=== PATIENT | male | born 1940 | race Caucasian/White ===

== ENCOUNTER 2018-08-02 20:57 | Inpatient (IN) | payer OTHER ==
--- NOTE | 2018-08-02 21:17 | PDOC ---
History of Present Illness - General Chief Complaint: Syncope/Near Syncope Stated Complaint: SYNCOPE Time Seen by Provider: 08/02/18 21:13 History Source: Patient, Family (daughter) Exam Limitations: Language Barrier - History of Present Illness Initial Comments: 08/02/18 22:18 Pt is a 78yo F with PMH of HTN, HLD, TIA BIBA s/p fall due to dizziness. Per daughter pt used the bathroom and felt dizzy when he was walking out. He fell to the floor (witness by ) and hurt his shoulder. He denies LOC and did not hit his head. Daughter was called and came over, she stated her father looked pale and was incoherent. He endorses dizziness and R shoulder pain. He denies chest pain, sob, abdominal pain, n/v/d, vision changes, tinnitus, fevers, chills , numbness, tingling, focal neurological deficits. PMD: Johnathan Card: Roxanne PMH: see hpi PSH: craniotomy Social: denies Meds: see med rec Allergies: nkda Past History - Past Medical History Allergies/Adverse Reactions: Allergies Allergy/AdvReac Type Severity Reaction Status Date / Time No Known Allergies Allergy Verified 08/02/18 21:12 Home Medications: Ambulatory Orders Amlodipine Besylate [Norvasc -] 5 mg PO BID 09/11/14 Aspirin [Aspirin EC] 81 mg PO BID 09/11/14 Aspirin/Dipyridamole [Aggrenox -] 1 combo PO BID 09/11/14 Folic Acid - 1 mg PO DAILY 09/11/14 Lisinopril [Prinivil -] 30 mg PO BID 09/11/14 Losartan Potassium [Cozaar] 50 mg PO BID 09/11/14 Pravastatin Sodium [Pravachol -] 40 mg PO HS 09/11/14 Tramadol HCl 0.5 tab PO QID PRN #10 tablet 06/04/15 Amlodipine Besylate [Norvasc -] 10 mg PO DAILY 03/13/18 Aspirin/Dipyridamole [Aggrenox -] 1 combo PO BID 03/13/18 Hydralazine HCl 25 mg PO BID 03/13/18 Hydrochlorothiazide [Hctz -] 12.5 mg PO DAILY 03/13/18 Metoprolol Tartrate 37.5 mg PO BID 03/13/18 Valsartan 320 mg PO DAILY 03/13/18 Anemia: No Asthma: No Cancer: No Cardiac Disorders: No CVA: Yes (2 TIAs) COPD: No CHF: No Dementia: Yes ("SLIGHT") Diabetes: No GI Disorders: No Disorders: No HTN: Yes Hypercholesterolemia: Yes Liver Disease: No Seizures: No Thyroid Disease: No - Surgical History Abdominal Surgery: No Appendectomy: No Cardiac Surgery: No Cholecystectomy: No Lung Surgery: No Neurologic Surgery: Yes (craheidiotomy 1965) Orthopedic Surgery: No - Suicide/Smoking/Psychosocial Hx Smoking History: Never smoked Have you smoked in the past 12 months: No Number of Cigarettes Smoked Daily: 0 Information on smoking cessation initiated: No Hx Alcohol Use: Yes (occasional) Drug/Substance Use Hx: No Substance Use Type: None Review of Systems - Review of Systems Constitutional: No: Chills, Fever, Loss of Appetite, Weakness HEENTM: No: Blurred Vision, Double Vision, Nose Congestion, Throat Pain Respiratory: No: Cough, Shortness of Breath Cardiac (ROS): No: Chest Pain, Irregular Heart Rate, Lightheadedness, Palpitations, Syncope ABD/GI: No: Blood Streaked Bowels, Constipated, Diarrhea, Nausea, Rectal Bleeding, Vomiting, Tarry Stools : No: Burning, Frequency, Flank Pain Musculoskeletal: No: Symptoms Reported Integumentary: No: Symptoms Reported Neurological: Yes: Dizziness. No: Headache, Numbness, Tingling, Tremors, Weakness *Physical Exam - Vital Signs Last Vital Signs Temp Pulse Resp BP Pulse Ox 98.1 F 82 17 140/63 97 08/02/18 20:57 08/02/18 20:57 08/02/18 20:57 08/02/18 20:57 08/02/18 20:57 - Physical Exam General Appearance: Yes: Nourished, Appropriately Dressed. No: Apparent Distress HEENT: positive: EOMI, JUANIS, Normal ENT Inspection, Other (ears full of wax) Neck: positive: Trachea midline, Supple. negative: Carotid bruit, Lymphadenopathy (R), Lymphadenopathy (L) Respiratory/Chest: positive: Lungs Clear, Normal Breath Sounds. negative: Crackles, Rales, Rhonchi, Stridor, Wheezing Cardiovascular: positive: Regular Rhythm, Regular Rate, S1, S2, Systolic Murmur. negative: Edema, JVD Vascular Pulses: Carotid (R): 2+, Carotid (L): 2+, Dorsalis-Pedis (R): 2+, Doralis-Pedis (L): 2+ Gastrointestinal/Abdominal: positive: Normal Bowel Sounds, Soft. negative: Distended, Guarding, Rebound, Tenderness, Hernia Musculoskeletal: negative: CVA Tenderness Extremity: positive: Normal Capillary Refill. negative: Pedal Edema, Swelling Integumentary: positive: Normal Color, Dry, Warm Neurologic: positive: electronic technologist II-XII NML intact, Fully Oriented, Alert, Normal Mood/ Affect, Normal Response, Motor Strength 5/5 Moderate Sedation - Procedure Monitoring Vital Signs: Procedure Monitoring Vital Signs Temperature 98.1 F 08/02/18 20:57 Pulse Rate 82 08/02/18 20:57 Respiratory Rate 17 08/02/18 20:57 Blood Pressure 140/63 08/02/18 20:57 O2 Sat by Pulse Oximetry (%) 97 08/02/18 20:57 ED Treatment Course - LABORATORY CBC & Chemistry Diagram: 08/02/18 21:28 08/02/18 21:28 Medical Decision Making - Medical Decision Making 08/02/18 22:21 Pt is a 78yo F with PMH of HTN, HLD, TIA BIBA s/p fall due to dizziness. Per daughter pt used the bathroom and felt dizzy when he was walking out. He fell to the floor (witness by ) and hurt his shoulder. He denies LOC and did not hit his head. Daughter was called and came over, she stated her father looked pale and was incoherent. He endorses dizziness and R shoulder pain. He denies chest pain, sob, abdominal pain, n/v/d, vision changes, tinnitus, fevers, chills , numbness, tingling, focal neurological deficits. Vitals: wnl PE: no neurological deficits, no cerebellar deficits. Systolic murmur ddx includesb ut not limited to cva/tia, acs, vertigo, acs, arrhythmia, metabolic/electrolyte disturbance -cbc, cmp, trop, coags, bnp ekg, cxr, ct head, shoulder xray -tylenol, meclizine CXR does not show acute changes. EKG: multiple t wave inversions in lateral leads (same to prior ekg of last year around march 2018). No new changes. Pt reports feeling better, no more dizziness. Pt daughter states pt seems at baseline. labs significant for Cr 1.9, BUN 22 and GFR 35 (was 1.4/1.5 before). BNP 5000. Spoke to Dr. Mann, recommended admission to tele. PT admitted. *DC/Admit/Observation/Transfer Diagnosis at time of Disposition: GUY (acute kidney injury) CHF (congestive heart failure) Qualifiers: Heart failure type: unspecified Heart failure chronicity: acute Qualified Code( s): I50.9 - Heart failure, unspecified - Discharge Dispostion Condition at time of disposition: Good Decision to Admit order: Yes - Referrals - Patient Instructions - Post Discharge Activity
[2018-08-02] MEDS ORDERED: MECLIZINE HCL 25 MG TABLET (FP) PO ONE (21:27)
[2018-08-02] MEDS ORDERED: MECLIZINE HCL 25 MG TABLET (FP) ONE (21:36)
[2018-08-02 21:37] LABS: BASO % 0.5 % (0-2.0); EOS % 0.4 % (0-4.5); HEMATOCRIT 40.4 % (35.4-49); LYMPH % 7.5 % (8-40); MCH 30.5 pg (25.7-33.7); MCHC 34.8 g/dl (32.0-35.9); MEAN CELL VOLUME 87.6 fl (80-96); MEAN PLT VOLUME 8.2 fl (7.5-11.1); MONO % 12.9 % (3.8-10.2); NEUT % 78.7 % (42.8-82.8); PLATELET COUNT 168 K/MM3 (134-434); RBC 4.61 M/mm3 (4.00-5.60); RDW 14.3 % (11.9-15.9); WHITE BLOOD COUNT 8.3 K/mm3 (4.0-10.0)
[2018-08-02] MEDS ORDERED: ACETAMINOPHEN 500 MG TABLET (FP) PO ONE (21:47)
[2018-08-02] MEDS ORDERED: ACETAMINOPHEN 325 MG TABLET (FP) ONE (21:56)
[2018-08-02 22:05] LABS: ALBUMIN 3.6 g/dl (3.4-5.0); ALK PHOS 78 U/L (45-117); ANION GAP 10 MMOL/L (8-16); BILIRUBIN,TOTAL 0.3 mg/dL (0.2-1); BLOOD UREA NITROGEN 31 mg/dL (7-18); CALCIUM 8.6 mg/dL (8.5-10.1); CHLORIDE 102 mmol/L (98-107); CO2 23 mmol/L (21-32); CREATININE 1.9 mg/dL (0.55-1.3); GLUCOSE,RANDOM 180 mg/dL (74-106); MAGNESIUM 2.2 mg/dL (1.8-2.4); POTASSIUM 3.6 mmol/L (3.5-5.1); SGOT/AST 20 U/L (15-37); SGPT/ALT 40 U/L (13-61); SODIUM 135 mmol/L (136-145); TOT PROT 6.4 g/dl (6.4-8.2)
--- NOTE | 2018-08-02 22:25 | PDOC ---
Attending Attestation - HPI HPI: Patient is a 78M with history of TIAx2, HTN, HLD, craniotomy s/p trauma in distant who presents s/p witnessed near syncopal fall after urinating earlier. Patients witnessed the incident. Patient states prior to the event it felt like everything was spinning. Patients daughter states her mother noted patient was pale in color when it first happened but now in the ED he is starting to perk up. He is also complaining of right shoulder pain, able to range it. Denies any headache, chest pain, shortness of breath, abdominal pain, nausea,or vomiting. 08/02/18 22:25 - Physicial Exam PE: GENERAL: Awake, alert, and fully oriented, in no acute distress HEAD: No signs of trauma EYES: PERRLA, EOMI, sclera anicteric, conjunctiva clear. No nystagmus. ENT: Ears blocked with cerumen, hearing grossly normal, nares patent, oropharynx clear without exudates. Moist mucosa NECK: Normal ROM, supple, no lymphadenopathy, JVD, or masses LUNGS: Breath sounds equal, clear to auscultation bilaterally. No wheezes, and no crackles HEART: Regular rate and rhythm, normal S1 and S2, systolic ejection murmor, no rubs or gallops ABDOMEN: Soft, nontender, normoactive bowel sounds, some gas noted. EXTREMITIES: Right shoulder tender and painful. No pitting edema. No cords, erythema, or tenderness NEUROLOGICAL: Cranial nerves II through XII grossly intact. Normal speech, normal gait SKIN: Warm, Dry, normal turgor, no rashes or lesions noted. <Leena Berg - Last Filed: 08/02/18 22:25> - Resident Resident Name: Lady Brand - ED Attending Attestation I have performed the following: I have examined & evaluated the patient, The case was reviewed & discussed with the resident, I agree w/resident's findings & plan, Exceptions are as noted - Medical Decision Making 08/02/18 23:19 Pt is admitted to telemetry unit/ <Amarilys Godinez - Last Filed: 08/02/18 23:19> Attestations - Attestations 08/02/18 22:29 Documentation prepared by Leena Berg, acting as medical chemist for Amarilys Godinez MD. <Leena Berg - Last Filed: 08/02/18 22:25>
[2018-08-02 22:27] LABS: INR 1.06 (0.83-1.09); PROTHROMBIN TIME (PATIENT) 12.5 SEC (9.7-13.0)
--- NOTE | 2018-08-03 09:11 | PN ---
Progress Note, Physician Chief Complaint: Well known to me from office and prior hospitalizations: In summary, his pertinent cardiac hx includes moderate , non-obstx CAD, Chronic HTN and prior strokes. He now presents with: " Pt is a 78yo F with PMH of HTN, HLD, TIA BIBA s/p fall due to dizziness. Per daughter pt used the bathroom and felt dizzy when he was walking out. He fell to the floor (witness by ) and hurt his shoulder. He denies LOC and did not hit his head. Daughter was called and came over, she stated her father looked pale and was incoherent. He endorses dizziness and R shoulder pain. He denies chest pain, sob, abdominal pain, n/v/d, vision changes, tinnitus, fevers, chills , numbness, tingling, focal neurological deficits. " Above HPI reviewed from ER records. On my hx, he denies chest pain or SOB. Denies palpitations. Denies LOC. History of Present Illness: ECG reviewed: NSR, left axis, LVH, NSST changes. - Current Medication List Current Medications: Active Medications Atorvastatin Calcium (Lipitor -) 20 mg PO HS LELAND Dipyridamole/Aspirin (Aggrenox -) 1 combo PO BID LELAND Hydralazine HCl (Apresoline -) 25 mg PO BID LELAND Hydrochlorothiazide (Hctz -) 12.5 mg PO DAILY LELAND Nifedipine (Procardia Xl -) 90 mg PO DAILY LELAND Spironolactone (Aldactone -) 25 mg PO DAILY LELAND - Objective Vital Signs: Vital Signs Temperature 97.0 F L 08/03/18 07:31 Pulse Rate 77 08/03/18 07:31 Respiratory Rate 18 08/03/18 07:31 Blood Pressure 155/92 08/03/18 07:31 O2 Sat by Pulse Oximetry (%) 95 08/03/18 07:31 Constitutional: Yes: No Distress, Calm Eyes: Yes: Conjunctiva Clear Cardiovascular: Yes: Regular Rate and Rhythm, Murmur (2/6 AUGIE RSB c/w with his hx moderate .) Respiratory: Yes: CTA Bilaterally (no wheezing or rales.) Gastrointestinal: Yes: Soft (NT) Edema: No Neurological: Yes: Alert, Oriented ...Motor Strength: WNL Labs: CBC, BMP 08/02/18 21:28 08/02/18 21:28 INR, PTT INR 1.06 (0.83-1.09) 08/02/18 21:28 Laboratory Tests 08/02/18 08/02/18 08/03/18 21:55 22:10 05:10 Creatine Kinase 54 Troponin I 0.03 0.02 B-Natriuretic Peptide 4925.9 H - ....Imaging Chest X-ray: Image Reviewed EKG: Image Reviewed (as above.) Problem List - Problems (1) Fall Code(s): W19.XXXA - UNSPECIFIED FALL, INITIAL ENCOUNTER (2) Aortic stenosis Code(s): I35.0 - NONRHEUMATIC AORTIC (VALVE) STENOSIS (3) Abnormal ECG Code(s): R94.31 - ABNORMAL ELECTROCARDIOGRAM [ECG] [EKG] (4) Hypertension Code(s): I10 - ESSENTIAL (PRIMARY) HYPERTENSION (5) Stroke Assessment/Plan: Chronic Code(s): I63.9 - CEREBRAL INFARCTION, UNSPECIFIED Qualifiers: Laterality of affected vessel: unspecified (6) ASHD (arteriosclerotic heart disease) Code(s): I25.10 - ATHSCL HEART DISEASE OF [place] CORONARY ARTERY W/O ANG PCTRS (7) Elevated brain natriuretic peptide (BNP) level Code(s): R79.89 - OTHER SPECIFIED ABNORMAL FINDINGS OF BLOOD CHEMISTRY (8) GUY (acute kidney injury) Code(s): N17.9 - ACUTE KIDNEY FAILURE, UNSPECIFIED Assessment/Plan IMP: Fall, r/o syncope Non-obstructive CAD Moderate Elevated BNP Abnl ECG--> chronic Chronic HTN Prior CVA REC: 1. Tele to r/o arrhythmia 2. Repeat echo to re-assess severity 3. Carotid US 4. Orthostatics. 5. Elevated BNP noted- in this case likely chronically elevated due to chronic valvular heart disease (Aortic Stenosis) and hypertensive heart disease/ LVH ( Chronic diastolic dysfx). Does not appear to be clinically volume overloaded. Will follow.
--- NOTE | 2018-08-03 09:35 | CON.NEURO ---
Consult Consult Specialty:: Jourdan Referred by:: Kayli - History of Present Illness History of Present Illness: this is a very pleasant 78-year-old right-handed Welsh speaking man with history of prior TIA high cholesterol presents to the emergency room being referred by his family status post fall what happens the patient was at his usual status of health until this morning when he became confused no chest pain or palpitation patient became pale fell on the floor no seizure-like activity patient came into the emergency room EKG was sinus rhythm. I interviewed the patient in the emergency room daughter was at the bedside. No recent travel no recent head trauma. Patient had similar but to a lesser extent episode with confusion and listeness and was evaluated by cardiology in the past. 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 injury in without neuro deficits) Cardio/Vascular: Yes: HTN, Hyperlipdemia - Past Surgical History Past Surgical History: Yes: Craniotomy - Alcohol/Substance Use Hx Alcohol Use: Yes (occasional) Number of Drinks Daily: 1 History of Substance Use: reports: None - Smoking History Smoking history: Never smoked Have you smoked in the past 12 months: No Aproximately how many cigarettes per day: 0 - Social History ADL: Independent History of Recent Travel: No Home Medications - Allergies Allergies/Adverse Reactions: Allergies Allergy/AdvReac Type Severity Reaction Status Date / Time No Known Allergies Allergy Verified 08/02/18 21:12 - Home Medications Home Medications: Ambulatory Orders Aspirin/Dipyridamole [Aggrenox -] 1 combo PO BID 03/13/18 Hydralazine HCl 25 mg PO BID 03/13/18 Atorvastatin Ca [Lipitor] 40 mg PO HS 08/03/18 Chlorthalidone 25 mg PO AM 08/03/18 Escitalopram Oxalate [Lexapro -] 5 mg PO HS 08/03/18 Labetalol HCl 100 mg PO DAILY 08/03/18 Nifedipine ER [Procardia Xl -] 90 mg PO DAILY 08/03/18 Spironolactone 25 mg PO DAILY 08/03/18 Family Disease History - Family Disease History Family History: Unable to Obtain Family Disease History: Heart Disease: Mother, Brother Review of Systems - Review of Systems Constitutional: reports: No Symptoms Eyes: reports: No Symptoms Neurological: reports: Headache, Incoordination, Numbness Physical Exam-Neuro Vital Signs: Vital Signs Temperature 97.0 F L 08/03/18 07:31 Pulse Rate 77 08/03/18 07:31 Respiratory Rate 18 08/03/18 07:31 Blood Pressure 155/92 08/03/18 07:31 O2 Sat by Pulse Oximetry (%) 95 08/03/18 07:31 Constitutional: Yes: Well Nourished Neck: Yes: WNL Cardiovascular: Yes: WNL Labs: CBC, BMP 08/02/18 21:28 08/02/18 21:28 INR, PTT INR 1.06 (0.83-1.09) 08/02/18 21:28 - Neuro Exam Level Of Consciousness: Yes: Oriented to Person, Oriented to Place, Oriented to Time Eyes: Yes: PERRLA Speech: WNL Dominant Hand: Right Cranial Nerves II-XII Intact: Yes Gag: Present DTR's: 1+ Left Bicep, 1+ Right Bicep, 1+ Left Brachioradialis, 1+ Right Brachioradialis Response to light touch: Normal Response to pain prick: Normal Response to temperature: Normal Motor Strength: 3/5: Left Arm, Right Arm, Left Leg, Right Leg Gait: Deferred Imaging - Results Cat Scan: Image Reviewed Problem List - Problems (1) Fall Assessment/Plan: mmost probably vasovagal syncope in man with history of prior TIA Cannot rule out cardiac arrhythmia Doubt this is a seizure 1. Seizure precautions. 2. Patient needs to stay and be monitored. 3. Follow-up with cardiology. 4. EEG. 5. Check orthostasis every shift. Code(s): W19.XXXA - UNSPECIFIED FALL, INITIAL ENCOUNTER
[2018-08-03] MEDS ORDERED: ACETAMINOPHEN 325 MG TABLET (FP) PO ONE (10:12)
[2018-08-03] MEDS ORDERED: ACETAMINOPHEN 325 MG TABLET (FP) ONE (11:32)
[2018-08-03] MEDS: SPIRONOLACTONE 25 MG TABLET (FP) PO SCH (12:36)
[2018-08-03] MEDS: LABETALOL HCL 100 MG TABLET (FP) PO SCH ×2 (12:37→22:28)
[2018-08-03] MEDS: hydrALAZINE HCL 25 MG TABLET (FP) PO SCH ×2 (12:37→22:28)
[2018-08-03] MEDS: ASPIRIN/DIPYRIDAMOLE 25 MG/200 MG CAPSULE (FP) PO SCH ×2 (12:37→22:27)
[2018-08-03] MEDS: NIFEdipine E.R. 90 MG TABLET (FP) PO SCH (12:37)
[2018-08-03] MEDS: HYDROCHLOROTHIAZIDE 12.5 MG CAPSULE (FP) PO SCH (12:37)
[2018-08-03] MEDS ORDERED: ALPRAZolam 2 MG TABLET PO ONE (12:52)
[2018-08-03] MEDS ORDERED: ALPRAZolam 0.25 MG TABLET PO ONE (12:52)
--- NOTE | 2018-08-03 13:17 | HP ---
Admitting History and Physical - Primary Care Physician PCP: Mio Duckworth (for Dr Mann) - Admission Chief Complaint: Fainting History of Present Illness: 78yo salvad[place] M with PMH of HTN, ASHD, aortic valve dz, past TIA who was BIBA s/p in home fall due to abrupt dizziness. Per daughter pt used the bathroom to urinate and felt dizzy when he was walking out. He fell to the floor (witness by ) and hurt his shoulder. He denies hitting head or LOC. Daughter was called and came over, she stated her father looked pale and was briefly incoherent but regained his usual status even before EMS arrived. The dizziness occured just once yesterday prior to falling down. He did not have any episodes prior to this, though daughter states that he does get "dizzy" for 1 hr after he takes his meds nearly every day. She also states that he does NOT always take his meds as Rx'd because of the they way they make him feel. The dizziness last only for about 1 hr, and then he goes about his usual routine. His last "fainting" episode was late in 2018 when he was admitted. In the aftermath, he' d been followed by his Java Swing Developer who was adjusting his cardiac meds to better control his elevated BP. He some R shoulder pain, where he struck when he fell, but otherwise he feels "okay". He denies chest pain, palpitations, sob , slurred speech, focal weakness, abdominal pain, n/v/d, vision changes, tinnitus, fevers, chills, numbness, tingling. He denied drinking excessively. Yesterday, he got upset regarding some personal issues, but was short lived. he is prone to getting easily upset. 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 (craniotomy for traumatic injury in 1959's without neuro deficits) Cardiovascular: Yes: Aortic Stenosis, HTN, Hyperlipdemia Renal/: Yes: Renal Inusuff Psych: Yes: Anxiety - Past Surgical History Past Surgical History: Yes: Craniotomy - Smoking History Smoking history: Never smoked Have you smoked in the past 12 months: No Aproximately how many cigarettes per day: 0 - Alcohol/Substance Use Hx Alcohol Use: Yes (occasional) Number of Drinks Daily: 1 History of Substance Use: reports: None - Social History Usual Living Arrangement: Yes: With Spouse ADL: Independent History of Recent Travel: No Home Medications - Allergies Allergies/Adverse Reactions: Allergies Allergy/AdvReac Type Severity Reaction Status Date / Time No Known Allergies Allergy Verified 08/02/18 21:12 - Home Medications Home Medications: Ambulatory Orders Aspirin/Dipyridamole [Aggrenox -] 1 combo PO BID 03/13/18 Hydralazine HCl 25 mg PO BID 03/13/18 Atorvastatin Ca [Lipitor] 40 mg PO HS 08/03/18 Chlorthalidone 25 mg PO AM 08/03/18 Escitalopram Oxalate [Lexapro -] 5 mg PO HS 08/03/18 Labetalol HCl 100 mg PO DAILY 08/03/18 Nifedipine ER [Procardia Xl -] 90 mg PO DAILY 08/03/18 Spironolactone 25 mg PO DAILY 08/03/18 Family Disease History - Family Disease History Family Disease History: Heart Disease: Mother, Brother Review of Systems - Review of Systems Constitutional: reports: No Symptoms Eyes: reports: No Symptoms HENT: reports: No Symptoms Neck: reports: No Symptoms Cardiovascular: reports: No Symptoms Respiratory: reports: No Symptoms Gastrointestinal: reports: No Symptoms Genitourinary: reports: No Symptoms Musculoskeletal: reports: Joint Pain (Rt shoulder) Integumentary: reports: No Symptoms Neurological: reports: No Symptoms Endocrine: reports: No Symptoms Hematology/Lymphatic: reports: No Symptoms Psychiatric: reports: Altered Sleep Pattern, Anxiety Physical Examination Vital Signs: Vital Signs Temperature 97.0 F L 08/03/18 07:31 Pulse Rate 81 08/03/18 11:32 Respiratory Rate 18 08/03/18 11:32 Blood Pressure 141/61 08/03/18 11:32 O2 Sat by Pulse Oximetry (%) 93 L 08/03/18 11:32 Findings/Remarks: skin--no acute lesions appreciated head--old Rt front surg scars eyes--midline; EOMI oral--no droop; oral structures & tongue all at midline neck--supple, no tenderness; no masses, nodes (+) bilat bruits vs Transm M lungs--grossly clear heart--RR 3/6 M transm to neck abd--grossly benign ext--trace dependent edema; no ischemic changes back--no spinal tenderness appreciated neuro--alert; fully alert and coherent; good eye contact; no motor/sens deficits ; no ataxia appreciated; no tremors, follows commands; cogn intact Labs: CBC, BMP 08/02/18 21:28 08/02/18 21:28 CBCD WBC 8.3 K/mm3 (4.0-10.0) 08/02/18 21:28 RBC 4.61 M/mm3 (4.00-5.60) 08/02/18 21:28 Hgb 14.0 GM/dL (11.7-16.9) 08/02/18 21:28 Hct 40.4 % (35.4-49) 08/02/18 21:28 MCV 87.6 fl (80-96) 08/02/18 21:28 MCHC 34.8 g/dl (32.0-35.9) 08/02/18 21:28 RDW 14.3 % (11.9-15.9) 08/02/18 21:28 Plt Count 168 K/MM3 (134-434) D 08/02/18 21:28 MPV 8.2 fl (7.5-11.1) 08/02/18 21:28 CMP Sodium 135 mmol/L (136-145) L 08/02/18 21:28 Potassium 3.6 mmol/L (3.5-5.1) 08/02/18 21:28 Chloride 102 mmol/L (98-107) 08/02/18 21:28 Carbon Dioxide 23 mmol/L (21-32) 08/02/18 21:28 Anion Gap 10 MMOL/L (8-16) 08/02/18 21:28 BUN 31 mg/dL (7-18) H 08/02/18 21:28 Creatinine 1.9 mg/dL (0.55-1.3) H 08/02/18 21:28 Creat Clearance w eGFR 34.55 (>60) 08/02/18 21:28 Random Glucose 180 mg/dL (74-106) H 08/02/18 21:28 Calcium 8.6 mg/dL (8.5-10.1) 08/02/18 21:28 Total Bilirubin 0.3 mg/dL (0.2-1) 08/02/18 21:28 AST 20 U/L (15-37) 08/02/18 21:28 ALT 40 U/L (13-61) 08/02/18 21:28 Alkaline Phosphatase 78 U/L (45-117) 08/02/18 21:28 Total Protein 6.4 g/dl (6.4-8.2) 08/02/18 21:28 Albumin 3.6 g/dl (3.4-5.0) 08/02/18 21:28 CARDIAC ENZYMES Creatine Kinase 55 U/L (26-308) 08/03/18 09:25 Troponin I 0.02 ng/ml (0.00-0.05) 08/03/18 09:25 Imaging - Results Chest X-ray: Report Reviewed X-ray: Report Reviewed Cat Scan: Report Reviewed EKG: Report Reviewed (lat wall T wave Inv (not new)) Assessment/Plan 1> syncopal episode--as described; post micturation. Could be micturation syncope and the presence of could have facilitated the syncopal event. Other possibilities include: arrhythmia (? type) which he did not display on monitor; TIA which he has had in the past but no post syncopal finding to suggest a CVA; doubt seizure or hypoglycemia PLAN: Monitor; cont all meds; orthstatic BP; Echo and Carotid duplex 2> Htn--with ASHD and valve dz; BP tends to run on high side and requires multiple agents for adequate control; BNP elevated near 5000 but trops are WNL. CXR shows enlarged heart with central marking but no definite CHF. he may have chronic diastolic dysf which can account for the high BNP 3> --degree not known; echo ordered 4> Lipidemia--cont statin 5> Hx of TIA--without gross residual effects; cont aggrenox 6> anxiety dz--chronic; will Rx prn xanax;may need SSRI 7> Rt shoulder contusion--no Xray evidence of Fx or gross derangement ~~~~~~~~~~~~~~~~~~~~~~~~~~~~~~~~~~~~~~~~ dr Duckworth
[2018-08-03] MEDS ORDERED: ACETAMINOPHEN WITH CODEINE 300MG/30MG TABLET PO PRN (17:05)
--- NOTE | 2018-08-03 17:29 | EKG ---
Test Reason : Blood Pressure : / mmHG Vent. Rate : 070 BPM Atrial Rate : 070 BPM P-R Int : 180 ms QRS Dur : 108 ms QT Int : 422 ms P-R-T Axes : 042 -30 184 degrees QTc Int : 455 ms SINUS RHYTHM WITH PREMATURE ATRIAL COMPLEXES POSSIBLE LEFT ATRIAL ENLARGEMENT LEFT AXIS DEVIATION LEFT VENTRICULAR HYPERTROPHY T WAVE ABNORMALITY, CONSIDER LATERAL ISCHEMIA ABNORMAL ECG WHEN COMPARED WITH ECG OF 02-AUG-2018 22:21, T WAVE VARIATION Confirmed by THEO DOWNS, HATTIE ([id number]) on 08/03/2018 5:29:18 PM Referred By: Confirmed By:HATTIE VENEGAS MD
--- NOTE | 2018-08-03 17:31 | EKG ---
Test Reason : Blood Pressure : / mmHG Vent. Rate : 078 BPM Atrial Rate : 078 BPM P-R Int : 180 ms QRS Dur : 106 ms QT Int : 418 ms P-R-T Axes : 044 -27 270 degrees QTc Int : 476 ms SINUS RHYTHM WITH PREMATURE SUPRAVENTRICULAR COMPLEXES POSSIBLE LEFT ATRIAL ENLARGEMENT LEFT VENTRICULAR HYPERTROPHY T WAVE ABNORMALITY, CONSIDER INFEROLATERAL ISCHEMIA PROLONGED QT ABNORMAL ECG WHEN COMPARED WITH ECG OF 15-FEB-2010 14:22, T WAVE INVERSION IS SEEN Confirmed by HATTIE VENEGAS MD ([id number]) on 08/03/2018 5:31:28 PM Referred By: Confirmed By:HATTIE VENEGAS MD
[2018-08-03] MEDS: ATORVASTATIN CA 20 MG TABLET (FP) PO SCH (22:28)
[2018-08-04 08:58] LABS: ANION GAP 9 MMOL/L (8-16); BLOOD UREA NITROGEN 35 mg/dL (7-18); CHLORIDE 103 mmol/L (98-107); CO2 25 mmol/L (21-32); CREATININE 1.9 mg/dL (0.55-1.3); GLUCOSE,RANDOM 87 mg/dL (74-106); POTASSIUM 3.3 mmol/L (3.5-5.1); SODIUM 136 mmol/L (136-145)
--- NOTE | 2018-08-04 08:59 | PN ---
Progress Note, Physician Chief Complaint: Alert, no complaints Going for EEG - Current Medication List Current Medications: Active Medications Acetaminophen/Codeine Phosphate (Tylenol # 3 -) 1 tab PO Q6H PRN PRN Reason: PAIN LEVEL 4 - 6 Last Admin: 08/03/18 17:23 Dose: 1 tab Alprazolam (Xanax -) 0.25 mg PO Q8H PRN PRN Reason: ANXIETY Atorvastatin Calcium (Lipitor -) 20 mg PO HS [facility] Last Admin: 08/03/18 22:28 Dose: 20 mg Dipyridamole/Aspirin (Aggrenox -) 1 combo PO BID [facility] Last Admin: 08/03/18 22:27 Dose: 1 combo Hydralazine HCl (Apresoline -) 25 mg PO BID [facility] Last Admin: 08/03/18 22:28 Dose: 25 mg Hydrochlorothiazide (Hctz -) 12.5 mg PO DAILY [facility] Last Admin: 08/03/18 12:37 Dose: 12.5 mg Labetalol HCl (Normodyne -) 100 mg PO BID [facility] Last Admin: 08/03/18 22:28 Dose: 100 mg Nifedipine (Procardia Xl -) 90 mg PO DAILY [facility] Last Admin: 08/03/18 12:37 Dose: 90 mg Spironolactone (Aldactone -) 25 mg PO DAILY [facility] Last Admin: 08/03/18 12:36 Dose: 25 mg - Objective Vital Signs: Vital Signs Temperature 98.4 F 08/04/18 02:00 Pulse Rate 81 08/04/18 07:00 Respiratory Rate 18 08/04/18 02:00 Blood Pressure 135/71 08/04/18 07:00 O2 Sat by Pulse Oximetry (%) 94 L 08/03/18 21:00 Constitutional: Yes: No Distress, Calm Eyes: Yes: Conjunctiva Clear, EOM Intact HENT: Yes: Atraumatic, Normocephalic, Other Neck: Yes: Supple Cardiovascular: Yes: Regular Rate and Rhythm, Other (2/6 AUGIE RSB c/w moderate ) Respiratory: Yes: CTA Bilaterally Gastrointestinal: Yes: Soft Edema: No Neurological: Yes: Alert, Oriented ...Motor Strength: WNL Labs: CBC, BMP 08/02/18 21:28 08/04/18 07:00 INR, PTT INR 1.06 (0.83-1.09) 08/02/18 21:28 Problem List - Problems (1) Fall Code(s): W19.XXXA - UNSPECIFIED FALL, INITIAL ENCOUNTER (2) Aortic stenosis Code(s): I35.0 - NONRHEUMATIC AORTIC (VALVE) STENOSIS (3) Abnormal ECG Code(s): R94.31 - ABNORMAL ELECTROCARDIOGRAM [ECG] [EKG] (4) Hypertension Code(s): I10 - ESSENTIAL (PRIMARY) HYPERTENSION (5) Stroke Code(s): I63.9 - CEREBRAL INFARCTION, UNSPECIFIED Qualifiers: Laterality of affected vessel: unspecified (6) ASHD (arteriosclerotic heart disease) Code(s): I25.10 - ATHSCL HEART DISEASE OF [place] CORONARY ARTERY W/O ANG PCTRS (7) Elevated brain natriuretic peptide (BNP) level Code(s): R79.89 - OTHER SPECIFIED ABNORMAL FINDINGS OF BLOOD CHEMISTRY (8) GUY (acute kidney injury) Code(s): N17.9 - ACUTE KIDNEY FAILURE, UNSPECIFIED Assessment/Plan IMP: Fall, r/o syncope 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 Holter to r/o arrhythmia 2. Repeat echo to re-assess severity 3. MRA Carotid to evaluate possible bilateral stenosis, assess severity. 4. Orthostatics. 5. Elevated BNP noted- in this case likely chronically elevated due to chronic valvular heart disease (Aortic Stenosis) and hypertensive heart disease/ LVH ( Chronic diastolic dysfx). Does not appear to be clinically volume overloaded. 6. EEG pending. Will follow.
[2018-08-04] MEDS ORDERED: POTASSIUM CHLORIDE TABS 20 MEQ TABLET.ER (FP) PO ONE (10:15)
[2018-08-04] MEDS: ASPIRIN/DIPYRIDAMOLE 25 MG/200 MG CAPSULE (FP) PO SCH ×2 (10:33→23:42)
[2018-08-04] MEDS: NIFEdipine E.R. 90 MG TABLET (FP) PO SCH (10:33)
[2018-08-04] MEDS: HYDROCHLOROTHIAZIDE 12.5 MG CAPSULE (FP) PO SCH (10:34)
[2018-08-04] MEDS: SPIRONOLACTONE 25 MG TABLET (FP) PO SCH (10:34)
[2018-08-04] MEDS: hydrALAZINE HCL 25 MG TABLET (FP) PO SCH ×2 (10:34→23:42)
[2018-08-04] MEDS: LABETALOL HCL 100 MG TABLET (FP) PO SCH ×2 (10:34→23:42)
--- NOTE | 2018-08-04 15:06 | PN ---
Progress Note (short form) - Note Progress Note: Current Medications Acetaminophen/Codeine Phosphate (Tylenol # 3 -) 1 tab PO Q6H PRN PRN Reason: PAIN LEVEL 4 - 6 Last Admin: 08/03/18 17:23 Dose: 1 tab Alprazolam (Xanax -) 0.25 mg PO Q8H PRN PRN Reason: ANXIETY Atorvastatin Calcium (Lipitor -) 20 mg PO HS [facility] Last Admin: 08/03/18 22:28 Dose: 20 mg Dipyridamole/Aspirin (Aggrenox -) 1 combo PO BID [facility] Last Admin: 08/04/18 10:33 Dose: 1 combo Hydralazine HCl (Apresoline -) 25 mg PO BID [facility] Last Admin: 08/04/18 10:34 Dose: 25 mg Hydrochlorothiazide (Hctz -) 12.5 mg PO DAILY [facility] Last Admin: 08/04/18 10:34 Dose: 12.5 mg Labetalol HCl (Normodyne -) 100 mg PO BID [facility] Last Admin: 08/04/18 10:34 Dose: 100 mg Nifedipine (Procardia Xl -) 90 mg PO DAILY [facility] Last Admin: 08/04/18 10:33 Dose: 90 mg Spironolactone (Aldactone -) 25 mg PO DAILY [facility] Last Admin: 08/04/18 10:34 Dose: 25 mg Laboratory Results - last 24 hr 08/03/18 08/04/18 08/04/18 16:44 06:30 07:00 ESR 13 Sodium Potassium Chloride Carbon Dioxide Anion Gap BUN Creatinine Creat Clearance w eGFR POC Glucometer 119 101 Random Glucose Hemoglobin A1c % Calcium Creatine Kinase Troponin I TSH 08/04/18 08/04/18 08/04/18 07:00 07:00 11:30 ESR Sodium 136 Potassium 3.3 L Chloride 103 Carbon Dioxide 25 Anion Gap 9 BUN 35 H Creatinine 1.9 H Creat Clearance w eGFR 34.55 POC Glucometer 170 Random Glucose 87 Hemoglobin A1c % 6.1 Calcium 8.0 L Creatine Kinase 51 Troponin I 0.04 TSH 3.06 D Vital Signs Temperature 98.2 F 08/04/18 10:00 Pulse Rate 81 08/04/18 10:00 Respiratory Rate 20 08/04/18 10:00 Blood Pressure 160/86 08/04/18 10:00 O2 Sat by Pulse Oximetry (%) 94 L 08/04/18 09:00 CC; Says he "feels" better ``````````````````````````` skin--NL color eyes--anicteric lungs--grossly clear heart--RR 3/6 M abd--soft, NT, ND ext--no appreciable edema in supine position neuro--alert, lucid, coherent ``````````````````````````` Summ > syncope--2nd significant carotid narrowing (as compared to study done 03/17) in conjunction with (degree to be re-assessed). Acute CVA or arrhythmia less likely causes. PLAN: MRA ordered; Vasc consult ordered > Htn--with CRI (stage 2); BP fluctuates. BP cannot be brought down too low due to and Carotid Dz. PLAN: d/c Hctz > Lipidemia--most recent levels not exorbitantly high on current dose of statin > Hyperglycemia--a1c is 6.1 making him a Pre-diabetic > Low Potassium--replenish as needed ~~~~~~~~~~~~~~~~~~~~~~~~~~~` Dr Duckworth PS: discussed case with daughter Gloria
--- NOTE | 2018-08-04 18:07 | CONSULT ---
Consult Consult Specialty:: Vascular Surgery Reason for Consultation:: Carotid stenosis - History of Present Illness History of Present Illness: 78 year old man with prior history of multiple episodes of transient ischemic attacks causing right arm and leg weakness and numbness as well as left facial droop became lightheaded and fell after using the bathroom. He denies any weakness with this episode but did fall onto his right side and injured his shoulder. He denies any residual weakness at this time. 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 injury in without neuro deficits) Cardio/Vascular: Yes: Aortic Stenosis, HTN, Hyperlipdemia Renal/: Yes: Renal Inusuff Psych: Yes: Anxiety - Past Surgical History Past Surgical History: Yes: Craniotomy - Alcohol/Substance Use Hx Alcohol Use: Yes (occasional uses wine) Number of Drinks Daily: 1 History of Substance Use: reports: None - Smoking History Smoking history: Never smoked Have you smoked in the past 12 months: No Aproximately how many cigarettes per day: 0 - Social History ADL: Independent History of Recent Travel: No Home Medications - Allergies Allergies/Adverse Reactions: Allergies Allergy/AdvReac Type Severity Reaction Status Date / Time No Known Allergies Allergy Verified 08/02/18 21:12 - Home Medications Home Medications: Ambulatory Orders Aspirin/Dipyridamole [Aggrenox -] 1 combo PO BID 03/13/18 Hydralazine HCl 25 mg PO BID 03/13/18 Atorvastatin Ca [Lipitor] 40 mg PO HS 08/03/18 Chlorthalidone 25 mg PO AM 08/03/18 Escitalopram Oxalate [Lexapro -] 5 mg PO HS 08/03/18 Labetalol HCl 100 mg PO DAILY 08/03/18 Nifedipine ER [Procardia Xl -] 90 mg PO DAILY 08/03/18 Spironolactone 25 mg PO DAILY 08/03/18 Family Disease History - Family Disease History Family Disease History: Heart Disease: Mother, Brother Physical Exam Vital Signs: Vital Signs Temperature 98.1 F 08/04/18 15:28 Pulse Rate 87 08/04/18 16:38 Respiratory Rate 18 08/04/18 15:28 Blood Pressure 163/88 08/04/18 16:38 O2 Sat by Pulse Oximetry (%) 94 L 08/04/18 09:00 Constitutional: Yes: No Distress Eyes: Yes: WNL, EOM Intact HENT: Yes: WNL Neck: Yes: Supple Cardiovascular: Yes: Regular Rate and Rhythm Respiratory: Yes: Regular Gastrointestinal: Yes: Soft Edema: No Neurological: Yes: Alert, Oriented ...Motor Strength: WNL Labs: CBC, BMP 08/02/18 21:28 08/04/18 07:00 Imaging - Results Ultrasound: Other (Carotid Duplex reviewed: Left ICA PSV 275 cm/sec, PDV 108 cm/ sec, ICA:CCA 2.9) Problem List - Problems (1) Carotid stenosis, 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 The carotid Duplex from Feb showed no evidence for a significant stenosis on the left side. The last MRI of the brain in Feb 2018 did not show any infarct on the left. I have discussed the recommendation for carotid revascularization with the patient and his daughter. In this setting, > 70% stenosis with recurrent events while on medical therapy, I would strongly advise endarterectomy unless there are prohibitive cardiac risk factors. In that case, a transcarotid stent (TCAR) procedure would be indicated. I will follow up with Drs. Oliveira and Gucci to discuss after MR scan is read. Code(s): I65.29 - OCCLUSION AND STENOSIS OF UNSPECIFIED CAROTID ARTERY Qualifiers: Laterality: bilateral Qualified Code(s): I65.23 - Occlusion and stenosis of bilateral carotid arteries
[2018-08-04] MEDS: ATORVASTATIN CA 20 MG TABLET (FP) PO SCH (23:42)
--- NOTE | 2018-08-05 09:12 | PN ---
Progress Note, Physician Chief Complaint: Vascular input noted Awaiting MRA neck - Current Medication List Current Medications: Active Medications Acetaminophen/Codeine Phosphate (Tylenol # 3 -) 1 tab PO Q6H PRN PRN Reason: PAIN LEVEL 4 - 6 Last Admin: 08/03/18 17:23 Dose: 1 tab Alprazolam (Xanax -) 0.25 mg PO Q8H PRN PRN Reason: ANXIETY Atorvastatin Calcium (Lipitor -) 20 mg PO HS [facility] Last Admin: 08/04/18 23:42 Dose: 20 mg Dipyridamole/Aspirin (Aggrenox -) 1 combo PO BID [facility] Last Admin: 08/04/18 23:42 Dose: 1 combo Hydralazine HCl (Apresoline -) 25 mg PO BID [facility] Last Admin: 08/04/18 23:42 Dose: 25 mg Labetalol HCl (Normodyne -) 100 mg PO BID [facility] Last Admin: 08/04/18 23:42 Dose: 100 mg Nifedipine (Procardia Xl -) 90 mg PO DAILY [facility] Last Admin: 08/04/18 10:33 Dose: 90 mg Spironolactone (Aldactone -) 25 mg PO DAILY [facility] Last Admin: 08/04/18 10:34 Dose: 25 mg - Objective Vital Signs: Vital Signs Temperature 97.7 F 08/05/18 06:00 Pulse Rate 83 08/05/18 06:00 Respiratory Rate 18 08/04/18 21:00 Blood Pressure 153/64 08/05/18 06:00 O2 Sat by Pulse Oximetry (%) 94 L 08/04/18 21:00 Constitutional: Yes: No Distress, Calm Eyes: Yes: Conjunctiva Clear Cardiovascular: Yes: Regular Rate and Rhythm Respiratory: Yes: CTA Bilaterally Gastrointestinal: Yes: Soft (NT) Edema: No Neurological: Yes: Alert, Oriented Labs: CBC, BMP 08/02/18 21:28 08/04/18 07:00 INR, PTT INR 1.06 (0.83-1.09) 08/02/18 21:28 - ....Imaging EKG: Image Reviewed Problem List - Problems (1) Fall Code(s): W19.XXXA - UNSPECIFIED FALL, INITIAL ENCOUNTER (2) Aortic stenosis Code(s): I35.0 - NONRHEUMATIC AORTIC (VALVE) STENOSIS (3) Abnormal ECG Code(s): R94.31 - ABNORMAL ELECTROCARDIOGRAM [ECG] [EKG] (4) Hypertension Code(s): I10 - ESSENTIAL (PRIMARY) HYPERTENSION (5) Stroke Code(s): I63.9 - CEREBRAL INFARCTION, UNSPECIFIED Qualifiers: Laterality of affected vessel: unspecified (6) ASHD (arteriosclerotic heart disease) Code(s): I25.10 - ATHSCL HEART DISEASE OF [place] CORONARY ARTERY W/O ANG PCTRS (7) Elevated brain natriuretic peptide (BNP) level Code(s): R79.89 - OTHER SPECIFIED ABNORMAL FINDINGS OF BLOOD CHEMISTRY (8) GUY (acute kidney injury) Code(s): N17.9 - ACUTE KIDNEY FAILURE, UNSPECIFIED Assessment/Plan IMP: Fall, r/o syncope 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 Holter to r/o arrhythmia 2. Repeat echo to re-assess severity 3. MRA Carotid to evaluate possible bilateral stenosis, assess severity. 4. Orthostatics. 5. Elevated BNP noted- in this case likely chronically elevated due to chronic valvular heart disease (Aortic Stenosis) and hypertensive heart disease/ LVH ( Chronic diastolic dysfx). Does not appear to be clinically volume overloaded. 6. EEG pending. Further reccs re LICA stenosis pending review MRA. Will follow.
[2018-08-05] MEDS: ALPRAZolam 0.25 MG TABLET PO PRN (09:53)
[2018-08-05] MEDS: ASPIRIN/DIPYRIDAMOLE 25 MG/200 MG CAPSULE (FP) PO SCH ×2 (09:53→22:21)
[2018-08-05] MEDS: LABETALOL HCL 100 MG TABLET (FP) PO SCH ×2 (09:53→22:22)
[2018-08-05] MEDS: NIFEdipine E.R. 90 MG TABLET (FP) PO SCH (09:53)
[2018-08-05] MEDS: hydrALAZINE HCL 25 MG TABLET (FP) PO SCH ×2 (09:53→22:22)
[2018-08-05] MEDS: SPIRONOLACTONE 25 MG TABLET (FP) PO SCH (09:53)
[2018-08-05 12:59] LABS: ANION GAP 9 MMOL/L (8-16); BLOOD UREA NITROGEN 35 mg/dL (7-18); CALCIUM 8.3 mg/dL (8.5-10.1); CHLORIDE 103 mmol/L (98-107); CO2 24 mmol/L (21-32); CREATININE 1.9 mg/dL (0.55-1.3); GLUCOSE,RANDOM 102 mg/dL (74-106); POTASSIUM 3.9 mmol/L (3.5-5.1); SODIUM 136 mmol/L (136-145)
--- NOTE | 2018-08-05 14:33 | PN ---
Progress Note (short form) - Note Progress Note: Current Medications Alprazolam (Xanax -) 0.25 mg PO Q8H PRN PRN Reason: ANXIETY Last Admin: 08/05/18 09:53 Dose: 0.25 mg Atorvastatin Calcium (Lipitor -) 20 mg PO HS [facility] Last Admin: 08/04/18 23:42 Dose: 20 mg Dipyridamole/Aspirin (Aggrenox -) 1 combo PO BID [facility] Last Admin: 08/05/18 09:53 Dose: 1 combo Hydralazine HCl (Apresoline -) 25 mg PO BID [facility] Last Admin: 08/05/18 09:53 Dose: 25 mg Labetalol HCl (Normodyne -) 100 mg PO BID [facility] Last Admin: 08/05/18 09:53 Dose: 100 mg Nifedipine (Procardia Xl -) 60 mg PO DAILY [facility] Spironolactone (Aldactone -) 25 mg PO DAILY [facility] Last Admin: 08/05/18 09:53 Dose: 25 mg Laboratory Results - last 24 hr 08/05/18 08/05/18 07:04 12:05 Sodium 136 Potassium 3.9 Chloride 103 Carbon Dioxide 24 Anion Gap 9 BUN 35 H Creatinine 1.9 H Creat Clearance w eGFR 34.55 POC Glucometer 93 Random Glucose 102 Calcium 8.3 L Vital Signs Temperature 98.0 F 08/05/18 14:00 Pulse Rate 79 08/05/18 14:00 Respiratory Rate 18 08/05/18 14:00 Blood Pressure 132/60 08/05/18 14:00 O2 Sat by Pulse Oximetry (%) 97 08/05/18 09:30 CC; breif dizziness now resolved ``````````````````````````` skin--NL color eyes--anicteric lungs--grossly clear heart--RR 3/6 M abd--soft, NT, ND ext--no appreciable edema in supine position neuro--alert, lucid, coherent ``````````````````````````` Summ > syncope--2nd significant carotid narrowing (as compared to study done 03/17) in conjunction with (degree to be re-assessed by echo). Acute CVA or arrhythmia less likely causes MRA corroborates the carotid duplex. PLAN: possible CEA if the is not critical > Htn--with CRI (stage 2); BP fluctuates. He was lightheaded when the bp waqs 130/60. BP cannot be brought down too low due to and Carotid Dz. PLAN: d/c Hctz, and lower the CCB to 60mg QD > Lipidemia--most recent levels not exorbitantly high on current dose of statin > Hyperglycemia--a1c is 6.1 making him a Pre-diabetic > Low Potassium--replenish as needed ~~~~~~~~~~~~~~~~~~~~~~~~~~~` Dr Duckworth PS: discussed case with daughter Gloria who was present
--- NOTE | 2018-08-05 14:48 | ECHO ---
Name: FILI LOPEZ Exam:Adult Echocardiogram Study Date: 08/05/2018 01:38 PM Age: 78 yrs Reason For Study: Aortics Stenosis Height: 62 in Weight: 149 lb BSA: 1.7 m2 MMode/2D Measurements & Calculations IVSd: 1.3 cm ACS: 0.89 cm LVIDd: 4.5 cm LVIDs: 3.0 cm LVPWd: 1.0 cm EDV(Teich): 92.0 ml LVOT diam: 2.1 cm ESV(Teich): 33.7 ml RV S Arnold: 13.2 cm/sec Doppler Measurements & Calculations MV E max arnold: 76.5 cm/sec MVA(VTI): 2.3 cm2 MV A max arnold: 123.0 cm/sec MV V2 max: 126.0 cm/sec MV E/A: 0.62 MV max P.3 mmHg MV V2 mean: 65.2 cm/sec MV mean P.0 mmHg MV V2 VTI: 27.3 cm Ao V2 max: 253.0 cm/sec MV dec slope: 173.8 cm/sec2 Ao max P.7 mmHg Ao V2 mean: 179.3 cm/sec Ao mean P.2 mmHg Ao V2 VTI: 54.3 cm JONATHON(I,D): 1.2 cm2 JONATHON(V,D): 1.1 cm2 LV V1 max P.8 mmHg SV(LVOT): 63.9 ml LV V1 mean P.7 mmHg LV V1 max: 83.9 cm/sec LV V1 mean: 61.7 cm/sec LV V1 VTI: 18.7 cm Med Peak E' Arnold: 4.4 cm/sec Med E/e': 17.6 Lat Peak E' Arnold: 5.2 cm/sec Lat E/e': 14.6 Procedure A two-dimensional transthoracic echocardiogram with color flow and Doppler was performed. The study w as technically difficult with many images being suboptimal in quality. Left Ventricle There is moderate concentric left ventricular hypertrophy. The left ventricular ejection fraction is normal. E/A reversal consistent with but not diagnostic of poor LV compliance. Regional wall motion abnormali ties cannot be excluded due to limited visualization. Right Ventricle The right ventricle is not well visualized. Atria The left atrium is not well visualized. Right atrium not well visualized. Mitral Valve The mitral valve is not well visualized. There is no mitral valve stenosis. There is trace to mild mi tral regurgitation. Tricuspid Valve The tricuspid valve is not well visualized. There is no tricuspid stenosis. There was insufficient TR detected to calculate RV systolic pressure. Aortic Valve The aortic valve is not well visualized. Mild valvular aortic stenosis. No aortic regurgitation is pr esent. Pulmonic Valve The pulmonic valve is not well visualized. There is no pulmonic valvular stenosis. Mild pulmonic valv ular regurgitation. Great Vessels The aortic root is not well visualized. Pericardium/Pleura There is a mild pericardial effusion. Interpretation Summary There is a mild pericardial effusion. There is moderate concentric left ventricular hypertrophy. The left ventricular ejection fraction is normal. The study was technically difficult with many images being suboptimal in quality. E/A reversal consistent with but not diagnostic of poor LV compliance Regional wall motion abnormalities cannot be excluded due to limited visualization. Mild valvular aortic stenosis. The aortic valve is not well visualized. There is trace to mild mitral regurgitation. There was insufficient TR detected to calculate RV systolic pressure. MD Abdiel Quintana 08/05/2018 02:48 PM
--- NOTE | 2018-08-05 15:30 | HOL ---
Hook-up date: 2018-08-03 14:13:00 Duration: 23:30:00 Test Indications: SYNCOPE Medications: 03743 QRS complexes 18 Ventricular ectopics which represent <1 % of total QRS comp. 5293 Supraventricular ectopics which represent 5 % of total QRS comp. * Paced QRS complexs which represent % of total QRS comp. 13 % of Time Classified as Noise VENTRICULAR ECTOPY 18 Isolated 0 Bigeminal Cycles 0 Couplets 0 Runs 0 Beats in Runs * Beats LONGEST at * BPM at :: -- * Beats FASTEST at * BPM at :: -- SUPRAVENTRICULAR ECTOPY 5248 Isolated 21 Couplets 0 Runs 0 Beats in Runs * Beats LONGEST at * BPM at :: -- * Beats FASTEST at * BPM at :: -- HEART RATES 66 MIN at 14:45:36 2018-08-03 77 AVG 96 MAX at 11:34:50 2018-08-04 LONGEST RR 1.192 secs at 08:21:07 2018-08-04 Normal sinus rhythm 18 isolated vpcs 5248 isolated APCs representing 6 % all qrs complexes 21 couplets Confirmed by NELI DOWNS, MOE ([id number]) on 08/05/2018 3:29:29 PM Referred By: Deedee VALDOVINOS Overread By: MOE QUINTEROS MD
[2018-08-05 22:15] LABS: URINE APPEARANCE CLEAR; URINE BILIRUBIN NEGATIVE (<2.0 mg/dL); URINE COLOR LTYELLOW; URINE GLUCOSE (UA) NEGATIVE (NEGATIVE); URINE KETONE NEGATIVE (NEGATIVE); URINE LEUK ESTERASE NEGATIVE (NEGATIVE); URINE NITRITE NEGATIVE (NEGATIVE); URINE PROTEIN NEGATIVE (NEGATIVE); URINE UROBILINOGEN NEGATIVE mg/dL (0.2-1.0)
[2018-08-05] MEDS: ATORVASTATIN CA 20 MG TABLET (FP) PO SCH (22:22)
[2018-08-06 08:33] LABS: HEMATOCRIT 40.9 % (35.4-49); MCH 29.9 pg (25.7-33.7); MCHC 34.3 g/dl (32.0-35.9); MEAN CELL VOLUME 87.2 fl (80-96); MEAN PLT VOLUME 8.4 fl (7.5-11.1); PLATELET COUNT 166 K/MM3 (134-434); RBC 4.69 M/mm3 (4.00-5.60); RDW 14.5 % (11.9-15.9); WHITE BLOOD COUNT 5.1 K/mm3 (4.0-10.0)
[2018-08-06 09:18] LABS: ALBUMIN 3.5 g/dl (3.4-5.0); ALK PHOS 80 U/L (45-117); ANION GAP 8 MMOL/L (8-16); BILIRUBIN,TOTAL 0.5 mg/dL (0.2-1); BLOOD UREA NITROGEN 35 mg/dL (7-18); CALCIUM 8.5 mg/dL (8.5-10.1); CHLORIDE 105 mmol/L (98-107); CO2 27 mmol/L (21-32); CREATININE 1.7 mg/dL (0.55-1.3); GLUCOSE,RANDOM 82 mg/dL (74-106); POTASSIUM 4.2 mmol/L (3.5-5.1); SGOT/AST 23 U/L (15-37); SGPT/ALT 38 U/L (13-61); SODIUM 140 mmol/L (136-145); TOT PROT 6.5 g/dl (6.4-8.2)
[2018-08-06] MEDS: SPIRONOLACTONE 25 MG TABLET (FP) PO SCH (09:58)
[2018-08-06] MEDS: hydrALAZINE HCL 25 MG TABLET (FP) PO SCH ×2 (09:58→21:42)
[2018-08-06] MEDS: LABETALOL HCL 100 MG TABLET (FP) PO SCH ×2 (09:58→21:42)
[2018-08-06] MEDS: ALPRAZolam 0.25 MG TABLET PO PRN (09:58)
[2018-08-06] MEDS: ASPIRIN/DIPYRIDAMOLE 25 MG/200 MG CAPSULE (FP) PO SCH ×2 (09:58→21:42)
[2018-08-06] MEDS: NIFEdipine E.R 60 MG TABLET (UD) PO SCH (09:58)
--- NOTE | 2018-08-06 10:12 | PN ---
Progress Note, Physician Chief Complaint: BP higher than baseline today because he is nervous Echo personally reviewed- is not severe - Current Medication List Current Medications: Active Medications Alprazolam (Xanax -) 0.25 mg PO Q8H PRN PRN Reason: ANXIETY Last Admin: 08/06/18 09:58 Dose: 0.25 mg Atorvastatin Calcium (Lipitor -) 20 mg PO HS [facility] Last Admin: 08/05/18 22:22 Dose: 20 mg Dipyridamole/Aspirin (Aggrenox -) 1 combo PO BID [facility] Last Admin: 08/06/18 09:58 Dose: 1 combo Hydralazine HCl (Apresoline -) 25 mg PO BID [facility] Last Admin: 08/06/18 09:58 Dose: 25 mg Labetalol HCl (Normodyne -) 100 mg PO BID [facility] Last Admin: 08/06/18 09:58 Dose: 100 mg Nifedipine (Procardia Xl -) 60 mg PO DAILY [facility] Last Admin: 08/06/18 09:58 Dose: 60 mg Spironolactone (Aldactone -) 25 mg PO DAILY [facility] Last Admin: 08/06/18 09:58 Dose: 25 mg - Objective Vital Signs: Vital Signs Temperature 97.9 F 08/06/18 09:05 Pulse Rate 78 08/06/18 09:05 Respiratory Rate 20 08/06/18 09:05 Blood Pressure 192/83 H 08/06/18 09:05 O2 Sat by Pulse Oximetry (%) 96 08/05/18 21:00 Constitutional: Yes: Calm Cardiovascular: Yes: Regular Rate and Rhythm (2/6 AUGIE RSB) Gastrointestinal: Yes: Soft Edema: No Neurological: Yes: Alert, Oriented Labs: CBC, BMP 08/06/18 07:40 08/06/18 07:40 INR, PTT INR 1.06 (0.83-1.09) 08/02/18 21:28 Problem List - Problems (1) Fall Code(s): W19.XXXA - UNSPECIFIED FALL, INITIAL ENCOUNTER (2) Aortic stenosis Code(s): I35.0 - NONRHEUMATIC AORTIC (VALVE) STENOSIS (3) Abnormal ECG Code(s): R94.31 - ABNORMAL ELECTROCARDIOGRAM [ECG] [EKG] (4) Hypertension Code(s): I10 - ESSENTIAL (PRIMARY) HYPERTENSION (5) Stroke Code(s): I63.9 - CEREBRAL INFARCTION, UNSPECIFIED Qualifiers: Laterality of affected vessel: unspecified (6) ASHD (arteriosclerotic heart disease) Code(s): I25.10 - ATHSCL HEART DISEASE OF [place] CORONARY ARTERY W/O ANG PCTRS (7) Elevated brain natriuretic peptide (BNP) level Code(s): R79.89 - OTHER SPECIFIED ABNORMAL FINDINGS OF BLOOD CHEMISTRY (8) GUY (acute kidney injury) Code(s): N17.9 - ACUTE KIDNEY FAILURE, UNSPECIFIED Assessment/Plan IMP: Fall, r/o syncope 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 Holter to r/o arrhythmia showed APCs and VPCs- no sustained arrhythmias. 2. Repeat echo to re-assess severity mild to moderate. Visually opens well- not severe. 3. MRA Carotid reviewed, case d/w Vascular 4. Isolated BP reading above usual baseline this morning noted and d/w RN- seems to be an aberration to overall trend which has been around 140s. He was very nervous about the possible surgery and that I had not yet spoken to his daughter. I met daughter at bedside and reviewed the findings and recommendations at which time he was much more at ease. We will continue to follow his BP closely today. There seem to be no absolute cardiac contraindications to CEA which is indicated. He should receive his usual BP meds the AM of surgery with sip of water. Will follow.
--- NOTE | 2018-08-06 10:57 | PN ---
Progress Note (short form) - Note Progress Note: Current Medications Alprazolam (Xanax -) 0.25 mg PO Q8H PRN PRN Reason: ANXIETY Last Admin: 08/06/18 09:58 Dose: 0.25 mg Atorvastatin Calcium (Lipitor -) 20 mg PO HS [facility] Last Admin: 08/05/18 22:22 Dose: 20 mg Dipyridamole/Aspirin (Aggrenox -) 1 combo PO BID [facility] Last Admin: 08/06/18 09:58 Dose: 1 combo Hydralazine HCl (Apresoline -) 25 mg PO BID [facility] Last Admin: 08/06/18 09:58 Dose: 25 mg Labetalol HCl (Normodyne -) 100 mg PO BID [facility] Last Admin: 08/06/18 09:58 Dose: 100 mg Nifedipine (Procardia Xl -) 60 mg PO DAILY [facility] Last Admin: 08/06/18 09:58 Dose: 60 mg Spironolactone (Aldactone -) 25 mg PO DAILY [facility] Last Admin: 08/06/18 09:58 Dose: 25 mg Laboratory Results - last 24 hr 08/05/18 08/05/18 08/05/18 12:05 17:21 21:10 WBC RBC Hgb Hct MCV MCH MCHC RDW Plt Count MPV Sodium 136 Potassium 3.9 Chloride 103 Carbon Dioxide 24 Anion Gap 9 BUN 35 H Creatinine 1.9 H Creat Clearance w eGFR 34.55 POC Glucometer 119 Random Glucose 102 Calcium 8.3 L Total Bilirubin AST ALT Alkaline Phosphatase Total Protein Albumin Urine Color Ltyellow Urine Appearance Clear Urine pH 6.0 Ur Specific Sulphur 1.016 Urine Protein Negative Urine Glucose (UA) Negative Urine Ketones Negative Urine Blood Negative Urine Nitrite Negative Urine Bilirubin Negative Urine Urobilinogen Negative Ur Leukocyte Esterase Negative 08/06/18 08/06/18 07:40 07:40 WBC 5.1 RBC 4.69 Hgb 14.0 Hct 40.9 MCV 87.2 MCH 29.9 MCHC 34.3 RDW 14.5 Plt Count 166 MPV 8.4 Sodium 140 Potassium 4.2 Chloride 105 Carbon Dioxide 27 Anion Gap 8 BUN 35 H Creatinine 1.7 H Creat Clearance w eGFR 39.28 POC Glucometer Random Glucose 82 Calcium 8.5 Total Bilirubin 0.5 AST 23 ALT 38 Alkaline Phosphatase 80 Total Protein 6.5 Albumin 3.5 Urine Color Urine Appearance Urine pH Ur Specific [place] Urine Protein Urine Glucose (UA) Urine Ketones Urine Blood Urine Nitrite Urine Bilirubin Urine Urobilinogen Ur Leukocyte Esterase Vital Signs Temperature 97.9 F 08/06/18 09:05 Pulse Rate 78 08/06/18 09:05 Respiratory Rate 20 08/06/18 09:05 Blood Pressure 192/83 H 08/06/18 09:05 O2 Sat by Pulse Oximetry (%) 96 08/05/18 21:00 CC; feels anxious ``````````````````````````` skin--NL color eyes--anicteric lungs--grossly clear heart--RR 3/6 M abd--soft, NT, ND ext--no appreciable edema in supine position neuro--alert, lucid, coherent ``````````````````````````` Summ > syncope--2nd significant carotid narrowing of LTICA as per MRA in conjunction with which is deemed to be moderate by recent echo. PLAN: Lt CEA > Htn--with CRI (stage 2); BP fluctuates in relation to anxiety. BP cannot be brought down too low due to and Carotid Dz. PLAN: BP meds pre-op in AM > Lipidemia--most recent levels not exorbitantly high on current dose of statin > Hyperglycemia--a1c is 6.1 making him a Pre-diabetic > Low Potassium--replenish as needed ~~~~~~~~~~~~~~~~~~~~~~~~~~~` Dr Duckworth PS: discussed case with daughter Gloria who was present, who is aware of the plan
--- NOTE | 2018-08-06 16:31 | SPA.PREOP ---
- PRE-OP NOTE Dx: left carotid stenosis Planned Procedure: Left Carotid endarterectomy Surgeon: Dr. Sheikh Last Vital Signs Temp Pulse Resp BP Pulse Ox 97.6 F 74 22 H 145/68 96 08/06/18 15:40 08/06/18 15:40 08/06/18 15:40 08/06/18 15:40 08/05/18 21:00 Lab Results WBC 5.1 K/mm3 (4.0-10.0) 08/06/18 07:40 RBC 4.69 M/mm3 (4.00-5.60) 08/06/18 07:40 Hgb 14.0 GM/dL (11.7-16.9) 08/06/18 07:40 Hct 40.9 % (35.4-49) 08/06/18 07:40 MCV 87.2 fl (80-96) 08/06/18 07:40 MCHC 34.3 g/dl (32.0-35.9) 08/06/18 07:40 RDW 14.5 % (11.9-15.9) 08/06/18 07:40 Plt Count 166 K/MM3 (134-434) 08/06/18 07:40 Sodium 140 mmol/L (136-145) 08/06/18 07:40 Potassium 4.2 mmol/L (3.5-5.1) 08/06/18 07:40 Chloride 105 mmol/L (98-107) 08/06/18 07:40 Carbon Dioxide 27 mmol/L (21-32) 08/06/18 07:40 Anion Gap 8 MMOL/L (8-16) 08/06/18 07:40 BUN 35 mg/dL (7-18) H 08/06/18 07:40 Creatinine 1.7 mg/dL (0.55-1.3) H 08/06/18 07:40 Random Glucose 82 mg/dL (74-106) 08/06/18 07:40 Calcium 8.5 mg/dL (8.5-10.1) 08/06/18 07:40 INR 1.06 (0.83-1.09) 08/02/18 21:28 ECHO: not severe Holter monitor: no sustained arrhythmia - ASSESSMENT/PLAN 1. Make NPO after midnight except po meds 2. GI/DVT PPX 3. Medical optimization / clearance in the chart from 08/06-no contraindications to CEA 4. Consent to be obtained by surgeon after risks, benefits and alternatives discussed with patient and or Health Care Proxy. 5. T&S
[2018-08-06] MEDS: ATORVASTATIN CA 20 MG TABLET (FP) PO SCH (21:42)
[2018-08-07 08:00] LABS: ANION GAP 6 MMOL/L (8-16); BLOOD UREA NITROGEN 37 mg/dL (7-18); CALCIUM 8.5 mg/dL (8.5-10.1); CHLORIDE 104 mmol/L (98-107); CO2 27 mmol/L (21-32); CREATININE 1.7 mg/dL (0.55-1.3); GLUCOSE,RANDOM 92 mg/dL (74-106); POTASSIUM 4.5 mmol/L (3.5-5.1); SODIUM 137 mmol/L (136-145)
--- NOTE | 2018-08-07 09:12 | PN ---
Progress Note, Physician Chief Complaint: seen and examined No CP, SOB - Current Medication List Current Medications: Active Medications Alprazolam (Xanax -) 0.25 mg PO Q8H PRN PRN Reason: ANXIETY Last Admin: 08/06/18 09:58 Dose: 0.25 mg Atorvastatin Calcium (Lipitor -) 20 mg PO HS [facility] Last Admin: 08/06/18 21:42 Dose: 20 mg Dipyridamole/Aspirin (Aggrenox -) 1 combo PO BID [facility] Last Admin: 08/06/18 21:42 Dose: 1 combo Hydralazine HCl (Apresoline -) 25 mg PO BID [facility] Last Admin: 08/06/18 21:42 Dose: 25 mg Dextrose/Sodium Chloride (D5-1/2ns -) 1,000 mls @ 42 mls/hr IV ASDIR [facility] Last Admin: 08/06/18 23:20 Dose: 42 mls/hr Labetalol HCl (Normodyne -) 100 mg PO BID [facility] Last Admin: 08/06/18 21:42 Dose: 100 mg Nifedipine (Procardia Xl -) 60 mg PO DAILY [facility] Last Admin: 08/06/18 09:58 Dose: 60 mg Spironolactone (Aldactone -) 25 mg PO DAILY [facility] Last Admin: 08/06/18 09:58 Dose: 25 mg - Objective Vital Signs: Vital Signs Temperature 97.2 F L 08/07/18 07:00 Pulse Rate 68 08/07/18 07:00 Respiratory Rate 20 08/07/18 07:00 Blood Pressure 159/90 08/07/18 07:00 O2 Sat by Pulse Oximetry (%) 96 08/06/18 21:00 Constitutional: Yes: No Distress Cardiovascular: Yes: Regular Rate and Rhythm Respiratory: Yes: CTA Bilaterally Gastrointestinal: Yes: Soft Edema: No Neurological: Yes: Alert, Oriented Labs: CBC, BMP 08/06/18 07:40 08/07/18 06:40 INR, PTT INR 1.06 (0.83-1.09) 08/02/18 21:28 Laboratory Tests 08/02/18 08/06/18 08/06/18 21:28 07:40 07:40 WBC 5.1 Hgb 14.0 Plt Count 166 INR 1.06 Sodium Potassium 4.2 BUN Creatinine 1.7 H Creat Clearance w eGFR Calcium 08/07/18 06:40 WBC Hgb Plt Count INR Sodium 137 Potassium 4.5 BUN 37 H Creatinine Creat Clearance w eGFR 39.28 Calcium 8.5 Problem List - Problems (1) Fall Code(s): W19.XXXA - UNSPECIFIED FALL, INITIAL ENCOUNTER (2) Aortic stenosis Code(s): I35.0 - NONRHEUMATIC AORTIC (VALVE) STENOSIS (3) Abnormal ECG Code(s): R94.31 - ABNORMAL ELECTROCARDIOGRAM [ECG] [EKG] (4) Hypertension Code(s): I10 - ESSENTIAL (PRIMARY) HYPERTENSION (5) Stroke Code(s): I63.9 - CEREBRAL INFARCTION, UNSPECIFIED Qualifiers: Laterality of affected vessel: unspecified (6) ASHD (arteriosclerotic heart disease) Code(s): I25.10 - ATHSCL HEART DISEASE OF 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 Holter to r/o arrhythmia showed APCs and VPCs- no sustained arrhythmias. 2. Repeat echo to re-assess severity mild to moderate. Visually opens well- not severe. 3. MRA Carotid reviewed, case d/w Vascular 4. BP at baseline average of around 140 over last 24 hours. No absolute cardiac contraindications to surgery. Will follow post op.
[2018-08-07] MEDS ORDERED: HEPARIN NA (PORCINE) 5,000 UNITS/ML 1ML VIAL ONE ×2 (11:16→19:57)
[2018-08-07] MEDS ORDERED: SODIUM CHLORIDE 0.9% P/F 10 ML VIAL IJ ONE (11:16)
[2018-08-07] MEDS ORDERED: NITROGLYCERIN 50 MG/10 ML VIAL IVPB ONE (11:16)
[2018-08-07] MEDS ORDERED: ceFAZolin SODIUM 1 GM VIAL ONE ×2 (11:16→20:41)
[2018-08-07] MEDS: hydrALAZINE HCL 25 MG TABLET (FP) PO SCH ×2 (11:32→22:27)
[2018-08-07] MEDS: LABETALOL HCL 100 MG TABLET (FP) PO SCH ×2 (11:32→22:27)
[2018-08-07] MEDS: SPIRONOLACTONE 25 MG TABLET (FP) PO SCH (11:32)
[2018-08-07] MEDS: ASPIRIN/DIPYRIDAMOLE 25 MG/200 MG CAPSULE (FP) PO SCH ×2 (11:32→22:28)
[2018-08-07] MEDS: NIFEdipine E.R 60 MG TABLET (UD) PO SCH (11:32)
[2018-08-07] MEDS ORDERED: DEXTROSE 5%-0.45% SALINE 1,000 ML IV SCH ×2 (12:00→23:00)
[2018-08-07] MEDS ORDERED: DEXAMETHASONE SOD PHOSPHATE 4 MG/1 ML VIAL ONE ×2 (13:58→14:25)
[2018-08-07] MEDS ORDERED: LIDOCAINE HCL 0.5%, 5 MG/ML (50mL SDVIAL) ONE (15:01)
[2018-08-07] MEDS ORDERED: MIDAZOLAM HCL 2 MG/2 ML SINGLE DOSE VIAL ONE (15:15)
[2018-08-07] MEDS ORDERED: ceFAZolin SODIUM 1 GM VIAL IVPB ONE ×2 (16:00→20:40)
[2018-08-07] MEDS ORDERED: ePHEDrine SULFATE 50 MG/1 ML AMPULE ONE (16:04)
[2018-08-07] MEDS ORDERED: PROTAMINE SULFATE 50 MG/5 ML VIAL ONE (17:43)
[2018-08-07] MEDS ORDERED: POVIDONE-IODINE OINTMENT 10% - 28.4 GM TUBE ONE (17:54)
[2018-08-07] MEDS ORDERED: NEOSTIGMINE METHYLSULFATE 0.5 MG/ML - 10 ML MDV ONE (17:56)
[2018-08-07] MEDS ORDERED: GLYCOPYRROLATE 0.2 MG/1 ML VIAL ONE ×2 (17:56)
--- NOTE | 2018-08-07 18:19 | OP ---
Operative Note - Note: Operative Date: 08/07/18 Pre-Operative Diagnosis: Left carotid stenosis Operation: Left carotid endarterectomy Findings: Large plaque in left ICA with old hemorrhage Implants: Thin walled Dacron patch Post-Operative Diagnosis: Same as Pre-op Surgeon: Evaristo Sheikh Manager Wellness: Mitzi Blackburn Anesthesiologist/BAGGAGE PORTER: Hans Bassett Anesthesia: General Specimens Removed: Plaque Estimated Blood Loss (mls): 100
[2018-08-07] MEDS ORDERED: oxyCODONE HCL 5 MG TABLET PO PRN (18:22)
[2018-08-07] MEDS ORDERED: ONDANSETRON 4 MG/2 ML VIAL IVPUSH PRN ×2 (18:22→23:00)
[2018-08-07] MEDS ORDERED: PROMETHAZINE HCL 25 MG/1 ML VIAL IVPUSH PRN (18:22)
--- NOTE | 2018-08-07 18:59 | PN ---
Progress Note (short form) - Note Progress Note: Current Medications Alprazolam (Xanax -) 0.25 mg PO Q8H PRN PRN Reason: ANXIETY Last Admin: 08/06/18 09:58 Dose: 0.25 mg Atorvastatin Calcium (Lipitor -) 20 mg PO [facility] Last Admin: 08/06/18 21:42 Dose: 20 mg Chlorhexidine Gluconate (Hibiclens For Decolonization -) 1 applic TP HS [facility] Dipyridamole/Aspirin (Aggrenox -) 1 combo PO BID [facility] Last Admin: 08/07/18 11:32 Dose: 1 combo Fentanyl (Sublimaze Injection -) 50 mcg IVPUSH [id number] PRN PRN Reason: PAIN-PACU ORDER X 4 DOSES ONLY Hydralazine HCl (Apresoline -) 25 mg PO BID [facility] Last Admin: 08/07/18 11:32 Dose: 25 mg Dextrose/Sodium Chloride (D5-1/2ns -) 1,000 mls @ 42 mls/hr IV ASDIR [facility] Last Admin: 08/06/18 23:20 Dose: 42 mls/hr Labetalol HCl (Normodyne -) 100 mg PO BID [facility] Last Admin: 08/07/18 11:32 Dose: 100 mg Mupirocin (Bactroban Ointment (For Decolonization) -) 1 applic NS BID [facility] Stop: 08/12/18 21:59 Nifedipine (Procardia Xl -) 60 mg PO DAILY [facility] Last Admin: 08/07/18 11:32 Dose: 60 mg Ondansetron HCl (Zofran Injection) 4 mg IVPUSH Q6H PRN PRN Reason: NAUSEA AND/OR VOMITING Oxycodone HCl (Roxicodone -) 10 mg PO Q4H PRN PRN Reason: PAIN LEVEL 6-10 Stop: 08/08/18 18:21 Promethazine HCl (Phenergan Injection -) 12.5 mg IVPUSH Q6H PRN PRN Reason: NAUSEA-FOR RESCUE AFTER 15 MIN Spironolactone (Aldactone -) 25 mg PO DAILY [facility] Last Admin: 08/07/18 11:32 Dose: 25 mg Laboratory Results - last 24 hr 08/06/18 08/07/18 08/07/18 18:00 06:40 06:40 Sodium 137 Potassium 4.5 Chloride 104 Carbon Dioxide 27 Anion Gap 6 L BUN 37 H Creatinine 1.7 H Creat Clearance w eGFR 39.28 Random Glucose 92 Calcium 8.5 Blood Type O POSITIVE O POSITIVE Antibody Screen Negative Negative Vital Signs Temperature 97.5 F L 08/07/18 15:36 Pulse Rate 73 08/07/18 15:36 Respiratory Rate 20 08/07/18 15:36 Blood Pressure 157/88 08/07/18 15:36 O2 Sat by Pulse Oximetry (%) 96 08/07/18 09:00 CC; restless ``````````````````````````` seen in recovery post OP `````````````````````````````` skin--NL color eyes--anicteric; midline heart--RR 3/6 M neuro--kvng is able to follow commands, but RUE flaccid ``````````````````````````` Summ > syncope--2nd significant carotid narrowing of LTICA as per MRA in conjunction with ; now s/p Lt CEA with plaque/clot removal > Htn--with CRI (stage 2); BP fluctuates in relation to anxiety. > paresis--RUE; post OP; head CT to be done ~~~~~~~~~~~~~~~~~~~~~~~~~~~` Dr Duckworth
[2018-08-07] MEDS ORDERED: HEPARIN INFUSION - 25,000 UNITS/500 ML INFUS.BAG IVPB ONE (19:56)
[2018-08-07] MEDS ORDERED: PROPOFOL 0 ML ONE (20:14)
[2018-08-07] MEDS ORDERED: SUCCINYLCHOLINE CHLORIDE 200 MG/10 ML VIAL ONE ×2 (20:14)
[2018-08-07] MEDS ORDERED: LIDOCAINE HCL 1%, 10 MG/ML (20ML VIAL) ONE (20:41)
[2018-08-07] MEDS ORDERED: ROCURONIUM BROMIDE 50 MG/5 ML VIAL ONE (21:15)
[2018-08-07] MEDS: SODIUM CHLORIDE 1,000 ML IV SCH ×2 (21:26→22:30)
[2018-08-07] MEDS ORDERED: MIDAZOLAM HCL 5 MG/1 ML Single Dose Vial ONE (21:47)
--- NOTE | 2018-08-07 21:50 | OP ---
Operative Note - Note: Operative Date: 08/07/18 Pre-Operative Diagnosis: Post-operative Stroke Operation: Angiogram left carotid. Open exposure of carotid artery Findings: No evidence for carotid occlusion or stenosis at endarterectomy site. Angiogram with normal flow into distal inetrnal carotid and no evidence for major vascular occlusion as per Dr. Mondragon of radiology Post-Operative Diagnosis: Same as Pre-op Surgeon: Evaristo Sheikh Supply Service Worker: Mitzi Blackburn Anesthesiologist/BOAT PATCHER PLASTIC: Hans Bassett Anesthesia: General
[2018-08-07] MEDS ORDERED: PROPOFOL 1000 MG/100 ML VIAL IVPB ONE (21:59)
[2018-08-07] MEDS ORDERED: CHLORHEXIDINE GLUCONATE 4% CLEANSER FOR DECOLONIZATION TP SCH (22:00)
[2018-08-07] MEDS ORDERED: MUPIROCIN 2% TOPICAL OINTMENT FOR DECOLONIZATION NS SCH (22:00)
[2018-08-07] MEDS ORDERED: fentaNYL CITRATE 250 MCG/5 ML VIAL ONE (22:14)
[2018-08-07] MEDS ORDERED: niCARdipine HCL 25 MG/10 ML AMPUL IVPB ONE (22:15)
[2018-08-07] MEDS ORDERED: NICARDIPINE 25 MG in DEXTROSE 5%-WATER - 240 ML IVPB SCH (22:15)
[2018-08-07] MEDS: ATORVASTATIN CA 20 MG TABLET (FP) PO SCH (22:27)
--- NOTE | 2018-08-07 22:28 | CONSULT ---
Consult - History of Present Illness History of Present Illness: 78yo with PMH of HTN, HLD, TIA who initially presented after fall due to dizziness on 08/02/18. He was admitted and a syncope workup was performed, including MRA and carotid duplex which showed left internal carotid stenosis of >70%. Given the patient's history of multiple TIA's involving the left hemisphere, the decision was made to perform carotid revascularization on . Post-operatively, patient was noted to have right upper extremity paresis. Head CT, carotid doppler study, and carotid angiogram was performed which did not show acute pathology. Dr. Sheikh spoke with neurology who will review imaging and evaluate the patient. Neurology recommended stopping the heparin drip. Anesthesia to come and possibly wake patient up so he can be evaluated without sedation. Patient remains intubated and so is unable to provide further history. 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 (craniotomy for traumatic injury in without neuro deficits) Cardio/Vascular: Yes: Aortic Stenosis, HTN, Hyperlipdemia Renal/: Yes: Renal Inusuff Psych: Yes: Anxiety - Past Surgical History Past Surgical History: Yes: Craniotomy - Alcohol/Substance Use Hx Alcohol Use: Yes (occasional uses wine) Number of Drinks Daily: 1 History of Substance Use: reports: None - Smoking History Smoking history: Never smoked Have you smoked in the past 12 months: No Aproximately how many cigarettes per day: 0 - Social History ADL: Independent History of Recent Travel: No Home Medications - Allergies Allergies/Adverse Reactions: Allergies Allergy/AdvReac Type Severity Reaction Status Date / Time No Known Allergies Allergy Verified 08/02/18 21:12 - Home Medications Home Medications: Ambulatory Orders Aspirin/Dipyridamole [Aggrenox -] 1 combo PO BID 03/13/18 Hydralazine HCl 25 mg PO BID 03/13/18 Atorvastatin Ca [Lipitor] 40 mg PO HS 08/03/18 Chlorthalidone 25 mg PO AM 08/03/18 Escitalopram Oxalate [Lexapro -] 5 mg PO HS 08/03/18 Labetalol HCl 100 mg PO DAILY 08/03/18 Nifedipine ER [Procardia Xl -] 90 mg PO DAILY 08/03/18 Spironolactone 25 mg PO DAILY 08/03/18 Family Disease History - Family Disease History Family Disease History: Heart Disease: Mother, Brother Review of Systems Unable to obtain ROS, reason: sedated while intubated Physical Exam Vital Signs: Vital Signs Temperature 98.1 F 08/07/18 18:20 Pulse Rate 74 08/07/18 20:00 Respiratory Rate 12 08/07/18 21:35 Blood Pressure 154/64 08/07/18 20:00 O2 Sat by Pulse Oximetry (%) 98 08/07/18 20:00 General: Intubated and sedated Head: No signs of trauma Eyes: Sclera anicteric ENT: Moist mucus membranes Neck: Supple, surgical dressing on left lateral neck is clean, dry, and intact Lungs: Lungs clear, intubated Cardio: Regular rhythm, S1 and S2 present, grade II systolic murmur Abdomen: Soft, nontender. No guarding, no rebound, no masses Extremities: Distal pulses present SKIN: Warm, Dry, normal turgor Neurologic: Sedated Labs: CBC, BMP 08/06/18 07:40 08/07/18 06:40 Imaging - Results Cat Scan: Report Reviewed ( Impression: No CT evidence of acute intracranial pathology. Right frontal encephalomalacia. Status post right frontal craniotomy. Small chronic right thalamic infarct Mild to moderate periventricular chronic microvascular ischemic changes. No definite interval change is identified in comparison to a prior CT study of 2018.) Ultrasound: Report Reviewed (Carotid Doppler: Flow is noted within the left common carotid and left internal carotid arteries. The quality of flow however could not be determined at this time as the patient was unable to cooperate for the study. In addition limited film documentation was performed on the same basis.) Other: Report Reviewed (L. Carotid Angiogram: No evidence for carotid occlusion or stenosis at endarterectomy site. Angiogram with normal flow into distal inetrnal carotid and no evidence for major vascular occlusion as per Dr. Mondragon of radiology) Assessment/Plan 78yo with PMH of HTN, HLD, TIA who initially presented after fall due to dizziness on 08/07/18, s/p left carotid endarterectomy and found to have RUE paresis post-operatively. Dr. Sheikh spoke with neurology who will review imaging and evaluate the patient. Anesthesia may come and possibly wake patient up so he can be evaluated without sedation. POD #0. PLAN s/p carotid endarterectomy NS @75cc/hr Post-op imaging without acute pathology Pain management with morphine and fentanyl Vascular surgery following NEURO Syncope TIA RUE paresis -ASA suppository -Sedation with fentanyl and propofol -Neurology following -hold po home meds while NPO CV History of HTN, HLD, Aortic stenosis -hold po home meds while NPO -Cardene drip for tight blood pressure control -Goal systolic 140-160, Goal diastolic 60-90 PULM Remains intubated -Vent settings: RR 12/ TV 600/ PEEP 5/ FIO2 100 ENDO [id number]=7.1, indicative of pre-diabetes -BGM FEN NS @75cc/hr Follow electrolytes, replete as needed NPO while intubated for now PPX VTE: SCDs and Lovenox GI: Protonix
[2018-08-07] MEDS: PROPOFOL 1,000,000 MCG/100 ML VIAL IVPB SCH (22:47)
[2018-08-07] MEDS: FENTANYL INJECTION 500 MCG in DEXTROSE 5%-WATER - 90 ML IVPB SCH (22:48)
[2018-08-08] MEDS: PROPOFOL 1,000,000 MCG/100 ML VIAL IVPB SCH ×3 (01:49→15:38)
[2018-08-08] MEDS: CEFAZOLIN 1 GM/D5W 1 GM/50 ML BAG IVPB SCH ×2 (01:50→09:34)
[2018-08-08] MEDS: NICARDIPINE 25 MG in DEXTROSE 5%-WATER - 240 ML IVPB SCH ×2 (01:56→22:59)
[2018-08-08 07:15] LABS: ALBUMIN 2.8 g/dl (3.4-5.0); ALK PHOS 68 U/L (45-117); ANION GAP 8 MMOL/L (8-16); BILIRUBIN,TOTAL 0.2 mg/dL (0.2-1); BLOOD UREA NITROGEN 34 mg/dL (7-18); CALCIUM 7.7 mg/dL (8.5-10.1); CHLORIDE 104 mmol/L (98-107); CO2 23 mmol/L (21-32); CREATININE 1.8 mg/dL (0.55-1.3); GLUCOSE,RANDOM 157 mg/dL (74-106); MAGNESIUM 1.9 mg/dL (1.8-2.4); PHOSPHOROUS 4.5 mg/dL (2.5-4.9); POTASSIUM 4.7 mmol/L (3.5-5.1); SGOT/AST 22 U/L (15-37); SGPT/ALT 30 U/L (13-61); SODIUM 134 mmol/L (136-145); TOT PROT 5.5 g/dl (6.4-8.2)
[2018-08-08 07:16] LABS: HEMATOCRIT 36.5 % (35.4-49); HEMOGLOBIN 12.5 GM/dL (11.7-16.9); MCH 29.9 pg (25.7-33.7); MCHC 34.2 g/dl (32.0-35.9); MEAN CELL VOLUME 87.6 fl (80-96); MEAN PLT VOLUME 8.8 fl (7.5-11.1); PLATELET COUNT 167 K/MM3 (134-434); RBC 4.17 M/mm3 (4.00-5.60); RDW 14.4 % (11.9-15.9); WHITE BLOOD COUNT 7.3 K/mm3 (4.0-10.0)
--- NOTE | 2018-08-08 07:18 | PN ---
Progress Note (short form) - Note Progress Note: Anesthesia post op Patient seen and examined S:sedated and remain intubated with propofol and fentanyl drip O: Vital Signs Temperature 97.3 F L 08/08/18 06:11 Pulse Rate 56 L 08/08/18 06:11 Respiratory Rate 16 08/08/18 06:58 Blood Pressure 145/68 08/08/18 06:11 O2 Sat by Pulse Oximetry (%) 100 08/07/18 22:44 CBC, BMP 08/08/18 05:30 A/P: Current Active Problems GUY (acute kidney injury) (Acute) ASHD (arteriosclerotic heart disease) (Acute) Abnormal ECG (Acute) Aortic stenosis (Acute) CHF (congestive heart failure) (Acute) Carotid stenosis, symptomatic w/o infarct (Acute) Elevated brain natriuretic peptide (BNP) level (Acute) Fall (Acute) Hypertension (Acute) Stroke (Acute) s/p carotid endarterectomy(1st procedure), left and exploration of wound and arteriogram (2nd procedure) Right upper extremity paresis after 1st procedure. Vitals stable overnight. Waiting for neurology evaluation for possible CVA. Anesthesia systems security consultant will be available for extubation if needed. Hans Bassett MD
--- NOTE | 2018-08-08 07:35 | OP ---
DATE OF OPERATION: 08/07/2018 SURGEON: Evaristo Sheikh MD INTEGRATION SOFTWARE DEVELOPER: SOFIA Weems PROCEDURE: Left carotid endarterectomy. PREOPERATIVE DIAGNOSIS: Left carotid stenosis with history of transient ischemic attack. POSTOPERATIVE DIAGNOSIS: Left carotid stenosis with history of transient ischemic attack. ANESTHESIA: General. ANESTHESIOLOGIST: Hans Bassett MD OPERATIVE FINDINGS: There was a large plaque with evidence of intraplaque hemorrhage and the left carotid bulb extending to the internal carotid artery. OPERATIVE PROCEDURE: Following routine patient identification with side and site verification, general anesthesia was induced. The left neck was prepped with ChloraPrep. Time-out was performed. A skin incision was made along the anterior border of the left sternocleidomastoid. Subcutaneous tissues were divided with cautery. The platysma was divided with cautery. The anterior part of the sternocleidomastoid was freed, and the muscles were retracted laterally. The internal jugular vein was dissected along its anterior border. Side branches were ligated with silk ties and divided. The vein was retracted laterally. The common carotid artery was then mobilized at the base of the incision and secured with umbilical tape. The artery was dissected distally. The external carotid was mobilized and secured with a vessel loop. The internal carotid artery was then mobilized distally. Crossing vessels were ligated with silk ties and divided. The hypoglossal nerve was identified. It was necessary to divide the ends of the hypoglossi to elevate the nerve superiorly to gain access to the distal internal carotid artery. Patient was systemically heparinized and the distal internal carotid artery was secured with a vessel loop. The common internal and external carotid arteries were then occluded with vessel loops and clamps. Arteriotomy was made from the common to the internal carotid to a point distal to the disease. Back-bleeding from the distal internal carotid was sluggish. Decision was made to place the shunt. A Brener shunt, having previously been filled with heparin solution, was carefully inserted in the distal internal carotid artery and secured with a Damien clamp. It was allowed to back bleed through the side arm and was reoccluded. Proximal end was placed in the common carotid artery and secured with the umbilical tape. It was flushed through the side arm, and then, flow was restored to the internal under direct vision. Endarterectomy was then performed with removal of plaque from the common internal and external branches. Loose media fibers were removed. The distal intima was tacked down with several sutures of 7-0 Prolene. The arteriotomy was then closed with a thin collagen-coated Dacron patch, which was sutured to the arterial chang with running 6-0 Prolene suture. Prior to completion of the suture line, the artery was allowed to back-bleed and flush from all branches. was filled with heparin solution. The suture line was then completed and flow was restored first to the external and then the internal carotid artery. Evaluation with a hand-held Doppler revealed good flow in all branches. Bleeding from the suture line was controlled with Surgicel. Protamine was administered intravenously. When hemostasis was adequate, the wound was irrigated and closed with interrupted suture of 3-0 Vicryl and skin wily. Sterile dressings were applied. Patient was then awakened from anesthesia and extubated. He was transported to the recovery room. EVARISTO SHEIKH M.D. [id number]
--- NOTE | 2018-08-08 08:09 | CONSULT ---
Consult Consult Specialty:: PULM/CCM Referred by:: Dr. Srinivas Mann Reason for Consultation:: POD 1 s/p L CEA c/b R Aubrey - History of Present Illness Chief Complaint: R Aubrey History of Present Illness: POD 1 s/p L CEA w/ return to OR for open eval and arteriogram. Mr. Villa is a 78 y/o man w/ HTN, HLD, & a long Hx/o multiple TIAs, pt of Dr. Srinivas Mann. The pt was admitted on 08/02 dizzy, s/p fall. W/u revealed >70% L ICA stenosis. 08/07/18 L CEA c/b Post-Op R sided paresis. Post-Op NCHCT w/ return to OR for open eval of endarterectomy and arteriogram shows no acute path. Pt admitted to ICU O/N, sedated & intubated, w/ plan for NEUR re-eval off sedation today. 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, TIA, Other (craniotomy for traumatic injury in s without neuro deficits) Cardio/Vascular: Yes: Aortic Stenosis, HTN, Hyperlipdemia Renal/: Yes: Renal Inusuff Psych: Yes: Anxiety - Past Surgical History Past Surgical History: Yes: Craniotomy - Alcohol/Substance Use Hx Alcohol Use: Yes (occasional uses wine) Number of Drinks Daily: 1 History of Substance Use: reports: None - Smoking History Smoking history: Never smoked Have you smoked in the past 12 months: No Aproximately how many cigarettes per day: 0 - Social History ADL: Independent History of Recent Travel: No Home Medications - Allergies Allergies/Adverse Reactions: Allergies Allergy/AdvReac Type Severity Reaction Status Date / Time No Known Allergies Allergy Verified 08/02/18 21:12 - Home Medications Home Medications: Ambulatory Orders Aspirin/Dipyridamole [Aggrenox -] 1 combo PO BID 03/13/18 RX: Hydralazine HCl 25 mg PO BID 03/13/18 Atorvastatin Ca [Lipitor] 40 mg PO HS 08/03/18 Escitalopram Oxalate [Lexapro -] 5 mg PO HS 08/03/18 Nifedipine ER [Procardia Xl -] 90 mg PO DAILY 08/03/18 RX: Chlorthalidone 25 mg PO AM 08/03/18 RX: Labetalol HCl 100 mg PO DAILY 08/03/18 RX: Spironolactone 25 mg PO DAILY 08/03/18 Family Disease History - Family Disease History Family Disease History: Heart Disease: Mother, Brother Review of Systems Unable to obtain ROS, reason: Pt is sedated & Intubated Physical Exam Vital Signs: Vital Signs Temperature 97.3 F L 08/08/18 06:11 Pulse Rate 56 L 08/08/18 06:11 Respiratory Rate 16 08/08/18 06:58 Blood Pressure 145/68 08/08/18 06:11 O2 Sat by Pulse Oximetry (%) 100 08/07/18 22:44 Intake & Output 08/05/18 08/06/18 08/07/18 08/08/18 23:59 23:59 23:59 23:59 Intake Total 198 346 7582 1408.2 Output Total 2160 900 Balance 313 688 8158 508.2 Weight 73.936 kg Constitutional: Yes: Well Nourished, No Distress, Calm Eyes: Yes: PERRL HENT: Yes: WNL, Atraumatic, Normocephalic Neck: Yes: Other (L CEA Site C/D/S/D/I) Cardiovascular: Yes: WNL, Regular Rate and Rhythm Respiratory: Yes: Intubated, Mechanically Ventilated Gastrointestinal: Yes: WNL, Normal Bowel Sounds, Soft ...Rectal Exam: Yes: Deferred Renal/: Yes: WNL Breast(s): Yes: WNL Musculoskeletal: Yes: WNL Extremities: Yes: WNL Edema: No Peripheral Pulses WNL: Yes Wound/Incision: Yes: Clean/Dry, Well Approximated, Sutures Intact, Dressing Dry and Intact Neurological: No: WNL ...Motor Strength: RUE, RLE Psychiatric: Yes: WNL Labs: CBC, BMP 08/08/18 05:30 08/08/18 05:30 Imaging - Results Chest X-ray: Image Reviewed (CXR 08/08: Single view of the chest has been submitted. Since 08/07/2018, again noted is an endotracheal tube with tip well above felicia. There is a large heart, and for that aorta and there is some new atelectatic/infiltrative changes at the left base.) Cat Scan: Report Reviewed ([facility] 08/08: No bleed (My Read).) Ultrasound: Report Reviewed (Caritd Artery DUPLEX 08/07: Left ICA PSV 275 cm/sec, PDV 108 cm/sec, ICA:CCA 2.9.) EKG: Image Reviewed (12-LEAD 08/03: RSR @ 70 w/o ectopy, L axis deviation, LVH, T- wave flattening in II, III, & avF, multiple T-wave inversions in the lateral leads (same on prior EKGs). QTc = 455ms (No new changes - My Read).) Problem List - Problems (1) Carotid stenosis, symptomatic w/o infarct Code(s): I65.29 - OCCLUSION AND STENOSIS OF UNSPECIFIED CAROTID ARTERY Qualifiers: Laterality: bilateral Qualified Code(s): I65.23 - Occlusion and stenosis of bilateral carotid arteries (2) TIA (transient ischemic attack) Code(s): G45.9 - TRANSIENT CEREBRAL ISCHEMIC ATTACK, UNSPECIFIED (3) Hypertension with renal disease Code(s): I12.9 - HYPERTENSIVE CHRONIC KIDNEY DISEASE W STG 1-4/UNSP CHR KDNY (4) CHF (congestive heart failure) Code(s): I50.9 - HEART FAILURE, UNSPECIFIED Qualifiers: Heart failure type: unspecified Heart failure chronicity: acute Qualified Code(s): I50.9 - Heart failure, unspecified (5) Aortic stenosis Code(s): I35.0 - NONRHEUMATIC AORTIC (VALVE) STENOSIS (6) ASHD (arteriosclerotic heart disease) Code(s): I25.10 - ATHSCL HEART DISEASE OF [place] CORONARY ARTERY W/O ANG PCTRS Assessment/Plan ASSESS: Post-Op Resp Fail L Carotid Artery stenosis now Post-Op Day #1 s/p L CEA c/b R Hemiparesis HTN HLD CHF ASHD GUY PLAN: -NPO -Deep sedation for comfort on the Vent -Vent Support -Neuro checks q1 -ASA -?? CTA head & neck -Cardene gtt for tight BP control GAOL mean: 110-115 -Extubate -Pain Management -S & S -FS -SSI -PT/OT -NEURO -X-Ross --> Neuro Step Down -SCDs -PPI Thank You for this interesting consult DGL, ACNP-BC [facility] ICU PULM/CCM [id number] Critical Care Total Critical Care Time (in minutes): 38 Critical Care Statement: The care of this patient involved high complexity decision making to prevent further life threatening deterioration of the patient 's condition and/or to evaluate & treat vital organ system(s) failure or risk of failure.
[2018-08-08] MEDS ORDERED: ASPIRIN 325 MG ENTERIC COATED TABLET (FP) PO ONE (09:26)
[2018-08-08] MEDS: ENOXAPARIN NA (PORCINE) 40 MG/0.4 ML DISP.SYRIN SQ SCH (09:34)
[2018-08-08] MEDS: PANTOPRAZOLE SODIUM 40 MG VIAL IVPUSH SCH (09:34)
[2018-08-08] MEDS ORDERED: ASPIRIN SUPPOSITORY 600 MG SUPP.RECT PR SCH (10:00)
[2018-08-08] MEDS ORDERED: NIFEdipine E.R 60 MG TABLET (UD) PO SCH (10:00)
[2018-08-08] MEDS ORDERED: LABETALOL HCL 100 MG TABLET (FP) PO SCH (10:00)
[2018-08-08] MEDS ORDERED: SPIRONOLACTONE 25 MG TABLET (FP) PO SCH (10:00)
--- NOTE | 2018-08-08 10:07 | PN ---
Progress Note, Physician Chief Complaint: Cardiology coverage for dr. Oliveira - Current Medication List Current Medications: Active Medications Aspirin (Ecotrin -) 650 mg PO ONCE ONE Stop: 08/08/18 09:27 Chlorhexidine Gluconate (Hibiclens For Decolonization -) 1 applic TP HS [facility] Enoxaparin Sodium (Lovenox -) 40 mg SQ DAILY [facility] Last Admin: 08/08/18 09:34 Dose: 40 mg Propofol (Diprivan -) 1,000,000 mcg in 100 mls @ 2.028 mls/hr IVPB TITR [facility]; Protocol Last Admin: 08/08/18 06:30 Dose: 50 mcg/kg/min, 20.28 mls/hr Sodium Chloride (Normal Saline -) 1,000 mls @ 75 mls/hr IV ASDIR [facility] Last Admin: 08/07/18 22:30 Dose: 75 mls/hr Nicardipine HCl 25 mg/ (Dextrose) 250 mls @ 25 mls/hr IVPB TITR [facility]; Protocol Last Admin: 08/08/18 01:56 Dose: Not Given Fentanyl 500 mcg/ Dextrose 100 mls @ 10 mls/hr IVPB TITR [facility] Last Titration: 08/08/18 05:31 Dose: 35 mcg/hr, 7 mls/hr Dextrose/Sodium Chloride (D5-1/2ns -) 1,000 mls @ 42 mls/hr IV ASDIR [facility] Last Admin: 08/08/18 00:19 Dose: 42 mls/hr Cefazolin Sodium (Ancef 1 Gm Premixed Ivpb -) 1 gm in 50 mls @ 100 mls/hr IVPB Q8H-IV [facility] Stop: 08/08/18 10:29 Last Admin: 08/08/18 09:34 Dose: 100 mls/hr Labetalol HCl (Normodyne -) 100 mg PO BID [facility] Morphine Sulfate (Morphine Sulfate) 4 mg IVPUSH Q3H PRN PRN Reason: PAIN LEVEL 1-5 Nifedipine (Procardia Xl -) 60 mg PO DAILY [facility] Ondansetron HCl (Zofran Injection) 4 mg IVPUSH Q6H PRN PRN Reason: NAUSEA AND/OR VOMITING Pantoprazole Sodium (Protonix Iv) 40 mg IVPUSH DAILY [facility] Last Admin: 08/08/18 09:34 Dose: 40 mg Spironolactone (Aldactone -) 25 mg PO DAILY [facility] - Objective Vital Signs: Vital Signs Temperature 97.3 F L 08/08/18 06:11 Pulse Rate 53 L 08/08/18 08:27 Respiratory Rate 12 08/08/18 08:27 Blood Pressure 145/68 08/08/18 06:11 O2 Sat by Pulse Oximetry (%) 100 08/08/18 08:27 Eyes: Yes: WNL, Conjunctiva Clear, EOM Intact HENT: Yes: WNL, Atraumatic, Normocephalic Neck: Yes: WNL, Supple, Trachea Midline Cardiovascular: Yes: WNL, Regular Rate and Rhythm Respiratory: Yes: Intubated, Mechanically Ventilated Gastrointestinal: Yes: WNL, Normal Bowel Sounds Genitourinary: Yes: WNL Musculoskeletal: Yes: WNL Extremities: Yes: WNL Edema: No Integumentary: Yes: WNL ...Motor Strength: WNL Psychiatric: Yes: WNL Labs: CBC, BMP 08/08/18 05:30 08/08/18 05:30 INR, PTT INR 1.06 (0.83-1.09) 08/02/18 21:28 Assessment/Plan IMP: Fall, r/o syncope 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 Vitals stable overnight. Waiting for neurology evaluation for possible CVA. cont supportive rx as per ICU team dvt plx bp stable Cardiac pulido stable coverage for dr. Oliveira cc time spent 40 min
[2018-08-08] MEDS ORDERED: PT OWN MED DRAWER 7, Y5N ONE (10:34)
--- NOTE | 2018-08-08 11:18 | PN ---
Progress Note (short form) - Note Progress Note: Last evening, following carotid endarterectomy, patient was unable to move right arm and hand. He was speaking normally to family and was moving right leg and foot. A CT of the brain showed no new changes or evidence of bleeding. He was started on a Heparin drip. He was unable to cooperate with a Duplex scan to evaluate the endarterectomy site. He was returned to the OR and the surgical site was explored and the vessels were all open with normal Doppler flow. An angiogram showed no evidence of technical defect at the endarterectomy site and cerebral flow did not appear abnormal on the lateral view obtained as evaluated by Dr. Mondragon. He was kept intubated overnight and Neurology consulted. Heparin was discontinued. This AM he remains intubated and a repeat CT of the brain was done. The neck wound is dry. Drain removed. Await extubation to assess neuro status Family informed of current situation. Problem List - Problems (1) Carotid stenosis, symptomatic w/o infarct Code(s): I65.29 - OCCLUSION AND STENOSIS OF UNSPECIFIED CAROTID ARTERY Qualifiers: Laterality: bilateral Qualified Code(s): I65.23 - Occlusion and stenosis of bilateral carotid arteries
--- NOTE | 2018-08-08 11:47 | OP ---
DATE OF OPERATION: 08/07/2018 SURGEON: Evaritso Bhagat MD COOK FAST FOOD: SOFIA Weems PROCEDURE: Re-exploration of left neck wound, angiogram of left carotid and brain. PREOPERATIVE DIAGNOSIS: Postoperative stroke following carotid endarterectomy. POSTOPERATIVE DIAGNOSIS: Postoperative stroke following carotid endarterectomy with no evidence of arterial stenosis or occlusion. OPERATIVE PROCEDURE: The patient was brought to the operating room from the recovery room. General anesthesia was induced. The left neck was prepped with ChloraPrep. The wily were removed, and the wound was re-opened. A small amount of bloody drainage was aspirated. The endarterectomy patch was visualized, and there was no active bleeding. Evaluation with a handheld Doppler revealed good flow in both the external and internal carotid arteries. A suture of 6-0 Prolene was placed in a mattress fashion in the proximal end of the patch and then the patch was cannulated with a 21-gauge butterfly needle through that area. Digital angiography was then performed with dilute contrast without clamping the common carotid artery. This showed no evidence of technical defect at the endarterectomy site with no intimal flap or thrombus within the vessel. Flow into the intracranial portion appeared intact, and a wet read from Radiology stated there was no evidence of obvious major vascular occlusion in the cerebral branches on the lateral view. The needle was removed and the pursestring suture tied to control bleeding. The wound was then irrigated. A [place] drain was placed and the wound closed over the drain with interrupted sutures of 3-0 Vicryl on the platysmal layer and skin wily. A sterile dressing was applied, and the patient was transported intubated to the intensive care unit. EVARISTO BHAGAT M.D. [id number]
--- NOTE | 2018-08-08 12:01 | PN ---
Progress Note, Physician History of Present Illness: events note d Chart reviewed S/p CEA 24 hours Right arm weak Head CT twice no bleed Hemodyncalliy stable Stat post intubation on Fenatly and Propafol Trying to wean - Current Medication List Current Medications: Active Medications Aspirin (Ecotrin -) 650 mg PO ONCE ONE Stop: 08/08/18 09:27 Chlorhexidine Gluconate (Hibiclens For Decolonization -) 1 applic TP HS [facility] Clopidogrel Bisulfate (Plavix -) 75 mg PO DAILY [facility] Enoxaparin Sodium (Lovenox -) 40 mg SQ DAILY [facility] Last Admin: 08/08/18 09:34 Dose: 40 mg Propofol (Diprivan -) 1,000,000 mcg in 100 mls @ 2.028 mls/hr IVPB TITR [facility]; Protocol Last Admin: 08/08/18 06:30 Dose: 50 mcg/kg/min, 20.28 mls/hr Sodium Chloride (Normal Saline -) 1,000 mls @ 75 mls/hr IV ASDIR [facility] Last Admin: 08/07/18 22:30 Dose: 75 mls/hr Nicardipine HCl 25 mg/ (Dextrose) 250 mls @ 25 mls/hr IVPB TITR [facility]; Protocol Last Admin: 08/08/18 01:56 Dose: Not Given Fentanyl 500 mcg/ Dextrose 100 mls @ 10 mls/hr IVPB TITR [facility] Last Titration: 08/08/18 05:31 Dose: 35 mcg/hr, 7 mls/hr Dextrose/Sodium Chloride (D5-1/2ns -) 1,000 mls @ 42 mls/hr IV ASDIR [facility] Last Admin: 08/08/18 00:19 Dose: 42 mls/hr Labetalol HCl (Normodyne -) 100 mg PO BID [facility] Lorazepam (Ativan Injection -) 0.5 mg IVPUSH Q4H PRN PRN Reason: ANXIETY Morphine Sulfate (Morphine Sulfate) 4 mg IVPUSH Q3H PRN PRN Reason: PAIN LEVEL 1-5 Ondansetron HCl (Zofran Injection) 4 mg IVPUSH Q6H PRN PRN Reason: NAUSEA AND/OR VOMITING Pantoprazole Sodium (Protonix Iv) 40 mg IVPUSH DAILY [facility] Last Admin: 08/08/18 09:34 Dose: 40 mg - Objective Vital Signs: Vital Signs Temperature 97.3 F L 08/08/18 06:11 Pulse Rate 53 L 08/08/18 08:27 Respiratory Rate 12 08/08/18 08:27 Blood Pressure 145/68 08/08/18 06:11 O2 Sat by Pulse Oximetry (%) 100 08/08/18 08:27 Constitutional: Yes: Well Nourished Eyes: Yes: WNL Neurological: Yes: Alert, Babinski negative ...Motor Strength: LUE (sp movement), RUE (0) Labs: CBC, BMP 08/08/18 05:30 08/08/18 05:30 INR, PTT INR 1.06 (0.83-1.09) 08/02/18 21:28 Problem List - Problems (1) Fall Assessment/Plan: isolated RUE weakness s/p CEA Very strange in the presence of two neg CT Right neg babinski 1. Neuro checks q1 2. CTA of [facility] head and neck 3. Ct C spine 4. PT 5. Iv Tylenol 6. Tight BP control target mean 110-115 7. NPO Thanks Code(s): W19.XXXA - UNSPECIFIED FALL, INITIAL ENCOUNTER
--- NOTE | 2018-08-08 12:09 | PN ---
Progress Note (short form) - Note Progress Note: Current Medications Aspirin (Ecotrin -) 650 mg PO ONCE ONE Stop: 08/08/18 09:27 Chlorhexidine Gluconate (Hibiclens For Decolonization -) 1 applic TP HS [facility] Clopidogrel Bisulfate (Plavix -) 75 mg PO DAILY [facility] Enoxaparin Sodium (Lovenox -) 40 mg SQ DAILY [facility] Last Admin: 08/08/18 09:34 Dose: 40 mg Propofol (Diprivan -) 1,000,000 mcg in 100 mls @ 2.028 mls/hr IVPB TITR [facility]; Protocol Last Admin: 08/08/18 06:30 Dose: 50 mcg/kg/min, 20.28 mls/hr Nicardipine HCl 25 mg/ (Dextrose) 250 mls @ 25 mls/hr IVPB TITR [facility]; Protocol Last Admin: 08/08/18 01:56 Dose: Not Given Fentanyl 500 mcg/ Dextrose 100 mls @ 10 mls/hr IVPB TITR [facility] Last Titration: 08/08/18 05:31 Dose: 35 mcg/hr, 7 mls/hr Dextrose/Sodium Chloride (D5-1/2ns -) 1,000 mls @ 42 mls/hr IV ASDIR [facility] Last Admin: 08/08/18 00:19 Dose: 42 mls/hr Sodium Chloride (Normal Saline -) 1,000 mls @ 50 mls/hr IV ASDIR [facility] Lorazepam (Ativan Injection -) 0.5 mg IVPUSH Q4H PRN PRN Reason: ANXIETY Morphine Sulfate (Morphine Sulfate) 4 mg IVPUSH Q3H PRN PRN Reason: PAIN LEVEL 1-5 Ondansetron HCl (Zofran Injection) 4 mg IVPUSH Q6H PRN PRN Reason: NAUSEA AND/OR VOMITING Pantoprazole Sodium (Protonix Iv) 40 mg IVPUSH DAILY [facility] Last Admin: 08/08/18 09:34 Dose: 40 mg Laboratory Results - last 24 hr 08/08/18 08/08/18 05:30 05:30 WBC 7.3 RBC 4.17 Hgb 12.5 Hct 36.5 MCV 87.6 MCH 29.9 MCHC 34.2 RDW 14.4 Plt Count 167 MPV 8.8 Sodium 134 L Potassium 4.7 Chloride 104 Carbon Dioxide 23 Anion Gap 8 BUN 34 H Creatinine 1.8 H Creat Clearance w eGFR 36.77 Random Glucose 157 H Calcium 7.7 L Phosphorus 4.5 Magnesium 1.9 Total Bilirubin 0.2 AST 22 ALT 30 Alkaline Phosphatase 68 Total Protein 5.5 L Albumin 2.8 L Vital Signs Temperature 97.3 F L 08/08/18 06:11 Pulse Rate 53 L 08/08/18 08:27 Respiratory Rate 12 08/08/18 08:27 Blood Pressure 145/68 08/08/18 06:11 O2 Sat by Pulse Oximetry (%) 100 08/08/18 08:27 CC; intubated & sedated in ICU ``````````````````````````` skin--NL color eyes--midline oral--with ETT heart--RR 3/6 M abd--soft neuro--unconscious & sedated at this time ``````````````````````````` Summ > Htn--with CRI (stage 2); now POSt-Op and BP in good range; unable to take PO; is on Nicardipine infusion; HR is slow (presumed effect of sedating agents) therefore cannot give the BB (yet). PLAN: await and adjust as need in the post extub period > paresis--RUE; post OP; initial head CT was officially read as negative; f/u head CT taken this AM was unchanged (unofficial) > S/p Lt CEA--complicated by RUE Paresis; needed to undergo f/u study to evaluate blood flow which revealed no visible blockage (a/c stopped) on cerebral angiogram, thus not requiring thrombolysis. PLAN: neuro f/u > Delirium--post OP; requiring sedation to be weened off PLAN: Prn Ativan > AbnL CXR--Lt atelectasis; will repeat in AM ~~~~~~~~~~~~~~~~~~~~~~~~~~~` Dr Duckworth
[2018-08-08] MEDS: SODIUM CHLORIDE 1,000 ML IV SCH (13:27)
[2018-08-08] MEDS: FENTANYL INJECTION 500 MCG in DEXTROSE 5%-WATER - 90 ML IVPB SCH ×2 (15:35→22:59)
[2018-08-08] MEDS ORDERED: ASPIRIN 325 MG TABLET NGT STA (17:54)
[2018-08-08] MEDS: CHLORHEXIDINE GLUCONATE 4% CLEANSER FOR DECOLONIZATION TP SCH (22:58)
[2018-08-09 06:21] LABS: ANION GAP 8 MMOL/L (8-16); BLOOD UREA NITROGEN 37 mg/dL (7-18); CHLORIDE 100 mmol/L (98-107); CO2 22 mmol/L (21-32); CREATININE 1.9 mg/dL (0.55-1.3); GLUCOSE,RANDOM 134 mg/dL (74-106); POTASSIUM 4.1 mmol/L (3.5-5.1); SODIUM 130 mmol/L (136-145)
[2018-08-09 06:23] LABS: CALCIUM 6.8 mg/dL (8.5-10.1)
[2018-08-09] MEDS ORDERED: CALCIUM GLUCONATE 10% - 1,000 MG/10 ML VIAL IVPB ONE (06:50)
[2018-08-09] MEDS: NICARDIPINE 25 MG in DEXTROSE 5%-WATER - 240 ML IVPB SCH ×5 (07:30→23:00)
[2018-08-09] MEDS ORDERED: ALBUTEROL SO4 0.083% IH SOL 2.5 MG/3 ML VIAL.NEB. NEB ONE ×2 (07:52→18:25)
[2018-08-09 08:13] LABS: HEMATOCRIT 39.2 % (35.4-49); MCH 29.9 pg (25.7-33.7); MCHC 33.2 g/dl (32.0-35.9); MEAN CELL VOLUME 90.1 fl (80-96); MEAN PLT VOLUME 9.9 fl (7.5-11.1); PLATELET COUNT 158 K/MM3 (134-434); RBC 4.35 M/mm3 (4.00-5.60); RDW 14.8 % (11.9-15.9); WHITE BLOOD COUNT 6.1 K/mm3 (4.0-10.0)
--- NOTE | 2018-08-09 08:17 | PN ---
Progress Note (short form) - Note Progress Note: PULM/CCM Post-Op Day #2 s/p L CEA c/b R Hemiparesis Pt Seen & Examined in the ICU. Off sedation, following all commands in [place], passing SBT's. Active Medications Chlorhexidine Gluconate (Hibiclens For Decolonization -) 1 applic TP HS [facility] Last Admin: 08/08/18 22:58 Dose: 1 applic Clopidogrel Bisulfate (Plavix -) 75 mg PO DAILY [facility] Enoxaparin Sodium (Lovenox -) 40 mg SQ DAILY [facility] Last Admin: 08/08/18 09:34 Dose: 40 mg Propofol (Diprivan -) 1,000,000 mcg in 100 mls @ 2.028 mls/hr IVPB TITR [facility]; Protocol Last Titration: 08/08/18 20:30 Dose: 40 mcg/kg/min, 16.224 mls/hr Nicardipine HCl 25 mg/ (Dextrose) 250 mls @ 25 mls/hr IVPB TITR [facility]; Protocol Last Admin: 08/08/18 22:59 Dose: Not Given Fentanyl 500 mcg/ Dextrose 100 mls @ 10 mls/hr IVPB TITR [facility] Last Admin: 08/08/18 22:59 Dose: Not Given Sodium Chloride (Normal Saline -) 1,000 mls @ 50 mls/hr IV ASDIR [facility] Last Admin: 08/08/18 13:27 Dose: 50 mls/hr Lorazepam (Ativan Injection -) 0.5 mg IVPUSH Q4H PRN PRN Reason: ANXIETY Morphine Sulfate (Morphine Sulfate) 4 mg IVPUSH Q3H PRN PRN Reason: PAIN LEVEL 1-5 Ondansetron HCl (Zofran Injection) 4 mg IVPUSH Q6H PRN PRN Reason: NAUSEA AND/OR VOMITING Pantoprazole Sodium (Protonix Iv) 40 mg IVPUSH DAILY [facility] Last Admin: 08/08/18 09:34 Dose: 40 mg Vital Signs Period Temp Pulse Resp BP Sys/Palmer Pulse Ox Last 24 Hr 96.4 F-98.1 F 52-61 12-20 125-186/56-79 100-100 Intake & Output 08/06/18 08/07/18 08/08/18 08/09/18 23:59 23:59 23:59 23:59 Intake Total 850 3695 1711.0 512.4 Output Total 2160 1100 50 Balance 850 1535 611.0 462.4 Weight 73.936 kg 73.89 kg GEN: Well nourished middle aged man, C & A on the vent off sedation HEENT: PERRRL, an-icteric, Dry MMM, L CEA Site C/D/S/D/I PULM: CTAB CV: nml S1 S2, RR, unable to appreciate any G/M/R ABD: + BS, S/S N/T N/D X4Q EXT: + Pulses, WWP X4, Persistent R Aubrey CBC, BMP 08/09/18 05:30 ASSESS: Resolving Post-Op Resp Fail L Carotid Artery stenosis now Post-Op Day #2 s/p L CEA c/b R Hemiparesis HTN HLD CHF ASHD GUY PLAN: -NPO -HOLD sedation -Extubate NOW -Neuro checks q1 -?? CTA head & neck -Cardene gtt for tight BP control GAOL mean: 110-115 -Pain Management -S & S -FS -SSI -PT/OT -NEURO -X-Ross --> Neuro Step Down -SCDs -PPI Thank You for this interesting consult DGL, ACNP-BC [facility] ICU PULM/CCM 4436 Critical Care Total Critical Care Time (in minutes): 39 Critical Care Statement: The care of this patient involved high complexity decision making to prevent further life threatening deterioration of the patient 's condition and/or to evaluate & treat vital organ system(s) failure or risk of failure. Problem List - Problems (1) Carotid stenosis, symptomatic w/o infarct Code(s): I65.29 - OCCLUSION AND STENOSIS OF UNSPECIFIED CAROTID ARTERY Qualifiers: Laterality: bilateral Qualified Code(s): I65.23 - Occlusion and stenosis of bilateral carotid arteries (2) TIA (transient ischemic attack) Code(s): G45.9 - TRANSIENT CEREBRAL ISCHEMIC ATTACK, UNSPECIFIED (3) Hypertension with renal disease Code(s): I12.9 - HYPERTENSIVE CHRONIC KIDNEY DISEASE W STG 1-4/UNSP CHR KDNY (4) CHF (congestive heart failure) Code(s): I50.9 - HEART FAILURE, UNSPECIFIED Qualifiers: Heart failure type: unspecified Heart failure chronicity: acute Qualified Code(s): I50.9 - Heart failure, unspecified (5) Aortic stenosis Code(s): I35.0 - NONRHEUMATIC AORTIC (VALVE) STENOSIS (6) ASHD (arteriosclerotic heart disease) Code(s): I25.10 - ATHSCL HEART DISEASE OF [place] CORONARY ARTERY W/O ANG PCTRS
--- NOTE | 2018-08-09 08:25 | PN ---
Progress Note (short form) - Note Progress Note: Anesthesia Pt seen and examined S:Extubated follows commands on O2 mask O: Vital Signs Temperature 98.1 F 08/09/18 06:00 Pulse Rate 58 L 08/09/18 06:00 Respiratory Rate 17 08/09/18 06:13 Blood Pressure 127/66 08/09/18 06:00 O2 Sat by Pulse Oximetry (%) 100 08/09/18 04:00 CBC, BMP 08/09/18 05:30 08/09/18 05:30 A/P: Current Active Problems GUY (acute kidney injury) (Acute) ASHD (arteriosclerotic heart disease) (Acute) Abnormal ECG (Acute) Aortic stenosis (Acute) CHF (congestive heart failure) (Acute) Carotid stenosis, symptomatic w/o infarct (Acute) Elevated brain natriuretic peptide (BNP) level (Acute) Fall (Acute) Hypertension (Acute) Stroke (Acute) s/p CEA left Right side paresis Extubated post op Neuro follow up Hans Bassett MD
--- NOTE | 2018-08-09 08:58 | PN ---
Progress Note, Physician Chief Complaint: Covering DR Duckworth Family at bedside events noted POD #2 CEA Pt extubated this AM He is awake and alert, speech is dysarthric, he is speaking in Romansh - Current Medication List Current Medications: Active Medications Chlorhexidine Gluconate (Hibiclens For Decolonization -) 1 applic TP HS [facility] Last Admin: 08/08/18 22:58 Dose: 1 applic Clopidogrel Bisulfate (Plavix -) 75 mg PO DAILY [facility] Enoxaparin Sodium (Lovenox -) 40 mg SQ DAILY [facility] Last Admin: 08/08/18 09:34 Dose: 40 mg Nicardipine HCl 25 mg/ (Dextrose) 250 mls @ 25 mls/hr IVPB TITR [facility]; Protocol Last Admin: 08/08/18 22:59 Dose: Not Given Sodium Chloride (Normal Saline -) 1,000 mls @ 50 mls/hr IV ASDIR [facility] Last Admin: 08/08/18 13:27 Dose: 50 mls/hr Lorazepam (Ativan Injection -) 0.5 mg IVPUSH Q4H PRN PRN Reason: ANXIETY Morphine Sulfate (Morphine Sulfate) 4 mg IVPUSH Q3H PRN PRN Reason: PAIN LEVEL 1-5 Ondansetron HCl (Zofran Injection) 4 mg IVPUSH Q6H PRN PRN Reason: NAUSEA AND/OR VOMITING Pantoprazole Sodium (Protonix Iv) 40 mg IVPUSH DAILY [facility] Last Admin: 08/08/18 09:34 Dose: 40 mg - Objective Vital Signs: Vital Signs Temperature 98.1 F 08/09/18 06:00 Pulse Rate 80 08/09/18 08:34 Respiratory Rate 17 08/09/18 06:13 Blood Pressure 127/66 08/09/18 06:00 O2 Sat by Pulse Oximetry (%) 94 L 08/09/18 08:34 Constitutional: Yes: No Distress HENT: Yes: Other (swelling left neck) Cardiovascular: Yes: Regular Rate and Rhythm Respiratory: Yes: CTA Bilaterally Gastrointestinal: Yes: Normal Bowel Sounds, Soft, Abdomen, Obese. No: Tenderness Edema: No Neurological: Yes: Alert, Oriented, Weakness, Other (decreased sensation rt upper and lower extremities, motor- 0 on right arm and leg) Psychiatric: Yes: Alert Labs: CBC, BMP 08/09/18 05:30 08/09/18 05:30 INR, PTT INR 1.06 (0.83-1.09) 08/02/18 21:28 Problem List - Problems (1) GUY (acute kidney injury) Code(s): N17.9 - ACUTE KIDNEY FAILURE, UNSPECIFIED (2) ASHD (arteriosclerotic heart disease) Code(s): I25.10 - ATHSCL HEART DISEASE OF [place] CORONARY ARTERY W/O ANG PCTRS (3) Carotid stenosis, symptomatic w/o infarct Code(s): I65.29 - OCCLUSION AND STENOSIS OF UNSPECIFIED CAROTID ARTERY Qualifiers: Laterality: bilateral Qualified Code(s): I65.23 - Occlusion and stenosis of bilateral carotid arteries (4) Hypertension Code(s): I10 - ESSENTIAL (PRIMARY) HYPERTENSION (5) Stroke Code(s): I63.9 - CEREBRAL INFARCTION, UNSPECIFIED Qualifiers: Laterality of affected vessel: unspecified Assessment/Plan PLAN Post- OP CVA s/p Left CEA -- s/p extubation today -- Neurology follow up -- CTA neck ordered- not done- creatinine elevated -- Physical therapy evaluation -- swallow evaluation -- pt tolerated trial of thickened water Uncontrolled HTN -- in Nicardipine drip -- will resume his PO meds -- monitor BP GUY -- on iv fluids , monitor renal function DVT prophylaxis -- On lovenox
[2018-08-09] MEDS ORDERED: niCARdipine HCL 25 MG/10 ML AMPUL IVPB ONE ×2 (10:05→12:00)
--- NOTE | 2018-08-09 10:25 | PN ---
Progress Note, Physician Chief Complaint: Cardiology coverage for dr. Oliveira - Current Medication List Current Medications: Active Medications Chlorhexidine Gluconate (Hibiclens For Decolonization -) 1 applic TP HS [facility] Last Admin: 08/08/18 22:58 Dose: 1 applic Clopidogrel Bisulfate (Plavix -) 75 mg PO DAILY [facility] Enoxaparin Sodium (Lovenox -) 40 mg SQ DAILY [facility] Last Admin: 08/08/18 09:34 Dose: 40 mg Nicardipine HCl 25 mg/ (Dextrose) 250 mls @ 25 mls/hr IVPB TITR [facility]; Protocol Last Titration: 08/09/18 08:30 Dose: 15 mg/hr, 150 mls/hr Sodium Chloride (Normal Saline -) 1,000 mls @ 50 mls/hr IV ASDIR [facility] Last Admin: 08/08/18 13:27 Dose: 50 mls/hr Lorazepam (Ativan Injection -) 0.5 mg IVPUSH Q4H PRN PRN Reason: ANXIETY Morphine Sulfate (Morphine Sulfate) 4 mg IVPUSH Q3H PRN PRN Reason: PAIN LEVEL 1-5 Ondansetron HCl (Zofran Injection) 4 mg IVPUSH Q6H PRN PRN Reason: NAUSEA AND/OR VOMITING Pantoprazole Sodium (Protonix Iv) 40 mg IVPUSH DAILY [facility] Last Admin: 08/08/18 09:34 Dose: 40 mg - Objective Vital Signs: Vital Signs Temperature 97.3 F L 08/09/18 08:00 Pulse Rate 80 08/09/18 08:34 Respiratory Rate 17 08/09/18 08:00 Blood Pressure 173/67 H 08/09/18 08:30 O2 Sat by Pulse Oximetry (%) 94 L 08/09/18 08:34 Eyes: Yes: WNL, Conjunctiva Clear, EOM Intact HENT: Yes: WNL, Atraumatic, Normocephalic Neck: Yes: WNL, Supple, Trachea Midline Cardiovascular: Yes: WNL, Regular Rate and Rhythm Respiratory: Yes: WNL, Regular, CTA Bilaterally Gastrointestinal: Yes: WNL, Normal Bowel Sounds Genitourinary: Yes: WNL Musculoskeletal: Yes: WNL Extremities: Yes: WNL Edema: No Integumentary: Yes: WNL Neurological: Yes: Other (right sided pareshis) ...Motor Strength: WNL Psychiatric: Yes: WNL Labs: CBC, BMP 08/09/18 05:30 08/09/18 05:30 INR, PTT INR 1.06 (0.83-1.09) 08/02/18 21:28 Assessment/Plan IMP: Fall, r/o syncope 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 This morning R hemipharesis after extubation. Neurology evaluation f/u cont supportive rx as per ICU team dvt plx bp control as per neurology consult parameters -avoid hypotension Cardiac pulido stable d/w daughter and at the bedside coverage for dr. Oliveira cc time spent 40 min
[2018-08-09] MEDS: ENOXAPARIN NA (PORCINE) 40 MG/0.4 ML DISP.SYRIN SQ SCH (10:34)
[2018-08-09] MEDS: PANTOPRAZOLE SODIUM 40 MG VIAL IVPUSH SCH (10:34)
[2018-08-09] MEDS: CLOPIDOGREL BISULFATE 75 MG TABLET (FP) PO SCH (10:36)
[2018-08-09] MEDS: SODIUM CHLORIDE 1,000 ML IV SCH ×2 (12:00→21:44)
--- NOTE | 2018-08-09 13:00 | EKG ---
Test Reason : Blood Pressure : / mmHG Vent. Rate : 084 BPM Atrial Rate : 084 BPM P-R Int : 180 ms QRS Dur : 110 ms QT Int : 398 ms P-R-T Axes : 038 -15 045 degrees QTc Int : 470 ms SINUS RHYTHM WITH PREMATURE ATRIAL COMPLEXES OTHERWISE NORMAL ECG WHEN COMPARED WITH ECG OF 03-AUG-2018 13:03, NONSPECIFIC T WAVE ABNORMALITY NO LONGER EVIDENT IN INFERIOR LEADS T WAVE INVERSION NO LONGER EVIDENT IN LATERAL LEADS Confirmed by Bill Jessica MD ([id number]) on 08/09/2018 12:59:32 PM Referred By: Deedee GTZ Confirmed By:Bill Jessica MD
--- NOTE | 2018-08-09 14:04 | PN ---
Progress Note (short form) - Note Progress Note: Extubated. Awake and alert. Speech dysarthric VSS PEERL, EOMI Neck no edema, wound clean and dry Neuro: Right hemiplegia - arm and leg. Imp: Post operative CVA, s/p left CEA Plan: Control BP Swallowing evaluation Physical therapy Problem List - Problems (1) Carotid stenosis, symptomatic w/o infarct Code(s): I65.29 - OCCLUSION AND STENOSIS OF UNSPECIFIED CAROTID ARTERY Qualifiers: Laterality: bilateral Qualified Code(s): I65.23 - Occlusion and stenosis of bilateral carotid arteries
[2018-08-09] MEDS ORDERED: LABETALOL HCL 100 MG TABLET (FP) PO SCH (17:00)
[2018-08-09] MEDS: morphine SULFATE 4 MG/ML VIAL IVPUSH PRN ×2 (17:44→22:15)
[2018-08-09] MEDS ORDERED: ALBUTEROL SO4 0.083% IH SOL 2.5 MG/3 ML VIAL.NEB. NEB STA (18:21)
[2018-08-09] MEDS: LORazepam 2 MG/ML SDV VIAL IVPUSH PRN (20:47)
--- NOTE | 2018-08-09 21:21 | PN ---
Progress Note, Physician History of Present Illness: events noted in chart review patient seemed medical ICU alert awake oriented extubated on facemask just had a treatment 2 daughters at the bedside very concerned about the right hemiparesis involving the right arm and the right leg Still no Babinski Weak gag Complains of difficulty with breathing and swallowing feeling of being choked Patient with personal history of anxiety used to be on Ativan - Current Medication List Current Medications: Active Medications Chlorhexidine Gluconate (Hibiclens For Decolonization -) 1 applic TP HS [facility] Last Admin: 08/08/18 22:58 Dose: 1 applic Clopidogrel Bisulfate (Plavix -) 75 mg PO DAILY [facility] Last Admin: 08/09/18 10:36 Dose: 75 mg Enoxaparin Sodium (Lovenox -) 40 mg SQ DAILY [facility] Last Admin: 08/09/18 10:34 Dose: 40 mg Hydralazine HCl (Apresoline -) 25 mg PO BID [facility] Nicardipine HCl 25 mg/ (Dextrose) 250 mls @ 25 mls/hr IVPB TITR [facility]; Protocol Last Admin: 08/09/18 18:13 Dose: 15 mg/hr, 150 mls/hr Sodium Chloride (Normal Saline -) 1,000 mls @ 22 mls/hr IV ASDIR [facility] Labetalol HCl (Normodyne -) 100 mg PO TID [facility] Lorazepam (Ativan Injection -) 0.5 mg IVPUSH Q4H PRN PRN Reason: ANXIETY Last Admin: 08/09/18 20:47 Dose: 0.5 mg Morphine Sulfate (Morphine Sulfate) 4 mg IVPUSH Q3H PRN PRN Reason: PAIN LEVEL 1-5 Last Admin: 08/09/18 17:44 Dose: 4 mg Ondansetron HCl (Zofran Injection) 4 mg IVPUSH Q6H PRN PRN Reason: NAUSEA AND/OR VOMITING Pantoprazole Sodium (Protonix Iv) 40 mg IVPUSH DAILY [facility] Last Admin: 08/09/18 10:34 Dose: 40 mg - Objective Vital Signs: Vital Signs Temperature 97.2 F L 08/09/18 16:00 Pulse Rate 93 H 08/09/18 18:13 Respiratory Rate 22 H 08/09/18 18:00 Blood Pressure 167/68 08/09/18 18:13 O2 Sat by Pulse Oximetry (%) 94 L 08/09/18 08:34 Constitutional: Yes: Well Nourished Eyes: Yes: WNL Neurological: Yes: Alert, Babinski negative, Weakness ...Motor Strength: RUE (0), RLE (0) Labs: CBC, BMP 08/09/18 05:30 08/09/18 05:30 INR, PTT INR 1.06 (0.83-1.09) 08/02/18 21:28 Problem List - Problems (1) Fall Assessment/Plan: Q CVA left MCA distribution status post carotid endarterectomy 2 CAT scans of negative explained to the family the reason 1. Neuro checks every 1 hour. 2. Blood pressure stable. 3. MRI of the brain with no contrast. 4. Follow-up with nephrology regarding the kidney function. 5. Acute rehabilitation family agreed Neurologically patient can be moved to the stroke unit on telemetry Code(s): W19.XXXA - UNSPECIFIED FALL, INITIAL ENCOUNTER
[2018-08-09] MEDS: CHLORHEXIDINE GLUCONATE 4% CLEANSER FOR DECOLONIZATION TP SCH (21:44)
[2018-08-10] MEDS: hydrALAZINE HCL 25 MG TABLET (FP) PO SCH ×2 (00:09→00:17)
[2018-08-10] MEDS: LABETALOL HCL 100 MG TABLET (FP) PO SCH ×3 (00:10→05:33)
[2018-08-10] MEDS: LORazepam 2 MG/ML SDV VIAL IVPUSH PRN (00:30)
[2018-08-10] MEDS ORDERED: RACEPINEPHRINE IH SOL 2.25% 11.25 MG/0.5 ML VIAL IH ONE (03:47)
[2018-08-10] MEDS ORDERED: DEXAMETHASONE SOD PHOSPHATE 10 MG/1 ML VIAL IVPUSH ONE (03:47)
[2018-08-10] MEDS ORDERED: RACEPINEPHRINE IH SOL 2.25% 11.25 MG/0.5 ML VIAL NEB ONE (03:51)
[2018-08-10] MEDS ORDERED: PROPOFOL 1,000,000 MCG/100 ML VIAL ONE ×2 (04:12→14:55)
[2018-08-10] MEDS ORDERED: VECURONIUM BROMIDE 10 MG VIAL ONE (04:17)
[2018-08-10] MEDS ORDERED: MIDAZOLAM HCL 5 MG/1 ML Single Dose Vial ONE (04:19)
[2018-08-10] MEDS: PROPOFOL 1,000,000 MCG/100 ML VIAL IVPB SCH ×2 (04:30→14:58)
--- NOTE | 2018-08-10 04:36 | PROC ---
Procedure Note Procedure: Anesthesia Market Risk Analyst. Called to intubate patient with respiratory distress. BP 178/78 Resp 32 PO2 94 on 100% non breather mask 3mg versed IV given DL x 1 with Glydescope Direct visualization of the cord #8 ETT passed + ETCO2 Breath sound equal bilaterally Tube taped at 22cm att he lip Care left to ICU team Hans Bassett MD
[2018-08-10] MEDS ORDERED: MIDAZOLAM HCL 2 MG/2 ML SINGLE DOSE VIAL IVPUSH ONE (04:52)
[2018-08-10 06:08] LABS: HEMATOCRIT 33.4 % (35.4-49); HEMOGLOBIN 11.4 GM/dL (11.7-16.9); MCH 29.8 pg (25.7-33.7); MCHC 34.3 g/dl (32.0-35.9); MEAN PLT VOLUME 8.7 fl (7.5-11.1); PLATELET COUNT 169 K/MM3 (134-434); RBC 3.84 M/mm3 (4.00-5.60); RDW 13.8 % (11.9-15.9); WHITE BLOOD COUNT 7.8 K/mm3 (4.0-10.0)
[2018-08-10 06:47] LABS: ALBUMIN 2.8 g/dl (3.4-5.0); ALK PHOS 126 U/L (45-117); ANION GAP 9 MMOL/L (8-16); BILIRUBIN,TOTAL 0.6 mg/dL (0.2-1); BLOOD UREA NITROGEN 26 mg/dL (7-18); CALCIUM 7.5 mg/dL (8.5-10.1); CHLORIDE 100 mmol/L (98-107); CO2 24 mmol/L (21-32); CREATININE 1.4 mg/dL (0.55-1.3); GLUCOSE,RANDOM 159 mg/dL (74-106); MAGNESIUM 1.8 mg/dL (1.8-2.4); PHOSPHOROUS 3.1 mg/dL (2.5-4.9); POTASSIUM 3.5 mmol/L (3.5-5.1); SGOT/AST 26 U/L (15-37); SGPT/ALT 30 U/L (13-61); SODIUM 133 mmol/L (136-145); TOT PROT 5.6 g/dl (6.4-8.2)
[2018-08-10] MEDS: NICARDIPINE 25 MG in DEXTROSE 5%-WATER - 240 ML IVPB SCH ×2 (07:45→22:44)
--- NOTE | 2018-08-10 08:13 | PN ---
Progress Note (short form) - Note Progress Note: surgery POD #3 Left with return to OR POD#0 and Post-Op R sided paresis. Patient was reintubated early this morning after he developed progressive respiratory distress. Patient seen and examined at bedside intubated on vent. Vital Signs Temp 98 F 08/10/18 06:00 Pulse 73 08/10/18 07:46 Resp 18 08/10/18 07:46 BP 115/62 08/10/18 07:00 Pulse Ox 100 08/10/18 07:46 Intake & Output 08/09/18 08/09/18 08/10/18 11:59 23:59 11:59 Intake Total 512.4 1850 1626 Output Total 50 1400 1400 Balance 462.4 450 226 Weight 162 lb 14.4 oz 162 lb 158 lb 7 oz Intake: IV 512.4 1650 1526 Cardene 25 mg In D5w - 1650 1250 240 ml @ 2.5 MG/HR 25 mls /hr IVPB TITR [facility] Rx#: [id number] DIPRIVAN - 1,000,000 mcg 12 In 100 ml @ 10 MCG/KG/MIN 4.409 mls/hr IVPB TITR [facility] Rx#:[id number] DIPRIVAN - 1,000,000 mcg 113.4 In 100 ml @ 5 MCG/KG/MIN 2.028 mls/hr IVPB TITR [facility] Rx#:[id number] Normal Saline - 1,000 ml 264 @ 22 mls/hr IV ASDIR [facility] Rx#:[id number] Normal Saline - 1,000 ml 350 @ 50 mls/hr IV [facility] Rx#:[id number] Sublimaze Injection - 500 49 Mcg In D5w - 90 ml @ 50 MCG/HR 10 mls/hr IVPB TITR [facility] Rx#:[id number] IVPB 200 100 Output: Urine 50 1400 1400 [place] 50 1400 1400 Other: Voiding Method Indwelling Catheter Indwelling Catheter Bowel Movement No No Height 5 ft 2 in Body Mass Index (BMI) 29.6 Weight Measurement Method Built in [facility] Built in [facility] CBC, BMP 08/10/18 05:30 08/10/18 05:30 PE: Sedated on vent VSS Incision left neck with some oozing at medial boarder but no evidence of active bleeding. no significant hematoma or edema crossing the midline. Surorunding tissue intact wiht no tracking erythema and wily in situ. LE: Compartments soft with SCDs in place, +PD pulses b/l <Marry Carrera - Last Filed: 08/10/18 13:05> - Note Progress Note: Events noted - reintubated Currently arousable. Left neck incision with small amount of bloody drainage. Mild swelling Neuro appears unchanged CTA done - Carotid patent into brain, await official interpretation Imp: S/p left CEA, post op stroke. Mild-moderate neck swelling required reintubation <Evaristo Sheikh - Last Filed: 08/10/18 15:40> Problem List - Problems (1) Carotid stenosis, symptomatic w/o infarct Assessment/Plan: POD #3 with post op Right hemiparesis, currently intubated- stable. 1) Control BP 2) DVT/GI prophylaxis 3) Care per ICU team Vascular Attending note to follow Code(s): I65.29 - OCCLUSION AND STENOSIS OF UNSPECIFIED CAROTID ARTERY Qualifiers: Laterality: bilateral Qualified Code(s): I65.23 - Occlusion and stenosis of bilateral carotid arteries <Marry Carrera - Last Filed: 08/10/18 13:05> - Problems (1) Carotid stenosis, symptomatic w/o infarct Code(s): I65.29 - OCCLUSION AND STENOSIS OF UNSPECIFIED CAROTID ARTERY Qualifiers: Laterality: bilateral Qualified Code(s): I65.23 - Occlusion and stenosis of bilateral carotid arteries <Evaristo Sheikh - Last Filed: 08/10/18 15:40>
--- NOTE | 2018-08-10 08:55 | PN ---
Progress Note, Physician Chief Complaint: Seen and examined in ICU Weekend events noted. Re-intubated. Daughter at bedside - Current Medication List Current Medications: Active Medications Chlorhexidine Gluconate (Hibiclens For Decolonization -) 1 applic TP HS [facility] Last Admin: 08/09/18 21:44 Dose: 1 applic Clopidogrel Bisulfate (Plavix -) 75 mg PO DAILY [facility] Last Admin: 08/09/18 10:36 Dose: 75 mg Enoxaparin Sodium (Lovenox -) 40 mg SQ DAILY [facility] Last Admin: 08/09/18 10:34 Dose: 40 mg Hydralazine HCl (Apresoline -) 25 mg PO BID [facility] Last Admin: 08/10/18 00:17 Dose: Not Given Nicardipine HCl 25 mg/ (Dextrose) 250 mls @ 25 mls/hr IVPB TITR [facility]; Protocol Last Titration: 08/10/18 05:54 Dose: 0 mg/hr, 0 mls/hr Sodium Chloride (Normal Saline -) 1,000 mls @ 22 mls/hr IV ASDIR [facility] Last Admin: 08/09/18 21:44 Dose: 22 mls/hr Propofol (Diprivan -) 1,000,000 mcg in 100 mls @ 4.409 mls/hr IVPB TITR [facility]; Protocol Last Admin: 08/10/18 04:30 Dose: 10 mcg/kg/min, 4.409 mls/hr Labetalol HCl (Normodyne -) 100 mg PO TID [facility] Last Admin: 08/10/18 05:33 Dose: Not Given Lorazepam (Ativan Injection -) 0.5 mg IVPUSH Q4H PRN PRN Reason: ANXIETY Last Admin: 08/10/18 00:30 Dose: 0.5 mg Morphine Sulfate (Morphine Sulfate) 4 mg IVPUSH Q3H PRN PRN Reason: PAIN LEVEL 1-5 Last Admin: 08/09/18 22:15 Dose: 4 mg Ondansetron HCl (Zofran Injection) 4 mg IVPUSH Q6H PRN PRN Reason: NAUSEA AND/OR VOMITING Pantoprazole Sodium (Protonix Iv) 40 mg IVPUSH DAILY [facility] Last Admin: 08/09/18 10:34 Dose: 40 mg Saliva Substitute (Mouthkote Solution -) 1 applic MM DAILY [facility] - Objective Vital Signs: Vital Signs Temperature 98 F 08/10/18 06:00 Pulse Rate 73 08/10/18 07:46 Respiratory Rate 18 08/10/18 07:46 Blood Pressure 115/62 08/10/18 07:00 O2 Sat by Pulse Oximetry (%) 100 08/10/18 07:46 Constitutional: Yes: No Distress Cardiovascular: Yes: Regular Rate and Rhythm Respiratory: Yes: CTA Bilaterally (clear anteriorly and laterally) Gastrointestinal: Yes: Soft Edema: No Neurological: Yes: Other (right babinski absent) Labs: CBC, BMP 08/10/18 05:30 08/10/18 05:30 INR, PTT INR 1.06 (0.83-1.09) 08/02/18 21:28 Problem List - Problems (1) Fall Code(s): W19.XXXA - UNSPECIFIED FALL, INITIAL ENCOUNTER (2) Aortic stenosis Code(s): I35.0 - NONRHEUMATIC AORTIC (VALVE) STENOSIS (3) Abnormal ECG Code(s): R94.31 - ABNORMAL ELECTROCARDIOGRAM [ECG] [EKG] (4) Hypertension Code(s): I10 - ESSENTIAL (PRIMARY) HYPERTENSION (5) Stroke Code(s): I63.9 - CEREBRAL INFARCTION, UNSPECIFIED Qualifiers: Laterality of affected vessel: unspecified (6) ASHD (arteriosclerotic heart disease) Code(s): I25.10 - ATHSCL HEART DISEASE OF [place] CORONARY ARTERY W/O ANG PCTRS (7) Elevated brain natriuretic peptide (BNP) level Code(s): R79.89 - OTHER SPECIFIED ABNORMAL FINDINGS OF BLOOD CHEMISTRY (8) GUY (acute kidney injury) Code(s): N17.9 - ACUTE KIDNEY FAILURE, UNSPECIFIED Assessment/Plan IMP: Fall Non-obstructive CAD Mild to moderate Severe LICA stenosis, symptomatic, s/p L.CEA w/ post op CVA Post op respiratory failure- CXR does not show evidence of CHF or focal infiltrate REC: 1. Vent management per ICU team 2. Cont Antiplatelet Rx as per Vascular 3. Remains in NSR, cont telemetry 4. BP parameters as per Neuro 5. DVT prophylaxis Will follow
--- NOTE | 2018-08-10 09:54 | EKG ---
Test Reason : Blood Pressure : / mmHG Vent. Rate : 081 BPM Atrial Rate : 081 BPM P-R Int : 170 ms QRS Dur : 104 ms QT Int : 374 ms P-R-T Axes : 054 -35 076 degrees QTc Int : 434 ms SINUS RHYTHM WITH PREMATURE ATRIAL COMPLEXES LEFT AXIS DEVIATION T WAVE ABNORMALITY, CONSIDER LATERAL ISCHEMIA ABNORMAL ECG WHEN COMPARED WITH ECG OF 09-AUG-2018 11:52, T WAVE INVERSION NOW EVIDENT IN LATERAL LEADS Confirmed by THEO DOWNS, HATTIE ([id number]) on 08/10/2018 9:54:25 AM Referred By: Confirmed By:HATTIE VENEGAS MD
[2018-08-10] MEDS ORDERED: LYTES/YERBA SANTA 240 ML BOTTLE MM SCH (10:00)
[2018-08-10] MEDS: ENOXAPARIN NA (PORCINE) 40 MG/0.4 ML DISP.SYRIN SQ SCH (10:11)
[2018-08-10] MEDS: PANTOPRAZOLE SODIUM 40 MG VIAL IVPUSH SCH (10:11)
--- NOTE | 2018-08-10 10:59 | CONSULT ---
Admitting History and Physical - Primary Care Physician PCP: Srinivas Mann - Admission History of Present Illness: 78 year old man with prior history of multiple episodes of transient ischemic attacks causing right arm and leg weakness and numbness as well as left facial droop became lightheaded and fell after using the bathroom. He has been taking Aggrenox after the last TIA in Feb 2018 Operative Date: 08/07/18 Pre-Operative Diagnosis: Left carotid stenosis Operation: Left carotid endarterectomy Findings: Large plaque in left ICA with old hemorrhage Implants: Thin walled Dacron patch CVA left MCA distribution status post carotid endarterectomy Extubated 08/09. Needed to be re-intubated. Chart reviewed. Pt examination deferred. - Past Medical History CMO & PRESIDENT: Yes: Syncope, TIA, Other (craniotomy for traumatic injury in s without neuro deficits) Cardiovascular: Yes: Aortic Stenosis, HTN, Hyperlipdemia Renal/: Yes: Renal Inusuff Psych: Yes: Anxiety - Past Surgical History Past Surgical History: Yes: Craniotomy - Smoking History Smoking history: Never smoked Have you smoked in the past 12 months: No Aproximately how many cigarettes per day: 0 - Alcohol/Substance Use Hx Alcohol Use: Yes (occasional uses wine) Number of Drinks Daily: 1 History of Substance Use: reports: None - Social History ADL: Independent History of Recent Travel: No History - Admission Reason For Visit: ACUTE KIDNEY INJURY, CONGESTIVE HEART FAILURE - Hearing Hearing: Impaired, Left Ear Hearing Aide: No With Patient: No Speech Evaluation - Communication Primary Language: SPANISH
--- NOTE | 2018-08-10 11:15 | PN ---
Teaching Attending Note Name of Resident: Jonathan Phan ATTENDING PHYSICIAN STATEMENT I saw and evaluated the patient. I reviewed the resident's note and discussed the case with the resident. I agree with the resident's findings and plan as documented. SUBJECTIVE: Patient seen and examined in the ICU. Intubated and sedated. Required re- intubation this AM, (?) Stridor and respiratory distress. On Cardene drip for BP control. AC Mode of vent, 40% FiO2. Intake & Output 08/07/18 08/08/18 08/09/18 08/10/18 23:59 23:59 23:59 23:59 Intake Total 3695 1711.0 2362.4 1626 Output Total 2160 1100 1450 1400 Balance 1535 611.0 912.4 226 Weight 163 lb 162 lb 158 lb 7 oz Last Vital Signs Temp Pulse Resp BP Pulse Ox 100.0 F H 112 H 16 172/81 H 97 08/10/18 10:00 08/10/18 10:00 08/10/18 10:06 08/10/18 10:00 08/10/18 10:06 Active Medications Chlorhexidine Gluconate (Hibiclens For Decolonization -) 1 applic TP HS [facility] Last Admin: 08/09/18 21:44 Dose: 1 applic Clopidogrel Bisulfate (Plavix -) 75 mg PO DAILY [facility] Last Admin: 08/09/18 10:36 Dose: 75 mg Enoxaparin Sodium (Lovenox -) 40 mg SQ DAILY [facility] Last Admin: 08/10/18 10:11 Dose: 40 mg Nicardipine HCl 25 mg/ (Dextrose) 250 mls @ 25 mls/hr IVPB TITR [facility]; Protocol Last Admin: 08/10/18 07:45 Dose: 5 mg/hr, 50 mls/hr Sodium Chloride (Normal Saline -) 1,000 mls @ 22 mls/hr [facility] Last Admin: 08/09/18 21:44 Dose: 22 mls/hr Propofol (Diprivan -) 1,000,000 mcg in 100 mls @ 4.409 mls/hr IVPB TITR [facility]; Protocol Last Admin: 08/10/18 04:30 Dose: 10 mcg/kg/min, 4.409 mls/hr Labetalol HCl (Normodyne -) 100 mg PO TID [facility] Last Admin: 08/10/18 05:33 Dose: Not Given Lorazepam (Ativan Injection -) 0.5 mg IVPUSH Q4H PRN PRN Reason: ANXIETY Last Admin: 08/10/18 00:30 Dose: 0.5 mg Morphine Sulfate (Morphine Sulfate) 4 mg IVPUSH Q3H PRN PRN Reason: PAIN LEVEL 1-5 Last Admin: 08/09/18 22:15 Dose: 4 mg Ondansetron HCl (Zofran Injection) 4 mg IVPUSH Q6H PRN PRN Reason: NAUSEA AND/OR VOMITING Pantoprazole Sodium (Protonix Iv) 40 mg IVPUSH DAILY [facility] Last Admin: 08/10/18 10:11 Dose: 40 mg Saliva Substitute (Mouthkote Solution -) 1 applic MM DAILY [facility] GEN: Intubated and sedated HEENT: PERRRL, an-icteric, Dry MMM, L CEA Site clean mild swelling PULM: Vented, few scattered rhonchi CV: S1 S2, RR ABD: + BS, S/S N/T N/D X4Q EXT: + Pulses, WWP X4, Persistent R Aubrey Laboratory Results - last 24 hr 08/09/18 08/10/18 08/10/18 17:52 05:18 05:30 WBC 7.8 RBC 3.84 L Hgb 11.4 L Hct 33.4 L MCV 87.0 MCH 29.8 MCHC 34.3 RDW 13.8 Plt Count 169 MPV 8.7 D Sodium Potassium Chloride Carbon Dioxide Anion Gap BUN Creatinine Creat Clearance w eGFR POC Glucometer 135 173 Random Glucose Calcium Phosphorus Magnesium Total Bilirubin AST ALT Alkaline Phosphatase Total Protein Albumin 08/10/18 05:30 WBC RBC Hgb Hct MCV MCH MCHC RDW Plt Count MPV Sodium 133 L Potassium 3.5 Chloride 100 Carbon Dioxide 24 Anion Gap 9 BUN 26 H Creatinine 1.4 H Creat Clearance w eGFR 49.14 POC Glucometer Random Glucose 159 H Calcium 7.5 L Phosphorus 3.1 Magnesium 1.8 Total Bilirubin 0.6 AST 26 ALT 30 Alkaline Phosphatase 126 H Total Protein 5.6 L Albumin 2.8 L Problem List - Problems (1) Carotid stenosis, symptomatic w/o infarct Code(s): I65.29 - OCCLUSION AND STENOSIS OF UNSPECIFIED CAROTID ARTERY Qualifiers: Laterality: bilateral Qualified Code(s): I65.23 - Occlusion and stenosis of bilateral carotid arteries (2) TIA (transient ischemic attack) Code(s): G45.9 - TRANSIENT CEREBRAL ISCHEMIC ATTACK, UNSPECIFIED (3) Hypertension with renal disease Code(s): I12.9 - HYPERTENSIVE CHRONIC KIDNEY DISEASE W STG 1-4/UNSP CHR KDNY (4) CHF (congestive heart failure) Code(s): I50.9 - HEART FAILURE, UNSPECIFIED Qualifiers: Heart failure type: unspecified Heart failure chronicity: acute Qualified Code(s): I50.9 - Heart failure, unspecified (5) Aortic stenosis Code(s): I35.0 - NONRHEUMATIC AORTIC (VALVE) STENOSIS (6) ASHD (arteriosclerotic heart disease) Code(s): I25.10 - ATHSCL HEART DISEASE OF [place] CORONARY ARTERY W/O ANG PCTRS ASSESS: Acute Respiratory Failure: Suspect due to stridor: On leak test only about 20% of volume lost Left Carotid Artery stenosis POD # 4 Left CEA with New ischemic CVA and Right Hemiparesis HTN HLD CHF ASHD GUY PLAN: Sedate for vent synchrony NGT/OGT for enteral feeds SBP 140 to 160 on cardene Would image with CT scan Daily sedation vacation to assess mental status VTE prophylaxis PPI Statin Dr Ko Critical Care Total Critical Care Time (in minutes): 39 Critical Care Statement: The care of this patient involved high complexity decision making to prevent further life threatening deterioration of the patient 's condition and/or to evaluate & treat vital organ system(s) failure or risk of failure.
--- NOTE | 2018-08-10 11:33 | PN ---
Physical Exam: SUBJECTIVE: Patient seen and examined with daughter at bedside. Patient is sedated, on mechanical ventilation. Case discussed with daughter at bedside. OBJECTIVE: Vital Signs Period Temp Pulse Resp BP Sys/Palmer Pulse Ox Last 24 Hr 97.2 F-100.0 F 72-112 12-31 109-178/54-82 93-100 GENERAL: The patient is sedated, intubated. Grimaces in response to physical exam. HEENT: Normocephalic, atraumatic. PERRL, sclera anicteric, conjunctiva clear. Intubated. LUNGS: Mechanical breath sounds equal bilaterally. No wheezes, no crackles auscultated. HEART: Regular rate and rhythm, S1, S2 without murmur, rub or gallop. ABDOMEN: Soft, nontender, nondistended. Hypoactive bowel sounds X4 quadrants. EXTREMITIES: 2+ radial, dorsalis pedis pulses. 1+ bilateral lower extremity edema. NEUROLOGICAL: Sedated. Moves left upper and lower extremities in response to physical exam. SKIN: Warm, dry. No rashes, lesions noted. Laboratory Results - last 24 hr 08/09/18 08/10/18 08/10/18 17:52 05:18 05:30 WBC 7.8 RBC 3.84 L Hgb 11.4 L Hct 33.4 L MCV 87.0 MCH 29.8 MCHC 34.3 RDW 13.8 Plt Count 169 MPV 8.7 D Sodium Potassium Chloride Carbon Dioxide Anion Gap BUN Creatinine Creat Clearance w eGFR POC Glucometer 135 173 Random Glucose Calcium Phosphorus Magnesium Total Bilirubin AST ALT Alkaline Phosphatase Total Protein Albumin 08/10/18 05:30 WBC RBC Hgb Hct MCV MCH MCHC RDW Plt Count MPV Sodium 133 L Potassium 3.5 Chloride 100 Carbon Dioxide 24 Anion Gap 9 BUN 26 H Creatinine 1.4 H Creat Clearance w eGFR 49.14 POC Glucometer Random Glucose 159 H Calcium 7.5 L Phosphorus 3.1 Magnesium 1.8 Total Bilirubin 0.6 AST 26 ALT 30 Alkaline Phosphatase 126 H Total Protein 5.6 L Albumin 2.8 L Active Medications Generic Name Dose Route Start Last Admin Trade Name Freq PRN Reason Stop Dose Admin Chlorhexidine Gluconate 1 applic 08/08/18 22:00 08/09/18 21:44 Hibiclens For Decolonization - TP 1 applic HS [facility] Administration Clopidogrel Bisulfate 75 mg 08/09/18 10:00 08/09/18 10:36 Plavix - PO 75 mg DAILY [facility] Administration Enoxaparin Sodium 40 mg 08/08/18 10:00 08/10/18 10:11 Lovenox - SQ 40 mg DAILY [facility] Administration Nicardipine HCl 25 mg/ 250 mls @ 25 mls/hr 08/07/18 22:15 08/10/18 07:45 Dextrose IVPB 5 mg/hr TITR [facility] 50 mls/hr Administration Protocol 2.5 MG/HR Sodium Chloride 1,000 mls @ 22 mls/hr 08/09/18 19:28 08/09/18 21:44 Normal Saline - IV 22 mls/hr ASDIR [facility] Administration Propofol 1,000,000 mcg in 100 mls @ 4.409 mls/hr 08/10/18 05:00 08/10/18 04: 30 Diprivan - IVPB 10 mcg/kg/min TITR [facility] 4.409 mls/hr Administration Protocol 10 MCG/KG/MIN Labetalol HCl 100 mg 08/09/18 22:00 08/10/18 05:33 Normodyne - PO Not Given TID [facility] Lorazepam 0.5 mg 08/09/18 20:21 08/10/18 00:30 Ativan Injection - IVPUSH 0.5 mg Q4H PRN Administration ANXIETY Morphine Sulfate 4 mg 08/07/18 21:38 08/09/18 22:15 Morphine Sulfate IVPUSH 4 mg Q3H PRN Administration PAIN LEVEL 1-5 Ondansetron HCl 4 mg 08/07/18 23:00 Zofran Injection IVPUSH Q6H PRN NAUSEA AND/OR VOMITING Pantoprazole Sodium 40 mg 08/08/18 10:00 08/10/18 10:11 Protonix Iv IVPUSH 40 mg DAILY [facility] Administration Saliva Substitute 1 applic 08/10/18 03:28 Mouthkote Solution - MM DAILY [facility] ASSESSMENT/PLAN: Patient is a 78 year old male with history of hypertension, hyperlipidemia, TIA s/p left carotid endartectomy with postoperative right sided paresis. Neurological Left CVA -Patient is s/p carotid endarterectomy 08/07/2018 with post-operative right sided paresis -CTA head, neck, CT cervical spine with contrast -Neurology, vascular surgery consult appreciated. -Lipitor 80mg GT HS Cardiovascular Hypertension -Patient is on Cardene drip. Titrate to BP goal systolic 140- 160mmHg. -Discontinue Hydralazine, as concern for elevated intracranial pressure -Holding home Labetalol as patient is on Cardene drip. CAD -Plavix 75mg PO daily Pulmonary Acute hypoxic respiratory failure- reported chocking sensation, with stridor -Patient is intubated, on ventilator. Attempted wean trial today, however patient maintains cuff leak approx. 20% suggestive of airway edema. -RR 12, TV 600 PEEP 5/ FiO2 40 -Sedation with Propofol -Daily sedation vacations Nephrology GUY -BUN 26, Cr 1.4, improving -Gentle hydration with IV normal saline at 50mL/ hour -Continue with CTA head, neck, CT cervical spine with contrast. Gastrointestinal -NG tube to allow for feeds -Prophylaxis with Protonix 40mg IV daily FEN -IV normal saline at 50mL/ hour -Within normal limits, follow CMP. Replete as necessary -NPO while intubated. NG tube feeds once placement confirmed with radiograph. Prophylaxis -Lovenox 40mg subq daily -Protonix 40mg IV daily Disposition -Continue care in ICU Visit type - Emergency Visit Emergency Visit: Yes ED Registration Date: 08/02/18 Care time: The patient presented to the Emergency Department on the above date and was hospitalized for further evaluation of their emergent condition. - New Patient This patient is new to me today: Yes Date on this admission: 08/10/18 - Critical Care Critical Care patient: Yes Total Critical Care Time (in minutes): 35 Critical Care Statement: The care of this patient involved high complexity decision making to prevent further life threatening deterioration of the patient 's condition and/or to evaluate & treat vital organ system(s) failure or risk of failure. - Discharge Referral Referred to [facility] Med P.C.: No
[2018-08-10] MEDS: LYTES/YERBA SANTA 240 ML BOTTLE MM SCH (11:37)
[2018-08-10] MEDS ORDERED: SODIUM CHLORIDE 1,000 ML IV SCH (11:45)
--- NOTE | 2018-08-10 12:55 | PN ---
Progress Note (short form) - Note Progress Note: Current Medications Atorvastatin Calcium (Lipitor -) 80 mg PO HS [facility] Chlorhexidine Gluconate (Hibiclens For Decolonization -) 1 applic TP HS [facility] Last Admin: 08/09/18 21:44 Dose: 1 applic Clopidogrel Bisulfate (Plavix -) 75 mg PO DAILY [facility] Last Admin: 08/09/18 10:36 Dose: 75 mg Enoxaparin Sodium (Lovenox -) 40 mg SQ DAILY [facility] Last Admin: 08/10/18 10:11 Dose: 40 mg Nicardipine HCl 25 mg/ (Dextrose) 250 mls @ 25 mls/hr IVPB TITR [facility]; Protocol Last Admin: 08/10/18 07:45 Dose: 5 mg/hr, 50 mls/hr Sodium Chloride (Normal Saline -) 1,000 mls @ 22 mls/hr IV ASDIR [facility] Last Admin: 08/09/18 21:44 Dose: 22 mls/hr Propofol (Diprivan -) 1,000,000 mcg in 100 mls @ 4.409 mls/hr IVPB TITR [facility]; Protocol Last Admin: 08/10/18 04:30 Dose: 10 mcg/kg/min, 4.409 mls/hr Sodium Chloride (Normal Saline -) 1,000 mls @ 50 mls/hr IV ASDIR [facility] Stop: 08/11/18 11:41 Labetalol HCl (Normodyne -) 100 mg PO TID [facility] Last Admin: 08/10/18 05:33 Dose: Not Given Lorazepam (Ativan Injection -) 0.5 mg IVPUSH Q4H PRN PRN Reason: ANXIETY Last Admin: 08/10/18 00:30 Dose: 0.5 mg Morphine Sulfate (Morphine Sulfate) 4 mg IVPUSH Q3H PRN PRN Reason: PAIN LEVEL 1-5 Last Admin: 08/09/18 22:15 Dose: 4 mg Ondansetron HCl (Zofran Injection) 4 mg IVPUSH Q6H PRN PRN Reason: NAUSEA AND/OR VOMITING Pantoprazole Sodium (Protonix Iv) 40 mg IVPUSH DAILY [facility] Last Admin: 08/10/18 10:11 Dose: 40 mg Saliva Substitute (Mouthkote Solution -) 1 applic MM DAILY [facility] Last Admin: 08/10/18 11:37 Dose: 1 applic Laboratory Results - last 24 hr 08/09/18 08/10/18 08/10/18 17:52 05:18 05:30 WBC 7.8 RBC 3.84 L Hgb 11.4 L Hct 33.4 L MCV 87.0 MCH 29.8 MCHC 34.3 RDW 13.8 Plt Count 169 MPV 8.7 D Sodium Potassium Chloride Carbon Dioxide Anion Gap BUN Creatinine Creat Clearance w eGFR POC Glucometer 135 173 Random Glucose Calcium Phosphorus Magnesium Total Bilirubin AST ALT Alkaline Phosphatase Total Protein Albumin 08/10/18 05:30 WBC RBC Hgb Hct MCV MCH MCHC RDW Plt Count MPV Sodium 133 L Potassium 3.5 Chloride 100 Carbon Dioxide 24 Anion Gap 9 BUN 26 H Creatinine 1.4 H Creat Clearance w eGFR 49.14 POC Glucometer Random Glucose 159 H Calcium 7.5 L Phosphorus 3.1 Magnesium 1.8 Total Bilirubin 0.6 AST 26 ALT 30 Alkaline Phosphatase 126 H Total Protein 5.6 L Albumin 2.8 L Vital Signs Temp 100.0 F H 08/10/18 10:00 Pulse 79 08/10/18 12:00 Resp 16 08/10/18 12:00 BP 129/61 08/10/18 12:00 Pulse Ox 97 08/10/18 10:06 Intake & Output 08/09/18 08/10/18 08/10/18 23:59 11:59 23:59 Intake Total 1850 1626 Output Total 1400 1400 Balance 450 226 Weight 162 lb 158 lb 7 oz Intake: IV 1650 1526 Cardene 25 mg In D5w - 1650 1250 240 ml @ 2.5 MG/HR 25 mls /hr IVPB TITR [facility] Rx#: [id number] DIPRIVAN - 1,000,000 mcg 12 In 100 ml @ 10 MCG/KG/MIN 4.409 mls/hr IVPB TITR [facility] Rx#:[id number] Normal Saline - 1,000 ml 264 @ 22 mls/hr IV ASDIR LELAND Rx#:[id number] IVPB 200 100 Output: Urine 1400 1400 [place] 1400 1400 Other: Voiding Method Indwelling Catheter Indwelling Catheter Bowel Movement No Height 5 ft 2 in Body Mass Index (BMI) 29.6 Weight Measurement Method Built in [facility] CC: sedated & Intubated ````````````````````````````` skin--NL color lungs--Bilat Vented sounds heart--RR neuro--unconscious ``````````````````````````` Summ Series of events reviewed since 08/08/18 Went on to develop paresis of the RLE (as well as the RUE). Developed resp distress on this day and required re-intubation > Resp failure--reason unclear; ? possible stridor indication lesion/compromise at the tracheal level. PLAN CTA of neck & head; vent mgmt as per ICU staff > Rt Hemiplegia--in wake of Lt CEA; CT x 2 and post angiogram did not illustrate any gross infarct or blockage PLAN: CTA of brain > Htn--CRI; with fluctuating BPs; on IV CCB; and had resumed BB, so will need to avoid BP extremes > Fever--low grade; will get sputum spec ```````````````````````````````````````````````````````````````````````````````` ``````````` Other: discussed case with daughter Gloria at bedside. Discussed procedures done; testing that was undertaken and results; she is aware that a head & neck CT will now be done. ~~~~~~~~~~~~~~~~~~~~~~~~~~~~~~~~~~~~~~~ Dr Duckworth
[2018-08-10] MEDS: CLOPIDOGREL BISULFATE 75 MG TABLET (FP) PO SCH (18:23)
--- NOTE | 2018-08-10 19:27 | PN ---
Progress Note, Physician History of Present Illness: events note d Chart reviewed This am was in stridor needed intubation Now on sedation Exam limited - Current Medication List Current Medications: Active Medications Atorvastatin Calcium (Lipitor -) 80 mg PO HS [facility] Chlorhexidine Gluconate (Hibiclens For Decolonization -) 1 applic TP HS [facility] Last Admin: 08/09/18 21:44 Dose: 1 applic Clopidogrel Bisulfate (Plavix -) 75 mg PO DAILY [facility] Last Admin: 08/10/18 18:23 Dose: Not Given Enoxaparin Sodium (Lovenox -) 40 mg SQ DAILY [facility] Last Admin: 08/10/18 10:11 Dose: 40 mg Nicardipine HCl 25 mg/ (Dextrose) 250 mls @ 25 mls/hr IVPB TITR [facility]; Protocol Last Titration: 08/10/18 12:45 Dose: 2.5 mg/hr, 25 mls/hr Sodium Chloride (Normal Saline -) 1,000 mls @ 22 mls/hr IV ASDIR [facility] Last Admin: 08/09/18 21:44 Dose: 22 mls/hr Propofol (Diprivan -) 1,000,000 mcg in 100 mls @ 4.409 mls/hr IVPB TITR [facility]; Protocol Last Titration: 08/10/18 18:50 Dose: 13 mcg/kg/min, 5.732 mls/hr Sodium Chloride (Normal Saline -) 1,000 mls @ 50 mls/hr IV ASDIR LELAND Stop: 08/11/18 11:41 Last Admin: 08/10/18 12:00 Dose: 50 mls/hr Lorazepam (Ativan Injection -) 0.5 mg IVPUSH Q4H PRN PRN Reason: ANXIETY Last Admin: 08/10/18 00:30 Dose: 0.5 mg Metoprolol Tartrate (Lopressor Injection -) 2.5 mg IVPUSH Q4H PRN PRN Reason: HYPERTENSION Ondansetron HCl (Zofran Injection) 4 mg IVPUSH Q6H PRN PRN Reason: NAUSEA AND/OR VOMITING Pantoprazole Sodium (Protonix Iv) 40 mg IVPUSH DAILY [facility] Last Admin: 08/10/18 10:11 Dose: 40 mg Saliva Substitute (Mouthkote Solution -) 1 applic MM DAILY [facility] Last Admin: 08/10/18 11:37 Dose: 1 applic - Objective Vital Signs: Vital Signs Temperature 98.2 F 08/10/18 18:00 Pulse Rate 69 08/10/18 18:00 Respiratory Rate 16 08/10/18 18:32 Blood Pressure 126/64 08/10/18 18:00 O2 Sat by Pulse Oximetry (%) 97 08/10/18 10:06 Constitutional: Yes: Well Nourished Eyes: Yes: WNL Labs: CBC, BMP 08/10/18 05:30 08/10/18 05:30 INR, PTT INR 1.06 (0.83-1.09) 08/02/18 21:28 Problem List - Problems (1) Fall Assessment/Plan: CT confirmed the high left frontal CVA CTA noted Kidney function better ?? why the resp collapse 1. Neuro checks 2. Weaning trial 08/11 if possible 3. PT at bedside Spoke to [facility] family Will benefit from Acute rehab once extubated ASA [facility] Code(s): W19.XXXA - UNSPECIFIED FALL, INITIAL ENCOUNTER
[2018-08-10] MEDS: SODIUM CHLORIDE 1,000 ML IV SCH (22:43)
[2018-08-10] MEDS: CHLORHEXIDINE GLUCONATE 4% CLEANSER FOR DECOLONIZATION TP SCH (22:43)
[2018-08-10] MEDS: ATORVASTATIN CA 80 MG TABLET (FP) PO SCH (22:43)
[2018-08-11] MEDS: PROPOFOL 1,000,000 MCG/100 ML VIAL IVPB SCH
[2018-08-11] MEDS: LORazepam 2 MG/ML SDV VIAL IVPUSH PRN (02:16)
[2018-08-11] MEDS: SODIUM CHLORIDE 1,000 ML IV SCH (05:09)
[2018-08-11 06:30] LABS: HEMOGLOBIN 10.8 GM/dL (11.7-16.9); MCH 30.4 pg (25.7-33.7); MEAN CELL VOLUME 86.9 fl (80-96); MEAN PLT VOLUME 8.5 fl (7.5-11.1); PLATELET COUNT 206 K/MM3 (134-434); RBC 3.57 M/mm3 (4.00-5.60); RDW 14.2 % (11.9-15.9); WHITE BLOOD COUNT 6.2 K/mm3 (4.0-10.0)
--- NOTE | 2018-08-11 07:22 | PN ---
Physical Exam: SUBJECTIVE: Patient seen and examined with daughter at bedside. Patient remains sedated, on mechanical ventilation. Overnight, patient's bandage noted with blood, and required two dressing changes. OBJECTIVE: Vital Signs Period Temp Pulse Resp BP Sys/Palmer Pulse Ox Last 24 Hr 98.1 F-100.0 F 58-112 15-22 126-180/61-82 97-100 GENERAL: The patient is sedated, intubated. HEENT: Normocephalic, atraumatic. PERRL, sclera anicteric, conjunctiva clear. Intubated. LUNGS: Mechanical breath sounds equal bilaterally. No wheezes, no crackles auscultated. HEART: Regular rate and rhythm, S1, S2 without murmur, rub or gallop. ABDOMEN: Soft, nontender, nondistended. Hypoactive bowel sounds X4 quadrants. EXTREMITIES: 2+ radial, dorsalis pedis pulses. 1+ bilateral lower extremity edema. NEUROLOGICAL: Sedated. SKIN: Warm, dry. Left neck wily noted. Dressing clean, dry. Laboratory Results - last 24 hr 08/10/18 08/11/18 08/11/18 18:25 05:30 05:59 WBC 6.2 RBC 3.57 L Hgb 10.8 L Hct 31.0 L MCV 86.9 MCH 30.4 MCHC 35.0 RDW 14.2 Plt Count 206 D MPV 8.5 POC Glucometer 193 146 Active Medications Generic Name Dose Route Start Last Admin Trade Name Freq PRN Reason Stop Dose Admin Atorvastatin Calcium 80 mg 08/10/18 22:00 08/10/18 22:43 Lipitor - PO 80 mg HS LELAND Administration Chlorhexidine Gluconate 1 applic 08/08/18 22:00 08/10/18 22:43 Hibiclens For Decolonization - TP 1 applic HS LELAND Administration Clopidogrel Bisulfate 75 mg 08/09/18 10:00 08/10/18 18:23 Plavix - PO Not Given DAILY [facility] Enoxaparin Sodium 40 mg 08/08/18 10:00 08/10/18 10:11 Lovenox - SQ 40 mg DAILY [facility] Administration Nicardipine HCl 25 mg/ 250 mls @ 25 mls/hr 08/07/18 22:15 08/10/18 22:44 Dextrose IVPB Not Given TITR LELAND Protocol 2.5 MG/HR Sodium Chloride 1,000 mls @ 22 mls/hr 08/09/18 19:28 08/11/18 05:09 Normal Saline - IV Not Given ASDIR LELAND Propofol 1,000,000 mcg in 100 mls @ 4.409 mls/hr 08/10/18 05:00 08/11/18 00: 00 Diprivan - IVPB 25 mcg/kg/min TITR LELAND 11.022 mls/hr Administration Protocol 10 MCG/KG/MIN Sodium Chloride 1,000 mls @ 50 mls/hr 08/10/18 11:45 08/10/18 12:00 Normal Saline - IV 08/11/18 11:41 50 mls/hr ASDIR LELAND Administration Lorazepam 0.5 mg 08/09/18 20:21 08/11/18 02:16 Ativan Injection - IVPUSH 0.5 mg Q4H PRN Administration ANXIETY Metoprolol Tartrate 2.5 mg 08/10/18 12:55 Lopressor Injection - IVPUSH Q4H PRN HYPERTENSION Ondansetron HCl 4 mg 08/07/18 23:00 Zofran Injection IVPUSH Q6H PRN NAUSEA AND/OR VOMITING Pantoprazole Sodium 40 mg 08/08/18 10:00 08/10/18 10:11 Protonix Iv IVPUSH 40 mg DAILY [facility] Administration Saliva Substitute 1 applic 08/10/18 03:28 08/10/18 11:37 Mouthkote Solution - MM 1 applic DAILY [facility] Administration ASSESSMENT/PLAN: Patient is a 78 year old male with history of hypertension, hyperlipidemia, TIA s/p left carotid endartectomy with postoperative right sided paresis. Neurological Left CVA -Patient is s/p carotid endarterectomy 08/07/2018 with post-operative right sided paresis -CTA head, neck shows small acute left posterior frontal infarct. Left carotid endarterectomy patent. No intracranial carotid occlusions, however right extracranial, intracranial vertebral artery with very narrow caliber. Approx. 50 % proximal right internal carotid luminal diameter. -CT cervical spine (with contrast) shows chronic degenerative changes. -Surgical site assessed by vascular surgeon, and dressing changed. -Neurology, vascular surgery consult appreciated. -Lipitor 80mg GT HS -Fentanyl 25mcg IV Q6H PRN for pain -Aspirin 81mg GT daily, per neurology Cardiovascular Hypertension -Patient is on Cardene drip. Titrate to BP goal systolic 140- 160mmHg. -Labetalol 200mg GT BID -Discontinue Hydralazine; concern for elevated intracranial pressure CAD -Plavix 75mg GT daily -Aspirin 81mg GT daily, per neurology Pulmonary Acute hypoxic respiratory failure- reported chocking sensation, with stridor -Patient is intubated, on ventilator. Attempted wean trial, however minimal cuff leak noted today. Concern for airway edema. -RR 16, TV 400 PEEP 5, FiO2 40 -Sedation with Propofol -Daily sedation vacations, and cuff leak evaluation. Nephrology GUY -BUN 39, Cr 1.5 -Gentle hydration with IV normal saline at 50mL/ hour Gastrointestinal -NG tube enteral feeds with Osmolite -Prophylaxis with Protonix 40mg IV daily FEN -IV normal saline at 50mL/ hour -Within normal limits, follow CMP. Replete as necessary -NG tube feeds with Osmolite Prophylaxis -Lovenox 40mg subq daily -Protonix 40mg IV daily Disposition -Continue care in ICU Visit type - Emergency Visit Emergency Visit: Yes ED Registration Date: 08/02/18 Care time: The patient presented to the Emergency Department on the above date and was hospitalized for further evaluation of their emergent condition. - New Patient This patient is new to me today: No - Critical Care Critical Care patient: Yes Total Critical Care Time (in minutes): 35 Critical Care Statement: The care of this patient involved high complexity decision making to prevent further life threatening deterioration of the patient 's condition and/or to evaluate & treat vital organ system(s) failure or risk of failure. - Discharge Referral Referred to [id number] Med P.C.: No
--- NOTE | 2018-08-11 07:56 | PN ---
Progress Note (short form) - Note Progress Note: POD #4 s/p Left CEA. Return to OR on POD #0 secondary to right sided paresis ( post-op CVA). Patient was reintubated for airway protection according to notes. Remains sedated/intubated on mechanical vent. On Nicardipine drip. Last Vital Signs Temp Pulse Resp BP Pulse Ox 98.1 F 59 L 18 150/73 97 08/11/18 06:00 08/11/18 06:00 08/11/18 07:03 08/11/18 06:00 08/10/18 20:24 CBC 08/11/18 05:30 INR, PTT INR 1.06 (0.83-1.09) 08/02/18 21:28 Blood Type Blood Type O POSITIVE 08/07/18 06:40 Gen: sedated/intubated on mechanical vent Neck: left side incision with wily intact. minimal oozing for inferior pole. No significant hematoma. No tracking erythema. : chandra to gravity LE: Soft, SCDs bilat, +DP pulses bilat Problem List - Problems (1) History of left-sided carotid endarterectomy Assessment/Plan: POD #4 s/p Left CEA. Developed Post-Operative CVA. Currently intubated. Vent management per ICU team --> wean to extubation at ICU discretion Cont Antiplatelet Cont Tele monitoring BP parameters as per Neuro DVT prophylaxis GI prophylaxis Chandra to remain until patient OOB PT once extubated Will need REHAB when ready for DC Code(s): Z98.890 - OTHER SPECIFIED POSTPROCEDURAL STATES (2) Stroke Code(s): I63.9 - CEREBRAL INFARCTION, UNSPECIFIED Qualifiers: Laterality of affected vessel: unspecified
--- NOTE | 2018-08-11 08:21 | PN ---
Progress Note, Physician Chief Complaint: seen and examined in ICU Remains intubated BP has been stable on Cardene gtts, vitals reviewed TELE: NSR. History of Present Illness: CTA noted. - Current Medication List Current Medications: Active Medications Atorvastatin Calcium (Lipitor -) 80 mg PO HS [facility] Last Admin: 08/10/18 22:43 Dose: 80 mg Chlorhexidine Gluconate (Hibiclens For Decolonization -) 1 applic TP HS [facility] Last Admin: 08/10/18 22:43 Dose: 1 applic Clopidogrel Bisulfate (Plavix -) 75 mg PO DAILY [facility] Last Admin: 08/10/18 18:23 Dose: Not Given Enoxaparin Sodium (Lovenox -) 40 mg SQ DAILY [facility] Last Admin: 08/10/18 10:11 Dose: 40 mg Nicardipine HCl 25 mg/ (Dextrose) 250 mls @ 25 mls/hr IVPB TITR [facility]; Protocol Last Admin: 08/10/18 22:44 Dose: Not Given Sodium Chloride (Normal Saline -) 1,000 mls @ 22 mls/hr IV ASDIR [facility] Last Admin: 08/11/18 05:09 Dose: Not Given Propofol (Diprivan -) 1,000,000 mcg in 100 mls @ 4.409 mls/hr IVPB TITR [facility]; Protocol Last Admin: 08/11/18 00:00 Dose: 25 mcg/kg/min, 11.022 mls/hr Sodium Chloride (Normal Saline -) 1,000 mls @ 50 mls/hr IV ASDIR [facility] Stop: 08/11/18 11:41 Last Admin: 08/10/18 12:00 Dose: 50 mls/hr Lorazepam (Ativan Injection -) 0.5 mg IVPUSH Q4H PRN PRN Reason: ANXIETY Last Admin: 08/11/18 02:16 Dose: 0.5 mg Metoprolol Tartrate (Lopressor Injection -) 2.5 mg IVPUSH Q4H PRN PRN Reason: HYPERTENSION Ondansetron HCl (Zofran Injection) 4 mg IVPUSH Q6H PRN PRN Reason: NAUSEA AND/OR VOMITING Pantoprazole Sodium (Protonix Iv) 40 mg IVPUSH DAILY [facility] Last Admin: 08/10/18 10:11 Dose: 40 mg Saliva Substitute (Mouthkote Solution -) 1 applic MM DAILY [facility] Last Admin: 08/10/18 11:37 Dose: 1 applic - Objective Vital Signs: Vital Signs Temperature 98.1 F 08/11/18 06:00 Pulse Rate 59 L 08/11/18 06:00 Respiratory Rate 18 08/11/18 07:03 Blood Pressure 150/73 08/11/18 06:00 O2 Sat by Pulse Oximetry (%) 97 08/10/18 20:24 HENT: Yes: Other (+ ETT) Cardiovascular: Yes: Regular Rate and Rhythm Respiratory: Yes: Other (= breath sounds bilaterally.) Gastrointestinal: Yes: Soft (NT) Edema: No Neurological: Yes: Alert, Oriented ...Motor Strength: WNL Labs: CBC, BMP 08/11/18 05:30 INR, PTT INR 1.06 (0.83-1.09) 08/02/18 21:28 Laboratory Tests 08/10/18 08/10/18 08/11/18 05:30 05:30 05:30 WBC 7.8 6.2 Hgb 11.4 L 10.8 L Hct 31.0 L Plt Count 169 206 D Sodium 133 L Potassium 3.5 BUN 26 H Creatinine 1.4 H Creat Clearance w eGFR Calcium Phosphorus Magnesium Total Bilirubin AST ALT Alkaline Phosphatase Total Protein Albumin 08/11/18 05:30 WBC Hgb Hct Plt Count Sodium Pending Potassium Pending BUN Pending Creatinine Pending Creat Clearance w eGFR Pending Calcium Pending Phosphorus Pending Magnesium Pending Total Bilirubin Pending AST Pending ALT Pending Alkaline Phosphatase Pending Total Protein Pending Albumin Pending - ....Imaging Chest X-ray: Report Reviewed, Image Reviewed EKG: Image Reviewed Problem List - Problems (1) Fall Code(s): W19.XXXA - UNSPECIFIED FALL, INITIAL ENCOUNTER (2) Aortic stenosis Code(s): I35.0 - NONRHEUMATIC AORTIC (VALVE) STENOSIS (3) Abnormal ECG Code(s): R94.31 - ABNORMAL ELECTROCARDIOGRAM [ECG] [EKG] (4) Hypertension Code(s): I10 - ESSENTIAL (PRIMARY) HYPERTENSION (5) Stroke Code(s): I63.9 - CEREBRAL INFARCTION, UNSPECIFIED Qualifiers: Laterality of affected vessel: unspecified (6) ASHD (arteriosclerotic heart disease) Code(s): I25.10 - ATHSCL HEART DISEASE OF [place] CORONARY ARTERY W/O ANG PCTRS (7) Elevated brain natriuretic peptide (BNP) level Code(s): R79.89 - OTHER SPECIFIED ABNORMAL FINDINGS OF BLOOD CHEMISTRY (8) GUY (acute kidney injury) Code(s): N17.9 - ACUTE KIDNEY FAILURE, UNSPECIFIED Assessment/Plan IMP: Severe LICA stenosis, symptomatic, s/p L.CEA w/ post op CVA Post op respiratory failure Non-obstructive CAD REC: 1. Vent management per ICU team, wean as tolerated. 2. Cont Antiplatelet Rx as per Vascular 3. Remains in NSR, cont telemetry 4. BP parameters as per Neuro 5. DVT prophylaxis Will follow
[2018-08-11 09:01] LABS: ALBUMIN 2.7 g/dl (3.4-5.0); ALK PHOS 121 U/L (45-117); ANION GAP 9 MMOL/L (8-16); BILIRUBIN,TOTAL 0.5 mg/dL (0.2-1); CALCIUM 7.9 mg/dL (8.5-10.1); CHLORIDE 105 mmol/L (98-107); CO2 24 mmol/L (21-32); CREATININE 1.5 mg/dL (0.55-1.3); GLUCOSE,RANDOM 153 mg/dL (74-106); MAGNESIUM 2.1 mg/dL (1.8-2.4); PHOSPHOROUS 3.8 mg/dL (2.5-4.9); POTASSIUM 4.3 mmol/L (3.5-5.1); SGPT/ALT 40 U/L (13-61); SODIUM 137 mmol/L (136-145); TOT PROT 5.6 g/dl (6.4-8.2)
[2018-08-11] MEDS ORDERED: PT OWN MED DRAWER 7, Y5N ONE ×2 (09:43→14:58)
[2018-08-11] MEDS: PANTOPRAZOLE SODIUM 40 MG VIAL IVPUSH SCH (09:46)
[2018-08-11] MEDS: CLOPIDOGREL BISULFATE 75 MG TABLET (FP) PO SCH (09:46)
[2018-08-11] MEDS: ENOXAPARIN NA (PORCINE) 40 MG/0.4 ML DISP.SYRIN SQ SCH (09:46)
[2018-08-11] MEDS ORDERED: LABETALOL HCL 100 MG TABLET (FP) NGT SCH (10:00)
[2018-08-11] MEDS ORDERED: SCOPOLAMINE HYDROBROMIDE 1 PATCH PATCH.TD72 TD SCH (10:45)
--- NOTE | 2018-08-11 10:50 | PN ---
Progress Note (short form) - Note Progress Note: Current Medications Atorvastatin Calcium (Lipitor -) 80 mg PO HS [facility] Last Admin: 08/10/18 22:43 Dose: 80 mg Chlorhexidine Gluconate (Hibiclens For Decolonization -) 1 applic TP HS [facility] Last Admin: 08/10/18 22:43 Dose: 1 applic Clopidogrel Bisulfate (Plavix -) 75 mg PO DAILY [facility] Last Admin: 08/11/18 09:46 Dose: 75 mg Enoxaparin Sodium (Lovenox -) 40 mg SQ DAILY [facility] Last Admin: 08/11/18 09:46 Dose: 40 mg Nicardipine HCl 25 mg/ (Dextrose) 250 mls @ 25 mls/hr IVPB TITR [facility]; Protocol Last Admin: 08/10/18 22:44 Dose: Not Given Sodium Chloride (Normal Saline -) 1,000 mls @ 22 mls/hr IV [facility] Last Admin: 08/11/18 05:09 Dose: Not Given Propofol (Diprivan -) 1,000,000 mcg in 100 mls @ 4.409 mls/hr IVPB TITR [facility]; Protocol Last Admin: 08/11/18 00:00 Dose: 25 mcg/kg/min, 11.022 mls/hr Sodium Chloride (Normal Saline -) 1,000 mls @ 50 mls/hr IV ASDIR [facility] Stop: 08/11/18 11:41 Last Admin: 08/10/18 12:00 Dose: 50 mls/hr Labetalol HCl (Normodyne -) 100 mg NGT BID [facility] Last Admin: 08/11/18 09:46 Dose: 100 mg Lorazepam (Ativan Injection -) 0.5 mg IVPUSH Q4H PRN PRN Reason: ANXIETY Last Admin: 08/11/18 02:16 Dose: 0.5 mg Metoprolol Tartrate (Lopressor Injection -) 2.5 mg IVPUSH Q4H PRN PRN Reason: HYPERTENSION Ondansetron HCl (Zofran Injection) 4 mg IVPUSH Q6H PRN PRN Reason: NAUSEA AND/OR VOMITING Pantoprazole Sodium (Protonix Iv) 40 mg IVPUSH DAILY [facility] Last Admin: 08/11/18 09:46 Dose: 40 mg Saliva Substitute (Mouthkote Solution -) 1 applic MM DAILY [facility] Last Admin: 08/10/18 11:37 Dose: 1 applic Scopolamine HBr (Transderm-Scop -) 1 patch TD Q72H [facility] Laboratory Results - last 24 hr 08/10/18 08/11/18 08/11/18 18:25 05:30 05:30 WBC 6.2 RBC 3.57 L Hgb 10.8 L Hct 31.0 L MCV 86.9 MCH 30.4 MCHC 35.0 RDW 14.2 Plt Count 206 D MPV 8.5 Sodium 137 Potassium 4.3 Chloride 105 Carbon Dioxide 24 Anion Gap 9 BUN Creatinine 1.5 H Creat Clearance w eGFR 45.38 POC Glucometer 193 Random Glucose 153 H Calcium 7.9 L Phosphorus 3.8 Magnesium 2.1 Total Bilirubin 0.5 AST ALT 40 Alkaline Phosphatase 121 H Total Protein 5.6 L Albumin 2.7 L 08/11/18 05:59 WBC RBC Hgb Hct MCV MCH MCHC RDW Plt Count MPV Sodium Potassium Chloride Carbon Dioxide Anion Gap BUN Creatinine Creat Clearance w eGFR POC Glucometer 146 Random Glucose Calcium Phosphorus Magnesium Total Bilirubin AST ALT Alkaline Phosphatase Total Protein Albumin Vital Signs Temperature 97.6 F 08/11/18 10:00 Pulse Rate 94 H 08/11/18 10:00 Respiratory Rate 14 08/11/18 10:00 Blood Pressure 145/72 08/11/18 10:00 O2 Sat by Pulse Oximetry (%) 97 08/10/18 20:24 CC: sedated & Intubated ````````````````````````````` skin--NL color lungs--Bilat Vented sounds heart--RR neuro--unconscious ext--symmetric edema ``````````````````````````` Summ > Resp failure--remains intubated; neck CT showed pooling in the retropharynx; which could have produced the stridor as he may have been unable to cough or clear them 2nd depressed reflex 2nd CVA PLAN: as per ICU staff; Rx Transderm scop > Rt Hemiplegia--CTA now reveals "small" Lt sided frontal infarct PLAN: Eventual rehab once better stabilized; cont Plavix > Htn--CRI; on IV CCB; and had resumed BB, so will need to avoid BP extremes > hyperglycemia--mild; not warranting antiglycemic agents thus far > Abnl CXR--Lt base; sputum C&S ordered ```````````````````````````````````````````````````````````````````````````````` ``````````` Other: Updated daughter at bedside. ~~~~~~~~~~~~~~~~~~~~~~~~~~~~~~~~~~~~~~~ Dr Commentucci
--- NOTE | 2018-08-11 11:15 | PN ---
Teaching Attending Note Name of Resident: Jonathan Phan ATTENDING PHYSICIAN STATEMENT I saw and evaluated the patient. I reviewed the resident's note and discussed the case with the resident. I agree with the resident's findings and plan as documented. SUBJECTIVE: Patient seen and examined in the ICU. Remains intubated and sedated. Minimal air leak when the balloon was deflated on the ETT. Remains on Cardene drip for BP control. AC Mode of vent, 40% FiO2. Intake & Output 08/08/18 08/09/18 08/10/18 08/11/18 23:59 23:59 23:59 23:59 Intake Total 1711.0 2362.4 3814 902 Output Total 1100 1450 2300 300 Balance 611.0 912.4 1514 602 Weight 163 lb 162 lb 158 lb 7 oz 151 lb 3 oz Last Vital Signs Temp Pulse Resp BP Pulse Ox 97.6 F 94 H 14 145/72 100 08/11/18 10:00 08/11/18 10:00 08/11/18 10:00 08/11/18 10:00 08/11/18 09:00 Active Medications Atorvastatin Calcium (Lipitor -) 80 mg PO HS [facility] Last Admin: 08/10/18 22:43 Dose: 80 mg Chlorhexidine Gluconate (Hibiclens For Decolonization -) 1 applic TP HS [facility] Last Admin: 08/10/18 22:43 Dose: 1 applic Clopidogrel Bisulfate (Plavix -) 75 mg PO DAILY [facility] Last Admin: 08/11/18 09:46 Dose: 75 mg Enoxaparin Sodium (Lovenox -) 40 mg SQ DAILY [facility] Last Admin: 08/11/18 09:46 Dose: 40 mg Nicardipine HCl 25 mg/ (Dextrose) 250 mls @ 25 mls/hr IVPB TITR [facility]; Protocol Last Admin: 08/10/18 22:44 Dose: Not Given Sodium Chloride (Normal Saline -) 1,000 mls @ 22 mls/hr IV [facility] Last Admin: 08/11/18 05:09 Dose: Not Given Propofol (Diprivan -) 1,000,000 mcg in 100 mls @ 4.409 mls/hr IVPB TITR [facility]; Protocol Last Admin: 08/11/18 00:00 Dose: 25 mcg/kg/min, 11.022 mls/hr Sodium Chloride (Normal Saline -) 1,000 mls @ 50 mls/hr IV [facility] Stop: 08/11/18 11:41 Last Admin: 08/10/18 12:00 Dose: 50 mls/hr Labetalol HCl (Normodyne -) 100 mg NGT BID [facility] Last Admin: 08/11/18 09:46 Dose: 100 mg Lorazepam (Ativan Injection -) 0.5 mg IVPUSH Q4H PRN PRN Reason: ANXIETY Last Admin: 08/11/18 02:16 Dose: 0.5 mg Metoprolol Tartrate (Lopressor Injection -) 2.5 mg IVPUSH Q4H PRN PRN Reason: HYPERTENSION Ondansetron HCl (Zofran Injection) 4 mg IVPUSH Q6H PRN PRN Reason: NAUSEA AND/OR VOMITING Pantoprazole Sodium (Protonix Iv) 40 mg IVPUSH DAILY [facility] Last Admin: 08/11/18 09:46 Dose: 40 mg Saliva Substitute (Mouthkote Solution -) 1 applic MM DAILY [facility] Last Admin: 08/10/18 11:37 Dose: 1 applic Scopolamine HBr (Transderm-Scop -) 1 patch TD Q72H [facility] GEN: Intubated and sedated HEENT: PERRRL, an-icteric, Dry MMM, L CEA Site clean mild swelling PULM: Vented, few scattered rhonchi CV: S1 S2, RR ABD: + BS, S/S N/T N/D X4Q EXT: + Pulses, WWP X4, Persistent R Aubrey NEURO: sedated Laboratory Results - last 24 hr 08/10/18 08/11/18 08/11/18 18:25 05:30 05:30 WBC 6.2 RBC 3.57 L Hgb 10.8 L Hct 31.0 L MCV 86.9 MCH 30.4 MCHC 35.0 RDW 14.2 Plt Count 206 D MPV 8.5 Sodium 137 Potassium 4.3 Chloride 105 Carbon Dioxide 24 Anion Gap 9 BUN Creatinine 1.5 H Creat Clearance w eGFR 45.38 POC Glucometer 193 Random Glucose 153 H Calcium 7.9 L Phosphorus 3.8 Magnesium 2.1 Total Bilirubin 0.5 AST ALT 40 Alkaline Phosphatase 121 H Total Protein 5.6 L Albumin 2.7 L 08/11/18 05:59 WBC RBC Hgb Hct MCV MCH MCHC RDW Plt Count MPV Sodium Potassium Chloride Carbon Dioxide Anion Gap BUN Creatinine Creat Clearance w eGFR POC Glucometer 146 Random Glucose Calcium Phosphorus Magnesium Total Bilirubin AST ALT Alkaline Phosphatase Total Protein Albumin Problem List - Problems (1) Carotid stenosis, symptomatic w/o infarct Code(s): I65.29 - OCCLUSION AND STENOSIS OF UNSPECIFIED CAROTID ARTERY Qualifiers: Laterality: bilateral Qualified Code(s): I65.23 - Occlusion and stenosis of bilateral carotid arteries (2) TIA (transient ischemic attack) Code(s): G45.9 - TRANSIENT CEREBRAL ISCHEMIC ATTACK, UNSPECIFIED (3) Hypertension with renal disease Code(s): I12.9 - HYPERTENSIVE CHRONIC KIDNEY DISEASE W STG 1-4/UNSP CHR KDNY (4) CHF (congestive heart failure) Code(s): I50.9 - HEART FAILURE, UNSPECIFIED Qualifiers: Heart failure type: unspecified Heart failure chronicity: acute Qualified Code(s): I50.9 - Heart failure, unspecified (5) Aortic stenosis Code(s): I35.0 - NONRHEUMATIC AORTIC (VALVE) STENOSIS (6) ASHD (arteriosclerotic heart disease) Code(s): I25.10 - ATHSCL HEART DISEASE OF [place] CORONARY ARTERY W/O ANG PCTRS ASSESS: Acute Respiratory Failure: Suspect due to stridor: On leak test only about 20% of volume lost Left Carotid Artery stenosis POD # 5 Left CEA with New ischemic CVA and Right Hemiparesis HTN HLD CHF ASHD GUY PLAN: Sedate for vent synchrony Enteral feeds SBP 140 to 160 on cardene: restart Labetalol PO Daily sedation vacation to assess mental status VTE prophylaxis PPI Statin Dr Ko Critical Care Total Critical Care Time (in minutes): 39 Critical Care Statement: The care of this patient involved high complexity decision making to prevent further life threatening deterioration of the patient 's condition and/or to evaluate & treat vital organ system(s) failure or risk of failure.
[2018-08-11 12:04] LABS: BLOOD UREA NITROGEN 39 mg/dL (7-18); SGOT/AST 38 U/L (15-37)
[2018-08-11] MEDS: ASPIRIN 81 MG CHEWABLE TABLETS PO SCH (14:59)
[2018-08-11] MEDS ORDERED: LABETALOL HCL 100 MG TABLET (FP) PO ONE (14:59)
[2018-08-11] MEDS: CHLORHEXIDINE GLUCONATE 0.12% 15ML CUP MM SCH ×2 (14:59→22:03)
--- NOTE | 2018-08-11 15:40 | PATH ---
Surgical Pathology Report Patient Name: FILI LOPEZ [facility]. Rec. 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 Specimen(s) Received PLAQUE LEFT CAROTID Clinical History GUY, CHF Final Diagnosis PLAQUE, LEFT CAROTID, ENDARTERECTOMY: ATHEROMATOUS PLAQUE. Electronically Signed Maki Potter M.D. Gross Description Received in formalin labeled "plaque left carotid," is a 2.3 x 1.6 x 0.8 cm francisco-yellow portion of plaque. [employer] sections are submitted in one cassette. DL/08/10/2018 saudi08/10/2018
[2018-08-11] MEDS: LYTES/YERBA SANTA 240 ML BOTTLE MM SCH (17:58)
[2018-08-11] MEDS: ATORVASTATIN CA 80 MG TABLET (FP) PO SCH (22:03)
[2018-08-11] MEDS: LABETALOL HCL 200 MG TABLET (FP) NGT SCH (22:03)
[2018-08-11] MEDS: CHLORHEXIDINE GLUCONATE 4% CLEANSER FOR DECOLONIZATION TP SCH (22:04)
[2018-08-12] MEDS: NICARDIPINE 25 MG in DEXTROSE 5%-WATER - 240 ML IVPB SCH ×6 (00:13→22:03)
[2018-08-12] MEDS: PROPOFOL 1,000,000 MCG/100 ML VIAL IVPB SCH ×3 (00:14→12:22)
[2018-08-12] MEDS: SODIUM CHLORIDE 1,000 ML IV SCH ×3 (02:42→20:42)
[2018-08-12 06:11] LABS: HEMATOCRIT 28.4 % (35.4-49); HEMOGLOBIN 9.8 GM/dL (11.7-16.9); MCH 29.9 pg (25.7-33.7); MCHC 34.4 g/dl (32.0-35.9); MEAN PLT VOLUME 8.6 fl (7.5-11.1); PLATELET COUNT 248 K/MM3 (134-434); RBC 3.26 M/mm3 (4.00-5.60); RDW 14.3 % (11.9-15.9); WHITE BLOOD COUNT 8.9 K/mm3 (4.0-10.0)
[2018-08-12 06:34] LABS: ANION GAP 7 MMOL/L (8-16); BLOOD UREA NITROGEN 48 mg/dL (7-18); CALCIUM 7.4 mg/dL (8.5-10.1); CHLORIDE 105 mmol/L (98-107); CO2 24 mmol/L (21-32); CREATININE 1.5 mg/dL (0.55-1.3); GLUCOSE,RANDOM 175 mg/dL (74-106); MAGNESIUM 2.7 mg/dL (1.8-2.4); PHOSPHOROUS 3.4 mg/dL (2.5-4.9); SODIUM 136 mmol/L (136-145)
--- NOTE | 2018-08-12 08:36 | PN ---
Progress Note, Physician Chief Complaint: seen and examined in ICU Remains intubated, sedated- tries to open eyes to name - Current Medication List Current Medications: Active Medications Aspirin (Asa -) 81 mg PO DAILY [facility] Last Admin: 08/11/18 14:59 Dose: 81 mg Atorvastatin Calcium (Lipitor -) 80 mg PO HS [facility] Last Admin: 08/11/18 22:03 Dose: 80 mg Chlorhexidine Gluconate (Hibiclens For Decolonization -) 1 applic TP HS [facility] Last Admin: 08/11/18 22:04 Dose: 1 applic Chlorhexidine Gluconate (Peridex -) 15 ml MM BID [facility] Last Admin: 08/11/18 22:03 Dose: 15 ml Clopidogrel Bisulfate (Plavix -) 75 mg PO DAILY [facility] Last Admin: 08/11/18 09:46 Dose: 75 mg Enoxaparin Sodium (Lovenox -) 40 mg SQ DAILY [facility] Last Admin: 08/11/18 09:46 Dose: 40 mg Fentanyl (Sublimaze Injection -) 25 mcg IVPUSH Q6H PRN PRN Reason: PAIN LEVEL 6-10 Stop: 08/12/18 14:14 Last Admin: 08/12/18 02:43 Dose: 25 mcg Nicardipine HCl 25 mg/ (Dextrose) 250 mls @ 25 mls/hr IVPB TITR [facility]; Protocol Last Titration: 08/12/18 07:50 Dose: 0 mg/hr, 0 mls/hr Sodium Chloride (Normal Saline -) 1,000 mls @ 22 mls/hr IV ASDIR [facility] Last Admin: 08/12/18 02:42 Dose: 22 mls/hr Propofol (Diprivan -) 1,000,000 mcg in 100 mls @ 4.409 mls/hr IVPB TITR [facility]; Protocol Last Admin: 08/12/18 04:02 Dose: 40 mcg/kg/min, 17.636 mls/hr Labetalol HCl (Normodyne -) 200 mg NGT BID [facility] Last Admin: 08/11/18 22:03 Dose: 200 mg Lorazepam (Ativan Injection -) 0.5 mg IVPUSH Q4H PRN PRN Reason: ANXIETY Last Admin: 08/11/18 02:16 Dose: 0.5 mg Metoprolol Tartrate (Lopressor Injection -) 2.5 mg IVPUSH Q4H PRN PRN Reason: HYPERTENSION Ondansetron HCl (Zofran Injection) 4 mg IVPUSH Q6H PRN PRN Reason: NAUSEA AND/OR VOMITING Pantoprazole Sodium (Protonix Iv) 40 mg IVPUSH DAILY [facility] Last Admin: 08/11/18 09:46 Dose: 40 mg - Objective Vital Signs: Vital Signs Temperature 97.4 F L 08/12/18 08:00 Pulse Rate 62 08/12/18 08:00 Respiratory Rate 14 08/12/18 08:00 Blood Pressure 155/67 08/12/18 08:00 O2 Sat by Pulse Oximetry (%) 100 08/11/18 22:24 Selected Entries 08/12/18 08/12/18 08/12/18 06:57 07:50 08:00 Blood Pressure 138/53 L 146/64 155/67 Laboratory Tests 08/12/18 08/12/18 05:30 05:30 WBC 8.9 Hgb 9.8 L Hct 28.4 L Plt Count 248 D Sodium 136 Potassium 4.0 BUN 48 H Creatinine 1.5 H Calcium 7.4 L Constitutional: Yes: No Distress HENT: Yes: Other (+ ETT) Cardiovascular: Yes: Regular Rate and Rhythm Respiratory: Yes: CTA Bilaterally (no wheezing or rales) Gastrointestinal: Yes: Soft (NT) Edema: No Neurological: Yes: Other (sedated on vent) Labs: CBC, BMP 08/12/18 05:30 08/12/18 05:30 INR, PTT INR 1.06 (0.83-1.09) 08/02/18 21:28 - ....Imaging Chest X-ray: Image Reviewed EKG: Image Reviewed (TELE: NSR) Problem List - Problems (1) Fall Code(s): W19.XXXA - UNSPECIFIED FALL, INITIAL ENCOUNTER (2) Aortic stenosis Code(s): I35.0 - NONRHEUMATIC AORTIC (VALVE) STENOSIS (3) Abnormal ECG Code(s): R94.31 - ABNORMAL ELECTROCARDIOGRAM [ECG] [EKG] (4) Hypertension Code(s): I10 - ESSENTIAL (PRIMARY) HYPERTENSION (5) Stroke Code(s): I63.9 - CEREBRAL INFARCTION, UNSPECIFIED Qualifiers: Laterality of affected vessel: unspecified (6) ASHD (arteriosclerotic heart disease) Code(s): I25.10 - ATHSCL HEART DISEASE OF [place] CORONARY ARTERY W/O ANG PCTRS (7) Elevated brain natriuretic peptide (BNP) level Code(s): R79.89 - OTHER SPECIFIED ABNORMAL FINDINGS OF BLOOD CHEMISTRY (8) GUY (acute kidney injury) Code(s): N17.9 - ACUTE KIDNEY FAILURE, UNSPECIFIED Assessment/Plan IMP: Severe LICA stenosis , symptomatic, s/p L.CEA w/ post op CVA Post op respiratory failure secondary to stridor Non-obstructive CAD REC: 1. Vent management per ICU team, wean as tolerated. 2. Cont Antiplatelet Rx as per Vascular 3. Remains in NSR, cont telemetry 4. BP parameters as per Neuro; PO Labetalol resumed. Wean Cardene gtts 5. DVT prophylaxis Will continue to follow.
--- NOTE | 2018-08-12 08:48 | PN ---
Progress Note (short form) - Note Progress Note: Intubated, sedated Left neck incision with small amount of bloody drainage. Mild swelling Cannot assess neuro staus due to sedation CTA report documents small left frontal-parietal infarct, endarterectomy site open Imp: S/p left CEA, post op stroke. Remains intubated due to airway swelling, ICU team to reevaluate Problem List - Problems (1) Carotid stenosis, symptomatic w/o infarct Code(s): I65.29 - OCCLUSION AND STENOSIS OF UNSPECIFIED CAROTID ARTERY Qualifiers: Laterality: bilateral Qualified Code(s): I65.23 - Occlusion and stenosis of bilateral carotid arteries
[2018-08-12] MEDS: LABETALOL HCL 200 MG TABLET (FP) NGT SCH (09:00)
[2018-08-12] MEDS ORDERED: LABETALOL HCL 5 MG/1 ML (100MG/20 ML VIAL) IVPUSH ONE (09:21)
[2018-08-12] MEDS: ASPIRIN 81 MG CHEWABLE TABLETS PO SCH (09:57)
[2018-08-12] MEDS: CHLORHEXIDINE GLUCONATE 0.12% 15ML CUP MM SCH (09:58)
[2018-08-12] MEDS: ENOXAPARIN NA (PORCINE) 40 MG/0.4 ML DISP.SYRIN SQ SCH (09:58)
[2018-08-12] MEDS: CLOPIDOGREL BISULFATE 75 MG TABLET (FP) PO SCH (09:59)
[2018-08-12] MEDS: PANTOPRAZOLE SODIUM 40 MG VIAL IVPUSH SCH (09:59)
[2018-08-12] MEDS ORDERED: LIDOCAINE HCL 2% JELLY (30 ML/TUBE) TP ONE (10:01)
--- NOTE | 2018-08-12 10:08 | PN ---
Teaching Attending Note Name of Resident: Jonathan Phan ATTENDING PHYSICIAN STATEMENT I saw and evaluated the patient. I reviewed the resident's note and discussed the case with the resident. I agree with the resident's findings and plan as documented. SUBJECTIVE: Pt seen and examined in the ICU. Intubated, awake, following commands on left. Right side hemiparesis. +cuff leak with deflation, placed on CPAP/PS with good RISB and subsequently extubated during rounds. OBJECTIVE: Vital Signs Period Temp Pulse Resp BP Sys/Palmer Pulse Ox Last 24 Hr 97 F-98.6 F 58-106 10-20 119-187/48-132 99-100 Intake & Output 08/09/18 08/10/18 08/11/18 08/12/18 23:59 23:59 23:59 23:59 Intake Total 2362.4 3814 1881.6 1624 Output Total 1450 2300 750 400 Balance 912.4 1514 1131.6 1224 Weight 73.482 kg 71.866 kg 68.577 kg 72.121 kg Gen: extubated Heart: RRR Lung: decreased breath sounds at the bases Abd: soft, nontender Ext: + edema CBC, BMP 08/12/18 05:30 08/12/18 05:30 Active Medications Aspirin (Asa -) 81 mg PO DAILY [facility] Last Admin: 08/12/18 09:57 Dose: 81 mg Atorvastatin Calcium (Lipitor -) 80 mg PO HS [facility] Last Admin: 08/11/18 22:03 Dose: 80 mg Chlorhexidine Gluconate (Hibiclens For Decolonization -) 1 applic TP HS [facility] Last Admin: 08/11/18 22:04 Dose: 1 applic Chlorhexidine Gluconate (Peridex -) 15 ml MM BID [facility] Last Admin: 08/12/18 09:58 Dose: 15 ml Clopidogrel Bisulfate (Plavix -) 75 mg PO DAILY [facility] Last Admin: 08/12/18 09:59 Dose: 75 mg Enoxaparin Sodium (Lovenox -) 40 mg SQ DAILY [facility] Last Admin: 08/12/18 09:58 Dose: 40 mg Fentanyl (Sublimaze Injection -) 25 mcg IVPUSH Q6H PRN PRN Reason: PAIN LEVEL 6-10 Stop: 08/12/18 14:14 Last Admin: 08/12/18 02:43 Dose: 25 mcg Nicardipine HCl 25 mg/ (Dextrose) 250 mls @ 25 mls/hr IVPB TITR [facility]; Protocol Last Titration: 08/12/18 09:20 Dose: 4 mg/hr, 40 mls/hr Propofol (Diprivan -) 1,000,000 mcg in 100 mls @ 4.409 mls/hr IVPB TITR [facility]; Protocol Last Titration: 08/12/18 09:00 Dose: 0 mcg/kg/min, 0 mls/hr Sodium Chloride (Normal Saline -) 1,000 mls @ 75 mls/hr IV [facility] Last Admin: 08/12/18 09:57 Dose: 75 mls/hr Labetalol HCl (Normodyne -) 200 mg NGT BID [facility] Last Admin: 08/11/18 22:03 Dose: 200 mg Labetalol HCl (Normodyne Injection -) 10 mg IVPUSH ONCE ONE Stop: 08/12/18 09:22 Last Admin: 08/12/18 09:57 Dose: Not Given Lorazepam (Ativan Injection -) 0.5 mg IVPUSH Q4H PRN PRN Reason: ANXIETY Last Admin: 08/11/18 02:16 Dose: 0.5 mg Metoprolol Tartrate (Lopressor Injection -) 2.5 mg IVPUSH Q4H PRN PRN Reason: HYPERTENSION Ondansetron HCl (Zofran Injection) 4 mg IVPUSH Q6H PRN PRN Reason: NAUSEA AND/OR VOMITING Pantoprazole Sodium (Protonix Iv) 40 mg IVPUSH DAILY [facility] Last Admin: 08/12/18 09:59 Dose: 40 mg ASSESSMENT AND PLAN: L Carotid Stenosis s/p L CEA Post Op Ischemic Stroke Stridor Acute Respiratory Failure Acute on Chronic Renal Failure Hypertensive Urgency LV Diastolic Dysfunction Aortic Stenosis CAD - pt extubated - titrate cardene gtt to keep SBP<160 - continue ASA, plavix - neuro checks - hold lovenox - monitor H/H - IVF - monitor urine output, creatinine - pain control - swallow eval in AM - DVT prophylaxis - continue ICU monitoring critical care time spent in reviewing chart, evaluating patient and formulating plan 35 min
--- NOTE | 2018-08-12 10:22 | PN ---
Physical Exam: SUBJECTIVE: Patient seen and examined at bedside this morning. He was successfully extubated today. He is communicating in [facility], follows commands , freely moving his left upper and lower extremities. He currently denies acute pain. Goals of care conversation initiated with daughter at bedside. There is no clear health care proxy. Patient is alert and oriented to person, place, time, but appears confused regarding his goals. OBJECTIVE: Vital Signs Period Temp Pulse Resp BP Sys/Palmer Pulse Ox Last 24 Hr 97 F-98.6 F 58-106 10-20 119-187/48-132 99-100 GENERAL: The patient is extubated, awake, alert, oriented to person, place, and time in no acute distress. HEAD: Normocephalic, atraumatic. EYES: PERRL, extraocular movements intact, sclera anicteric, conjunctiva clear. ENT: Oropharynx clear without exudates, moist mucous membranes. NECK: Supple without lymphadenopathy. LUNGS: Clear to auscultation bilaterally. No wheezing or rhonchi auscultated. No accessory muscle use. HEART: RRR. S1, S2 auscultated with holosystolic murmur auscultated loudest at left upper sternal border. ABDOMEN: Soft, nontender to light and deep palpation, nondistended X4 quadrants. Normoactive bowel sounds, no guarding, no rebound tenderness. No hepatosplenomegaly palpated or percussed. EXTREMITIES: 2+ radial, dorsalis pedis pulses bilaterally. Warm, well-perfused. No lower extremity edema bilaterally. NEUROLOGICAL: Cranial nerves II through XII grossly intact. Normal speech. Patient freely moves left upper and lower extremities. Slight movement right upper and lower extremity. Sensation intact bilaterally, however slightly increased on left side, compared to right side. SKIN: Warm, dry. Left neck wily noted. Dressing clean, dry. Laboratory Results - last 24 hr 08/11/18 08/11/18 08/12/18 05:30 17:05 05:19 WBC RBC Hgb Hct MCV MCH MCHC RDW Plt Count MPV Sodium Potassium Chloride Carbon Dioxide Anion Gap BUN 39 H Creatinine Creat Clearance w eGFR POC Glucometer 149 167 Random Glucose Calcium Phosphorus Magnesium AST 38 H 08/12/18 08/12/18 05:30 05:30 WBC 8.9 RBC 3.26 L Hgb 9.8 L Hct 28.4 L MCV 87.0 MCH 29.9 MCHC 34.4 RDW 14.3 Plt Count 248 D MPV 8.6 Sodium 136 Potassium 4.0 Chloride 105 Carbon Dioxide 24 Anion Gap 7 L BUN 48 H Creatinine 1.5 H Creat Clearance w eGFR 45.38 POC Glucometer Random Glucose 175 H Calcium 7.4 L Phosphorus 3.4 Magnesium 2.7 H AST Active Medications Generic Name Dose Route Start Last Admin Trade Name Freq PRN Reason Stop Dose Admin Aspirin 81 mg 08/11/18 12:45 08/12/18 09:57 Asa - PO 81 mg DAILY LELAND Administration Atorvastatin Calcium 80 mg 08/10/18 22:00 08/11/18 22:03 Lipitor - PO 80 mg HS LELAND Administration Chlorhexidine Gluconate 1 applic 08/08/18 22:00 08/11/18 22:04 Hibiclens For Decolonization - TP 1 applic HS LELAND Administration Chlorhexidine Gluconate 15 ml 08/11/18 14:00 08/12/18 09:58 Peridex - MM 15 ml BID LELAND Administration Clopidogrel Bisulfate 75 mg 08/09/18 10:00 08/12/18 09:59 Plavix - PO 75 mg DAILY LELAND Administration Enoxaparin Sodium 40 mg 08/08/18 10:00 08/12/18 09:58 Lovenox - SQ 40 mg DAILY LELAND Administration Fentanyl 25 mcg 08/11/18 14:15 08/12/18 02:43 Sublimaze Injection - IVPUSH 08/12/18 14:14 25 mcg Q6H PRN Administration PAIN LEVEL 6-10 Nicardipine HCl 25 mg/ 250 mls @ 25 mls/hr 08/07/18 22:15 08/12/18 09:20 Dextrose IVPB 4 mg/hr TITR LELAND 40 mls/hr Titration Protocol 2.5 MG/HR Propofol 1,000,000 mcg in 100 mls @ 4.409 mls/hr 08/10/18 05:00 08/12/18 09: 00 Diprivan - IVPB 0 mcg/kg/min TITR LELAND 0 mls/hr Titration Protocol 10 MCG/KG/MIN Sodium Chloride 1,000 mls @ 75 mls/hr 08/12/18 09:09 08/12/18 09:57 Normal Saline - IV 75 mls/hr ASDIR LELAND Administration Labetalol HCl 200 mg 08/11/18 22:00 08/11/18 22:03 Normodyne - NGT 200 mg BID LELAND Administration Labetalol HCl 10 mg 08/12/18 09:21 08/12/18 09:57 Normodyne Injection - IVPUSH 08/12/18 09:22 Not Given ONCE ONE Lidocaine HCl 1 applic 08/12/18 10:01 Xylocaine 2% Jelly TP 08/12/18 10:02 ONCE ONE Lorazepam 0.5 mg 08/09/18 20:21 08/11/18 02:16 Ativan Injection - IVPUSH 0.5 mg Q4H PRN Administration ANXIETY Metoprolol Tartrate 2.5 mg 08/10/18 12:55 Lopressor Injection - IVPUSH Q4H PRN HYPERTENSION Ondansetron HCl 4 mg 08/07/18 23:00 Zofran Injection IVPUSH Q6H PRN NAUSEA AND/OR VOMITING Pantoprazole Sodium 40 mg 08/08/18 10:00 08/12/18 09:59 Protonix Iv IVPUSH 40 mg DAILY LELAND Administration ASSESSMENT/PLAN: Patient is a 78 year old male with history of hypertension, hyperlipidemia, TIA s/p left carotid endartectomy with postoperative right sided paresis. Neurological Left CVA -Patient is s/p carotid endarterectomy 08/07/2018 with post-operative right sided paresis -CTA head, neck shows small acute left posterior frontal infarct. Left carotid endarterectomy patent. No intracranial carotid occlusions, however right extracranial, intracranial vertebral artery with very narrow caliber. Approx. 50 % proximal right internal carotid luminal diameter. -CT cervical spine (with contrast) shows chronic degenerative changes. -Surgical site assessed by vascular surgeon, and dressing changed. -Neurology, vascular surgery consult appreciated. -Lipitor 80mg PO HS -Fentanyl 25mcg IV Q6H PRN for pain -Aspirin 81mg PO daily, per neurology Cardiovascular Hypertension -Patient is on Cardene drip. Titrate to BP goal systolic 140- 160mmHg. -Labetalol increased to 200mg PO TID -Discontinue Hydralazine; concern for elevated intracranial pressure Coronary artery disease -Plavix 75mg GT daily -Aspirin 81mg GT daily, per neurology Pulmonary Acute hypoxic respiratory failure -Patient extubated today, saturating well on 3L nasal canula. -Maintain oxygen saturation greater than 90% -Monitor vital signs closely Nephrology GUY -BUN 48, Cr 1.5 -Gentle hydration with IV normal saline at 75mL/ hour Gastrointestinal -NG tube feeds with Osmolite -Speech, swallow evaluation -Prophylaxis with Protonix 40mg IV daily Hematologic -Hb noted to be dropping 10.8 -> 9.8 overnight. Patient has slight bleeding from left CEA surgical site, however this would not fully explain the hemoglobin levels. -Assess stool for occult blood -Monitor Hb/ Hct closely. Genitourinary -Lyons catheter removed today. -Patient urinating well. Post-void bladder scan shows minimal retained urine -Monitor intake, output closely. FEN -IV normal saline at 75mL/ hour -Within normal limits, follow CMP. Replete as necessary -NG tube feeds with Osmolite Prophylaxis -SCDs bilateral lower extremities. -Protonix 40mg IV daily Disposition -Continue care in ICU. Pending goals of care discussion with Palliative Care team. Visit type - Emergency Visit Emergency Visit: Yes ED Registration Date: 08/02/18 Care time: The patient presented to the Emergency Department on the above date and was hospitalized for further evaluation of their emergent condition. - New Patient This patient is new to me today: No - Critical Care Critical Care patient: Yes Total Critical Care Time (in minutes): 35 Critical Care Statement: The care of this patient involved high complexity decision making to prevent further life threatening deterioration of the patient 's condition and/or to evaluate & treat vital organ system(s) failure or risk of failure. - Discharge Referral Referred to [facility] Med [facility] No
--- NOTE | 2018-08-12 10:37 | PN ---
Progress Note, SUPERVISING APPRAISER - Note Progress Note: CT - high left frontal CVA Extubated 1/2 hour ago. Pt's daughter served as informant and translated for me for sp/lang assessment. 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 He always got angry easily and had memory deficits but was fully independent and functional. 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 His memory was deteriorating recently. She said that he verbalized that he wouldnt want to live like this and would not want to be on a ventilator permanently. The medical residents were called in to discuss and assess and a Palliative care consult is recommended. Speech may be mildly dysarthric with recuced articulatory rate and precision, although this may be related to medication. Just extubated.Mild groping for words anomia but functional verbal spa receptionist/expression. NGT in place. To assess swallowing function t'mw after 24 hr extubation, due to higher risk of silent aspiration and previous need for re-intubation..
--- NOTE | 2018-08-12 14:02 | PN ---
Progress Note (short form) - Note Progress Note: Medical note Current Medications Aspirin (Asa -) 81 mg PO DAILY [facility] Last Admin: 08/12/18 09:57 Dose: 81 mg Atorvastatin Calcium (Lipitor -) 80 mg PO HS [facility] Last Admin: 08/11/18 22:03 Dose: 80 mg Chlorhexidine Gluconate (Hibiclens For Decolonization -) 1 applic TP HS [facility] Last Admin: 08/11/18 22:04 Dose: 1 applic Chlorhexidine Gluconate (Peridex -) 15 ml MM BID [facility] Last Admin: 08/12/18 09:58 Dose: 15 ml Clopidogrel Bisulfate (Plavix -) 75 mg PO DAILY [facility] Last Admin: 08/12/18 09:59 Dose: 75 mg Enoxaparin Sodium (Lovenox -) 40 mg SQ DAILY [facility] Last Admin: 08/12/18 09:58 Dose: 40 mg Fentanyl (Sublimaze Injection -) 25 mcg IVPUSH Q6H PRN PRN Reason: PAIN LEVEL 6-10 Stop: 08/12/18 14:14 Last Admin: 08/12/18 02:43 Dose: 25 mcg Nicardipine HCl 25 mg/ (Dextrose) 250 mls @ 25 mls/hr IVPB TITR [facility]; Protocol Last Titration: 08/12/18 12:40 Dose: 5 mg/hr, 50 mls/hr Sodium Chloride (Normal Saline -) 1,000 mls @ 75 mls/hr IV ASDIR [facility] Last Admin: 08/12/18 09:57 Dose: 75 mls/hr Lorazepam (Ativan Injection -) 0.5 mg IVPUSH Q4H PRN PRN Reason: ANXIETY Last Admin: 08/11/18 02:16 Dose: 0.5 mg Metoprolol Tartrate (Lopressor Injection -) 2.5 mg IVPUSH Q4H PRN PRN Reason: HYPERTENSION Ondansetron HCl (Zofran Injection) 4 mg IVPUSH Q6H PRN PRN Reason: NAUSEA AND/OR VOMITING Pantoprazole Sodium (Protonix Iv) 40 mg IVPUSH DAILY [facility] Last Admin: 08/12/18 09:59 Dose: 40 mg Laboratory Results - last 24 hr 08/05/18 08/06/18 08/06/18 11:56 06:05 16:47 WBC RBC Hgb Hct MCV MCH MCHC RDW Plt Count MPV Sodium Potassium Chloride Carbon Dioxide Anion Gap BUN Creatinine Creat Clearance w eGFR POC Glucometer 107 93 100 Random Glucose Calcium Phosphorus Magnesium Stool Occult Blood 08/07/18 08/11/18 08/12/18 05:47 17:05 05:19 WBC RBC Hgb Hct MCV MCH MCHC RDW Plt Count MPV Sodium Potassium Chloride Carbon Dioxide Anion Gap BUN Creatinine Creat Clearance w eGFR POC Glucometer 97 149 167 Random Glucose Calcium Phosphorus Magnesium Stool Occult Blood 08/12/18 08/12/18 08/12/18 05:30 05:30 11:15 WBC 8.9 RBC 3.26 L Hgb 9.8 L Hct 28.4 L MCV 87.0 MCH 29.9 MCHC 34.4 RDW 14.3 Plt Count 248 D MPV 8.6 Sodium 136 Potassium 4.0 Chloride 105 Carbon Dioxide 24 Anion Gap 7 L BUN 48 H Creatinine 1.5 H Creat Clearance w eGFR 45.38 POC Glucometer Random Glucose 175 H Calcium 7.4 L Phosphorus 3.4 Magnesium 2.7 H Stool Occult Blood Negative 08/12/18 12:43 WBC RBC Hgb Hct MCV MCH MCHC RDW Plt Count MPV Sodium Potassium Chloride Carbon Dioxide Anion Gap BUN Creatinine Creat Clearance w eGFR POC Glucometer 121 Random Glucose Calcium Phosphorus Magnesium Stool Occult Blood Vital Signs Temperature 97 F L 08/12/18 12:00 Pulse Rate 75 08/12/18 12:40 Respiratory Rate 18 08/12/18 12:00 Blood Pressure 163/73 08/12/18 12:40 O2 Sat by Pulse Oximetry (%) 100 08/12/18 08:00 CC: awake; aware ````````````````````````````` skin--NL color lungs--bilat sounds; unlabored heart--RR ext--dep edema neuro--awake; speech fluent and seems to be coherent; able to move the RLE to some degree (1/4 motor) and some slight motor activity of the RUE ``````````````````````````` Summ > 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 > hyperglycemia--mild; not warranting antiglycemic agents thus far > anemia--mild drop in H/h; stool for OB is negative ```````````````````````````````````````````````````````````````````````````````` ``````````` Other: Updated daughters at bedside. ~~~~~~~~~~~~~~~~~~~~~~~~~~~~~~~~~~~~~~~ Dr Commentjackeline
[2018-08-12] MEDS: LABETALOL HCL 200 MG TABLET (FP) PO SCH ×2 (14:16→22:00)
[2018-08-12] MEDS: METOPROLOL TARTRATE 5 MG/5 ML VIAL IVPUSH PRN (20:03)
[2018-08-12] MEDS: ATORVASTATIN CA 80 MG TABLET (FP) PO SCH (22:00)
[2018-08-12] MEDS: CHLORHEXIDINE GLUCONATE 4% CLEANSER FOR DECOLONIZATION TP SCH (22:00)
[2018-08-13] MEDS: NICARDIPINE 25 MG in DEXTROSE 5%-WATER - 240 ML IVPB SCH ×2 (01:18→04:52)
[2018-08-13] MEDS: LORazepam 2 MG/ML SDV VIAL IVPUSH PRN (04:24)
[2018-08-13] MEDS: LABETALOL HCL 200 MG TABLET (FP) PO SCH ×3 (05:04→21:53)
[2018-08-13 06:12] LABS: ALBUMIN 2.8 g/dl (3.4-5.0); ALK PHOS 124 U/L (45-117); ANION GAP 8 MMOL/L (8-16); BILIRUBIN,TOTAL 0.4 mg/dL (0.2-1); BLOOD UREA NITROGEN 33 mg/dL (7-18); CALCIUM 7.5 mg/dL (8.5-10.1); CHLORIDE 106 mmol/L (98-107); CO2 24 mmol/L (21-32); CREATININE 1.1 mg/dL (0.55-1.3); GLUCOSE,RANDOM 167 mg/dL (74-106); MAGNESIUM 2.2 mg/dL (1.8-2.4); PHOSPHOROUS 1.8 mg/dL (2.5-4.9); POTASSIUM 3.5 mmol/L (3.5-5.1); SGOT/AST 39 U/L (15-37); SGPT/ALT 56 U/L (13-61); SODIUM 138 mmol/L (136-145); TOT PROT 5.8 g/dl (6.4-8.2)
[2018-08-13 06:48] LABS: HEMOGLOBIN 11.4 GM/dL (11.7-16.9); MCHC 34.7 g/dl (32.0-35.9); MEAN CELL VOLUME 86.5 fl (80-96); MEAN PLT VOLUME 8.6 fl (7.5-11.1); PLATELET COUNT 294 K/MM3 (134-434); RBC 3.82 M/mm3 (4.00-5.60); WHITE BLOOD COUNT 11.5 K/mm3 (4.0-10.0)
--- NOTE | 2018-08-13 07:58 | PN ---
Physical Exam: SUBJECTIVE: Patient seen and examined at bedside this morning. No acute overnight events. Patient endorses resolution of his chest pain, and denies shortness of breath. Patient is urinating without dysuria, or hematuria. He endorses one solid brown bowel movement without melena, hematochezia. He states that the NG tube bothers his throat. Patient denies subjective fevers, chills, cough, shortness of breath, chest pain, palpitations, abdominal pain, nausea, vomiting. OBJECTIVE: Vital Signs Period Temp Pulse Resp BP Sys/Palmer Pulse Ox Last 24 Hr 97 F-97.7 F 62-85 14-24 125-187/49-132 99-100 GENERAL: The patient is extubated, awake, alert, oriented to person, place, and time in no acute distress. HEAD: Normocephalic, atraumatic. EYES: PERRL, extraocular movements intact, sclera anicteric, conjunctiva clear. ENT: Oropharynx clear without exudates, moist mucous membranes. NECK: Supple without lymphadenopathy. LUNGS: Clear to auscultation bilaterally. No wheezing or rhonchi auscultated. No accessory muscle use. HEART: RRR. S1, S2 auscultated with holosystolic murmur auscultated loudest at left upper sternal border. ABDOMEN: Soft, nontender to light and deep palpation, nondistended X4 quadrants. Normoactive bowel sounds, no guarding, no rebound tenderness. No hepatosplenomegaly palpated or percussed. EXTREMITIES: 2+ radial, dorsalis pedis pulses bilaterally. Warm, well-perfused. No lower extremity edema bilaterally. NEUROLOGICAL: Cranial nerves II through XII grossly intact. Normal speech. Patient freely moves left upper and lower extremities. Slight movement right upper and lower extremity. Sensation intact bilaterally, however slightly increased on left side, compared to right side. SKIN: Warm, dry. Left neck wily noted. Dressing clean, dry. Laboratory Results - last 24 hr 08/05/18 08/06/18 08/06/18 11:56 06:05 16:47 WBC RBC Hgb Hct MCV MCH MCHC RDW Plt Count MPV Sodium Potassium Chloride Carbon Dioxide Anion Gap BUN Creatinine Creat Clearance w eGFR POC Glucometer 107 93 100 Random Glucose Calcium Phosphorus Magnesium Total Bilirubin AST ALT Alkaline Phosphatase Troponin I Total Protein Albumin Stool Occult Blood 08/07/18 08/12/18 08/12/18 05:47 11:15 12:43 WBC RBC Hgb Hct MCV MCH MCHC RDW Plt Count MPV Sodium Potassium Chloride Carbon Dioxide Anion Gap BUN Creatinine Creat Clearance w eGFR POC Glucometer 97 121 Random Glucose Calcium Phosphorus Magnesium Total Bilirubin AST ALT Alkaline Phosphatase Troponin I Total Protein Albumin Stool Occult Blood Negative 08/12/18 08/12/18 08/13/18 16:45 17:22 05:15 WBC 11.5 H RBC 3.82 L Hgb 11.4 L Hct 33.0 L D MCV 86.5 MCH 30.0 MCHC 34.7 RDW 14.0 Plt Count 294 MPV 8.6 Sodium Potassium Chloride Carbon Dioxide Anion Gap BUN Creatinine Creat Clearance w eGFR POC Glucometer 157 Random Glucose Calcium Phosphorus Magnesium Total Bilirubin AST ALT Alkaline Phosphatase Troponin I 0.03 Total Protein Albumin Stool Occult Blood 08/13/18 08/13/18 05:15 06:35 WBC RBC Hgb Hct MCV MCH MCHC RDW Plt Count MPV Sodium 138 Potassium 3.5 Chloride 106 Carbon Dioxide 24 Anion Gap 8 BUN 33 H Creatinine 1.1 Creat Clearance w eGFR > 60 POC Glucometer 160 Random Glucose 167 H Calcium 7.5 L Phosphorus 1.8 L Magnesium 2.2 Total Bilirubin 0.4 AST 39 H ALT 56 Alkaline Phosphatase 124 H Troponin I Total Protein 5.8 L Albumin 2.8 L Stool Occult Blood Active Medications Generic Name Dose Route Start Last Admin Trade Name Freq PRN Reason Stop Dose Admin Aspirin 81 mg 08/11/18 12:45 08/12/18 09:57 Asa - PO 81 mg DAILY LELAND Administration Atorvastatin Calcium 80 mg 08/10/18 22:00 08/12/18 22:00 Lipitor - PO 80 mg HS LELAND Administration Chlorhexidine Gluconate 1 applic 08/08/18 22:00 08/12/18 22:00 Hibiclens For Decolonization - TP 1 applic HS LELAND Administration Clopidogrel Bisulfate 75 mg 08/09/18 10:00 08/12/18 09:59 Plavix - PO 75 mg DAILY [facility] Administration Enoxaparin Sodium 40 mg 08/08/18 10:00 08/12/18 09:58 Lovenox - SQ 40 mg DAILY [facility] Administration Nicardipine HCl 25 mg/ 250 mls @ 25 mls/hr 08/07/18 22:15 08/13/18 07:15 Dextrose IVPB 11 mg/hr TITR LELAND 110 mls/hr Titration Protocol 2.5 MG/HR Sodium Chloride 1,000 mls @ 75 mls/hr 08/12/18 09:09 08/12/18 20:42 Normal Saline - IV 75 mls/hr ASDIR [facility] Administration Labetalol HCl 200 mg 08/12/18 14:00 08/13/18 05:04 Normodyne - PO 200 mg TID [facility]AND Administration Lorazepam 0.5 mg 08/09/18 20:21 08/13/18 04:24 Ativan Injection - IVPUSH 0.5 mg Q4H PRN Administration ANXIETY Metoprolol Tartrate 2.5 mg 08/10/18 12:55 08/12/18 20:03 Lopressor Injection - IVPUSH 2.5 mg Q4H PRN Administration HYPERTENSION Ondansetron HCl 4 mg 08/07/18 23:00 Zofran Injection IVPUSH Q6H PRN NAUSEA AND/OR VOMITING Pantoprazole Sodium 40 mg 08/08/18 10:00 08/12/18 09:59 Protonix Iv IVPUSH 40 mg DAILY [facility] Administration ASSESSMENT/PLAN: Patient is a 78 year old male with history of hypertension, hyperlipidemia, TIA s/p left carotid endartectomy with postoperative right sided paresis. Neurological Left CVA -Patient is s/p carotid endarterectomy 08/07/2018 with post-operative right sided paresis -CTA head, neck shows small acute left posterior frontal infarct. Left carotid endarterectomy patent. No intracranial carotid occlusions, however right extracranial, intracranial vertebral artery with very narrow caliber. Approx. 50 % proximal right internal carotid luminal diameter. -CT cervical spine (with contrast) shows chronic degenerative changes. -Neurology, vascular surgery consult appreciated. -Lipitor 80mg PO HS -Fentanyl 25mcg IV Q6H PRN for pain -Aspirin 81mg PO daily, per neurology Cardiovascular Hypertension -Patient is on Cardene drip. Titrate to BP goal systolic 140 mmHg. -Labetalol increased to 200mg PO TID -Begin Nifedipine ER 30mg PO daily -Discontinue Hydralazine; concern for elevated intracranial pressure -Consider initiating NISHA inhibitor Coronary artery disease -Plavix 75mg GT daily -Aspirin 81mg GT daily, per neurology Pulmonary Acute hypoxic respiratory failure -Patient extubated 08/12, saturating well on 3L nasal canula. -Maintain oxygen saturation greater than 90% -Monitor vital signs closely Nephrology GUY -improving -BUN 33, Cr 1.1 -Gentle hydration with IV normal saline at 75mL/ hour Gastrointestinal -Speech, swallow evaluation appreciated -Begin puree diet, with thin liquids -Prophylaxis with Protonix 40mg IV daily Endocrine -Patient will require appropriate blood glucose control once tolerating diet -Monitor fingerstick blood glucose Hematologic -Hb 11.4 Hct 33.0 -improving -Stool negative for occult blood -Monitor Hb/ Hct closely. Genitourinary -Patient urinating well, without dysuria, hematuria. Post-void bladder scan shows minimal retained urine -Monitor intake, output closely. Musculoskeletal -Right sided chest pain resolved. Chest pain was reproducible upon palpation of anterior chest wall yesterday. Likely secondary to costochondritis. EKG showed normal sinus rhythm without ischemic changes. Troponin 0.03. -Physical therapy evaluation. FEN -IV normal saline at 75mL/ hour -Within normal limits, follow CMP. Replete as necessary -Puree diet Prophylaxis -Lovenox 40mg subq daily -Protonix 40mg IV daily Disposition -Continue care in ICU. Pending goals of care discussion with Palliative Care team. Visit type - Emergency Visit Emergency Visit: Yes ED Registration Date: 08/02/18 Care time: The patient presented to the Emergency Department on the above date and was hospitalized for further evaluation of their emergent condition. - New Patient This patient is new to me today: No - Critical Care Critical Care patient: Yes Total Critical Care Time (in minutes): 36 Critical Care Statement: The care of this patient involved high complexity decision making to prevent further life threatening deterioration of the patient 's condition and/or to evaluate & treat vital organ system(s) failure or risk of failure.
--- NOTE | 2018-08-13 08:27 | PN ---
Progress Note, Physician Chief Complaint: seen and examined in ICU TELE: NSR Remains extubated Speaking Now able to move RUE and RLL minimally - Current Medication List Current Medications: Active Medications Aspirin (Asa -) 81 mg PO DAILY [facility] Last Admin: 08/12/18 09:57 Dose: 81 mg Atorvastatin Calcium (Lipitor -) 80 mg PO HS [facility] Last Admin: 08/12/18 22:00 Dose: 80 mg Chlorhexidine Gluconate (Hibiclens For Decolonization -) 1 applic TP HS [facility] Last Admin: 08/12/18 22:00 Dose: 1 applic Clopidogrel Bisulfate (Plavix -) 75 mg PO DAILY [facility] Last Admin: 08/12/18 09:59 Dose: 75 mg Enoxaparin Sodium (Lovenox -) 40 mg SQ DAILY [facility] Last Admin: 08/12/18 09:58 Dose: 40 mg Nicardipine HCl 25 mg/ (Dextrose) 250 mls @ 25 mls/hr IVPB TITR [facility]; Protocol Last Titration: 08/13/18 07:15 Dose: 11 mg/hr, 110 mls/hr Sodium Chloride (Normal Saline -) 1,000 mls @ 75 mls/hr IV ASDIR [facility] Last Admin: 08/12/18 20:42 Dose: 75 mls/hr Labetalol HCl (Normodyne -) 200 mg PO TID [facility] Last Admin: 08/13/18 05:04 Dose: 200 mg Lorazepam (Ativan Injection -) 0.5 mg IVPUSH Q4H PRN PRN Reason: ANXIETY Last Admin: 08/13/18 04:24 Dose: 0.5 mg Metoprolol Tartrate (Lopressor Injection -) 2.5 mg IVPUSH Q4H PRN PRN Reason: HYPERTENSION Last Admin: 08/12/18 20:03 Dose: 2.5 mg Ondansetron HCl (Zofran Injection) 4 mg IVPUSH Q6H PRN PRN Reason: NAUSEA AND/OR VOMITING Pantoprazole Sodium (Protonix Iv) 40 mg IVPUSH DAILY [facility] Last Admin: 08/12/18 09:59 Dose: 40 mg - Objective Vital Signs: Vital Signs Temperature 97.7 F 08/13/18 06:00 Pulse Rate 68 08/13/18 07:15 Respiratory Rate 20 08/13/18 06:00 Blood Pressure 163/53 L 08/13/18 07:15 O2 Sat by Pulse Oximetry (%) 99 08/12/18 21:00 Constitutional: Yes: No Distress Cardiovascular: Yes: Regular Rate and Rhythm Respiratory: Yes: CTA Bilaterally (no rales or wheezing) Gastrointestinal: Yes: Soft Edema: No Neurological: Yes: Alert Labs: CBC, BMP 08/13/18 05:15 08/13/18 05:15 INR, PTT INR 1.06 (0.83-1.09) 08/02/18 21:28 - ....Imaging EKG: Image Reviewed Problem List - Problems (1) Fall Code(s): W19.XXXA - UNSPECIFIED FALL, INITIAL ENCOUNTER (2) Aortic stenosis Code(s): I35.0 - NONRHEUMATIC AORTIC (VALVE) STENOSIS (3) Abnormal ECG Code(s): R94.31 - ABNORMAL ELECTROCARDIOGRAM [ECG] [EKG] (4) Hypertension Code(s): I10 - ESSENTIAL (PRIMARY) HYPERTENSION (5) Stroke Code(s): I63.9 - CEREBRAL INFARCTION, UNSPECIFIED Qualifiers: Laterality of affected vessel: unspecified (6) ASHD (arteriosclerotic heart disease) Code(s): I25.10 - ATHSCL HEART DISEASE OF [place] CORONARY ARTERY W/O ANG PCTRS (7) Elevated brain natriuretic peptide (BNP) level Code(s): R79.89 - OTHER SPECIFIED ABNORMAL FINDINGS OF BLOOD CHEMISTRY (8) GUY (acute kidney injury) Code(s): N17.9 - ACUTE KIDNEY FAILURE, UNSPECIFIED Assessment/Plan IMP: Severe LICA stenosis , symptomatic, s/p L.CEA w/ post op CVA Post op respiratory failure secondary to stridor now extubated. Non-obstructive CAD Chronic HTN REC: 1. Extubated. 2. Cont Antiplatelet Rx as per Vascular 3. Remains in NSR, cont telemetry 4. BP parameters as per Neuro; PO Labetalol resumed. Wean Cardene gtts and recommend starting Nifedipine today if feasible. 5. DVT prophylaxis Will continue to follow.
--- NOTE | 2018-08-13 08:27 | PN ---
Progress Note (short form) - Note Progress Note: Extubated, speech appears normal VSS Left neck wound less drainage Neuro exam unchanged Stable, breathing improved OOB D/C NG and start diet. Problem List - Problems (1) Carotid stenosis, symptomatic w/o infarct Code(s): I65.29 - OCCLUSION AND STENOSIS OF UNSPECIFIED CAROTID ARTERY Qualifiers: Laterality: bilateral Qualified Code(s): I65.23 - Occlusion and stenosis of bilateral carotid arteries
[2018-08-13] MEDS: ASPIRIN 81 MG CHEWABLE TABLETS PO SCH (09:16)
[2018-08-13] MEDS: CLOPIDOGREL BISULFATE 75 MG TABLET (FP) PO SCH (09:16)
[2018-08-13] MEDS: PANTOPRAZOLE SODIUM 40 MG VIAL IVPUSH SCH (09:16)
[2018-08-13] MEDS: SODIUM CHLORIDE 1,000 ML IV SCH ×2 (09:16→19:29)
[2018-08-13] MEDS ORDERED: NIFEdipine 10 MG CAPSULE (FP) PO ONE ×2 (10:00→10:55)
--- NOTE | 2018-08-13 10:21 | PN ---
Progress Note, [employer]AN [employer] - Note Progress Note: Selected Entries 08/13/18 08/13/18 08/13/18 02:00 06:00 09:51 Supper NPO Temperature 97.7 F 97.7 F Laboratory Tests 08/12/18 08/13/18 05:30 05:15 WBC 8.9 11.5 H CXR performed yesterday. Pending report.Resident reported to me CXR looked fine , lungs clear. Pt c/o NGT discomfort. Able sustain phonation for 7 seconds with stong voice/euphonic.During speech production/conversation, speech is dysphonic/hoarse. Possible righ Vocal cord weakness vs sec intubation. Swallowing re-assessed. Swallow is mildly delayed but brisk, with no overt signs of aspiration. Silent aspiration can not be r/o at bedside. Consider- d/c NGT Pureed diet, single sips of thin liquid. Monitor for cough, throat clearing, increased congestion, fever.
[2018-08-13] MEDS ORDERED: NIFEdipine 10 MG CAPSULE (FP) PO SCH ×2 (10:35→14:00)
--- NOTE | 2018-08-13 10:41 | PN ---
Teaching Attending Note Name of Resident: Jonathan Phan ATTENDING PHYSICIAN STATEMENT I saw and evaluated the patient. I reviewed the resident's note and discussed the case with the resident. I agree with the resident's findings and plan as documented. SUBJECTIVE: Patient seen and examined in the ICU. Remains extubated. Awake and responsive. Able to follow commands. Mildly confused. Remains on Cardene drip for BP control. Intake & Output 08/10/18 08/11/18 08/12/18 08/13/18 23:59 23:59 23:59 23:59 Intake Total 3814 1881.6 3354 2766 Output Total 2300 750 1550 Balance 1514 1131.6 1804 2766 Weight 158 lb 7 oz 151 lb 3 oz 159 lb 158 lb 3.2 oz Last Vital Signs Temp Pulse Resp BP Pulse Ox 97.7 F 76 17 148/71 99 08/13/18 06:00 08/13/18 08:00 08/13/18 09:00 08/13/18 08:00 08/13/18 09:00 Active Medications Aspirin (Asa -) 81 mg PO DAILY [facility] Last Admin: 08/13/18 09:16 Dose: 81 mg Atorvastatin Calcium (Lipitor -) 80 mg PO HS [facility] Last Admin: 08/12/18 22:00 Dose: 80 mg Chlorhexidine Gluconate (Hibiclens For Decolonization -) 1 applic TP HS [facility] Last Admin: 08/12/18 22:00 Dose: 1 applic Clopidogrel Bisulfate (Plavix -) 75 mg PO DAILY [facility] Last Admin: 08/13/18 09:16 Dose: 75 mg Enoxaparin Sodium (Lovenox -) 40 mg SQ DAILY [facility] Last Admin: 08/12/18 09:58 Dose: 40 mg Nicardipine HCl 25 mg/ (Dextrose) 250 mls @ 25 mls/hr IVPB TITR [facility]; Protocol Last Titration: 08/13/18 08:00 Dose: 13 mg/hr, 130 mls/hr Sodium Chloride (Normal Saline -) 1,000 mls @ 42 mls/hr IV ASDIR [facility] Last Admin: 08/13/18 09:16 Dose: 42 mls/hr Labetalol HCl (Normodyne -) 200 mg PO TID [facility] Last Admin: 08/13/18 05:04 Dose: 200 mg Lorazepam (Ativan Injection -) 0.5 mg IVPUSH Q4H PRN PRN Reason: ANXIETY Last Admin: 08/13/18 04:24 Dose: 0.5 mg Metoprolol Tartrate (Lopressor Injection -) 2.5 mg IVPUSH Q4H PRN PRN Reason: HYPERTENSION Last Admin: 08/12/18 20:03 Dose: 2.5 mg Nifedipine (Procardia Capsule -) 30 mg PO TID [facility] Ondansetron HCl (Zofran Injection) 4 mg IVPUSH Q6H PRN PRN Reason: NAUSEA AND/OR VOMITING Pantoprazole Sodium (Protonix Iv) 40 mg IVPUSH DAILY [facility] Last Admin: 08/13/18 09:16 Dose: 40 mg GEN: Extubated and awake HEENT: anicteric,Left CEA site clean less swelling PULM: few scattered rhonchi at the bases CV: S1 S2, RR ABD: + BS, S/S N/T N/D X4Q EXT: + Pulses, (-) edema NEURO: Right hemiparesis Laboratory Results - last 24 hr 08/05/18 08/06/18 08/06/18 11:56 06:05 16:47 WBC RBC Hgb Hct MCV MCH MCHC RDW Plt Count MPV Sodium Potassium Chloride Carbon Dioxide Anion Gap BUN Creatinine Creat Clearance w eGFR POC Glucometer 107 93 100 Random Glucose Calcium Phosphorus Magnesium Total Bilirubin AST ALT Alkaline Phosphatase Troponin I Total Protein Albumin Stool Occult Blood 08/07/18 08/12/18 08/12/18 05:47 11:15 12:43 WBC RBC Hgb Hct MCV MCH MCHC RDW Plt Count MPV Sodium Potassium Chloride Carbon Dioxide Anion Gap BUN Creatinine Creat Clearance w eGFR POC Glucometer 97 121 Random Glucose Calcium Phosphorus Magnesium Total Bilirubin AST ALT Alkaline Phosphatase Troponin I Total Protein Albumin Stool Occult Blood Negative 08/12/18 08/12/18 08/13/18 16:45 17:22 05:15 WBC 11.5 H RBC 3.82 L Hgb 11.4 L Hct 33.0 L D MCV 86.5 MCH 30.0 MCHC 34.7 RDW 14.0 Plt Count 294 MPV 8.6 Sodium Potassium Chloride Carbon Dioxide Anion Gap BUN Creatinine Creat Clearance w eGFR POC Glucometer 157 Random Glucose Calcium Phosphorus Magnesium Total Bilirubin AST ALT Alkaline Phosphatase Troponin I 0.03 Total Protein Albumin Stool Occult Blood 08/13/18 08/13/18 05:15 06:35 WBC RBC Hgb Hct MCV MCH MCHC RDW Plt Count MPV Sodium 138 Potassium 3.5 Chloride 106 Carbon Dioxide 24 Anion Gap 8 BUN 33 H Creatinine 1.1 Creat Clearance w eGFR > 60 POC Glucometer 160 Random Glucose 167 H Calcium 7.5 L Phosphorus 1.8 L Magnesium 2.2 Total Bilirubin 0.4 AST 39 H ALT 56 Alkaline Phosphatase 124 H Troponin I Total Protein 5.8 L Albumin 2.8 L Stool Occult Blood Problem List - Problems (1) Carotid stenosis, symptomatic w/o infarct Code(s): I65.29 - OCCLUSION AND STENOSIS OF UNSPECIFIED CAROTID ARTERY Qualifiers: Laterality: bilateral Qualified Code(s): I65.23 - Occlusion and stenosis of bilateral carotid arteries (2) TIA (transient ischemic attack) Code(s): G45.9 - TRANSIENT CEREBRAL ISCHEMIC ATTACK, UNSPECIFIED (3) Hypertension with renal disease Code(s): I12.9 - HYPERTENSIVE CHRONIC KIDNEY DISEASE W STG 1-4/UNSP CHR KDNY (4) CHF (congestive heart failure) Code(s): I50.9 - HEART FAILURE, UNSPECIFIED Qualifiers: Heart failure type: unspecified Heart failure chronicity: acute Qualified Code(s): I50.9 - Heart failure, unspecified (5) Aortic stenosis Code(s): I35.0 - NONRHEUMATIC AORTIC (VAL[place]) STENOSIS (6) ASHD (arteriosclerotic heart disease) Code(s): I25.10 - ATHSCL HEART DISEASE OF [place] CORONARY ARTERY W/O ANG PCTRS ASSESS: Acute Respiratory Failure: Suspect due to stridor: On leak test only about 20% of volume lost Left Carotid Artery stenosis POD # 5 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
[2018-08-13] MEDS ORDERED: NIFEdipine E.R. 30 MG TABLET (FP) PO SCH (11:30)
[2018-08-13] MEDS ORDERED: ACETAMINOPHEN 325 MG TABLET (FP) PO ONE (13:27)
[2018-08-13] MEDS ORDERED: ACETAMINOPHEN 325 MG TABLET (FP) ONE (13:32)
[2018-08-13] MEDS ORDERED: clonazePAM 0.5 MG TABLET PO ONE (16:42)
[2018-08-13] MEDS ORDERED: ACETAMINOPHEN 500 MG TABLET (FP) PO PRN (16:46)
--- NOTE | 2018-08-13 16:55 | PN ---
Progress Note (short form) - Note Progress Note: Current Medications Acetaminophen (Tylenol -) 1,000 mg PO Q6H PRN PRN Reason: PAIN Aspirin (Asa -) 81 mg PO DAILY [facility] Last Admin: 08/13/18 09:16 Dose: 81 mg Atorvastatin Calcium (Lipitor -) 80 mg PO HS [facility] Last Admin: 08/12/18 22:00 Dose: 80 mg Chlorhexidine Gluconate (Hibiclens For Decolonization -) 1 applic TP HS [facility] Last Admin: 08/12/18 22:00 Dose: 1 applic Clonazepam (Klonopin -) 0.5 mg PO ONCE ONE Stop: 08/13/18 16:43 Clonazepam (Klonopin -) 0.25 mg PO BID PRN PRN Reason: ANXIETY Clopidogrel Bisulfate (Plavix -) 75 mg PO DAILY [facility] Last Admin: 08/13/18 09:16 Dose: 75 mg Duloxetine HCl (Cymbalta -) 30 mg PO DAILY [facility] Enoxaparin Sodium (Lovenox -) 40 mg SQ DAILY [facility] Last Admin: 08/12/18 09:58 Dose: 40 mg Nicardipine HCl 25 mg/ (Dextrose) 250 mls @ 25 mls/hr IVPB TITR [facility]; Protocol Last Titration: 08/13/18 08:00 Dose: 13 mg/hr, 130 mls/hr Sodium Chloride (Normal Saline -) 1,000 mls @ 42 mls/hr IV ASDIR [facility] Last Admin: 08/13/18 09:16 Dose: 42 mls/hr Labetalol HCl (Normodyne -) 200 mg PO TID [facility] Last Admin: 08/13/18 13:36 Dose: 200 mg Lorazepam (Ativan Injection -) 0.5 mg IVPUSH Q4H PRN PRN Reason: ANXIETY Last Admin: 08/13/18 04:24 Dose: 0.5 mg Metoprolol Tartrate (Lopressor Injection -) 2.5 mg IVPUSH Q4H PRN PRN Reason: HYPERTENSION Last Admin: 08/12/18 20:03 Dose: 2.5 mg Nifedipine (Procardia Xl -) 30 mg PO DAILY [facility] Last Admin: 08/13/18 12:21 Dose: 30 mg Ondansetron HCl (Zofran Injection) 4 mg IVPUSH Q6H PRN PRN Reason: NAUSEA AND/OR VOMITING Pantoprazole Sodium (Protonix Iv) 40 mg IVPUSH DAILY [facility] Last Admin: 08/13/18 09:16 Dose: 40 mg Abnormal Lab Results 08/13/18 08/13/18 05:15 05:15 WBC 11.5 H RBC 3.82 L Hgb 11.4 L Hct 33.0 L D BUN 33 H Random Glucose 167 H Calcium 7.5 L Phosphorus 1.8 L AST 39 H Alkaline Phosphatase 124 H Total Protein 5.8 L Albumin 2.8 L Vital Signs Temperature 97.9 F 08/13/18 14:00 Pulse Rate 86 08/13/18 14:00 Respiratory Rate 18 08/13/18 14:00 Blood Pressure 134/66 08/13/18 14:00 O2 Sat by Pulse Oximetry (%) 99 08/13/18 09:00 CC: awake; aware, c/o back ache ````````````````````````````` skin--NL color lungs--bilat sounds; unlabored heart--RR abd--soft neuro--awake; speech fluent and seems to be coherent; able to move the RLE to some degree (1/4 motor) and some slight motor activity of the RUE; is very restless and with resulting agitation ``````````````````````````` Summ > 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, with considerable paresis on the Rt side, with some motor activity has returned,PLAN: PT eval; cont Plavix, asa > Htn--CRI; Bun/Cr improved with IV NS, still on IV CCB but now started on PO CCB along with BB; as he was cleared for PO agents & feeding by 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 > Anxiety/restless--post stroke state; PLAN: start long acting low doase benzodiazepine (hold if excessively drowsy) and SSRI > hyperglycemia--mild; not warranting antiglycemic agents thus far > anemia--mild; stool for OB is negative ```````````````````````````````````````````````````````````````````````````````` ``````````` Other: Updated daughter at bedside. ~~~~~~~~~~~~~~~~~~~~~~~~~~~~~~~~~~~~~~~ Commentjackeline
[2018-08-13] MEDS: ATORVASTATIN CA 80 MG TABLET (FP) PO SCH (21:53)
[2018-08-13] MEDS: CHLORHEXIDINE GLUCONATE 4% CLEANSER FOR DECOLONIZATION TP SCH (21:54)
[2018-08-13] MEDS: clonazePAM 0.5 MG TABLET PO PRN (21:54)
[2018-08-14] MEDS: LORazepam 2 MG/ML SDV VIAL IVPUSH PRN (01:42)
[2018-08-14] MEDS: NICARDIPINE 25 MG in DEXTROSE 5%-WATER - 240 ML IVPB SCH ×4 (02:22→22:16)
[2018-08-14] MEDS: METOPROLOL TARTRATE 5 MG/5 ML VIAL IVPUSH PRN (04:45)
[2018-08-14] MEDS: LABETALOL HCL 200 MG TABLET (FP) PO SCH ×3 (05:50→22:16)
[2018-08-14 06:34] LABS: ANION GAP 6 MMOL/L (8-16); BLOOD UREA NITROGEN 24 mg/dL (7-18); CALCIUM 7.8 mg/dL (8.5-10.1); CHLORIDE 108 mmol/L (98-107); CO2 25 mmol/L (21-32); CREATININE 0.9 mg/dL (0.55-1.3); GLUCOSE,RANDOM 94 mg/dL (74-106); POTASSIUM 3.6 mmol/L (3.5-5.1); SODIUM 139 mmol/L (136-145)
[2018-08-14 06:43] LABS: HEMATOCRIT 35.1 % (35.4-49); HEMOGLOBIN 12.1 GM/dL (11.7-16.9); MCHC 34.5 g/dl (32.0-35.9); PLATELET COUNT 287 K/MM3 (134-434); RBC 4.03 M/mm3 (4.00-5.60); RDW 14.2 % (11.9-15.9); WHITE BLOOD COUNT 10.3 K/mm3 (4.0-10.0)
--- NOTE | 2018-08-14 08:12 | PN ---
Progress Note (short form) - Note Progress Note: POD #7 s/p Left CEA. Return to OR on POD #0 secondary to right sided paresis ( post-op CVA). Pt seen and examined. States he is doing "okay". No issues overnight, offers no complaints. Voiding without issue, + BM this morning. Oon puree diet + thin liquids, tolerating. Sat on edge of bed for a few seconds without assistance with PT yesterday. Denies cp,sob, n/v/d, calf pain. Vital Signs Temp 97.9 F 08/14/18 09:49 Pulse 75 08/14/18 12:00 Resp 22 H 08/14/18 12:00 BP 146/56 L 08/14/18 12:00 Pulse Ox 98 08/14/18 09:00 Intake & Output 08/13/18 08/14/18 08/14/18 23:59 11:59 23:59 Intake Total 2098 664 Output Total 800 Balance 2098 -136 Weight 149 lb 3.2 oz Intake: IV 1714 544 Cardene 25 mg In D5w - 1200 240 ml @ 2.5 MG/HR 25 mls /hr IVPB TITR [facility] Rx#: [id number] Normal Saline - 1,000 ml 504 504 @ 42 mls/hr IV ASDIR [facility] Rx#:[id number] Saline Lock 10 40 Oral 120 120 Tube Feeding 184 Tube Irrigant 80 Output: Urine 800 Void 800 Other: Voiding Method Diaper Urinal # Unmeasured Voids Void 4 2 Bowel Movement Yes No Yes # Bowel Movements 1 1 Body Mass Index (BMI) 28.9 Weight Measurement Method Built in [facility] CBC, BMP 08/14/18 05:30 08/14/18 05:30 Gen: awake, alert, nad. RN in room placing new IV Neck: dressing with minimal staining, wily c/d/i, no erythema, no drainage. Small soft hematoma proximally, decreased in size from prior. Resp: unlabored on RA Ext: b/l ue edematous Neuro: LUE manager licensing strength intact, biceps/triceps 5/5, SILT. LLE 5/5 dorsi/ plantarflexion, SILT. RLE slight firing noted of thigh/calf muscles, slight flicker of great toe, SILT, RUE flaccid, no movement of fingers (?attempt). A/P: 78 y/o M w/ PMHx HTN, HLD, h/o multiple TIAs, initially presented after a fall due to dizziness on 08/02/18, found to have >70% L ICA stenosis, now POD #7 s /p Left CEA. Return to OR on POD #0 secondary to right sided paresis (post-op CVA). On Cardene drip this morning due to systolic BP 200, BP stable this afternoon. -Plan for transfer to floor once BP is stable off drip -BP parameters as per Neuro -Continue ASA 81mg qd, Plavix 75mg qd, statin qd -DVT prophylaxis -GI prophylaxis -OOB with PT -Will need REHAB when ready for DC d/w attending Dr Sheikh
--- NOTE | 2018-08-14 09:04 | PN ---
Physical Exam: SUBJECTIVE: Patient seen and examined at bedside this morning. Overnight patient was agitated and received Ativan. Today morning patient is tearful upon encounter during rounds. Early afternoon, patient endorsed feeling nauseous; improved with Zofran and he had one bowel movement subsequently. Denies chest pain, palpitations, shortness of breath, new weakness. OBJECTIVE: Vital Signs Period Temp Pulse Resp BP Sys/Palmer Pulse Ox Last 24 Hr 97.6 F-98.8 F 66-86 12-22 134-200/59-90 99-100 GENERAL: The patient is extubated, awake, alert, oriented to person, place, and time in no acute distress. HEAD: Normocephalic, atraumatic. EYES: PERRL, extraocular movements intact, sclera anicteric, conjunctiva clear. ENT: Oropharynx clear without exudates, moist mucous membranes. NECK: Supple without lymphadenopathy. LUNGS: Clear to auscultation bilaterally. No wheezing or rhonchi auscultated. No accessory muscle use. HEART: RRR. S1, S2 auscultated with holosystolic murmur auscultated loudest at left upper sternal border. ABDOMEN: Soft, nontender to light and deep palpation, nondistended X4 quadrants. Normoactive bowel sounds, no guarding, no rebound tenderness. No hepatosplenomegaly palpated or percussed. EXTREMITIES: 2+ radial, dorsalis pedis pulses bilaterally. Warm, well-perfused. No lower extremity edema bilaterally. NEUROLOGICAL: Cranial nerves II through XII grossly intact. Normal speech. Patient freely moves left upper and lower extremities. Slight movement right upper and lower extremity. Sensation intact bilaterally, however slightly increased on left side, compared to right side. SKIN: Warm, dry. Left neck wily noted. Dressing clean, dry. Laboratory Results - last 24 hr 08/09/18 08/14/18 08/14/18 21:45 05:30 05:30 WBC 10.3 H RBC 4.03 Hgb 12.1 Hct 35.1 L MCV 87.0 MCH 30.0 MCHC 34.5 RDW 14.2 Plt Count 287 MPV 8.0 Sodium 139 Potassium 3.6 Chloride 108 H Carbon Dioxide 25 Anion Gap 6 L BUN 24 H Creatinine 0.9 Creat Clearance w eGFR > 60 Random Glucose 94 Calcium 7.8 L Homocysteine 12.7 Active Medications Generic Name Dose Route Start Last Admin Trade Name Freq PRN Reason Stop Dose Admin Acetaminophen 1,000 mg 08/13/18 16:46 08/13/18 21:53 Tylenol - PO 1,000 mg Q6H PRN Administration PAIN (BACK) Aspirin 81 mg 08/11/18 12:45 08/13/18 09:16 Asa - PO 81 mg DAILY [facility] Administration Atorvastatin Calcium 80 mg 08/10/18 22:00 08/13/18 21:53 Lipitor - PO 80 mg HS [facility] Administration Chlorhexidine Gluconate 1 applic 08/08/18 22:00 08/13/18 21:54 Hibiclens For Decolonization - TP 1 applic HS [facility] Administration Clonazepam 0.25 mg 08/13/18 21:08 08/13/18 21:54 Klonopin - PO 0.25 mg Q12H PRN Administration ANXIETY Clopidogrel Bisulfate 75 mg 08/09/18 10:00 08/13/18 09:16 Plavix - PO 75 mg DAILY [facility] Administration Duloxetine HCl 30 mg 08/14/18 10:00 Cymbalta - PO DAILY [facility] Enoxaparin Sodium 40 mg 08/08/18 10:00 08/12/18 09:58 Lovenox - SQ 40 mg DAILY [facility] Administration Nicardipine HCl 25 mg/ 250 mls @ 25 mls/hr 08/07/18 22:15 08/14/18 08:42 Dextrose IVPB 7.5 mg/hr TITR [facility] 75 mls/hr Administration Protocol 2.5 MG/HR Sodium Chloride 1,000 mls @ 42 mls/hr 08/13/18 09:12 08/13/18 09:16 Normal Saline - IV 42 mls/hr ASDIR [facility] Administration Labetalol HCl 200 mg 08/12/18 14:00 08/14/18 05:50 Normodyne - PO 200 mg TID [facility] Administration Lorazepam 0.5 mg 08/09/18 20:21 08/14/18 01:42 Ativan Injection - IVPUSH 0.5 mg Q4H PRN Administration ANXIETY Metoprolol Tartrate 2.5 mg 08/10/18 12:55 08/14/18 04:45 Lopressor Injection - IVPUSH 2.5 mg Q4H PRN Administration HYPERTENSION Nifedipine 30 mg 08/14/18 08:45 Procardia Xl - PO BID [facility] Ondansetron HCl 4 mg 08/07/18 23:00 Zofran Injection IVPUSH Q6H PRN NAUSEA AND/OR VOMITING Pantoprazole Sodium 40 mg 08/08/18 10:00 08/13/18 09:16 Protonix Iv IVPUSH 40 mg DAILY [facility] Administration ASSESSMENT/PLAN: Patient is a 78 year old male with history of hypertension, hyperlipidemia, TIA s/p left carotid endartectomy with postoperative right sided paresis. #Neurological Left CVA -Patient is s/p carotid endarterectomy 08/07/2018 with post-operative right sided paresis -CTA head, neck shows small acute left posterior frontal infarct. Left carotid endarterectomy patent. No intracranial carotid occlusions, however right extracranial, intracranial vertebral artery with very narrow caliber. Approx. 50 % proximal right internal carotid luminal diameter. -CT cervical spine (with contrast) shows chronic degenerative changes. -Neurology, vascular surgery consult appreciated. -Lipitor 80mg PO HS -Aspirin 81mg PO daily Depression, anxiety -Begin Duloxetine 30mg PO HS -Clonazepam 0.25mg PO Q12H PRN for anxiety #Cardiovascular Hypertension -Patient is on Cardene drip. Titrate to BP goal systolic 140 mmHg. -Labetalol increased to 200mg PO TID -Increase Nifedipine ER 30mg PO BID -Discontinue Hydralazine; concern for elevated intracranial pressure -Consider initiating NISHA inhibitor Coronary artery disease -Plavix 75mg PO daily -Aspirin 81mg PO daily #Pulmonary Acute hypoxic respiratory failure -Patient extubated 08/12, saturating well on 3L nasal canula. -Maintain oxygen saturation greater than 90% -Monitor vital signs closely #Nephrology GUY -improving -BUN 24, Cr 0.9 -Gentle hydration with IV normal saline at 42mL/ hour #Gastrointestinal -Speech, swallow evaluation appreciated -Dysphagia puree diet, with nectar thick liquids -Zofran 4mg IV one time dose today, for nausea -Prophylaxis with Protonix 40mg IV daily #Endocrine -Patient will require appropriate blood glucose control once tolerating diet -Monitor fingerstick blood glucose #Hematologic -Hb 12.1 Hct 35.1 -improving -Monitor Hb/ Hct closely. #Genitourinary -Patient urinating well, without dysuria, hematuria. -Monitor intake, output closely. #Musculoskeletal -Tylenol 1000mg PO Q6H PRN for back pain -Physical therapy evaluation #FEN -IV normal saline at 42mL/ hour -Within normal limits, follow CMP. Replete as necessary -Puree diet #Prophylaxis -Lovenox 40mg subq daily -Protonix 40mg IV daily #Disposition -Continue care in ICU. Transfer to Telemetry floor once weaned off Cardene drip Visit type - Emergency Visit Emergency Visit: Yes ED Registration Date: 08/02/18 Care time: The patient presented to the Emergency Department on the above date and was hospitalized for further evaluation of their emergent condition. - New Patient This patient is new to me today: No - Critical Care Critical Care patient: Yes Total Critical Care Time (in minutes): 37 Critical Care Statement: The care of this patient involved high complexity decision making to prevent further life threatening deterioration of the patient 's condition and/or to evaluate & treat vital organ system(s) failure or risk of failure. - Discharge Referral Referred to [facility] Med P.C.: No
--- NOTE | 2018-08-14 09:25 | PN ---
Progress Note, Physician Chief Complaint: Seen and examined ICU TELE: NSR History of Present Illness: Required Cardene gtts resumed RUE/RLE movement comes and goes; is able to move at times. - Current Medication List Current Medications: Active Medications Acetaminophen (Tylenol -) 1,000 mg PO Q6H PRN PRN Reason: PAIN (BACK) Last Admin: 08/13/18 21:53 Dose: 1,000 mg Aspirin (Asa -) 81 mg PO DAILY [facility] Last Admin: 08/13/18 09:16 Dose: 81 mg Atorvastatin Calcium (Lipitor -) 80 mg PO HS [facility] Last Admin: 08/13/18 21:53 Dose: 80 mg Chlorhexidine Gluconate (Hibiclens For Decolonization -) 1 applic TP HS [facility] Last Admin: 08/13/18 21:54 Dose: 1 applic Clonazepam (Klonopin -) 0.25 mg PO Q12H PRN PRN Reason: ANXIETY Last Admin: 08/13/18 21:54 Dose: 0.25 mg Clopidogrel Bisulfate (Plavix -) 75 mg PO DAILY [facility] Last Admin: 08/13/18 09:16 Dose: 75 mg Duloxetine HCl (Cymbalta -) 30 mg PO DAILY [facility] Enoxaparin Sodium (Lovenox -) 40 mg SQ DAILY [facility] Last Admin: 08/12/18 09:58 Dose: 40 mg Nicardipine HCl 25 mg/ (Dextrose) 250 mls @ 25 mls/hr IVPB TITR [facility]; Protocol Last Admin: 08/14/18 08:42 Dose: 7.5 mg/hr, 75 mls/hr Sodium Chloride (Normal Saline -) 1,000 mls @ 42 mls/hr IV ASDIR [facility] Last Admin: 08/13/18 09:16 Dose: 42 mls/hr Labetalol HCl (Normodyne -) 200 mg PO TID [facility] Last Admin: 08/14/18 05:50 Dose: 200 mg Lorazepam (Ativan Injection -) 0.5 mg IVPUSH Q4H PRN PRN Reason: ANXIETY Last Admin: 08/14/18 01:42 Dose: 0.5 mg Metoprolol Tartrate (Lopressor Injection -) 2.5 mg IVPUSH Q4H PRN PRN Reason: HYPERTENSION Last Admin: 08/14/18 04:45 Dose: 2.5 mg Nifedipine (Procardia Xl -) 30 mg PO BID [facility] Ondansetron HCl (Zofran Injection) 4 mg IVPUSH Q6H PRN PRN Reason: NAUSEA AND/OR VOMITING Pantoprazole Sodium (Protonix Iv) 40 mg IVPUSH DAILY [facility] Last Admin: 08/13/18 09:16 Dose: 40 mg - Objective Vital Signs: Vital Signs Temperature 98.8 F 08/14/18 06:00 Pulse Rate 73 08/14/18 08:38 Respiratory Rate 16 08/14/18 08:36 Blood Pressure 145/77 08/14/18 08:38 O2 Sat by Pulse Oximetry (%) 99 08/14/18 00:00 Constitutional: Yes: No Distress Eyes: Yes: Conjunctiva Clear Cardiovascular: Yes: Regular Rate and Rhythm Respiratory: Yes: CTA Bilaterally Gastrointestinal: Yes: Soft Edema: No Neurological: Yes: Alert Labs: CBC, BMP 08/14/18 05:30 08/14/18 05:30 INR, PTT INR 1.06 (0.83-1.09) 08/02/18 21:28 Laboratory Tests 08/13/18 08/13/18 08/14/18 05:15 05:15 05:30 WBC 11.5 H 10.3 H RBC 4.03 Hgb 11.4 L Plt Count 294 287 Sodium 138 Potassium 3.5 Chloride BUN 33 H Creatinine 1.1 Phosphorus 1.8 L Magnesium 2.2 Alkaline Phosphatase 124 H 08/14/18 05:30 WBC RBC Hgb Plt Count Sodium 139 Potassium 3.6 Chloride 108 H BUN 24 H Creatinine 0.9 Phosphorus Magnesium Alkaline Phosphatase - ....Imaging EKG: Image Reviewed Problem List - Problems (1) Fall Code(s): W19.XXXA - UNSPECIFIED FALL, INITIAL ENCOUNTER (2) Aortic stenosis Code(s): I35.0 - NONRHEUMATIC AORTIC (VALVE) STENOSIS (3) Abnormal ECG Code(s): R94.31 - ABNORMAL ELECTROCARDIOGRAM [ECG] [EKG] (4) Hypertension Code(s): I10 - ESSENTIAL (PRIMARY) HYPERTENSION (5) Stroke Code(s): I63.9 - CEREBRAL INFARCTION, UNSPECIFIED Qualifiers: Laterality of affected vessel: unspecified (6) ASHD (arteriosclerotic heart disease) Code(s): I25.10 - ATHSCL HEART DISEASE OF [place] CORONARY ARTERY W/O ANG PCTRS (7) Elevated brain natriuretic peptide (BNP) level Code(s): R79.89 - OTHER SPECIFIED ABNORMAL FINDINGS OF BLOOD CHEMISTRY (8) GUY (acute kidney injury) Code(s): N17.9 - ACUTE KIDNEY FAILURE, UNSPECIFIED Assessment/Plan IMP: Severe LICA stenosis , symptomatic, s/p L.CEA w/ post op CVA Post op respiratory failure secondary to stridor now extubated. Non-obstructive CAD Chronic HTN REC: 1. Extubated. 2. Cont Antiplatelet Rx as per Vascular 3. Remains in NSR, cont telemetry 4. Wean Cardizem gtts: cont Labetalol and increase Procardia XL to 30mg BID and titrate to goal BP < 140/90 5. DVT prophylaxis
[2018-08-14] MEDS ORDERED: clonazePAM 0.5 MG TABLET PO PRN (10:00)
[2018-08-14] MEDS: SODIUM CHLORIDE 1,000 ML IV SCH (10:20)
[2018-08-14] MEDS ORDERED: PT OWN MED DRAWER 7, Y5N ONE (10:24)
[2018-08-14] MEDS: PANTOPRAZOLE SODIUM 40 MG VIAL IVPUSH SCH (10:25)
[2018-08-14] MEDS: DULoxetine HCL 30 MG CAPSULE.DR (FP) PO SCH (10:27)
[2018-08-14] MEDS: NIFEdipine E.R. 30 MG TABLET (FP) PO SCH ×2 (10:27→22:16)
[2018-08-14] MEDS: ASPIRIN 81 MG CHEWABLE TABLETS PO SCH (10:27)
[2018-08-14] MEDS: ENOXAPARIN NA (PORCINE) 40 MG/0.4 ML DISP.SYRIN SQ SCH (10:28)
[2018-08-14] MEDS: CLOPIDOGREL BISULFATE 75 MG TABLET (FP) PO SCH (10:28)
[2018-08-14] MEDS: clonazePAM 0.5 MG TABLET PO PRN (10:28)
[2018-08-14] MEDS ORDERED: ONDANSETRON 4 MG/2 ML VIAL ONE (11:55)
[2018-08-14] MEDS ORDERED: BISACODYL 10 MG SUPP.RECT PR ONE (11:58)
[2018-08-14] MEDS ORDERED: ONDANSETRON 4 MG/2 ML VIAL IVPUSH ONE (12:00)
--- NOTE | 2018-08-14 12:09 | PN ---
Progress Note, ZOOLOGY TECHNICAL OFFICER - Note Progress Note: Pt started on puree/thin liquid. His reported that he took a little yesterday, seemed to throat clear intermittently. Tolerated pills per nursing. Angry/sad this am. Reports no appetite. Only accepted meds by mouth today. Continue trial of Puree, change to Dysphagia Puree, and downgrade to nectar thick liquid, add 2 calHN, magic cup, ensure pudding. Monitor nutritional and pulmonary status. MBS when medically stable.
--- NOTE | 2018-08-14 12:33 | PN ---
Teaching Attending Note Name of Resident: Jonathan Phan ATTENDING PHYSICIAN STATEMENT I saw and evaluated the patient. I reviewed the resident's note and discussed the case with the resident. I agree with the resident's findings and plan as documented. SUBJECTIVE: Patient seen and examined in the ICU. Remains extubated. Awake and responsive. Weeping. Able to follow commands. Mildly confused. Off Cardene drip for BP control. Intake & Output 08/11/18 08/12/18 08/13/18 08/14/18 23:59 23:59 23:59 23:59 Intake Total 1881.6 3354 4864 664 Output Total 750 1550 800 Balance 1131.6 1804 4864 -136 Weight 151 lb 3 oz 159 lb 158 lb 3.2 oz 149 lb 3.2 oz Last Vital Signs Temp Pulse Resp BP Pulse Ox 97.9 F 75 22 H 146/56 L 98 08/14/18 09:49 08/14/18 12:00 08/14/18 12:00 08/14/18 12:00 08/14/18 09:00 Active Medications Acetaminophen (Tylenol -) 1,000 mg PO Q6H PRN PRN Reason: PAIN (BACK) Last Admin: 08/13/18 21:53 Dose: 1,000 mg Aspirin (Asa -) 81 mg PO DAILY [facility] Last Admin: 08/14/18 10:27 Dose: 81 mg Atorvastatin Calcium (Lipitor -) 80 mg PO HS [facility] Last Admin: 08/13/18 21:53 Dose: 80 mg Chlorhexidine Gluconate (Hibiclens For Decolonization -) 1 applic TP HS [facility] Last Admin: 08/13/18 21:54 Dose: 1 applic Clonazepam (Klonopin -) 0.25 mg PO Q12H PRN PRN Reason: ANXIETY Last Admin: 08/14/18 10:28 Dose: 0.25 mg Clopidogrel Bisulfate (Plavix -) 75 mg PO DAILY [facility] Last Admin: 08/14/18 10:28 Dose: 75 mg Duloxetine HCl (Cymbalta -) 30 mg PO DAILY [facility] Last Admin: 08/14/18 10:27 Dose: 30 mg Enoxaparin Sodium (Lovenox -) 40 mg SQ DAILY [facility] Last Admin: 08/14/18 10:28 Dose: 40 mg Nicardipine HCl 25 mg/ (Dextrose) 250 mls @ 25 mls/hr IVPB TITR [facility]; Protocol Last Admin: 08/14/18 11:44 Dose: 7.5 mg/hr, 75 mls/hr Sodium Chloride (Normal Saline -) 1,000 mls @ 42 mls/hr IV ASDIR [facility] Last Admin: 08/14/18 10:20 Dose: 42 mls/hr Labetalol HCl (Normodyne -) 200 mg PO TID [facility] Last Admin: 08/14/18 05:50 Dose: 200 mg Lorazepam (Ativan Injection -) 0.5 mg IVPUSH Q4H PRN PRN Reason: ANXIETY Last Admin: 08/14/18 01:42 Dose: 0.5 mg Metoprolol Tartrate (Lopressor Injection -) 2.5 mg IVPUSH Q4H PRN PRN Reason: HYPERTENSION Last Admin: 08/14/18 04:45 Dose: 2.5 mg Nifedipine (Procardia Xl -) 30 mg PO BID [facility] Last Admin: 08/14/18 10:27 Dose: 30 mg Pantoprazole Sodium (Protonix Iv) 40 mg IVPUSH DAILY [facility] Last Admin: 08/14/18 10:25 Dose: 40 mg GEN: Extubated and awake HEENT: anicteric,Left CEA site clean less swelling PULM: few scattered rhonchi at the bases CV: S1 S2, RR ABD: + BS, S/S N/T N/D X4Q EXT: + Pulses, (-) edema NEURO: Right hemiparesis Laboratory Results - last 24 hr 08/14/18 08/14/18 05:30 05:30 WBC 10.3 H RBC 4.03 Hgb 12.1 Hct 35.1 L MCV 87.0 MCH 30.0 MCHC 34.5 RDW 14.2 Plt Count 287 MPV 8.0 Sodium 139 Potassium 3.6 Chloride 108 H Carbon Dioxide 25 Anion Gap 6 L BUN 24 H Creatinine 0.9 Creat Clearance w eGFR > 60 Random Glucose 94 Calcium 7.8 L Problem List - Problems (1) Carotid stenosis, symptomatic w/o infarct Code(s): I65.29 - OCCLUSION AND STENOSIS OF UNSPECIFIED CAROTID ARTERY Qualifiers: Laterality: bilateral Qualified Code(s): I65.23 - Occlusion and stenosis of bilateral carotid arteries (2) TIA (transient ischemic attack) Code(s): G45.9 - TRANSIENT CEREBRAL ISCHEMIC ATTACK, UNSPECIFIED (3) Hypertension with renal disease Code(s): I12.9 - HYPERTENSIVE CHRONIC KIDNEY DISEASE W STG 1-4/UNSP CHR KDNY (4) CHF (congestive heart failure) Code(s): I50.9 - HEART FAILURE, UNSPECIFIED Qualifiers: Heart failure type: unspecified Heart failure chronicity: acute Qualified Code(s): I50.9 - Heart failure, unspecified (5) Aortic stenosis Code(s): I35.0 - NONRHEUMATIC AORTIC (VALVE) STENOSIS (6) ASHD (arteriosclerotic heart disease) Code(s): I25.10 - ATHSCL HEART DISEASE OF [place] CORONARY ARTERY W/O ANG PCTRS ASSESS: Acute Respiratory Failure: Suspect due to stridor: On leak test only about 20% of volume lost Left Carotid Artery stenosis POD # 7 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
--- NOTE | 2018-08-14 15:00 | EKG ---
Test Reason : Blood Pressure : / mmHG Vent. Rate : 064 BPM Atrial Rate : 064 BPM P-R Int : 200 ms QRS Dur : 112 ms QT Int : 436 ms P-R-T Axes : 041 -19 -09 degrees QTc Int : 449 ms NORMAL SINUS RHYTHM NONSPECIFIC T WAVE ABNORMALITY ABNORMAL ECG Confirmed by ROSARIO OLVERA MD ([id number]) on 08/14/2018 3:00:11 PM Referred By: Confirmed By:ROSARIO OLVERA MD
--- NOTE | 2018-08-14 17:16 | PN ---
Progress Note (short form) - Note Progress Note: medical Current Medications Acetaminophen (Tylenol -) 1,000 mg PO Q6H PRN PRN Reason: PAIN (BACK) Last Admin: 08/13/18 21:53 Dose: 1,000 mg Aspirin (Asa -) 81 mg PO DAILY [facility] Last Admin: 08/14/18 10:27 Dose: 81 mg Atorvastatin Calcium (Lipitor -) 80 mg PO HS [facility] Last Admin: 08/13/18 21:53 Dose: 80 mg Chlorhexidine Gluconate (Hibiclens For Decolonization -) 1 applic TP HS [facility] Last Admin: 08/13/18 21:54 Dose: 1 applic Clonazepam (Klonopin -) 0.25 mg PO Q12H PRN PRN Reason: ANXIETY Last Admin: 08/14/18 10:28 Dose: 0.25 mg Clopidogrel Bisulfate (Plavix -) 75 mg PO DAILY [facility] Last Admin: 08/14/18 10:28 Dose: 75 mg Duloxetine HCl (Cymbalta -) 30 mg PO DAILY [facility] Last Admin: 08/14/18 10:27 Dose: 30 mg Enoxaparin Sodium (Lovenox -) 40 mg SQ DAILY [facility] Last Admin: 08/14/18 10:28 Dose: 40 mg Nicardipine HCl 25 mg/ (Dextrose) 250 mls @ 25 mls/hr IVPB TITR [facility]; Protocol Last Titration: 08/14/18 13:00 Dose: 0 mg/hr, 0 mls/hr Sodium Chloride (Normal Saline -) 1,000 mls @ 42 mls/hr IV ASDIR [facility] Last Admin: 08/14/18 10:20 Dose: 42 mls/hr Labetalol HCl (Normodyne -) 200 mg PO TID [facility] Last Admin: 08/14/18 13:43 Dose: 200 mg Lorazepam (Ativan Injection -) 0.5 mg IVPUSH Q4H PRN PRN Reason: ANXIETY Last Admin: 08/14/18 01:42 Dose: 0.5 mg Metoprolol Tartrate (Lopressor Injection -) 2.5 mg IVPUSH Q4H PRN PRN Reason: HYPERTENSION Last Admin: 08/14/18 04:45 Dose: 2.5 mg Nifedipine (Procardia Xl -) 30 mg PO BID [facility] Last Admin: 08/14/18 10:27 Dose: 30 mg Pantoprazole Sodium (Protonix Iv) 40 mg IVPUSH DAILY [facility] Last Admin: 08/14/18 10:25 Dose: 40 mg Laboratory Results - last 24 hr 08/14/18 08/14/18 08/14/18 05:30 05:30 12:57 WBC 10.3 H RBC 4.03 Hgb 12.1 Hct 35.1 L MCV 87.0 MCH 30.0 MCHC 34.5 RDW 14.2 Plt Count 287 MPV 8.0 Sodium 139 Potassium 3.6 Chloride 108 H Carbon Dioxide 25 Anion Gap 6 L BUN 24 H Creatinine 0.9 Creat Clearance w eGFR > 60 Random Glucose 94 Calcium 7.8 L Troponin I 0.02 Vital Signs Temperature 98.1 F 08/14/18 14:22 Pulse Rate 66 08/14/18 15:54 Respiratory Rate 23 H 08/14/18 15:54 Blood Pressure 141/72 08/14/18 15:54 O2 Sat by Pulse Oximetry (%) 98 08/14/18 09:00 CC: drowsy ````````````````````````````` skin--NL color lungs--bilat sounds; unlabored heart--RR neuro--asleep ``````````````````````````` Summ > 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, with considerable paresis on the Rt side, with only slight motor activity,PLAN: PT eval; cont Plavix, asa and eventual rehab placement > Htn--CRI; (Bun/Cr improved with IV NS),Had high BP spike this AM while off the IV CCB, and had to be restarted. Dose of oral CCB increased > Anxiety/restless--post stroke state; became acutely agitated this AM PLAN: cont benzodiazepine (hold if excessively drowsy) and SSRI; may need to be placed on Antipsychotic agent if he cannot be managed > mobility impaired--2nd described CVA; as he now cannot fully do for himself and cannot adequately understand his predicament; which may be a contributing factor to fuel his agitation ```````````````````````````````````````````````````````````````````````````````` ``````````` Other: Updated daughter at bedside. ~~~~~~~~~~~~~~~~~~~~~~~~~~~~~~~~~~~~~~~ Dr Commentucci
[2018-08-14] MEDS: CHLORHEXIDINE GLUCONATE 4% CLEANSER FOR DECOLONIZATION TP SCH (21:26)
[2018-08-14] MEDS: ATORVASTATIN CA 80 MG TABLET (FP) PO SCH (21:26)
[2018-08-15] MEDS: LABETALOL HCL 200 MG TABLET (FP) PO SCH ×3 (05:45→21:18)
[2018-08-15 06:38] LABS: BASO % 0.1 % (0-2.0); EOS % 1.4 % (0-4.5); HEMATOCRIT 32.7 % (35.4-49); HEMOGLOBIN 11.4 GM/dL (11.7-16.9); LYMPH % 10.9 % (8-40); MCH 30.2 pg (25.7-33.7); MCHC 34.9 g/dl (32.0-35.9); MEAN CELL VOLUME 86.4 fl (80-96); MEAN PLT VOLUME 7.8 fl (7.5-11.1); NEUT % 77.6 % (42.8-82.8); PLATELET COUNT 287 K/MM3 (134-434); RBC 3.78 M/mm3 (4.00-5.60); RDW 14.3 % (11.9-15.9); WHITE BLOOD COUNT 10.5 K/mm3 (4.0-10.0)
[2018-08-15 07:20] LABS: ALBUMIN 2.8 g/dl (3.4-5.0); ALK PHOS 102 U/L (45-117); ANION GAP 9 MMOL/L (8-16); BILIRUBIN,TOTAL 0.6 mg/dL (0.2-1); BLOOD UREA NITROGEN 26 mg/dL (7-18); CALCIUM 7.9 mg/dL (8.5-10.1); CHLORIDE 107 mmol/L (98-107); CO2 24 mmol/L (21-32); GLUCOSE,RANDOM 78 mg/dL (74-106); POTASSIUM 3.7 mmol/L (3.5-5.1); SGOT/AST 75 U/L (15-37); SGPT/ALT 126 U/L (13-61); SODIUM 140 mmol/L (136-145); TOT PROT 5.6 g/dl (6.4-8.2)
--- NOTE | 2018-08-15 08:01 | PN ---
Progress Note, Physician Chief Complaint: TELE: NSR History of Present Illness: no acute distress - Current Medication List Current Medications: Active Medications Acetaminophen (Tylenol -) 1,000 mg PO Q6H PRN PRN Reason: PAIN (BACK) Last Admin: 08/13/18 21:53 Dose: 1,000 mg Aspirin (Asa -) 81 mg PO DAILY [facility] Last Admin: 08/14/18 10:27 Dose: 81 mg Atorvastatin Calcium (Lipitor -) 80 mg PO HS [facility] Last Admin: 08/14/18 21:26 Dose: 80 mg Chlorhexidine Gluconate (Hibiclens For Decolonization -) 1 applic TP HS [facility] Last Admin: 08/14/18 21:26 Dose: 1 applic Clonazepam (Klonopin -) 0.25 mg PO Q12H PRN PRN Reason: ANXIETY Last Admin: 08/14/18 10:28 Dose: 0.25 mg Clopidogrel Bisulfate (Plavix -) 75 mg PO DAILY [facility] Last Admin: 08/14/18 10:28 Dose: 75 mg Duloxetine HCl (Cymbalta -) 30 mg PO DAILY [facility] Last Admin: 08/14/18 10:27 Dose: 30 mg Enoxaparin Sodium (Lovenox -) 40 mg SQ DAILY [facility] Last Admin: 08/14/18 10:28 Dose: 40 mg Nicardipine HCl 25 mg/ (Dextrose) 250 mls @ 25 mls/hr IVPB TITR [facility]; Protocol Last Admin: 08/14/18 22:16 Dose: Not Given Sodium Chloride (Normal Saline -) 1,000 mls @ 42 mls/hr IV ASDIR [facility] Last Admin: 08/14/18 10:20 Dose: 42 mls/hr Labetalol HCl (Normodyne -) 200 mg PO TID [facility] Last Admin: 08/15/18 05:45 Dose: 200 mg Lorazepam (Ativan Injection -) 0.5 mg IVPUSH Q4H PRN PRN Reason: ANXIETY Last Admin: 08/14/18 01:42 Dose: 0.5 mg Metoprolol Tartrate (Lopressor Injection -) 2.5 mg IVPUSH Q4H PRN PRN Reason: HYPERTENSION Last Admin: 08/14/18 04:45 Dose: 2.5 mg Nifedipine (Procardia Xl -) 30 mg PO BID [facility] Last Admin: 08/14/18 22:16 Dose: 30 mg Pantoprazole Sodium (Protonix Iv) 40 mg IVPUSH DAILY [facility] Last Admin: 08/14/18 10:25 Dose: 40 mg - Objective Vital Signs: Vital Signs Temperature 98.5 F 08/15/18 06:00 Pulse Rate 68 08/15/18 06:00 Respiratory Rate 15 08/15/18 06:00 Blood Pressure 167/67 08/15/18 06:00 O2 Sat by Pulse Oximetry (%) 98 08/14/18 22:00 Constitutional: Yes: No Distress Cardiovascular: Yes: Regular Rate and Rhythm Respiratory: Yes: CTA Bilaterally Gastrointestinal: Yes: Soft Edema: No Labs: CBC, BMP 08/15/18 05:25 08/15/18 05:25 INR, PTT INR 1.06 (0.83-1.09) 08/02/18 21:28 Laboratory Tests 08/15/18 08/15/18 05:25 05:25 WBC 10.5 H Hgb 11.4 L Plt Count 287 Sodium 140 Potassium 3.7 Creatinine 1.0 - ....Imaging EKG: Image Reviewed Problem List - Problems (1) Fall Code(s): W19.XXXA - UNSPECIFIED FALL, INITIAL ENCOUNTER (2) Aortic stenosis Code(s): I35.0 - NONRHEUMATIC AORTIC (VALVE) STENOSIS (3) Abnormal ECG Code(s): R94.31 - ABNORMAL ELECTROCARDIOGRAM [ECG] [EKG] (4) Hypertension Code(s): I10 - ESSENTIAL (PRIMARY) HYPERTENSION (5) Stroke Code(s): I63.9 - CEREBRAL INFARCTION, UNSPECIFIED Qualifiers: Laterality of affected vessel: unspecified (6) ASHD (arteriosclerotic heart disease) Code(s): I25.10 - ATHSCL HEART DISEASE OF [place] CORONARY ARTERY W/O ANG PCTRS (7) Elevated brain natriuretic peptide (BNP) level Code(s): R79.89 - OTHER SPECIFIED ABNORMAL FINDINGS OF BLOOD CHEMISTRY (8) GUY (acute kidney injury) Code(s): N17.9 - ACUTE KIDNEY FAILURE, UNSPECIFIED Assessment/Plan IMP: Severe LICA stenosis , symptomatic, s/p L.CEA w/ post op CVA Post op respiratory failure secondary to stridor now extubated. Non-obstructive CAD Chronic HTN REC: 1. Extubated. 2. Cont Antiplatelet Rx as per Vascular 3. Remains in NSR, cont telemetry 4. Cont Labetalol and increase Procardia XL to 30mg BID and titrate to goal BP < 140/90 5. DVT prophylaxis
--- NOTE | 2018-08-15 09:03 | PN ---
Physical Exam: SUBJECTIVE: Patient seen and examined at bedside. No overnight events. Blood pressure overnight was around 160/60. Patient reports no pain but is unable to move his right arm. Denies chest pain, shortness of breath, nausea, vomiting, diarrhea, fevers, chills. OBJECTIVE: Vital Signs Period Temp Pulse Resp BP Sys/Palmer Pulse Ox Last 24 Hr 97.9 F-98.6 F 64-81 15-23 123-172/51-79 98-98 GENERAL: A&Ox3, no acute distress EYES: PERRLA, EOMI ENT: Moist mucus membranes NECK: No JVD, left sided gauze in place over incision site that is dry and not saturated with blood LUNGS: CTA, no wheezes HEART: RRR, no murmurs ABDOMEN: Soft, nontender, BS present MUSCULOSKELETAL: No CVA Tenderness EXTREMITIES: 2+ pulses, no edema. NEUROLOGICAL: Cranial nerves II-XII intact. R arm strength 0/5, L arm and L leg 5/5, R leg 4/5. Sensation intact b/l. reflexes b/l intact but 1/4 in R arm ( 2/4 in other extremities Laboratory Results - last 24 hr 08/14/18 08/14/18 08/14/18 12:57 17:41 20:28 WBC RBC Hgb Hct MCV MCH MCHC RDW Plt Count MPV Absolute Neuts (auto) Neutrophils % Lymphocytes % Monocytes % Eosinophils % Basophils % Nucleated RBC % Sodium Potassium Chloride Carbon Dioxide Anion Gap BUN Creatinine Creat Clearance w eGFR POC Glucometer 98 88 Random Glucose Calcium Total Bilirubin AST ALT Alkaline Phosphatase Troponin I 0.02 Total Protein Albumin 08/15/18 08/15/18 08/15/18 05:25 05:25 06:22 WBC 10.5 H RBC 3.78 L Hgb 11.4 L Hct 32.7 L MCV 86.4 MCH 30.2 MCHC 34.9 RDW 14.3 Plt Count 287 MPV 7.8 Absolute Neuts (auto) 8.1 H Neutrophils % 77.6 Lymphocytes % 10.9 D Monocytes % 10.0 Eosinophils % 1.4 D Basophils % 0.1 Nucleated RBC % 0 Sodium 140 Potassium 3.7 Chloride 107 Carbon Dioxide 24 Anion Gap 9 BUN 26 H Creatinine 1.0 Creat Clearance w eGFR > 60 POC Glucometer 86 Random Glucose 78 Calcium 7.9 L Total Bilirubin 0.6 AST 75 H ALT 126 H Alkaline Phosphatase 102 Troponin I Total Protein 5.6 L Albumin 2.8 L Active Medications Generic Name Dose Route Start Last Admin Trade Name Freq PRN Reason Stop Dose Admin Acetaminophen 1,000 mg 08/13/18 16:46 08/13/18 21:53 Tylenol - PO 1,000 mg Q6H PRN Administration PAIN (BACK) Aspirin 81 mg 08/11/18 12:45 08/14/18 10:27 Asa - PO 81 mg DAILY [facility] Administration Atorvastatin Calcium 80 mg 08/10/18 22:00 08/14/18 21:26 Lipitor - PO 80 mg HS [facility] Administration Chlorhexidine Gluconate 1 applic 08/08/18 22:00 08/14/18 21:26 Hibiclens For Decolonization - TP 1 applic HS [facility] Administration Clonazepam 0.25 mg 08/13/18 21:08 08/14/18 10:28 Klonopin - PO 0.25 mg Q12H PRN Administration ANXIETY Clopidogrel Bisulfate 75 mg 08/09/18 10:00 08/14/18 10:28 Plavix - PO 75 mg DAILY [facility] Administration Duloxetine HCl 30 mg 08/14/18 10:00 08/14/18 10:27 Cymbalta - PO 30 mg DAILY [facility] Administration Enoxaparin Sodium 40 mg 08/08/18 10:00 08/14/18 10:28 Lovenox - SQ 40 mg DAILY [facility] Administration Nicardipine HCl 25 mg/ 250 mls @ 25 mls/hr 08/07/18 22:15 08/14/18 22:16 Dextrose IVPB Not Given TITR [facility] Protocol 2.5 MG/HR Sodium Chloride 1,000 mls @ 42 mls/hr 08/13/18 09:12 08/14/18 10:20 Normal Saline - IV 42 mls/hr ASDIR [facility] Administration Labetalol HCl 200 mg 08/12/18 14:00 08/15/18 05:45 Normodyne - PO 200 mg TID [facility] Administration Lorazepam 0.5 mg 08/09/18 20:21 08/14/18 01:42 Ativan Injection - IVPUSH 0.5 mg Q4H PRN Administration ANXIETY Metoprolol Tartrate 2.5 mg 08/10/18 12:55 08/14/18 04:45 Lopressor Injection - IVPUSH 2.5 mg Q4H PRN Administration HYPERTENSION Nifedipine 30 mg 08/14/18 08:45 08/14/18 22:16 Procardia Xl - PO 30 mg BID [facility] Administration Pantoprazole Sodium 40 mg 08/08/18 10:00 08/14/18 10:25 Protonix Iv IVPUSH 40 mg DAILY [facility] Administration IMAGING CTA head: neck shows small acute left posterior frontal infarct. Left carotid endarterectomy patent. No intracranial carotid occlusions, however right extracranial, intracranial vertebral artery with very narrow caliber. Approx. 50 % proximal right internal carotid luminal diameter. CT cervical spine (with contrast): chronic degenerative changes. ASSESSMENT/PLAN: Patient is a 78 year old male with history of hypertension, hyperlipidemia, TIA s/p left carotid endartectomy with postoperative right sided paresis. #Neurological Left sided CVA -Patient is s/p carotid endarterectomy 08/07/2018 with post-operative right sided paresis -Neurology, vascular surgery consulted -continue Lipitor 80mg PO HS -continue Aspirin 81mg PO daily Depression, anxiety -continue Duloxetine 30mg PO HS -Clonazepam 0.25mg PO Q12H PRN for anxiety #Cardiovascular Hypertension: patient is continuously hypertensive although off cardene drip -BP goal systolic 140 mmHg. -continue with [id number] PO TID -Increase Nifedipine ER to 60mg PO BID per cardiology -Discontinue Hydralazine; concern for elevated intracranial pressure -Consider initiating NISHA inhibitor Coronary artery disease -Plavix 75mg PO daily -Aspirin 81mg PO daily #Pulmonary Acute hypoxic respiratory failure -Patient extubated 08/12, saturating well on 3L nasal canula. -Maintain oxygen saturation greater than 90% -Monitor vital signs closely #Nephrology GUY -improving #Gastrointestinal - LFTs slightly elevated, just ordered US -Speech, swallow evaluation appreciated -Dysphagia puree diet, with nectar thick liquids -Zofran 4mg IV one time dose today, for nausea -Prophylaxis with Protonix 40mg IV daily #Endocrine -Patient will require appropriate blood glucose control once tolerating diet -Monitor fingerstick blood glucose #Hematologic -H&H stable -Monitor Hb/ Hct closely. #Genitourinary -Patient urinating well, without dysuria, hematuria. #Musculoskeletal -Tylenol 1000mg PO Q6H PRN for back pain -Physical therapy evaluation - will need aggressive PT #FEN -IV normal saline at 42mL/ hour -Within normal limits, follow CMP. Replete as necessary -Puree diet #Prophylaxis -Lovenox 40mg subq daily -Protonix 40mg IV daily #Disposition Can be transferred to regular floor - telemetry Visit type - Emergency Visit Emergency Visit: No - New Patient This patient is new to me today: No - Critical Care Critical Care patient: Yes Total Critical Care Time (in minutes): 41 Critical Care Statement: The care of this patient involved high complexity decision making to prevent further life threatening deterioration of the patient 's condition and/or to evaluate & treat vital organ system(s) failure or risk of failure.
[2018-08-15] MEDS: CLOPIDOGREL BISULFATE 75 MG TABLET (FP) PO SCH (09:20)
[2018-08-15] MEDS: NIFEdipine E.R 60 MG TABLET (UD) PO SCH ×3 (09:20→21:18)
[2018-08-15] MEDS: ENOXAPARIN NA (PORCINE) 40 MG/0.4 ML DISP.SYRIN SQ SCH (09:20)
[2018-08-15] MEDS: ASPIRIN 81 MG CHEWABLE TABLETS PO SCH (09:20)
[2018-08-15] MEDS: DULoxetine HCL 30 MG CAPSULE.DR (FP) PO SCH (09:20)
[2018-08-15] MEDS: PANTOPRAZOLE SODIUM 40 MG VIAL IVPUSH SCH (09:20)
[2018-08-15] MEDS: SODIUM CHLORIDE 1,000 ML IV SCH ×2 (09:21→21:35)
--- NOTE | 2018-08-15 10:59 | PN ---
Teaching Attending Note Name of Resident: Hans Schneider ATTENDING PHYSICIAN STATEMENT I saw and evaluated the patient. I reviewed the resident's note and discussed the case with the resident. I agree with the resident's findings and plan as documented. SUBJECTIVE: Pt seen and examined in the ICU. No specific complaints. Still with right sided hemiparesis. Off cardene gtt. OBJECTIVE: Vital Signs Period Temp Pulse Resp BP Sys/Palmer Pulse Ox Last 24 Hr 98.1 F-98.6 F 64-78 15-23 113-172/51-79 98-98 Intake & Output 08/12/18 08/13/18 08/14/18 08/15/18 23:59 23:59 23:59 23:59 Intake Total 3354 4864 1764 504 Output Total 1550 800 Balance 1804 4864 964 504 Weight 72.121 kg 71.758 kg 67.676 kg 68.549 kg Gen: NAD, R hemiparesis Heart: RRR Lung: decreased breath sounds at the bases Abd: soft, nontender Ext: no edema CBC, BMP 08/15/18 05:25 08/15/18 05:25 Active Medications Acetaminophen (Tylenol -) 1,000 mg PO Q6H PRN PRN Reason: PAIN (BACK) Last Admin: 08/13/18 21:53 Dose: 1,000 mg Aspirin (Asa -) 81 mg PO DAILY [facility] Last Admin: 08/15/18 09:20 Dose: 81 mg Atorvastatin Calcium (Lipitor -) 80 mg PO HS [facility] Last Admin: 08/14/18 21:26 Dose: 80 mg Chlorhexidine Gluconate (Hibiclens For Decolonization -) 1 applic TP [facility] Last Admin: 08/14/18 21:26 Dose: 1 applic Clonazepam (Klonopin -) 0.25 mg PO Q12H PRN PRN Reason: ANXIETY Last Admin: 08/14/18 10:28 Dose: 0.25 mg Clopidogrel Bisulfate (Plavix -) 75 mg PO DAILY [facility] Last Admin: 08/15/18 09:20 Dose: 75 mg Duloxetine HCl (Cymbalta -) 30 mg PO DAILY [facility] Last Admin: 08/15/18 09:20 Dose: 30 mg Enoxaparin Sodium (Lovenox -) 40 mg SQ DAILY [facility] Last Admin: 08/15/18 09:20 Dose: 40 mg Nicardipine HCl 25 mg/ (Dextrose) 250 mls @ 25 mls/hr IVPB TITR [facility]; Protocol Last Admin: 08/14/18 22:16 Dose: Not Given Sodium Chloride (Normal Saline -) 1,000 mls @ 42 mls/hr IV ASDIR [facility] Last Admin: 08/15/18 09:21 Dose: 42 mls/hr Labetalol HCl (Normodyne -) 200 mg PO TID [facility] Last Admin: 08/15/18 05:45 Dose: 200 mg Lorazepam (Ativan Injection -) 0.5 mg IVPUSH Q4H PRN PRN Reason: ANXIETY Last Admin: 08/14/18 01:42 Dose: 0.5 mg Metoprolol Tartrate (Lopressor Injection -) 2.5 mg IVPUSH Q4H PRN PRN Reason: HYPERTENSION Last Admin: 08/14/18 04:45 Dose: 2.5 mg Nifedipine (Procardia Xl -) 60 mg PO BID [facility] Last Admin: 08/15/18 09:37 Dose: Not Given Pantoprazole Sodium (Protonix Iv) 40 mg IVPUSH DAILY [facility] Last Admin: 08/15/18 09:20 Dose: 40 mg ASSESSMENT AND PLAN: L Carotid Stenosis s/p L CEA Post Op Ischemic Stroke Stridor resolved s/p Acute Respiratory Failure Acute on Chronic Renal Failure Hypertensive Urgency LV Diastolic Dysfunction Aortic Stenosis CAD - BP control - continue ASA, plavix - neuro checks - monitor H/H - IVF - monitor urine output, creatinine - PO as tolerated - rehab/PT - DVT prophylaxis - can monitor on telemetry
[2018-08-15] MEDS ORDERED: LORazepam 2 MG/ML SDV VIAL IVPUSH PRN (11:21)
[2018-08-15] MEDS ORDERED: ACETAMINOPHEN 500 MG TABLET (FP) PO PRN (11:21)
--- NOTE | 2018-08-15 12:57 | PN ---
Progress Note (short form) - Note Progress Note: NAD Neck wound clean and dry, no swelling Neuro exam unchanged, able to move rght leg and has sensation in right hand but no motor. Imp: No change in neurologic status Plan: As per Neuro/Rehab. Problem List - Problems (1) Carotid stenosis, symptomatic w/o infarct Code(s): I65.29 - OCCLUSION AND STENOSIS OF UNSPECIFIED CAROTID ARTERY Qualifiers: Laterality: bilateral Qualified Code(s): I65.23 - Occlusion and stenosis of bilateral carotid arteries
--- NOTE | 2018-08-15 13:23 | PN ---
Progress Note (short form) - Note Progress Note: ^^^^^^^^^^^^^^^^^ medical ^^^^^^^^^^^^^^^ Active Medications Acetaminophen (Tylenol -) 1,000 mg PO Q6H PRN PRN Reason: PAIN (BACK) Aspirin (Asa -) 81 mg PO DAILY [facility] Atorvastatin Calcium (Lipitor -) 80 mg PO HS [facility] Clopidogrel Bisulfate (Plavix -) 75 mg PO DAILY [facility] Duloxetine HCl (Cymbalta -) 30 mg PO DAILY [facility] Enoxaparin Sodium (Lovenox -) 40 mg SQ DAILY [facility] Sodium Chloride (Normal Saline -) 1,000 mls @ 42 mls/hr IV ASDIR [facility] Labetalol HCl (Normodyne -) 200 mg PO TID [facility] Lorazepam (Ativan Injection -) 0.5 mg IVPUSH Q4H PRN PRN Reason: ANXIETY Metoprolol Tartrate (Lopressor Injection -) 2.5 mg IVPUSH Q4H PRN PRN Reason: HYPERTENSION Nifedipine (Procardia Xl -) 60 mg PO BID [facility] Pantoprazole Sodium (Protonix Iv) 40 mg IVPUSH DAILY [facility] Laboratory Results - last 24 hr 08/14/18 08/14/18 08/14/18 12:57 17:41 20:28 WBC RBC Hgb Hct MCV MCH MCHC RDW Plt Count MPV Absolute Neuts (auto) Neutrophils % Lymphocytes % Monocytes % Eosinophils % Basophils % Nucleated RBC % Sodium Potassium Chloride Carbon Dioxide Anion Gap BUN Creatinine Creat Clearance w eGFR POC Glucometer 98 88 Random Glucose Calcium Total Bilirubin AST ALT Alkaline Phosphatase Troponin I 0.02 Total Protein Albumin 08/15/18 08/15/18 08/15/18 05:25 05:25 06:22 WBC 10.5 H RBC 3.78 L Hgb 11.4 L Hct 32.7 L MCV 86.4 MCH 30.2 MCHC 34.9 RDW 14.3 Plt Count 287 MPV 7.8 Absolute Neuts (auto) 8.1 H Neutrophils % 77.6 Lymphocytes % 10.9 D Monocytes % 10.0 Eosinophils % 1.4 D Basophils % 0.1 Nucleated RBC % 0 Sodium 140 Potassium 3.7 Chloride 107 Carbon Dioxide 24 Anion Gap 9 BUN 26 H Creatinine 1.0 Creat Clearance w eGFR > 60 POC Glucometer 86 Random Glucose 78 Calcium 7.9 L Total Bilirubin 0.6 AST 75 H ALT 126 H Alkaline Phosphatase 102 Troponin I Total Protein 5.6 L Albumin 2.8 L Vital Signs Temperature 97.8 F 08/15/18 11:30 Pulse Rate 68 08/15/18 11:30 Respiratory Rate 20 08/15/18 11:30 Blood Pressure 129/59 L 08/15/18 11:30 O2 Sat by Pulse Oximetry (%) 98 08/15/18 10:00 CC: c/o nausea ````````````````````````````` skin--NL color lungs--bilat sounds; unlabored heart--RR abd--benign, NT neuro--Rt HP; little if any motion on the RUE; slight in the RLE ``````````````````````````` Summ > Nausea--no specific cause; could be drug effect from statin: PLAN: Hold statin for now; Promethazine > feeding problems--does not wish to have thickened liquids (prefers plain water ) but may be an aspiration risk; would need MBS > High LFTs--mild; could be 2nd statin at high dose; will need to hiold for now PLAN: Abd US; follow LFts > 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, with considerable paresis on the Rt side, with only slight motor activity,PLAN: eventual rehab placement > Htn--CRI which is stable now; BP in good range so far today with oral CCB & BB > Anxiety/restless--post stroke state; too sleepy on Klonopin; will cont the SSRI; PLAN: stop Kloniopin; change to PRN xanax for acute outbursts; may need to be placed on Antipsychotic agent if he cannot be managed > mobility impaired--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 ~~~~~~~~~~~~~~~~~~~~~~~~~~~~~~~~~~~~~~~ Dr Commentucci
[2018-08-15] MEDS ORDERED: ONDANSETRON 4 MG TABLET PO PRN (16:32)
[2018-08-15] MEDS ORDERED: PT OWN MED DRAWER 7, Y5N ONE (21:15)
[2018-08-15] MEDS: PROMETHAZINE HCL ORAL SYRUP 6.25 MG/5 ML (BULK BOTTLE) PO SCH (21:18)
[2018-08-15] MEDS: METOPROLOL TARTRATE 5 MG/5 ML VIAL IVPUSH PRN (21:27)
[2018-08-15] MEDS ORDERED: CHLORHEXIDINE GLUCONATE 4% CLEANSER FOR DECOLONIZATION TP SCH (22:00)
[2018-08-15] MEDS ORDERED: ATORVASTATIN CA 80 MG TABLET (FP) PO SCH (22:00)
[2018-08-16] MEDS: PROMETHAZINE HCL ORAL SYRUP 6.25 MG/5 ML (BULK BOTTLE) PO SCH ×3 (06:26→21:21)
[2018-08-16] MEDS: LABETALOL HCL 200 MG TABLET (FP) PO SCH ×3 (06:26→21:23)
[2018-08-16 07:56] LABS: ALK PHOS 117 U/L (45-117); ANION GAP 9 MMOL/L (8-16); BILIRUBIN,TOTAL 0.6 mg/dL (0.2-1); BLOOD UREA NITROGEN 25 mg/dL (7-18); CALCIUM 8.1 mg/dL (8.5-10.1); CHLORIDE 104 mmol/L (98-107); CO2 25 mmol/L (21-32); CREATININE 1.2 mg/dL (0.55-1.3); GLUCOSE,RANDOM 78 mg/dL (74-106); POTASSIUM 3.5 mmol/L (3.5-5.1); SGOT/AST 52 U/L (15-37); SGPT/ALT 136 U/L (13-61); SODIUM 138 mmol/L (136-145); TOT PROT 6.6 g/dl (6.4-8.2)
[2018-08-16] MEDS: ENOXAPARIN NA (PORCINE) 40 MG/0.4 ML DISP.SYRIN SQ SCH (09:49)
[2018-08-16] MEDS: PANTOPRAZOLE SODIUM 40 MG VIAL IVPUSH SCH (09:49)
[2018-08-16] MEDS: DULoxetine HCL 30 MG CAPSULE.DR (FP) PO SCH (10:02)
[2018-08-16] MEDS: CLOPIDOGREL BISULFATE 75 MG TABLET (FP) PO SCH (10:05)
[2018-08-16] MEDS: ASPIRIN 81 MG CHEWABLE TABLETS PO SCH (10:05)
[2018-08-16] MEDS: NIFEdipine E.R 60 MG TABLET (UD) PO SCH ×2 (10:06→21:23)
--- NOTE | 2018-08-16 10:32 | PN ---
Progress Note, Physician Chief Complaint: Seems to be moving right arm and leg more TELE: NSR - Current Medication List Current Medications: Active Medications Alprazolam (Xanax -) 0.25 mg PO Q8H PRN PRN Reason: ANXIETY Aspirin (Asa -) [address] [facility] Last Admin: 08/16/18 10:05 Dose: 81 mg Clopidogrel Bisulfate (Plavix -) [address] [facility] Last Admin: 08/16/18 10:05 Dose: 75 mg Duloxetine HCl (Cymbalta -) [address] [facility] Last Admin: 08/16/18 10:02 Dose: 30 mg Enoxaparin Sodium (Lovenox -) [address] [facility] Last Admin: 08/16/18 09:49 Dose: 40 mg Sodium Chloride (Normal Saline -) 1,000 mls @ 42 mls/hr IV ASDIR [facility] Last Admin: 08/15/18 21:35 Dose: 42 mls/hr Labetalol HCl (Normodyne -) [address] [facility] Last Admin: 08/16/18 06:26 Dose: 200 mg Lorazepam (Ativan Injection -) 0.5 mg IVPUSH Q4H PRN PRN Reason: ANXIETY Last Admin: 08/15/18 21:18 Dose: 0.5 mg Metoprolol Tartrate (Lopressor Injection -) 2.5 mg IVPUSH Q4H PRN PRN Reason: HYPERTENSION Last Admin: 08/15/18 21:27 Dose: 2.5 mg Nifedipine (Procardia Xl -) [address] [facility] Last Admin: 08/16/18 10:06 Dose: 60 mg Ondansetron HCl (Zofran -) 4 mg PO Q12H PRN PRN Reason: NAUSEA Pantoprazole Sodium (Protonix Iv) [address] [facility] Last Admin: 08/16/18 09:49 Dose: 40 mg Promethazine HCl (Phenergan Liquid -) 12.[address] [facility] Last Admin: 08/16/18 06:26 Dose: Not Given - Objective Vital Signs: Vital Signs Temperature 97.8 F 08/16/18 06:00 Pulse Rate 79 08/16/18 06:00 Respiratory Rate 18 08/16/18 06:00 Blood Pressure 159/86 08/16/18 06:00 O2 Sat by Pulse Oximetry (%) 96 08/15/18 22:00 Constitutional: Yes: Calm Cardiovascular: Yes: Regular Rate and Rhythm Respiratory: Yes: CTA Bilaterally Gastrointestinal: Yes: Soft Edema: No Labs: CBC, BMP 08/15/18 05:25 08/16/18 05:15 INR, PTT INR 1.06 (0.83-1.09) 08/02/18 21:28 Problem List - Problems (1) Fall Code(s): W19.XXXA - UNSPECIFIED FALL, INITIAL ENCOUNTER (2) Aortic stenosis Code(s): I35.0 - NONRHEUMATIC AORTIC (VALVE) STENOSIS (3) Abnormal ECG Code(s): R94.31 - ABNORMAL ELECTROCARDIOGRAM [ECG] [EKG] (4) Hypertension Code(s): I10 - ESSENTIAL (PRIMARY) HYPERTENSION (5) Stroke Code(s): I63.9 - CEREBRAL INFARCTION, UNSPECIFIED Qualifiers: Laterality of affected vessel: unspecified (6) ASHD (arteriosclerotic heart disease) Code(s): I25.10 - ATHSCL HEART DISEASE OF [place] CORONARY ARTERY W/O ANG PCTRS (7) Elevated brain natriuretic peptide (BNP) level Code(s): R79.89 - OTHER SPECIFIED ABNORMAL FINDINGS OF BLOOD CHEMISTRY (8) GUY (acute kidney injury) Code(s): N17.9 - ACUTE KIDNEY FAILURE, UNSPECIFIED Assessment/Plan IMP: Severe LICA stenosis , symptomatic, s/p L.CEA w/ post op CVA Post op respiratory failure secondary to stridor now extubated. Non-obstructive CAD Chronic HTN REC: 1. Extubated. 2. Cont Antiplatelet Rx as per [facility] 3. Remains in NSR, cont telemetry 4. Cont Labetalol and BID Procardia. Would add low dose ARB now that renal fxn normalized as BP still above goal at times: Losartan 25 mg daily 5. DVT prophylaxis
--- NOTE | 2018-08-16 11:10 | PN ---
Progress Note, Physician History of Present Illness: Coverage Dr. Humphreys Pt seen/ examined chart reviewed awake/ comfortable denies pain as per nursing staff - not eating much - Current Medication List Current Medications: Active Medications Alprazolam (Xanax -) 0.25 mg PO Q8H PRN PRN Reason: ANXIETY Aspirin (Asa -) 81 mg PO DAILY [facility] Last Admin: 08/16/18 10:05 Dose: 81 mg Clopidogrel Bisulfate (Plavix -) 75 mg PO DAILY [facility] Last Admin: 08/16/18 10:05 Dose: 75 mg Duloxetine HCl (Cymbalta -) 30 mg PO DAILY [facility] Last Admin: 08/16/18 10:02 Dose: 30 mg Enoxaparin Sodium (Lovenox -) 40 mg SQ DAILY [facility] Last Admin: 08/16/18 09:49 Dose: 40 mg Sodium Chloride (Normal Saline -) 1,000 mls @ 42 mls/hr IV ASDIR [facility] Last Admin: 08/15/18 21:35 Dose: 42 mls/hr Labetalol HCl (Normodyne -) 200 mg PO TID [facility] Last Admin: 08/16/18 06:26 Dose: 200 mg Lorazepam (Ativan Injection -) 0.5 mg IVPUSH Q4H PRN PRN Reason: ANXIETY Last Admin: 08/15/18 21:18 Dose: 0.5 mg Metoprolol Tartrate (Lopressor Injection -) 2.5 mg IVPUSH Q4H PRN PRN Reason: HYPERTENSION Last Admin: 08/15/18 21:27 Dose: 2.5 mg Nifedipine (Procardia Xl -) 60 mg PO BID [facility] Last Admin: 08/16/18 10:06 Dose: 60 mg Ondansetron HCl (Zofran -) 4 mg PO Q12H PRN PRN Reason: NAUSEA Pantoprazole Sodium (Protonix Iv) 40 mg IVPUSH DAILY [facility] Last Admin: 08/16/18 09:49 Dose: 40 mg Promethazine HCl (Phenergan Liquid -) 12.5 mg PO TID [facility] Last Admin: 08/16/18 06:26 Dose: Not Given - Objective Vital Signs: Vital Signs Temperature 97.8 F 08/16/18 06:00 Pulse Rate 79 08/16/18 06:00 Respiratory Rate 18 08/16/18 06:00 Blood Pressure 159/86 08/16/18 06:00 O2 Sat by Pulse Oximetry (%) 96 08/15/18 22:00 Constitutional: Yes: No Distress, Calm Eyes: Yes: Conjunctiva Clear Neck: Yes: Supple, Other (dresiing +) Cardiovascular: Yes: Regular Rate and Rhythm Respiratory: Yes: Diminished Gastrointestinal: Yes: Soft Edema: No Neurological: Yes: Alert, Pre-Existing Deficit (Right side hemiparesis) Psychiatric: Yes: Alert Labs: CBC, BMP 08/15/18 05:25 08/16/18 05:15 INR, PTT INR 1.06 (0.83-1.09) 08/02/18 21:28 Problem List - Problems (1) GUY (acute kidney injury) Code(s): N17.9 - ACUTE KIDNEY FAILURE, UNSPECIFIED (2) ASHD (arteriosclerotic heart disease) Code(s): I25.10 - ATHSCL HEART DISEASE OF [place] CORONARY ARTERY W/O ANG PCTRS (3) Aortic stenosis Code(s): I35.0 - NONRHEUMATIC AORTIC (VALVE) STENOSIS (4) Carotid stenosis, symptomatic w/o infarct Code(s): I65.29 - OCCLUSION AND STENOSIS OF UNSPECIFIED CAROTID ARTERY Qualifiers: Laterality: bilateral Qualified Code(s): I65.23 - Occlusion and stenosis of bilateral carotid arteries (5) History of left-sided carotid endarterectomy Code(s): Z98.890 - OTHER SPECIFIED POSTPROCEDURAL STATES (6) Hypertension Code(s): I10 - ESSENTIAL (PRIMARY) HYPERTENSION (7) Stroke Code(s): I63.9 - CEREBRAL INFARCTION, UNSPECIFIED Qualifiers: Laterality of affected vessel: unspecified Assessment/Plan clinically stable meds reviewed mild hydration mbs -- s/s following PT
[2018-08-16] MEDS: SODIUM CHLORIDE 1,000 ML IV SCH (16:03)
[2018-08-16] MEDS: METOPROLOL TARTRATE 5 MG/5 ML VIAL IVPUSH PRN (19:44)
[2018-08-16] MEDS: ALPRAZolam 0.25 MG TABLET PO PRN (21:23)
[2018-08-17] MEDS ORDERED: PT OWN MED DRAWER 7, Y5N ONE (06:13)
[2018-08-17] MEDS: PROMETHAZINE HCL ORAL SYRUP 6.25 MG/5 ML (BULK BOTTLE) PO SCH ×3 (06:24→22:49)
[2018-08-17] MEDS: LABETALOL HCL 200 MG TABLET (FP) PO SCH ×3 (06:25→22:50)
[2018-08-17] MEDS ORDERED: TRIAMTERENE AND HCTZ - 37.5 MG/25 MG CAPSULE PO SCH (07:00)
[2018-08-17 07:32] LABS: HEMATOCRIT 32.6 % (35.4-49); HEMOGLOBIN 11.3 GM/dL (11.7-16.9); MCH 29.9 pg (25.7-33.7); MCHC 34.6 g/dl (32.0-35.9); MEAN CELL VOLUME 86.6 fl (80-96); MEAN PLT VOLUME 8.1 fl (7.5-11.1); PLATELET COUNT 298 K/MM3 (134-434); RBC 3.77 M/mm3 (4.00-5.60); RDW 14.1 % (11.9-15.9); WHITE BLOOD COUNT 10.9 K/mm3 (4.0-10.0)
--- NOTE | 2018-08-17 08:45 | PN ---
Progress Note, Physician Chief Complaint: TELE: NSR, short self limited run PSVT No CP or SOB. - Current Medication List Current Medications: Active Medications Alprazolam (Xanax -) 0.25 mg PO Q8H PRN PRN Reason: ANXIETY Last Admin: 08/16/18 21:23 Dose: 0.25 mg Aspirin (Asa -) 81 mg PO DAILY [facility] Last Admin: 08/16/18 10:05 Dose: 81 mg Clopidogrel Bisulfate (Plavix -) 75 mg PO DAILY [facility] Last Admin: 08/16/18 10:05 Dose: 75 mg Duloxetine HCl (Cymbalta -) 30 mg PO DAILY [facility] Last Admin: 08/16/18 10:02 Dose: 30 mg Enoxaparin Sodium (Lovenox -) 40 mg SQ DAILY [facility] Last Admin: 08/16/18 09:49 Dose: 40 mg Sodium Chloride (Normal Saline -) 1,000 mls @ 42 mls/hr IV ASDIR [facility] Last Admin: 08/16/18 16:03 Dose: 42 mls/hr Labetalol HCl (Normodyne -) 200 mg PO TID [facility] Last Admin: 08/17/18 06:25 Dose: 200 mg Lorazepam (Ativan Injection -) 0.5 mg IVPUSH Q4H PRN PRN Reason: ANXIETY Last Admin: 08/15/18 21:18 Dose: 0.5 mg Metoprolol Tartrate (Lopressor Injection -) 2.5 mg IVPUSH Q4H PRN PRN Reason: HYPERTENSION Last Admin: 08/16/18 19:44 Dose: 2.5 mg Nifedipine (Procardia Xl -) 60 mg PO BID [facility] Last Admin: 08/16/18 21:23 Dose: 60 mg Ondansetron HCl (Zofran -) 4 mg PO Q12H PRN PRN Reason: NAUSEA Pantoprazole Sodium (Protonix Iv) 40 mg IVPUSH DAILY [facility] Last Admin: 08/16/18 09:49 Dose: 40 mg Promethazine HCl (Phenergan Liquid -) 12.5 mg PO TID [facility] Last Admin: 08/17/18 06:24 Dose: Not Given Triamterene/HCTZ (Dyazide 25/37.5mg) 1 cap PO AM [facility] Last Admin: 08/17/18 06:25 Dose: 1 cap - Objective Vital Signs: Vital Signs Temperature 97.4 F L 08/17/18 06:00 Pulse Rate 71 08/17/18 06:00 Respiratory Rate 18 08/17/18 06:00 Blood Pressure 147/67 08/17/18 06:00 O2 Sat by Pulse Oximetry (%) 100 08/16/18 22:00 Constitutional: Yes: No Distress Cardiovascular: Yes: Regular Rate and Rhythm Respiratory: Yes: CTA Bilaterally Gastrointestinal: Yes: Soft (NT) Edema: No Labs: CBC, BMP 08/17/18 05:25 INR, PTT INR 1.06 (0.83-1.09) 08/02/18 21:28 Laboratory Tests 08/16/18 08/17/18 08/17/18 05:15 05:25 05:25 WBC 10.9 H Hgb 11.3 L Plt Count 298 Sodium 138 Pending Potassium 3.5 Pending BUN 25 H Pending Creatinine 1.2 Pending Problem List - Problems (1) Fall Code(s): W19.XXXA - UNSPECIFIED FALL, INITIAL ENCOUNTER (2) Aortic stenosis Code(s): I35.0 - NONRHEUMATIC AORTIC (VALVE) STENOSIS (3) Abnormal ECG Code(s): R94.31 - ABNORMAL ELECTROCARDIOGRAM [ECG] [EKG] (4) Hypertension Code(s): I10 - ESSENTIAL (PRIMARY) HYPERTENSION (5) Stroke Code(s): I63.9 - CEREBRAL INFARCTION, UNSPECIFIED Qualifiers: Laterality of affected vessel: unspecified (6) ASHD (arteriosclerotic heart disease) Code(s): I25.10 - ATHSCL HEART DISEASE OF [place] CORONARY ARTERY W/O ANG PCTRS (7) Elevated brain natriuretic peptide (BNP) level Code(s): R79.89 - OTHER SPECIFIED ABNORMAL FINDINGS OF BLOOD CHEMISTRY (8) GUY (acute kidney injury) Code(s): N17.9 - ACUTE KIDNEY FAILURE, UNSPECIFIED Assessment/Plan IMP: Severe LICA stenosis , symptomatic, s/p L.CEA w/ post op CVA Post op respiratory failure secondary to stridor now extubated. Non-obstructive CAD Chronic HTN REC: 1. Extubated. 2. Cont Antiplatelet Rx as per [facility] 3. Remains in NSR, cont telemetry as we now see a short self limited run PSVT likely PAT ( no AF) 4. Cont Labetalol and BID Procardia. Would add low dose ARB now that renal fxn normalized as BP still above goal at times: BP meds adjusted by PMD 5. DVT prophylaxis 6. PT/OT
[2018-08-17 08:54] LABS: ALBUMIN 2.9 g/dl (3.4-5.0); ALK PHOS 104 U/L (45-117); ANION GAP 9 MMOL/L (8-16); BILIRUBIN,TOTAL 0.6 mg/dL (0.2-1); BLOOD UREA NITROGEN 22 mg/dL (7-18); CALCIUM 8.2 mg/dL (8.5-10.1); CHLORIDE 104 mmol/L (98-107); CO2 25 mmol/L (21-32); GLUCOSE,RANDOM 77 mg/dL (74-106); POTASSIUM 3.4 mmol/L (3.5-5.1); SGOT/AST 39 U/L (15-37); SGPT/ALT 101 U/L (13-61); SODIUM 138 mmol/L (136-145); TOT PROT 5.9 g/dl (6.4-8.2)
[2018-08-17] MEDS: PANTOPRAZOLE SODIUM 40 MG VIAL IVPUSH SCH (09:30)
[2018-08-17] MEDS: NIFEdipine E.R 60 MG TABLET (UD) PO SCH ×2 (09:30→22:50)
[2018-08-17] MEDS: ASPIRIN 81 MG CHEWABLE TABLETS PO SCH (09:30)
[2018-08-17] MEDS: CLOPIDOGREL BISULFATE 75 MG TABLET (FP) PO SCH (09:30)
[2018-08-17] MEDS: ENOXAPARIN NA (PORCINE) 40 MG/0.4 ML DISP.SYRIN SQ SCH (09:30)
[2018-08-17] MEDS: DULoxetine HCL 30 MG CAPSULE.DR (FP) PO SCH (09:30)
--- NOTE | 2018-08-17 12:27 | PN ---
Progress Note (short form) - Note Progress Note: Medical Current Medications Alprazolam (Xanax -) 0.25 mg PO Q8H PRN PRN Reason: ANXIETY Last Admin: 08/16/18 21:23 Dose: 0.25 mg Aspirin (Asa -) 81 mg PO DAILY [facility] Last Admin: 08/17/18 09:30 Dose: 81 mg Clopidogrel Bisulfate (Plavix -) 75 mg PO DAILY [facility] Last Admin: 08/17/18 09:30 Dose: 75 mg Duloxetine HCl (Cymbalta -) 30 mg PO DAILY [facility] Last Admin: 08/17/18 09:30 Dose: 30 mg Enoxaparin Sodium (Lovenox -) 40 mg SQ DAILY [facility] Last Admin: 08/17/18 09:30 Dose: 40 mg Potassium Chloride/Dextrose/Sod Cl (D5-1/2ns+10 Meq Kcl -) 10 meq in 1,000 mls @ 50 mls/hr IV ASDIR [facility] Labetalol HCl (Normodyne -) 200 mg PO TID [facility] Last Admin: 08/17/18 06:25 Dose: 200 mg Metoprolol Tartrate (Lopressor Injection -) 2.5 mg IVPUSH Q4H PRN PRN Reason: HYPERTENSION Last Admin: 08/16/18 19:44 Dose: 2.5 mg Nifedipine (Procardia Xl -) 60 mg PO BID [facility] Last Admin: 08/17/18 09:30 Dose: 60 mg Ondansetron HCl (Zofran -) 4 mg PO Q12H PRN PRN Reason: NAUSEA Pantoprazole Sodium (Protonix Iv) 40 mg IVPUSH DAILY [facility] Last Admin: 08/17/18 09:30 Dose: 40 mg Promethazine HCl (Phenergan Liquid -) 12.5 mg PO TID [facility] Last Admin: 08/17/18 06:24 Dose: Not Given Triamterene/HCTZ (Dyazide 25/37.5mg) 1 cap PO AM [facility] Last Admin: 08/17/18 06:25 Dose: 1 cap Laboratory Results - last 24 hr 08/17/18 08/17/18 05:25 05:25 WBC 10.9 H RBC 3.77 L Hgb 11.3 L Hct 32.6 L MCV 86.6 MCH 29.9 MCHC 34.6 RDW 14.1 Plt Count 298 MPV 8.1 Sodium 138 Potassium 3.4 L Chloride 104 Carbon Dioxide 25 Anion Gap 9 BUN 22 H Creatinine 1.0 Creat Clearance w eGFR > 60 Random Glucose 77 Calcium 8.2 L Total Bilirubin 0.6 AST 39 H ALT 101 H Alkaline Phosphatase 104 Total Protein 5.9 L Albumin 2.9 L Vital Signs Temperature 98.9 F 08/17/18 10:00 Pulse Rate 67 08/17/18 10:00 Respiratory Rate 22 H 08/17/18 10:00 Blood Pressure 161/64 08/17/18 10:00 O2 Sat by Pulse Oximetry (%) 100 08/17/18 10:00 CC: weakness Rt side; but has better movement ````````````````````````````` skin--NL color lungs--bilat sounds; unlabored heart--RR abd--benign, NT neuro--Rt HP; little if any motion on the RUE; now able to raise the RLE for brief periods ``````````````````````````` Summ > feeding problems--does not wish to have thickened liquids (prefers plain water ) but may be an aspiration risk; need MBS, order written > High LFTs--mild; could be 2nd statin at high dose; statin held; LFTs trending down; Abd US unremarkable > 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, with considerable paresis on the Rt side, with some improvement in motor activity,PLAN: eventual rehab placement > Htn--CRI which is stable now; BP still fluctuates; just added Trima/Hctz, but if not effective will need to add NISHA or ARB > Anxiety/restless--post stroke state; will cont the SSRI; seems calmer today and more focused PLAN: PRN xanax for acute outbursts > mobility impaired--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 ~~~~~~~~~~~~~~~~~~~~~~~~~~~~~~~~~~~~~~~ Dr Commentucci
--- NOTE | 2018-08-17 12:41 | PN ---
Progress Note, [employer] - Note Progress Note: Pt much improved, now on telemetry. Limited appetite on puree/nectar, and supplements are "too sweet." Swallow reassessed. Overtly seems to masticate bread slowly, but seems adequate and no overt signs of aspiration on thin water single sips. Verbal, mildly reduced in articulatory rate. ST memory deficits MBS ordered to r/o silent aspiration and advance diet with safety. Scheduled for tmw as today is a holiday. Suggest- Dys chopped diet, add egg salad, tuna, chicken salad until mbs tomorrow. Acute rehabilitation for PT/OT/speech
[2018-08-17] MEDS: D5-1/2NS+10 MEQ KCL - 10 MEQ/1,000 ML INFUS.BAG IV SCH (14:27)
[2018-08-17] MEDS: ALPRAZolam 0.25 MG TABLET PO PRN (22:50)
[2018-08-18] MEDS: PROMETHAZINE HCL ORAL SYRUP 6.25 MG/5 ML (BULK BOTTLE) PO SCH ×4 (05:25→22:24)
[2018-08-18] MEDS: LABETALOL HCL 200 MG TABLET (FP) PO SCH ×3 (05:25→22:24)
[2018-08-18 06:55] LABS: ALBUMIN 2.8 g/dl (3.4-5.0); ALK PHOS 102 U/L (45-117); ANION GAP 8 MMOL/L (8-16); BILIRUBIN,TOTAL 0.5 mg/dL (0.2-1); BLOOD UREA NITROGEN 24 mg/dL (7-18); CHLORIDE 103 mmol/L (98-107); CO2 26 mmol/L (21-32); CREATININE 1.2 mg/dL (0.55-1.3); GLUCOSE,RANDOM 110 mg/dL (74-106); MAGNESIUM 1.8 mg/dL (1.8-2.4); POTASSIUM 3.3 mmol/L (3.5-5.1); SGOT/AST 26 U/L (15-37); SGPT/ALT 78 U/L (13-61); SODIUM 137 mmol/L (136-145); TOT PROT 5.8 g/dl (6.4-8.2)
--- NOTE | 2018-08-18 08:53 | PN ---
Progress Note, Physician Chief Complaint: Alert Continues to move RUE and RLE, even more than several days ago TELE: NSR - Current Medication List Current Medications: Active Medications Alprazolam (Xanax -) 0.25 mg PO Q8H PRN PRN Reason: ANXIETY Last Admin: 08/17/18 22:50 Dose: 0.25 mg Aspirin (Asa -) 81 mg PO DAILY [facility] Last Admin: 08/17/18 09:30 Dose: 81 mg Clopidogrel Bisulfate (Plavix -) 75 mg PO DAILY [facility] Last Admin: 08/17/18 09:30 Dose: 75 mg Duloxetine HCl (Cymbalta -) 30 mg PO DAILY [facility] Last Admin: 08/17/18 09:30 Dose: 30 mg Enoxaparin Sodium (Lovenox -) 40 mg SQ DAILY [facility] Last Admin: 08/17/18 09:30 Dose: 40 mg Hydrochlorothiazide (Hctz -) 25 mg PO DAILY [facility] Potassium Chloride/Dextrose/Sod Cl (D5-1/2ns+10 Meq Kcl -) 10 meq in 1,000 mls @ 50 mls/hr IV ASDIR [facility] Last Admin: 08/17/18 14:27 Dose: 50 mls/hr Labetalol HCl (Normodyne -) 200 mg PO TID [facility] Last Admin: 08/18/18 05:25 Dose: 200 mg Lisinopril (Prinivil) 10 mg PO DAILY [facility] Metoprolol Tartrate (Lopressor Injection -) 2.5 mg IVPUSH Q4H PRN PRN Reason: HYPERTENSION Last Admin: 08/16/18 19:44 Dose: 2.5 mg Nifedipine (Procardia Xl -) 60 mg PO BID [facility] Last Admin: 08/17/18 22:50 Dose: 60 mg Ondansetron HCl (Zofran -) 4 mg PO Q12H PRN PRN Reason: NAUSEA Pantoprazole Sodium (Protonix Iv) 40 mg IVPUSH DAILY [facility] Last Admin: 08/17/18 09:30 Dose: 40 mg Promethazine HCl (Phenergan Liquid -) 12.5 mg PO TID [facility] Last Admin: 08/18/18 05:25 Dose: Not Given - Objective Vital Signs: Vital Signs Temperature 98.4 F 08/17/18 20:00 Pulse Rate 76 08/17/18 20:00 Respiratory Rate 20 08/17/18 20:00 Blood Pressure 165/74 08/17/18 20:00 O2 Sat by Pulse Oximetry (%) 100 08/17/18 22:00 Constitutional: Yes: No Distress Cardiovascular: Yes: Regular Rate and Rhythm Respiratory: Yes: CTA Bilaterally Gastrointestinal: Yes: Soft Edema: No Neurological: Yes: Alert, Oriented ...Motor Strength: WNL Labs: CBC, BMP 08/17/18 05:25 08/18/18 05:30 INR, PTT INR 1.06 (0.83-1.09) 08/02/18 21:28 - ....Imaging EKG: Image Reviewed Problem List - Problems (1) Fall Code(s): W19.XXXA - UNSPECIFIED FALL, INITIAL ENCOUNTER (2) Aortic stenosis Code(s): I35.0 - NONRHEUMATIC AORTIC (VALVE) STENOSIS (3) Abnormal ECG Code(s): R94.31 - ABNORMAL ELECTROCARDIOGRAM [ECG] [EKG] (4) Hypertension Code(s): I10 - ESSENTIAL (PRIMARY) HYPERTENSION (5) Stroke Code(s): I63.9 - CEREBRAL INFARCTION, UNSPECIFIED Qualifiers: Laterality of affected vessel: unspecified (6) ASHD (arteriosclerotic heart disease) Code(s): I25.10 - ATHSCL HEART DISEASE OF [place] CORONARY ARTERY W/O ANG PCTRS (7) Elevated brain natriuretic peptide (BNP) level Code(s): R79.89 - OTHER SPECIFIED ABNORMAL FINDINGS OF BLOOD CHEMISTRY (8) GUY (acute kidney injury) Code(s): N17.9 - ACUTE KIDNEY FAILURE, UNSPECIFIED Assessment/Plan MP: Severe LICA stenosis , symptomatic, s/p L.CEA w/ post op CVA Post op respiratory failure secondary to stridor now extubated. Non-obstructive CAD Chronic HTN REC: 1. Extubated. 2. Cont Antiplatelet Rx as per [facility] 3. Remains in NSR, cont telemetry as we now see a short self limited run PSVT likely PAT ( no AF) 4. Cont Labetalol and BID Procardia. NISHA added, should help BP and low K+ 5. DVT prophylaxis 6. PT/OT
[2018-08-18] MEDS: CLOPIDOGREL BISULFATE 75 MG TABLET (FP) PO SCH (11:01)
[2018-08-18] MEDS: ASPIRIN 81 MG CHEWABLE TABLETS PO SCH (11:01)
[2018-08-18] MEDS: DULoxetine HCL 30 MG CAPSULE.DR (FP) PO SCH (11:02)
[2018-08-18] MEDS: HYDROCHLOROTHIAZIDE 25 MG TABLET (FP) PO SCH (11:02)
[2018-08-18] MEDS: LISINOPRIL 10 MG TABLET (FP) PO SCH (11:02)
[2018-08-18] MEDS: POTASSIUM CHLORIDE TABS 10 MEQ TABLET.ER (FP) PO SCH (11:02)
[2018-08-18] MEDS: NIFEdipine E.R 60 MG TABLET (UD) PO SCH ×2 (11:03→22:24)
[2018-08-18] MEDS: ENOXAPARIN NA (PORCINE) 40 MG/0.4 ML DISP.SYRIN SQ SCH (11:03)
[2018-08-18] MEDS: PANTOPRAZOLE SODIUM 40 MG VIAL IVPUSH SCH (11:03)
--- NOTE | 2018-08-18 11:39 | PN ---
Progress Note (short form) - Note Progress Note: Pt seen earlier today with Dr Sheikh. The patient is able to move his right hand passively today. Vital Signs Period Temp Pulse Resp BP Sys/Palmer Pulse Ox Last 24 Hr 98 F-98.9 F 65-76 20-21 159-184/68-82 100-100 GEN: Alert, in NAD Neck: Minimal ecchymosis, neck soft, wily removed. Incision c/d/i. No erythema or drainage noted. Right hand, able to move passively, no strength against resistance. Tongue less deviated to the left side. CBC, BMP 08/17/18 05:25 08/18/18 05:30 A/p: 78 yo male s/p L CEA, POD#11 Continue current care as per the medical team Plan for rehab
[2018-08-18] MEDS: D5-1/2NS+10 MEQ KCL - 10 MEQ/1,000 ML INFUS.BAG IV SCH (12:00)
--- NOTE | 2018-08-18 16:32 | PN ---
Progress Note (short form) - Note Progress Note: medical note Current Medications Alprazolam (Xanax -) 0.25 mg PO Q8H PRN PRN Reason: ANXIETY Last Admin: 08/17/18 22:50 Dose: 0.25 mg Aspirin (Asa -) 81 mg PO DAILY [facility] Last Admin: 08/18/18 11:01 Dose: 81 mg Clopidogrel Bisulfate (Plavix -) 75 mg PO DAILY [facility] Last Admin: 08/18/18 11:01 Dose: 75 mg Duloxetine HCl (Cymbalta -) 30 mg PO DAILY [facility] Last Admin: 08/18/18 11:02 Dose: 30 mg Enoxaparin Sodium (Lovenox -) 40 mg SQ DAILY [facility] Last Admin: 08/18/18 11:03 Dose: 40 mg Hydrochlorothiazide (Hctz -) 25 mg PO DAILY [facility] Last Admin: 08/18/18 11:02 Dose: 25 mg Potassium Chloride/Dextrose/Sod Cl (D5-1/2ns+10 Meq Kcl -) 10 meq in 1,000 mls @ 50 mls/hr IV ASDIR [facility] Last Admin: 08/18/18 12:00 Dose: 50 mls/hr Labetalol HCl (Normodyne -) 200 mg PO TID [facility] Last Admin: 08/18/18 05:25 Dose: 200 mg Lisinopril (Prinivil) 10 mg PO DAILY [facility] Last Admin: 08/18/18 11:02 Dose: 10 mg Metoprolol Tartrate (Lopressor Injection -) 2.5 mg IVPUSH Q4H PRN PRN Reason: HYPERTENSION Last Admin: 08/16/18 19:44 Dose: 2.5 mg Nifedipine (Procardia Xl -) 60 mg PO BID [facility] Last Admin: 08/18/18 11:03 Dose: 60 mg Ondansetron HCl (Zofran -) 4 mg PO Q12H PRN PRN Reason: NAUSEA Pantoprazole Sodium (Protonix Iv) 40 mg IVPUSH DAILY [facility] Last Admin: 08/18/18 11:03 Dose: 40 mg Potassium Chloride (K-Dur -) 10 meq PO DAILY [facility] Last Admin: 08/18/18 11:02 Dose: 10 meq Promethazine HCl (Phenergan Liquid -) 12.5 mg PO TID [facility] Last Admin: 08/18/18 15:23 Dose: Not Given Laboratory Results - last 24 hr 08/18/18 05:30 Sodium 137 Potassium 3.3 L Chloride 103 Carbon Dioxide 26 Anion Gap 8 BUN 24 H Creatinine 1.2 Creat Clearance w eGFR 58.71 Random Glucose 110 H Calcium 8.0 L Magnesium 1.8 Total Bilirubin 0.5 AST 26 ALT 78 H Alkaline Phosphatase 102 Total Protein 5.8 L Albumin 2.8 L Vital Signs Temperature 97.5 F L 08/18/18 14:00 Pulse Rate 65 08/18/18 14:00 Respiratory Rate 20 08/18/18 14:00 Blood Pressure 135/62 08/18/18 14:00 O2 Sat by Pulse Oximetry (%) 96 08/18/18 10:00 CC: weakness Rt side ````````````````````````````` skin--NL color; IV site non inflammed eyes--midline; NL gaze lungs--bilat sounds; unlabored heart--RR abd--benign, NT neuro--Rt HP; little if any motion on the Rt hand; now able to raise the RLE ``````````````````````````` Summ > feeding problems--MBS shows that he does not have any aspiration with any consistency PLAN: chopped diet with soft foods as per RAIL GRINDER > High LFTs--mild; LFTs trending down; Abd US unremarkable > 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
[2018-08-18 23:02] VITALS: BMI 26.2
[2018-08-19] MEDS: PROMETHAZINE HCL ORAL SYRUP 6.25 MG/5 ML (BULK BOTTLE) PO SCH ×3 (06:13→22:21)
[2018-08-19] MEDS: LABETALOL HCL 200 MG TABLET (FP) PO SCH ×3 (06:14→22:21)
[2018-08-19 07:18] LABS: HEMATOCRIT 31.1 % (35.4-49); HEMOGLOBIN 10.8 GM/dL (11.7-16.9); MCH 29.9 pg (25.7-33.7); MCHC 34.7 g/dl (32.0-35.9); MEAN CELL VOLUME 86.2 fl (80-96); MEAN PLT VOLUME 8.3 fl (7.5-11.1); PLATELET COUNT 269 K/MM3 (134-434); RDW 14.1 % (11.9-15.9); WHITE BLOOD COUNT 9.6 K/mm3 (4.0-10.0)
[2018-08-19 07:51] LABS: ALBUMIN 2.8 g/dl (3.4-5.0); ALK PHOS 99 U/L (45-117); ANION GAP 8 MMOL/L (8-16); BILIRUBIN,TOTAL 0.4 mg/dL (0.2-1); BLOOD UREA NITROGEN 25 mg/dL (7-18); CHLORIDE 100 mmol/L (98-107); CO2 26 mmol/L (21-32); CREATININE 1.2 mg/dL (0.55-1.3); GLUCOSE,RANDOM 114 mg/dL (74-106); POTASSIUM 3.3 mmol/L (3.5-5.1); SGOT/AST 23 U/L (15-37); SGPT/ALT 67 U/L (13-61); SODIUM 134 mmol/L (136-145); TOT PROT 5.7 g/dl (6.4-8.2)
--- NOTE | 2018-08-19 08:52 | PN ---
Progress Note, Physician Chief Complaint: alert, moving the RUE and RLE significantly better TELE: NSR - Current Medication List Current Medications: Active Medications Alprazolam (Xanax -) 0.25 mg PO Q8H PRN PRN Reason: ANXIETY Last Admin: 08/17/18 22:50 Dose: 0.25 mg Aspirin (Asa -) 81 mg PO DAILY [facility] Last Admin: 08/18/18 11:01 Dose: 81 mg Clopidogrel Bisulfate (Plavix -) 75 mg PO DAILY [facility] Last Admin: 08/18/18 11:01 Dose: 75 mg Duloxetine HCl (Cymbalta -) 30 mg PO DAILY [facility] Last Admin: 08/18/18 11:02 Dose: 30 mg Enoxaparin Sodium (Lovenox -) 40 mg SQ DAILY [facility] Last Admin: 08/18/18 11:03 Dose: 40 mg Hydrochlorothiazide (Hctz -) 25 mg PO DAILY [facility] Last Admin: 08/18/18 11:02 Dose: 25 mg Potassium Chloride/Dextrose/Sod Cl (D5-1/2ns+10 Meq Kcl -) 10 meq in 1,000 mls @ 50 mls/hr IV ASDIR [facility] Last Admin: 08/18/18 12:00 Dose: 50 mls/hr Labetalol HCl (Normodyne -) 200 mg PO TID [facility] Last Admin: 08/19/18 06:14 Dose: 200 mg Lisinopril (Prinivil) 10 mg PO DAILY [facility] Last Admin: 08/18/18 11:02 Dose: 10 mg Metoprolol Tartrate (Lopressor Injection -) 2.5 mg IVPUSH Q4H PRN PRN Reason: HYPERTENSION Last Admin: 08/16/18 19:44 Dose: 2.5 mg Nifedipine (Procardia Xl -) 60 mg PO BID [facility] Last Admin: 08/18/18 22:24 Dose: 60 mg Ondansetron HCl (Zofran -) 4 mg PO Q12H PRN PRN Reason: NAUSEA Pantoprazole Sodium (Protonix Iv) 40 mg IVPUSH DAILY [facility] Last Admin: 08/18/18 11:03 Dose: 40 mg Potassium Chloride (K-Dur -) 10 meq PO DAILY [facility] Last Admin: 08/18/18 11:02 Dose: 10 meq Promethazine HCl (Phenergan Liquid -) 12.5 mg PO TID [facility] Last Admin: 08/19/18 06:13 Dose: Not Given - Objective Vital Signs: Vital Signs Temperature 97.8 F 08/19/18 05:38 Pulse Rate 70 08/19/18 05:38 Respiratory Rate 20 08/19/18 05:38 Blood Pressure 143/57 L 08/19/18 05:38 O2 Sat by Pulse Oximetry (%) 95 08/18/18 22:00 Constitutional: Yes: No Distress, Calm Eyes: Yes: Conjunctiva Clear Cardiovascular: Yes: Regular Rate and Rhythm Respiratory: Yes: CTA Bilaterally Gastrointestinal: Yes: Soft (Nontender) Edema: No Labs: CBC, BMP 08/19/18 06:48 08/19/18 06:48 INR, PTT INR 1.06 (0.83-1.09) 08/02/18 21:28 Problem List - Problems (1) Fall Code(s): W19.XXXA - UNSPECIFIED FALL, INITIAL ENCOUNTER (2) Aortic stenosis Code(s): I35.0 - NONRHEUMATIC AORTIC (VALVE) STENOSIS (3) Abnormal ECG Code(s): R94.31 - ABNORMAL ELECTROCARDIOGRAM [ECG] [EKG] (4) Hypertension Code(s): I10 - ESSENTIAL (PRIMARY) HYPERTENSION (5) Stroke Code(s): I63.9 - CEREBRAL INFARCTION, UNSPECIFIED Qualifiers: Laterality of affected vessel: unspecified (6) ASHD (arteriosclerotic heart disease) Code(s): I25.10 - ATHSCL HEART DISEASE OF [place] CORONARY ARTERY W/O ANG PCTRS (7) Elevated brain natriuretic peptide (BNP) level Code(s): R79.89 - OTHER SPECIFIED ABNORMAL FINDINGS OF BLOOD CHEMISTRY (8) GUY (acute kidney injury) Code(s): N17.9 - ACUTE KIDNEY FAILURE, UNSPECIFIED Assessment/Plan IMP: Severe LICA stenosis , symptomatic, s/p L.CEA w/ post op CVA Post op respiratory failure secondary to stridor now extubated. Non-obstructive CAD Chronic HTN REC: 1. Extubated several days and clinically much improved. 2. Cont Antiplatelet Rx as per Vascular 3. Remains in NSR, Can d/c TELE 4. Cont Labetalol and BID Procardia. NISHA added, should help BP and low K+ 5. DVT prophylaxis 6. PT/OT
[2018-08-19] MEDS: PANTOPRAZOLE SODIUM 40 MG VIAL IVPUSH SCH (11:04)
[2018-08-19] MEDS: ENOXAPARIN NA (PORCINE) 40 MG/0.4 ML DISP.SYRIN SQ SCH (11:04)
[2018-08-19] MEDS: HYDROCHLOROTHIAZIDE 25 MG TABLET (FP) PO SCH (11:05)
[2018-08-19] MEDS: DULoxetine HCL 30 MG CAPSULE.DR (FP) PO SCH (11:05)
[2018-08-19] MEDS: LISINOPRIL 10 MG TABLET (FP) PO SCH (11:05)
[2018-08-19] MEDS: POTASSIUM CHLORIDE TABS 10 MEQ TABLET.ER (FP) PO SCH (11:05)
[2018-08-19] MEDS: CLOPIDOGREL BISULFATE 75 MG TABLET (FP) PO SCH (11:05)
[2018-08-19] MEDS: ASPIRIN 81 MG CHEWABLE TABLETS PO SCH (11:05)
[2018-08-19] MEDS: NIFEdipine E.R 60 MG TABLET (UD) PO SCH ×2 (11:06→22:21)
[2018-08-19] MEDS ORDERED: KCL 10 MEQ IVPB 10 MEQ/100 ML INFUS.BAG IVPB SCH (11:30)
--- NOTE | 2018-08-19 11:44 | DS ---
Physical Examination Vital Signs: Vital Signs Temperature 98 F 08/19/18 09:00 Pulse Rate 65 08/19/18 09:00 Respiratory Rate 20 08/19/18 09:00 Blood Pressure 149/66 08/19/18 09:00 O2 Sat by Pulse Oximetry (%) 95 08/18/18 22:00 Findings/Remarks: skin--no rashes head--NC eyes--eomi; NL gaze lungs--grossly clear heart--RR abd--soft, BS+, NT, ND ext--dependant edema of the RUE; trace of the LE's neuro--motor of the RLE; able to left well above gravity, but has difficulty flapping ankle up and down RUE; able to flex the arm and push forward, and is better able to flex fingers but does not lift against gravity cognitively intact; able to speak fluently; and follows commands well Laboratory Results - last 24 hr 08/19/18 08/19/18 06:48 06:48 WBC 9.6 RBC 3.60 L Hgb 10.8 L Hct 31.1 L MCV 86.2 MCH 29.9 MCHC 34.7 RDW 14.1 Plt Count 269 MPV 8.3 Sodium 134 L Potassium 3.3 L Chloride 100 Carbon Dioxide 26 Anion Gap 8 BUN 25 H Creatinine 1.2 Creat Clearance w eGFR 58.71 Random Glucose 114 H Calcium 8.0 L Total Bilirubin 0.4 AST 23 ALT 67 H Alkaline Phosphatase 99 Total Protein 5.7 L Albumin 2.8 L Labs: CBC, BMP 08/19/18 06:48 08/19/18 06:48 Discharge Summary Reason For Visit: Syncope Current Active Problems ASHD (arteriosclerotic heart disease) (Acute) Abnormal ECG (Acute) Aortic stenosis (Acute) Hypertensive heart and renal insufficiency (mild) Carotid stenosis, symptomatic Elevated brain natriuretic peptide (BNP) level (Acute) History of left-sided carotid endarterectomy (Acute) Hypertension (Acute) Stroke (Acute) with Rt HP anemia (mild) post hospitalization elevated LFts (2nd statin) low potassium SVT (non sustained) anxiety dz mobility impaired Procedures: Principal: endarterectomy (carotid Lt) Other Procedures: [facility] Hospital Course: arrived by EMS post complete syncopal episode at home though he quickly awoke grossly intact. He was found to have elevated BP which fluctuated throughout his stay. Work up revealed advanced aortic stenosis (not new) and also significantly stenotic LICA; which was notably worse than the previous one done in Feb. MRA confirmed this. Given the and his presentation; he was evaluated by vascular surgeon who performed Lt CEA; however he developed post OP Rt HP which first started with the RT arm and later involved the RT Leg. CT scan of the head was negative x 2 in the first [address] several days later showed an small area of ischemia on the Lt posterior pareital lobe. In the days that followed he began to regain some motor function of the Rt LE and even the RUE to a lesser degree; he remained intact cognitively and speech pulido. There was question of dysphagia as he developed resp distress while trying to clear his airway; however the MBS revealed no aspiration with any consistencies, and showed no difficulty swallowing much of his food. The BP meds were adjusted almost on a daily basis as his readings fluctuated. His mood also varied and easily became agitated especially following the stroke and for which he was placed on an SSRI that seemed to be effective and became more calm. Condition: Improved - Instructions Diet, Activity, Other Instructions: --Low salt, chopped diet with soft foods; can have all consistency fluids eat up right; avoid hard to chew foods --Physical & OT & speech therapy --check CBC & chemistries every few days or as needed Disposition: [facility] - Home Medications Comprehensive Discharge Medication List: Ambulatory Orders Aspirin [ASA -] 81 mg PO DAILY tab.chew 08/19/18 Clopidogrel Bisulfate [Plavix -] 75 mg PO DAILY tablet 08/19/18 Duloxetine HCl [Cymbalta -] 30 mg PO DAILY capsule. 08/19/18 Hydrochlorothiazide [Hctz -] 12.5 mg PO DAILY cap 08/19/18 Labetalol HCl [Normodyne -] 200 mg PO TID tablet 08/19/18 Lisinopril [Prinivil] 10 mg PO DAILY tablet 08/19/18 Nifedipine ER [Procardia XL -] 60 mg PO BID tab.er.24 08/19/18 Ondansetron [Zofran -] 4 mg PO Q12H PRN tablet 08/19/18 Potassium Chloride [K-Dur -] 10 meq PO DAILY tablet.er 08/19/18 Ranitidine [Zantac -] 150 mg PO BID tablet 08/19/18 Rosuvastatin [Crestor -] 5 mg PO HS tablet 08/19/18
--- NOTE | 2018-08-19 15:36 | PN ---
Progress Note, CLINICAL TECHNICIAN - Note Progress Note: Patient tolerating upgraded diet. Rbiewed recommendations for compensatory strategies with patients daughter. pending discharge.
[2018-08-19] MEDS: D5-1/2NS+10 MEQ KCL - 10 MEQ/1,000 ML INFUS.BAG IV SCH (17:40)
[2018-08-19] MEDS: RANITIDINE HCL 150 MG TABLET (FP) PO SCH (22:21)
[2018-08-19] MEDS: ROSUVASTATIN CA 5 MG TABLET (FP) PO SCH (22:21)
[2018-08-20] MEDS: PROMETHAZINE HCL ORAL SYRUP 6.25 MG/5 ML (BULK BOTTLE) PO SCH ×3 (06:23→22:05)
[2018-08-20] MEDS: LABETALOL HCL 200 MG TABLET (FP) PO SCH ×3 (06:23→22:05)
[2018-08-20 07:49] LABS: ALBUMIN 2.8 g/dl (3.4-5.0); ALK PHOS 100 U/L (45-117); ANION GAP 7 MMOL/L (8-16); BILIRUBIN,TOTAL 0.5 mg/dL (0.2-1); BLOOD UREA NITROGEN 17 mg/dL (7-18); CALCIUM 8.5 mg/dL (8.5-10.1); CHLORIDE 98 mmol/L (98-107); CO2 27 mmol/L (21-32); GLUCOSE,RANDOM 108 mg/dL (74-106); POTASSIUM 3.5 mmol/L (3.5-5.1); SGOT/AST 21 U/L (15-37); SGPT/ALT 62 U/L (13-61); SODIUM 132 mmol/L (136-145)
--- NOTE | 2018-08-20 08:42 | PN ---
Progress Note, Physician Chief Complaint: eating breakfast No new complaints TELE: NSR History of Present Illness: Moving RUE, RLE - Current Medication List Current Medications: Active Medications Alprazolam (Xanax -) 0.25 mg PO Q8H PRN PRN Reason: ANXIETY Last Admin: 08/17/18 22:50 Dose: 0.25 mg Aspirin (Asa -) 81 mg PO DAILY [facility] Last Admin: 08/19/18 11:05 Dose: 81 mg Clopidogrel Bisulfate (Plavix -) 75 mg PO DAILY [facility] Last Admin: 08/19/18 11:05 Dose: 75 mg Duloxetine HCl (Cymbalta -) 30 mg PO DAILY [facility] Last Admin: 08/19/18 11:05 Dose: 30 mg Enoxaparin Sodium (Lovenox -) 40 mg SQ DAILY [facility] Last Admin: 08/19/18 11:04 Dose: 40 mg Hydrochlorothiazide (Hctz -) 12.5 mg PO DAILY [facility] Potassium Chloride/Dextrose/Sod Cl (D5-1/2ns+10 Meq Kcl -) 10 meq in 1,000 mls @ 50 mls/hr IV ASDIR [facility] Last Admin: 08/19/18 17:40 Dose: Not Given Labetalol HCl (Normodyne -) 200 mg PO TID [facility] Last Admin: 08/20/18 06:23 Dose: 200 mg Lisinopril (Prinivil) 10 mg PO DAILY [facility] Last Admin: 08/19/18 11:05 Dose: 10 mg Metoprolol Tartrate (Lopressor Injection -) 2.5 mg IVPUSH Q4H PRN PRN Reason: HYPERTENSION Last Admin: 08/16/18 19:44 Dose: 2.5 mg Nifedipine (Procardia Xl -) 60 mg PO BID [facility] Last Admin: 08/19/18 22:21 Dose: 60 mg Ondansetron HCl (Zofran -) 4 mg PO Q12H PRN PRN Reason: NAUSEA Potassium Chloride (K-Dur -) 10 meq PO DAILY [facility] Last Admin: 08/19/18 11:05 Dose: 10 meq Promethazine HCl (Phenergan Liquid -) 12.5 mg PO TID [facility] Last Admin: 08/20/18 06:23 Dose: Not Given Ranitidine HCl (Zantac -) 150 mg PO BID [facility] Last Admin: 02/20/19 22:21 Dose: 150 mg Rosuvastatin Calcium (Crestor -) 5 mg PO HS [facility] Last Admin: 08/19/18 22:21 Dose: 5 mg - Objective Vital Signs: Vital Signs Temperature 98.1 F 08/20/18 05:00 Pulse Rate 75 08/20/18 05:00 Respiratory Rate 20 08/20/18 05:00 Blood Pressure 132/65 08/20/18 05:00 O2 Sat by Pulse Oximetry (%) 96 08/19/18 22:00 Constitutional: Yes: No Distress, Calm Eyes: Yes: Conjunctiva Clear Cardiovascular: Yes: Regular Rate and Rhythm Respiratory: Yes: CTA Bilaterally Gastrointestinal: Yes: Soft (nontender) Edema: No Neurological: Yes: Alert Labs: CBC, BMP 08/19/18 06:48 08/20/18 06:00 INR, PTT INR 1.06 (0.83-1.09) 08/02/18 21:28 - ....Imaging EKG: Image Reviewed Problem List - Problems (1) Fall Code(s): W19.XXXA - UNSPECIFIED FALL, INITIAL ENCOUNTER (2) Aortic stenosis Code(s): I35.0 - NONRHEUMATIC AORTIC (VALVE) STENOSIS (3) Abnormal ECG Code(s): R94.31 - ABNORMAL ELECTROCARDIOGRAM [ECG] [EKG] (4) Hypertension Code(s): I10 - ESSENTIAL (PRIMARY) HYPERTENSION (5) Stroke Code(s): I63.9 - CEREBRAL INFARCTION, UNSPECIFIED Qualifiers: Laterality of affected vessel: unspecified (6) ASHD (arteriosclerotic heart disease) Code(s): I25.10 - ATHSCL HEART DISEASE OF [place] CORONARY ARTERY W/O ANG PCTRS (7) Elevated brain natriuretic peptide (BNP) level Code(s): R79.89 - OTHER SPECIFIED ABNORMAL FINDINGS OF BLOOD CHEMISTRY (8) GUY (acute kidney injury) Code(s): N17.9 - ACUTE KIDNEY FAILURE, UNSPECIFIED Assessment/Plan IMP: Severe LICA stenosis , symptomatic, s/p L.CEA w/ post op CVA Post op respiratory failure secondary to stridor now extubated. Non-obstructive CAD Chronic HTN Resolved hyperkalemia REC: 1. Extubated several days and clinically much improved. 2. Cont Antiplatelet Rx as per Vascular 3. Remains in NSR, Can d/c TELE 4. Cont Labetalol and BID Procardia. NISHA added, should help BP and low K+ 5. DVT prophylaxis 6. PT/OT
[2018-08-20] MEDS: POTASSIUM CHLORIDE TABS 10 MEQ TABLET.ER (FP) PO SCH (10:13)
[2018-08-20] MEDS: ENOXAPARIN NA (PORCINE) 40 MG/0.4 ML DISP.SYRIN SQ SCH (10:15)
[2018-08-20] MEDS: HYDROCHLOROTHIAZIDE 12.5 MG CAPSULE (FP) PO SCH (10:16)
[2018-08-20] MEDS: CLOPIDOGREL BISULFATE 75 MG TABLET (FP) PO SCH (10:16)
[2018-08-20] MEDS: DULoxetine HCL 30 MG CAPSULE.DR (FP) PO SCH (10:16)
[2018-08-20] MEDS: LISINOPRIL 10 MG TABLET (FP) PO SCH (10:16)
[2018-08-20] MEDS: ASPIRIN 81 MG CHEWABLE TABLETS PO SCH (10:16)
[2018-08-20] MEDS: RANITIDINE HCL 150 MG TABLET (FP) PO SCH ×2 (10:16→22:05)
[2018-08-20] MEDS: NIFEdipine E.R 60 MG TABLET (UD) PO SCH ×2 (10:17→22:05)
[2018-08-20] MEDS ORDERED: SODIUM CHLORIDE 250 ML IV STA (13:23)
--- NOTE | 2018-08-20 14:05 | PN ---
Progress Note (short form) - Note Progress Note: >>>>>>>>>>>>>>>>>>>>>>>>>>>>>>>> ADDENDUM to DISCHARGE NOTE <<<<<<<<<<<<<<< <<<<<<<<<<<<<<<<<<<<<<<<<<< Current Medications Aspirin (Asa -) 81 mg PO DAILY [facility] Last Admin: 08/20/18 10:16 Dose: 81 mg Clopidogrel Bisulfate (Plavix -) 75 mg PO DAILY [facility] Last Admin: 08/20/18 10:16 Dose: 75 mg Duloxetine HCl (Cymbalta -) 30 mg PO DAILY [facility] Last Admin: 08/20/18 10:16 Dose: 30 mg Enoxaparin Sodium (Lovenox -) 40 mg SQ DAILY [facility] Last Admin: 08/20/18 10:15 Dose: 40 mg Hydrochlorothiazide (Hctz -) 12.5 mg PO DAILY [facility] Last Admin: 08/20/18 10:16 Dose: 12.5 mg Sodium Chloride (Normal Saline -) 250 mls @ 250 mls/hr IV ASDIR [facility] Stop: 08/20/18 14:22 Labetalol HCl (Normodyne -) 200 mg PO TID [facility] Last Admin: 08/20/18 13:14 Dose: 200 mg Lisinopril (Prinivil) 10 mg PO DAILY [facility] Last Admin: 08/20/18 10:16 Dose: 10 mg Metoprolol Tartrate (Lopressor Injection -) 2.5 mg IVPUSH Q4H PRN PRN Reason: HYPERTENSION Last Admin: 08/16/18 19:44 Dose: 2.5 mg Nifedipine (Procardia Xl -) 60 mg PO BID [facility] Last Admin: 08/20/18 10:17 Dose: 60 mg Ondansetron HCl (Zofran -) 4 mg PO Q12H PRN PRN Reason: NAUSEA Potassium Chloride (K-Dur -) 10 meq PO DAILY [facility] Last Admin: 08/20/18 10:13 Dose: 10 meq Potassium Chloride (K-Dur -) 10 meq PO ONCE ONE Stop: 08/20/18 13:25 Promethazine HCl (Phenergan Liquid -) 12.5 mg PO TID [facility] Last Admin: 08/20/18 13:14 Dose: Not Given Ranitidine HCl (Zantac -) 150 mg PO BID [facility] Last Admin: 08/20/18 10:16 Dose: 150 mg Rosuvastatin Calcium (Crestor -) 5 mg PO HS [facility] Last Admin: 08/19/18 22:21 Dose: 5 mg Sodium Chloride (Sodium Chloride Tablet -) 0.5 gm PO ONCE ONE Stop: 08/20/18 21:01 Laboratory Results - last 24 hr 08/20/18 06:00 Sodium 132 L Potassium 3.5 Chloride 98 Carbon Dioxide 27 Anion Gap 7 L BUN 17 Creatinine 1.0 Creat Clearance w eGFR > 60 Random Glucose 108 H Calcium 8.5 Total Bilirubin 0.5 AST 21 ALT 62 H Alkaline Phosphatase 100 Total Protein 6.0 L Albumin 2.8 L Vital Signs Temperature 97.7 F 08/20/18 13:47 Pulse Rate 71 08/20/18 13:47 Respiratory Rate 20 08/20/18 13:47 Blood Pressure 134/69 08/20/18 13:47 O2 Sat by Pulse Oximetry (%) 96 08/20/18 11:10 CC: weakness Rt side; is voiding frequently ````````````````````````````` skin--NL color eyes--midline; NL gaze lungs--bilat sounds; unlabored heart--RR 2/6 M abd--benign, NT ext--no edema appreciated neuro--Rt HP; little motion on the Rt hand; now able to raise the RLE against gravity ``````````````````````````` Summ > feeding problems--is able to eat w/o difficulty but has not attained optimal Po intake yet; he was encouraged to eat more > High LFTs--mild; LFTs trending down; possibly due to high dose statin; Abd US unremarkable; abd w/ benign exam > 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 post-OP, with considerable paresis on the Rt side, with slow but priogressing improvement in motor activity on the right side,PLAN: eventual rehab placement > Htn--CRI which is stable now; BP still fluctuates; on NISHA-I and Hctz along with BB and CCB > Anxiety/restless--post stroke state; will cont the SSRI > Hyponatremia--mild w/o pedal edema; thus likely 2nd effects of NISHA PLAN: IV NS bolus and repeat Na today > Low potassium--replenish w/ IVF & PO ~~~~~~~~~~~~~~~~~~~~~~~ Commentucci
--- NOTE | 2018-08-20 14:21 | PN ---
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 Counseled pt on need for nutrition for rehabilitation. Pt was going to try 1/2 tuna sandwich, soup.Educated pt and family again-HOB elevated, chin tuck, swallow HARD twice, alternate with sip of liquid, Hard swallow. Finish meal with liquid. Selected Entries 08/13/18 08/13/18 08/13/18 02:00 06:00 10:00 Breakfast Diet Tolerated Lunch Supper Temperature 97.7 F 97.7 F 98 F 08/13/18 08/13/18 08/13/18 14:00 18:00 22:00 Breakfast Diet Tolerated Lunch Supper Temperature 97.9 F 97.6 F 97.6 F 08/14/18 08/14/18 08/14/18 02:00 06:00 09:00 Breakfast 0 Diet Tolerated Lunch Supper Temperature 97.7 F 98.8 F 08/14/18 08/16/18 08/16/18 09:49 02:00 06:00 Breakfast Diet Tolerated Lunch Supper Temperature 97.9 F 98 F 97.8 F 08/16/18 08/16/18 08/16/18 10:00 14:00 18:38 Breakfast Diet Tolerated Lunch Supper Temperature 98.7 F 97.3 F L 97.7 F 08/16/18 08/16/18 08/17/18 21:00 23:01 02:02 Breakfast Diet Tolerated Refused Lunch Supper Temperature 97.7 F 98.3 F 08/17/18 08/17/18 08/19/18 06:00 10:00 02:27 Breakfast Diet Tolerated Refused Lunch Supper Temperature 97.4 F L 98.9 F 98.1 F 08/19/18 08/19/18 08/19/18 05:38 09:00 10:08 Breakfast 25% Diet Tolerated Lunch Supper Temperature 97.8 F 98 F 08/19/18 08/19/18 08/19/18 15:13 17:00 19:23 Breakfast Diet Tolerated Poor Poor Lunch 25% Supper 25% Temperature 98.0 F 98.0 F 08/19/18 08/20/18 08/20/18 20:14 05:00 10:41 Breakfast 50% Diet Tolerated Poor Lunch Supper Temperature 97.5 F L 98.1 F 08/20/18 08/20/18 11:00 13:47 Breakfast Diet Tolerated Lunch Supper Temperature 97.9 F 97.7 F Laboratory Tests 08/12/18 08/13/18 08/14/18 05:30 05:15 05:30 WBC 8.9 11.5 H 10.3 H 08/15/18 08/17/18 08/19/18 05:25 05:25 06:48 WBC 10.5 H 10.9 H 9.6 Excellent rehab candidate.
--- NOTE | 2018-08-20 14:24 | PN ---
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
[2018-08-20] MEDS ORDERED: POTASSIUM CHLORIDE TABS 10 MEQ TABLET.ER (FP) PO ONE (17:30)
[2018-08-20] MEDS ORDERED: SODIUM CHLORIDE 1 GM TABLET PO ONE (21:00)
[2018-08-20] MEDS: ROSUVASTATIN CA 5 MG TABLET (FP) PO SCH (22:05)
[2018-08-20 22:13] LABS: BLOOD UREA NITROGEN 24 mg/dL (7-18); GLUCOSE,RANDOM 108 mg/dL (74-106)
[2018-08-20 22:14] LABS: ANION GAP 8 MMOL/L (8-16); CALCIUM 8.4 mg/dL (8.5-10.1); CHLORIDE 99 mmol/L (98-107); CO2 27 mmol/L (21-32); CREATININE 1.3 mg/dL (0.55-1.3); SODIUM 134 mmol/L (136-145)
[2018-08-21] MEDS: LABETALOL HCL 200 MG TABLET (FP) PO SCH (06:50)
[2018-08-21] MEDS: PROMETHAZINE HCL ORAL SYRUP 6.25 MG/5 ML (BULK BOTTLE) PO SCH (06:50)
--- NOTE | 2018-08-21 09:34 | PN ---
Progress Note, Physician Chief Complaint: no new complaints Sodium improved. - Current Medication List Current Medications: Active Medications Aspirin (Asa -) 81 mg PO DAILY [facility] Last Admin: 08/20/18 10:16 Dose: 81 mg Clopidogrel Bisulfate (Plavix -) 75 mg PO DAILY [facility] Last Admin: 08/20/18 10:16 Dose: 75 mg Duloxetine HCl (Cymbalta -) 30 mg PO DAILY [facility] Last Admin: 08/20/18 10:16 Dose: 30 mg Enoxaparin Sodium (Lovenox -) 40 mg SQ DAILY [facility] Last Admin: 08/20/18 10:15 Dose: 40 mg Hydrochlorothiazide (Hctz -) 12.5 mg PO DAILY [facility] Last Admin: 08/20/18 10:16 Dose: 12.5 mg Labetalol HCl (Normodyne -) 200 mg PO TID [facility] Last Admin: 08/21/18 06:50 Dose: 200 mg Lisinopril (Prinivil) 10 mg PO DAILY [facility] Last Admin: 08/20/18 10:16 Dose: 10 mg Metoprolol Tartrate (Lopressor Injection -) 2.5 mg IVPUSH Q4H PRN PRN Reason: HYPERTENSION Last Admin: 08/16/18 19:44 Dose: 2.5 mg Nifedipine (Procardia Xl -) 60 mg PO BID [facility] Last Admin: 08/20/18 22:05 Dose: 60 mg Ondansetron HCl (Zofran -) 4 mg PO Q12H PRN PRN Reason: NAUSEA Potassium Chloride (K-Dur -) 10 meq PO DAILY [facility] Last Admin: 08/20/18 10:13 Dose: 10 meq Promethazine HCl (Phenergan Liquid -) 12.5 mg PO TID [facility] Last Admin: 08/21/18 06:50 Dose: Not Given Ranitidine HCl (Zantac -) 150 mg PO BID [facility] Last Admin: 08/20/18 22:05 Dose: 150 mg Rosuvastatin Calcium (Crestor -) 5 mg PO HS [facility] Last Admin: 08/20/18 22:05 Dose: 5 mg - Objective Vital Signs: Vital Signs Temperature 97.8 F 08/21/18 05:00 Pulse Rate 72 08/21/18 05:00 Respiratory Rate 20 08/21/18 05:00 Blood Pressure 125/89 08/21/18 05:00 O2 Sat by Pulse Oximetry (%) 95 08/20/18 20:30 Constitutional: Yes: No Distress, Calm Eyes: Yes: Conjunctiva Clear Cardiovascular: Yes: Regular Rate and Rhythm Respiratory: Yes: CTA Bilaterally (no wheezing or rales) Gastrointestinal: Yes: Soft (nontender) Edema: No Neurological: Yes: Alert, Oriented ...Motor Strength: WNL Labs: CBC, BMP 08/19/18 06:48 08/20/18 20:00 INR, PTT INR 1.06 (0.83-1.09) 08/02/18 21:28 Laboratory Tests 08/17/18 08/18/18 08/19/18 05:25 05:30 06:48 WBC 10.9 H 9.6 Hgb 11.3 L 10.8 L Plt Count 298 269 Sodium 137 Potassium 3.3 L Anion Gap BUN Creatinine Calcium 8.0 L Magnesium 1.8 Total Bilirubin 0.5 AST 26 Alkaline Phosphatase 102 08/19/18 08/20/18 06:48 20:00 WBC Hgb Plt Count Sodium 134 L 134 L Potassium 3.3 L 4.0 Anion Gap 8 BUN 25 H Creatinine 1.3 Calcium 8.4 L Magnesium Total Bilirubin AST Alkaline Phosphatase Problem List - Problems (1) Fall Code(s): W19.XXXA - UNSPECIFIED FALL, INITIAL ENCOUNTER (2) Aortic stenosis Code(s): I35.0 - NONRHEUMATIC AORTIC (VALVE) STENOSIS (3) Abnormal ECG Code(s): R94.31 - ABNORMAL ELECTROCARDIOGRAM [ECG] [EKG] (4) Hypertension Code(s): I10 - ESSENTIAL (PRIMARY) HYPERTENSION (5) Stroke Code(s): I63.9 - CEREBRAL INFARCTION, UNSPECIFIED Qualifiers: Laterality of affected vessel: unspecified (6) ASHD (arteriosclerotic heart disease) Code(s): I25.10 - ATHSCL HEART DISEASE OF [place] CORONARY ARTERY W/O ANG PCTRS (7) Elevated brain natriuretic peptide (BNP) level Code(s): R79.89 - OTHER SPECIFIED ABNORMAL FINDINGS OF BLOOD CHEMISTRY (8) GUY (acute kidney injury) Code(s): N17.9 - ACUTE KIDNEY FAILURE, UNSPECIFIED Assessment/Plan IMP: Severe LICA stenosis , symptomatic, s/p L.CEA w/ post op CVA Post op respiratory failure secondary to stridor now extubated. Non-obstructive CAD Chronic HTN Resolved hyperkalemia Improved Hyponatremia REC: 1. Extubated several days and clinically much improved. 2. Cont Antiplatelet Rx as per Vascular 3. Remains in NSR, Can d/c TELE 4. Cont Labetalol and BID Procardia. NISHA added, should help BP and low K+ 5. DVT prophylaxis 6. PT/OT - sodium now improved.
[2018-08-21] MEDS: DULoxetine HCL 30 MG CAPSULE.DR (FP) PO SCH (09:55)
[2018-08-21] MEDS: LISINOPRIL 10 MG TABLET (FP) PO SCH (09:55)
[2018-08-21] MEDS: NIFEdipine E.R 60 MG TABLET (UD) PO SCH (09:55)
[2018-08-21] MEDS: RANITIDINE HCL 150 MG TABLET (FP) PO SCH (09:55)
[2018-08-21] MEDS: HYDROCHLOROTHIAZIDE 12.5 MG CAPSULE (FP) PO SCH (09:55)
[2018-08-21] MEDS: CLOPIDOGREL BISULFATE 75 MG TABLET (FP) PO SCH (09:55)
[2018-08-21] MEDS: POTASSIUM CHLORIDE TABS 10 MEQ TABLET.ER (FP) PO SCH (09:55)
[2018-08-21] MEDS: ENOXAPARIN NA (PORCINE) 40 MG/0.4 ML DISP.SYRIN SQ SCH (09:55)
[2018-08-21] MEDS: ASPIRIN 81 MG CHEWABLE TABLETS PO SCH (09:55)
--- NOTE | 2018-08-21 10:45 | PN ---
Progress Note, [employer] - Note Progress Note: Pt tolerated soft solids yesterday eg 1/2 tuna sandwich and fish yesterday. Starting to move right upper extremity and left LE more. Excellent rehabilitation candidate. Plan is for transfer to [place] today. F/u by Speech Patholgy for further diet upgrade.
[2018-08-21 10:46] VITALS: BP 142/66; PULSE 65; TEMP 97.9
--- NOTE | 2018-08-22 22:14 | EKG ---
Test Reason : Blood Pressure : / mmHG Vent. Rate : 072 BPM Atrial Rate : 072 BPM P-R Int : 188 ms QRS Dur : 112 ms QT Int : 410 ms P-R-T Axes : 047 -18 025 degrees QTc Int : 448 ms NORMAL SINUS RHYTHM NONSPECIFIC T WAVE ABNORMALITY ABNORMAL ECG WHEN COMPARED WITH ECG OF 10-AUG-2018 08:54, PREMATURE ATRIAL COMPLEXES ARE NO LONGER PRESENT T WAVE VARIATION Confirmed by THEO DOWNS, HATTIE ([id number]) on 08/22/2018 10:13:50 PM Referred By: Confirmed By:HATTIE VENEGAS MD
== END 2018-08-21 11:50 | DRG 37 ==
LOC: JER 20:57 → JERBED 23:20 → J5S 08-03 15:01 → JICU 08-07 21:12 → J4W 08-15 11:15
PROVIDERS: ADMIT Internal Medicine Hematology & Oncology; ATTEND Internal Medicine Hematology & Oncology
PROC: 03UL0JZ Supplement Left Internal Carotid Artery with Synthetic Substitute, Open Approach (ICD-10-PCS; 2018-08-07)
PROC: 0WJ60ZZ Inspection of Neck, Open Approach (ICD-10-PCS; 2018-08-07)
PROC: B307ZZZ Plain Radiography of Left Internal Carotid Artery (ICD-10-PCS; 2018-08-07)
PROC: 03CL0ZZ Extirpation of Matter from Left Internal Carotid Artery, Open Approach (ICD-10-PCS; principal; 2018-08-07 15:30)
PROC: 0CHY7BZ Insertion of Airway into Mouth and Throat, Via Natural or Artificial Opening (ICD-10-PCS; 2018-08-10)
PROC: 5A1945Z Respiratory Ventilation, 24-96 Consecutive Hours (ICD-10-PCS; 2018-08-10)
DX: I65.22 Occlusion and stenosis of left carotid artery (principal); J95.821 Acute postprocedural respiratory failure; N17.9 Acute kidney failure, unspecified; G81.91 Hemiplegia, unspecified affecting right dominant side; F05 Delirium due to known physiological condition; J98.11 Atelectasis; I97.821 Postprocedural cerebrovascular infarction following other surgery; I50.30 Unspecified diastolic (congestive) heart failure; E87.1 Hypo-osmolality and hyponatremia; E78.5 Hyperlipidemia, unspecified; I35.0 Nonrheumatic aortic (valve) stenosis; R94.31 Abnormal electrocardiogram [ECG] [EKG]; I25.10 Atherosclerotic heart disease of native coronary artery without angina pectoris; R79.89 Other specified abnormal findings of blood chemistry; S40.011A Contusion of right shoulder, initial encounter; R73.9 Hyperglycemia, unspecified; T81.89XA Other complications of procedures, not elsewhere classified, initial encounter; E87.6 Hypokalemia; R50.9 Fever, unspecified; E87.5 Hyperkalemia; I16.0 Hypertensive urgency; R06.1 Stridor; D64.9 Anemia, unspecified; F41.8 Other specified anxiety disorders; R13.10 Dysphagia, unspecified; I11.0 Hypertensive heart disease with heart failure; W19.XXXA Unspecified fall, initial encounter; Y83.8 Other surgical procedures as the cause of abnormal reaction of the patient, or of later complication, without mention of misadventure at the time of the procedure; Z86.73 Personal history of transient ischemic attack (TIA), and cerebral infarction without residual deficits
CPT/HCPCS: 31500; 36415; 70450-TC; 70496-TC; 70498-TC; 70547-TC; 71045-TC-FY; 72125-TC; 73030-TC-RT-FY; 74230-TC-FY; 76000-TC-FY; 76705-TC; 80048; 80053; 80061; 81003; 82272; 82550; 82962; 83036; 83090; 83721; 83735; 83880; 84100; 84443; 84484; 85025; 85027; 85610; 85651; 86850; 86900; 86901; 88304-TC; 92611-GN; 93005; 93010; 93225; 93226; 93306-TC; 93880-TC; 94002; 94640; 94760; 95816; 97116-GP; 97162-GP; 97163-GP; 99285-25; J1100; J1644; J7030

== ENCOUNTER 2018-09-30 10:24 | Inpatient (IN) | payer OTHER ==
--- NOTE | 2018-09-30 11:06 | PDOC ---
History of Present Illness - General History Source: Patient, Family, Intermediate Records Exam Limitations: No Limitations - History of Present Illness Initial Comments: 09/30/18 12:16 The patient is a 78-year-old male from [facility], with a past medical history of HTN, HLD, 2 TIAs with residual RT-sided weakness, dementia, who presents to the ED s/p syncopal episode this morning. Daughter is at bedside and states that he was with a nurse when the incident occurred. She reports that the patient was seated, eating a banana, when he began to feel dizzy. Subsequently, the patient stiffened up, his eyes rolled back, and he lost consciousness for about 2 minutes. He became alert and oriented within 5 minutes. She denies any urinary or bowel incontinence. Patient was not confused after the incident. She reports that the patient was admitted to the hospital on 08/17/18 for LT carotid stenosis. Dr. Sheikh performed a LT carotid endarterectomy. Patient had a post-operative stroke and a angiogram of the LT carotid artery was performed. There was no evidence of carotid occlusion or stenosis at the endarterectomy site. Daughter reports that the patient lost function in his RT arm and leg and is currently undergoing physical therapy. The patient denies any fever, chills, nausea, vomiting, diarrhea, constipation, rectal bleeding, or abdominal pain. Denies any chest pain or palpitations. Denies any urinary symptoms. Denies any weakness or changes in sensation. Allergies: NKA Surgical History: Left carotid endarterectomy 08/07/18, Left carotid angiogram 08/07. Craniotomy - 1964. Social History: None reported. PCP: Dr. Srinivas Mann <Yara Orourke - Last Filed: 09/30/18 12:15> <Adrian Gorman - Last Filed: 09/30/18 14:51> - General Chief Complaint: Syncope/Near Syncope Stated Complaint: Seizure Time Seen by Provider: 09/30/18 11:06 Past History <Yara Orourke - Last Filed: 09/30/18 12:15> - Past Medical History Anemia: No Asthma: No Cancer: No Cardiac Disorders: Yes (tia) CVA: Yes (2 TIAs rt sided weakness) COPD: No CHF: No Dementia: Yes ("SLIGHT") Diabetes: No GI Disorders: No Disorders: No HTN: Yes Hypercholesterolemia: Yes Liver Disease: No Seizures: No Thyroid Disease: No - Surgical History Abdominal Surgery: No Appendectomy: No Cardiac Surgery: No Cholecystectomy: No Lung Surgery: No Neurologic Surgery: Yes (kristine 1965) Orthopedic Surgery: No - Immunization History Immunization Up to Date: Yes - Suicide/Smoking/Psychosocial Hx Smoking History: Never smoked Have you smoked in the past 12 months: No Number of Cigarettes Smoked Daily: 0 Information on smoking cessation initiated: No Hx Alcohol Use: No Drug/Substance Use Hx: No Substance Use Type: None <Adrian Gorman - Last Filed: 09/30/18 14:51> - Past Medical History Allergies/Adverse Reactions: Allergies Allergy/AdvReac Type Severity Reaction Status Date / Time No Known Allergies Allergy Verified 09/30/18 10:37 Home Medications: Ambulatory Orders Aspirin [ASA -] 81 mg PO DAILY tab.chew 08/19/18 Clopidogrel Bisulfate [Plavix -] 75 mg PO DAILY tablet 08/19/18 Labetalol HCl [Normodyne -] 200 mg PO TID tablet 08/19/18 Ondansetron [Zofran -] 4 mg PO Q12H PRN tablet 08/19/18 Rosuvastatin [Crestor -] 5 mg PO HS tablet 08/19/18 Acetaminophen [Pain Relief] 650 mg PO Q6H PRN 09/30/18 Ascorbic Acid [Vitamin C] 500 mg PO DAILY 09/30/18 Cholecalciferol (Vitamin D3) [Vitamin D3 -] 2,000 unit PO DAILY 09/30/18 Fluoxetine HCl [Prozac] 10 mg PO DAILY 09/30/18 Lactulose 20 gm PO DAILY 09/30/18 Lisinopril [Prinivil] 5 mg PO DAILY 09/30/18 Mag Hydrox/Al Hydrox/Simeth [Mylanta *Suspension*] 30 ml PO Q6H PRN 09/30/18 Meclizine HCl 12.5 mg PO TID PRN 09/30/18 Nifedipine ER [Procardia XL -] 120 mg PO DAILY 09/30/18 Sennosides [Senna] 8.6 mg PO HS 09/30/18 Vitamin B Complex 1 each PO DAILY 09/30/18 Review of Systems - Review of Systems Able to Perform ROS?: Yes Comments:: 09/30/18 12:18 CONSTITUTIONAL: No fever, no chills, no fatigue EYES: No visual changes ENT: No ear pain, no sore throat CARDIOVASCULAR: No chest pain, no palpitations RESPIRATORY: No cough, no SOB GI: No abdominal pain, no nausea, no vomiting, no constipation, no diarrhea GENITOURINARY: No dysuria, no frequency, no hematuria MUSKULOSKELETAL: No back pain, no joint pain, no myalgias SKIN: No rash NEURO: (+)Dizziness. No headache <Yara Orourke - Last Filed: 09/30/18 12:15> *Physical Exam - Vital Signs Last Vital Signs Temp Pulse Resp BP Pulse Ox 97.4 F L 71 18 144/66 97 09/30/18 10:38 09/30/18 10:38 09/30/18 10:38 09/30/18 10:38 09/30/18 10:38 <Yara Orourke - Last Filed: 09/30/18 12:15> - Vital Signs Last Vital Signs Temp Pulse Resp BP Pulse Ox 97.4 F L 71 18 144/66 97 09/30/18 10:38 09/30/18 10:38 09/30/18 10:38 09/30/18 10:38 09/30/18 10:38 - Physical Exam Comments: 09/30/18 14:44 EXAMINATION CONSTITUTIONAL: Awake and alert, well-nourished; in no apparent distress HEAD: + Right temporal cranial defect with a well-healed scar; EYES: PERRL; EOM intact ENMT: External appears normal; normal oropharynx; mmm NECK: Supple; non-tender; no carotid bruits bilaterally; well-healed left carotid end arterectomy scar is noted; CARD: Normal S1, S2; 3/6 systolic ejection murmur, no rubs, or gallops RESP: Normal chest excursion with respiration; breath sounds clear and equal bilaterally; no wheezes, rhonchi, or rales ABD: Soft, non-distended; non-tender; no palpable organomegaly, no palpable hernias EXT: Normal passive ROM in all four extremities; non-tender to palpation; distal pulses intact; + air brace to right wrist and right ankle noted; SKIN: Warm, dry, no rash NEURO: Cranial nerves II through XII are grossly intact; motor right upper extremity/left upper extremity: 5/5; weakness is noted on flexion of the digits of the right hand; right lower extremity: 3/5; left lower extremity 5/5; <Adrian Gorman - Last Filed: 09/30/18 14:51> Heart Score/ECG Review - ECG Intrepretation Comment:: 09/30/18 11:55 EKG was reviewed by Dr. Gorman at 10:24. Normal sinus rhythm. Normal ECG. <Yara Orourke - Last Filed: 09/30/18 12:15> ED Treatment Course - LABORATORY CBC & Chemistry Diagram: 09/30/18 11:30 09/30/18 11:30 <Yara Orourke - Last Filed: 09/30/18 12:15> - LABORATORY CBC & Chemistry Diagram: 09/30/18 11:30 09/30/18 11:30 <Adrian Gorman - Last Filed: 09/30/18 14:51> Medical Decision Making - Medical Decision Making 09/30/18 14:47 78-year-old male with multiple comorbidities, status post perioperative left MCA infarct with resultant right hemiparesis after left carotid endarterectomy bib from [place] for a witnessed syncopal episode. in the ed, pt is awake, alert, hemodynamically stable. DD includes seizure versus syncope. CT of head shows no evidence of acute intracranial pathology. EKG reveals no evidence of acute ischemia or dysrhythmia. Physical exam reveals a harsh stolid injection murmur. Review of previous records indicates an echocardiogram which revealed mild aortic stenosis. CBC/CMP/troponin are within normal limit. Chest x-ray reveals no significant changes. Will admit to telemetry. We'll consult neurology and cardiology. <Adrian Gorman - Last Filed: 09/30/18 14:51> *DC/Admit/Observation/Transfer - Attestations Scribe Attestion: 09/30/18 12:19 Documentation prepared by Yara Orourke, acting as medical records administrator for Adrian Gorman MD. <Yara Orourke - Last Filed: 09/30/18 12:15> - Discharge Dispostion Decision to Admit order: Yes - Attestations Physician Attestion: 09/30/18 14:44 The documentation was prepared by the scribe under my direct supervision. I have reviewed the documentation which correctly represents the findings, medical decision-making and critical action taken by me. <Adrian Gorman - Last Filed: 09/30/18 14:51> Diagnosis at time of Disposition: Syncope Qualifiers: Syncope type: unspecified Qualified Code(s): R55 - Syncope and collapse - Discharge Dispostion Condition at time of disposition: Fair
[2018-09-30 11:53] LABS: BASO % 0.8 % (0-2.0); EOS % 2.3 % (0-4.5); HEMOGLOBIN 12.3 GM/dL (11.7-16.9); LYMPH % 19.1 % (8-40); MCH 29.6 pg (25.7-33.7); MCHC 33.2 g/dl (32.0-35.9); MEAN PLT VOLUME 8.1 fl (7.5-11.1); MONO % 8.1 % (3.8-10.2); NEUT % 69.7 % (42.8-82.8); PLATELET COUNT 244 K/MM3 (134-434); RBC 4.16 M/mm3 (4.00-5.60); WHITE BLOOD COUNT 7.6 K/mm3 (4.0-10.0)
[2018-09-30 12:03] LABS: INR 1.08 (0.83-1.09); PROTHROMBIN TIME (PATIENT) 12.7 SEC (9.7-13.0)
[2018-09-30 12:25] LABS: ALBUMIN 3.7 g/dl (3.4-5.0); ALK PHOS 73 U/L (45-117); ANION GAP 9 MMOL/L (8-16); BILIRUBIN,TOTAL 0.2 mg/dL (0.2-1); BLOOD UREA NITROGEN 23 mg/dL (7-18); CALCIUM 8.9 mg/dL (8.5-10.1); CHLORIDE 105 mmol/L (98-107); CO2 26 mmol/L (21-32); CREATININE 1.4 mg/dL (0.55-1.3); GLUCOSE,RANDOM 138 mg/dL (74-106); POTASSIUM 4.1 mmol/L (3.5-5.1); SGOT/AST 16 U/L (15-37); SGPT/ALT 38 U/L (13-61); SODIUM 140 mmol/L (136-145); TOT PROT 6.7 g/dl (6.4-8.2)
--- NOTE | 2018-09-30 15:04 | EKG ---
Test Reason : Blood Pressure : / mmHG Vent. Rate : 070 BPM Atrial Rate : 070 BPM P-R Int : 190 ms QRS Dur : 104 ms QT Int : 404 ms P-R-T Axes : 041 -19 -01 degrees QTc Int : 436 ms NORMAL SINUS RHYTHM NORMAL ECG WHEN COMPARED WITH ECG OF 14-AUG-2018 13:26, NONSPECIFIC T WAVE ABNORMALITY, IMPROVED IN LATERAL LEADS Confirmed by NELI DOWNS, MOE ([id number]) on 09/30/2018 3:03:56 PM Referred By: Confirmed By:MOE QUINTEROS MD
--- NOTE | 2018-09-30 16:33 | CON.CARD ---
Cardiology Consult (text) - Consultation Consultation Note: cc: syncope hpi: 78 m hx mild-moderate , non-obstx CAD, HTN, cvas, recent cea complicated by cva, who was sent from rehab with syncope. He was sitting eating at rehab when per charts his eyes rolled back and he stiffened up and passed out for 2 mins. Pt had no prodrome sxs and does not recall event. No cp sob palps dizzy pnd orthopnea le edema. Feels well now. Pt had a few similar episodes over past year but have been several mos apart. Sees dr ruelas for cardio. pmh: per hpi psh: cea social: no tob fam: no premature cad ros: per hpi; msk pain and weakness s/p cva; all others normal meds: Ambulatory Orders Aspirin [ASA -] 81 mg PO DAILY tab.chew 08/19/18 Clopidogrel Bisulfate [Plavix -] 75 mg PO DAILY tablet 08/19/18 Labetalol HCl [Normodyne -] 200 mg PO TID tablet 08/19/18 Ondansetron [Zofran -] 4 mg PO Q12H PRN tablet 08/19/18 Rosuvastatin [Crestor -] 5 mg PO HS tablet 08/19/18 Acetaminophen [Pain Relief] 650 mg PO Q6H PRN 09/30/18 Ascorbic Acid [Vitamin C] 500 mg PO DAILY 09/30/18 Cholecalciferol (Vitamin D3) [Vitamin D3 -] 2,000 unit PO DAILY 09/30/18 Fluoxetine HCl [Prozac] 10 mg PO DAILY 09/30/18 Lactulose 20 gm PO DAILY 09/30/18 Lisinopril [Prinivil] 5 mg PO DAILY 09/30/18 Mag Hydrox/Al Hydrox/Simeth [Mylanta *Suspension*] 30 ml PO Q6H PRN 09/30/18 Meclizine HCl 12.5 mg PO TID PRN 09/30/18 Nifedipine ER [Procardia XL -] 120 mg PO DAILY 09/30/18 Sennosides [Senna] 8.6 mg PO HS 09/30/18 Vitamin B Complex 1 each PO DAILY 09/30/18 pe: Vital Signs Period Temp Pulse Resp BP Sys/Palmer Pulse Ox Last 24 Hr 97.4 F 69-72 18-18 144-177/66-81 97-99 nad no jvd rrr s1s2 no r/g, +as murmur cta bl nl eff aaox3 no le e/c/c abd nt nd pos bs no jaundice diaphoresis pos dp pt no carotid bruits Laboratory Last Values WBC 7.6 K/mm3 (4.0-10.0) 09/30/18 11:30 RBC 4.16 M/mm3 (4.00-5.60) 09/30/18 11:30 Hgb 12.3 GM/dL (11.7-16.9) 09/30/18 11:30 Hct 37.0 % (35.4-49) D 09/30/18 11:30 MCV 89.0 fl (80-96) 09/30/18 11:30 MCH 29.6 pg (25.7-33.7) 09/30/18 11:30 MCHC 33.2 g/dl (32.0-35.9) 09/30/18 11:30 RDW 15.0 % (11.9-15.9) 09/30/18 11:30 Plt Count 244 K/MM3 (134-434) 09/30/18 11:30 MPV 8.1 fl (7.5-11.1) 09/30/18 11:30 Absolute Neuts (auto) 5.3 K/mm3 (1.5-8.0) 09/30/18 11:30 Neutrophils % 69.7 % (42.8-82.8) 09/30/18 11:30 Lymphocytes % 19.1 % (8-40) D 09/30/18 11:30 Monocytes % 8.1 % (3.8-10.2) 09/30/18 11:30 Eosinophils % 2.3 % (0-4.5) 09/30/18 11:30 Basophils % 0.8 % (0-2.0) D 09/30/18 11:30 Nucleated RBC % 0 % (0-0) 09/30/18 11:30 PT with INR 12.70 SEC (9.7-13.0) 09/30/18 11:30 INR 1.08 (0.83-1.09) 09/30/18 11:30 Sodium 140 mmol/L (136-145) 09/30/18 11:30 Potassium 4.1 mmol/L (3.5-5.1) 09/30/18 11:30 Chloride 105 mmol/L (98-107) 09/30/18 11:30 Carbon Dioxide 26 mmol/L (21-32) 09/30/18 11:30 Anion Gap 9 MMOL/L (8-16) 09/30/18 11:30 BUN 23 mg/dL (7-18) H 09/30/18 11:30 Creatinine 1.4 mg/dL (0.55-1.3) H 09/30/18 11:30 Creat Clearance w eGFR 49.14 (>60) 09/30/18 11:30 Random Glucose 138 mg/dL (74-106) H 09/30/18 11:30 Calcium 8.9 mg/dL (8.5-10.1) 09/30/18 11:30 Total Bilirubin 0.2 mg/dL (0.2-1) 09/30/18 11:30 AST 16 U/L (15-37) 09/30/18 11:30 ALT 38 U/L (13-61) 09/30/18 11:30 Alkaline Phosphatase 73 U/L (45-117) 09/30/18 11:30 Creatine Kinase 41 U/L (26-308) 09/30/18 11:30 Troponin I < 0.02 ng/ml (0.00-0.05) 09/30/18 11:30 Total Protein 6.7 g/dl (6.4-8.2) 09/30/18 11:30 Albumin 3.7 g/dl (3.4-5.0) 09/30/18 11:30 ecg: sr, nl intervals, no ischemic changes echo 07/2018: lvh, nl lvef, rv tds, small peric eff, mild as cxr: clear lungs a/p: 78 m hx mild-moderate , non-obstx CAD, HTN, cvas, recent cea complicated by cva, who was sent from rehab with syncope. syncope: -several episodes over past year, often months apart -no cardiac etiology found at this point -doubt since his recent echos have shown only mild-mod and the presentation seems less likely related -agree with Neuro eval for ?seizure -would recommend outpt loop recorder to try an identify a possible arrhythmic cause -can monitor on tele overnight, finish lilly as: -mild-mod on recent echos, outpt monitoring htn: -cont home bharathi, ccb hld: -cont statin cea, cva: -cont statin, asa, plavix
--- NOTE | 2018-09-30 17:39 | HP ---
Admitting History and Physical - Primary Care Physician PCP: Mio Duckworth - Admission Chief Complaint: loss of consciousness History of Present Illness: 78-year-old male w/ Rt hemiplegia coming from [facility], with a past medical history of HTN, HLD, TIAs, Lt CVA (post-op following a Lt CEA in jul of this year), who presents to the ED s/p syncopal episode this morning. Daughter is at bedside and states that he was with a nurse when the incident occurred. She reports that the patient was seated, eating a banana, when he began to feel dizzy. Subsequently, the patient stiffened up, his eyes rolled back, and he lost consciousness for about 2 minutes. He became alert and oriented within 5 minutes to his usual baseline. She denies any urinary or bowel incontinence. Patient was not confused after the incident. he was admitted to the hospital on 08/17/18 for syncope while walking, and underwent LT CEA 2nd tight stenosis. Patient had a post-operative stroke and a angiogram of the LT carotid artery was performed. There was no evidence of carotid occlusion or stenosis at the endarterectomy site. Daughter reports that the patient lost complete function in his RT arm and leg and was sent to rehab; since then he has regained a considerable degree of mobility with the rt side but is still unstable on his feet. Since at SNF, he has had 1-2 other episodes where he had a brief change of mental status and on 1 occasion, it was supposedly noted that his HR dropped down into the 30's. The patient denies any fever, chills, nausea, vomiting, diarrhea, constipation, or abdominal pain. Denies any chest pain or palpitations. Denies any urinary symptoms. Denies any weakness or changes in sensation, double vision; speech slurring. History Source: Family Member, Medical Record Limitations to Obtaining History: Poor Historian - Past Medical History [employer]: Yes: Syncope, TIA, Other (craniotomy for traumatic injury in without neuro deficits) Cardiovascular: Yes: Aortic Stenosis, HTN, Hyperlipdemia Renal/: Yes: Renal Inusuff Psych: Yes: Anxiety - Past Surgical History Past Surgical History: Yes: Carotid Endarterectomy (Lt side), Craniotomy (old) - Smoking History Smoking history: Never smoked Have you smoked in the past 12 months: No Aproximately how many cigarettes per day: 0 - Alcohol/Substance Use Hx Alcohol Use: No Number of Drinks Daily: 1 History of Substance Use: reports: None - Social History Usual Living Arrangement: Yes: Longterm ADL: Support Services History of Recent Travel: No Home Medications - Allergies Allergies/Adverse Reactions: Allergies Allergy/AdvReac Type Severity Reaction Status Date / Time No Known Allergies Allergy Verified 09/30/18 10:37 - Home Medications Home Medications: Ambulatory Orders Aspirin [ASA -] 81 mg PO DAILY tab.chew 08/19/18 Clopidogrel Bisulfate [Plavix -] 75 mg PO DAILY tablet 08/19/18 Labetalol HCl [Normodyne -] 200 mg PO TID tablet 08/19/18 Ondansetron [Zofran -] 4 mg PO Q12H PRN tablet 08/19/18 Rosuvastatin [Crestor -] 5 mg PO HS tablet 08/19/18 Acetaminophen [Pain Relief] 650 mg PO Q6H PRN 09/30/18 Ascorbic Acid [Vitamin C] 500 mg PO DAILY 09/30/18 Cholecalciferol (Vitamin D3) [Vitamin D3 -] 2,000 unit PO DAILY 09/30/18 Fluoxetine HCl [Prozac] 10 mg PO DAILY 09/30/18 Lactulose 20 gm PO DAILY 09/30/18 Lisinopril [Prinivil] 5 mg PO DAILY 09/30/18 Mag Hydrox/Al Hydrox/Simeth [Mylanta *Suspension*] 30 ml PO Q6H PRN 09/30/18 Meclizine HCl 12.5 mg PO TID PRN 09/30/18 Nifedipine ER [Procardia XL -] 120 mg PO DAILY 09/30/18 Sennosides [Senna] 8.6 mg PO HS 09/30/18 Vitamin B Complex 1 each PO DAILY 09/30/18 Family Disease History - Family Disease History Family Disease History: Heart Disease: Mother, Brother Review of Systems - Review of Systems Constitutional: reports: No Symptoms Eyes: reports: No Symptoms HENT: reports: No Symptoms Neck: reports: No Symptoms Cardiovascular: reports: No Symptoms Respiratory: reports: No Symptoms Gastrointestinal: reports: No Symptoms Genitourinary: reports: No Symptoms Musculoskeletal: reports: No Symptoms Integumentary: reports: No Symptoms Neurological: reports: Pre-Existing Deficit (rt side) Endocrine: reports: No Symptoms Hematology/Lymphatic: reports: No Symptoms Psychiatric: reports: Anxiety Physical Examination Vital Signs: Vital Signs Temperature 97.4 F L 09/30/18 10:38 Pulse Rate 72 09/30/18 16:03 Respiratory Rate 18 09/30/18 13:37 Blood Pressure 176/74 H 09/30/18 16:03 O2 Sat by Pulse Oximetry (%) 99 09/30/18 13:37 Findings/Remarks: skin--NL color eyes--eomi; midline oral--no asymmetry; no mucosal lesions; no droop neck--no masses lungs--bilat clear, unlabored heart--RR 2/6 M abd--soft, BS+, NT, ND ext--no edema; no atrophy neuro--awake, verbal; coherent; Motor 4/5 Rt side; some flaccidity of rt fingers ; speech fluent; follows commands well cogn intact CBCD WBC 7.6 K/mm3 (4.0-10.0) 09/30/18 11:30 RBC 4.16 M/mm3 (4.00-5.60) 09/30/18 11:30 Hgb 12.3 GM/dL (11.7-16.9) 09/30/18 11:30 Hct 37.0 % (35.4-49) D 09/30/18 11:30 MCV 89.0 fl (80-96) 09/30/18 11:30 MCHC 33.2 g/dl (32.0-35.9) 09/30/18 11:30 RDW 15.0 % (11.9-15.9) 09/30/18 11:30 Plt Count 244 K/MM3 (134-434) 09/30/18 11:30 MPV 8.1 fl (7.5-11.1) 09/30/18 11:30 CMP Sodium 140 mmol/L (136-145) 09/30/18 11:30 Potassium 4.1 mmol/L (3.5-5.1) 09/30/18 11:30 Chloride 105 mmol/L (98-107) 09/30/18 11:30 Carbon Dioxide 26 mmol/L (21-32) 09/30/18 11:30 Anion Gap 9 MMOL/L (8-16) 09/30/18 11:30 BUN 23 mg/dL (7-18) H 09/30/18 11:30 Creatinine 1.4 mg/dL (0.55-1.3) H 09/30/18 11:30 Creat Clearance w eGFR 49.14 (>60) 09/30/18 11:30 Random Glucose 138 mg/dL (74-106) H 09/30/18 11:30 Calcium 8.9 mg/dL (8.5-10.1) 09/30/18 11:30 Total Bilirubin 0.2 mg/dL (0.2-1) 09/30/18 11:30 AST 16 U/L (15-37) 09/30/18 11:30 ALT 38 U/L (13-61) 09/30/18 11:30 Alkaline Phosphatase 73 U/L (45-117) 09/30/18 11:30 Total Protein 6.7 g/dl (6.4-8.2) 09/30/18 11:30 Albumin 3.7 g/dl (3.4-5.0) 09/30/18 11:30 CARDIAC ENZYMES Creatine Kinase 41 U/L (26-308) 09/30/18 11:30 Troponin I < 0.02 ng/ml (0.00-0.05) 09/30/18 11:30 Labs: CBC, BMP 09/30/18 11:30 09/30/18 11:30 Imaging - Results Chest X-ray: Report Reviewed Cat Scan: Report Reviewed EKG: Report Reviewed Problem List - Problems (1) Syncope Assessment/Plan: occuring while seated with ensuing hypertonicity but no convulsions or urinary incontinence; he was poorly conscious for approx 2 minutes, and then fully regained his baseline in about 5 min. Arrhythmia a possibility especially when it was noted that his HR dropped (during a previous episode), but 24 hr Holter failed to show anything significant. Issue of known but not deemed to be critical. Seizure is also a possibility in that he had a previous stroke, however a seizure can occur during moments of transient cerebral hypoxia. PLAN: will cont monitoring for now; check Mag; will start low dose keppra Code(s): R55 - SYNCOPE AND COLLAPSE Qualifiers: Syncope type: unspecified Qualified Code(s): R55 - Syncope and collapse (2) Stroke Assessment/Plan: sustained non hemorrhagic stroke post OP in jul of this year when he had his Lt CEA done; now has regained a good deal of Rt sided motor function, but still unable to walk. he was placed on prozac while at [place] (for neuro regenerative reasons) but was taken off this agent when he was sent to [facility]; he was then restarted on it 1 day ago PLAN: cont PT when deemed appropriate Code(s): I63.9 - CEREBRAL INFARCTION, UNSPECIFIED Qualifiers: Laterality of affected vessel: left (3) Hypertension Assessment/Plan: longstanding and fluctuating type; will cont current agents Code(s): I10 - ESSENTIAL (PRIMARY) HYPERTENSION (4) Aortic stenosis Assessment/Plan: not deemed to be critical as per Echo done in jul of this year Code(s): I35.0 - NONRHEUMATIC AORTIC (VALVE) STENOSIS Qualifiers: Cardiac valve disease etiology: nonrheumatic Qualified Code(s): I35.0 - Nonrheumatic aortic (valve) stenosis (5) Lipid disorder Assessment/Plan: cont with statin Code(s): E78.9 - DISORDER OF LIPOPROTEIN METABOLISM, UNSPECIFIED (6) History of left-sided carotid endarterectomy Assessment/Plan: done jul of this year Code(s): Z98.890 - OTHER SPECIFIED POSTPROCEDURAL STATES (7) Hx of traumatic brain injury Assessment/Plan: old; with no motor deficits Code(s): Z87.820 - PERSONAL HISTORY OF TRAUMATIC BRAIN INJURY (8) Depression with anxiety Assessment/Plan: chronic; had been on SSRI Code(s): F41.8 - OTHER SPECIFIED ANXIETY DISORDERS Assessment/Plan The patient is a 78-year-old male from [facility], who is s/p CVA presenting with syncope suspected to being of cardiac origin though cannot r/o atypical seizure ~~~~~~~~~~~~~~~~~~~~~~~~ Dr Duckworth
[2018-09-30 17:44] VITALS: BMI 23.6
[2018-09-30] MEDS ORDERED: LACTULOSE 20 GM/30 ML UDC (FOR ORAL USE ONLY) PO PRN (18:19)
--- NOTE | 2018-09-30 19:30 | CON.NEURO ---
Consult Consult Specialty:: Jourdan Referred by:: ER - History of Present Illness History of Present Illness: 78 yeas old man with pmH CAD CVA Right Hemip s/p CEA HTN presented with three episodes of fainting ?? sz eyes rolled back No family hx of seziure Was at [place] Regained good movement on the right arm and leg Seen in ICU - History Source History Provided By: Family Member, Medical Record Limitations to Obtaining History: Clinical Condition - Past Medical History [employer]: Yes: Syncope, TIA, Other (craniotomy for traumatic injury in s without neuro deficits) Cardio/Vascular: Yes: Aortic Stenosis, HTN, Hyperlipdemia Renal/: Yes: Renal Inusuff Psych: Yes: Anxiety - Past Surgical History Past Surgical History: Yes: Carotid Endarterectomy (Lt side), Craniotomy (old) - Alcohol/Substance Use Hx Alcohol Use: No Number of Drinks Daily: 1 History of Substance Use: reports: None - Smoking History Smoking history: Never smoked Have you smoked in the past 12 months: No Aproximately how many cigarettes per day: 0 - Social History ADL: Support Services History of Recent Travel: No Home Medications - Allergies Allergies/Adverse Reactions: Allergies Allergy/AdvReac Type Severity Reaction Status Date / Time No Known Allergies Allergy Verified 09/30/18 10:37 - Home Medications Home Medications: Ambulatory Orders Aspirin [ASA -] 81 mg PO DAILY tab.chew 08/19/18 Clopidogrel Bisulfate [Plavix -] 75 mg PO DAILY tablet 08/19/18 Labetalol HCl [Normodyne -] 200 mg PO TID tablet 08/19/18 Ondansetron [Zofran -] 4 mg PO Q12H PRN tablet 08/19/18 Rosuvastatin [Crestor -] 5 mg PO HS tablet 08/19/18 Acetaminophen [Pain Relief] 650 mg PO Q6H PRN 09/30/18 Ascorbic Acid [Vitamin C] 500 mg PO DAILY 09/30/18 Cholecalciferol (Vitamin D3) [Vitamin D3 -] 2,000 unit PO DAILY 09/30/18 Fluoxetine HCl [Prozac] 10 mg PO DAILY 09/30/18 Lactulose 20 gm PO DAILY 09/30/18 Lisinopril [Prinivil] 5 mg PO DAILY 09/30/18 Mag Hydrox/Al Hydrox/Simeth [Mylanta *Suspension*] 30 ml PO Q6H PRN 09/30/18 Meclizine HCl 12.5 mg PO TID PRN 09/30/18 Nifedipine ER [Procardia XL -] 120 mg PO DAILY 09/30/18 Sennosides [Senna] 8.6 mg PO HS 09/30/18 Vitamin B Complex 1 each PO DAILY 09/30/18 Family Disease History - Family Disease History Family History: Unable to Obtain Family Disease History: Heart Disease: Mother, Brother Review of Systems - Review of Systems Constitutional: reports: No Symptoms Eyes: reports: No Symptoms Neurological: reports: Headache, Incoordination, Numbness Physical Exam-Neuro Vital Signs: Vital Signs Temperature 97.4 F L 09/30/18 17:44 Pulse Rate 80 09/30/18 18:11 Respiratory Rate 21 H 09/30/18 18:11 Blood Pressure 158/76 09/30/18 18:11 O2 Sat by Pulse Oximetry (%) 98 09/30/18 18:55 Constitutional: Yes: Well Nourished Neck: Yes: WNL Labs: CBC, BMP 09/30/18 11:30 09/30/18 11:30 INR, PTT INR 1.08 (0.83-1.09) 09/30/18 11:30 - Neuro Exam Level Of Consciousness: Yes: Oriented to Person, Oriented to Place, Oriented to Time Eyes: Yes: PERRLA Speech: WNL Dominant Hand: Right Cranial Nerves II-XII Intact: Yes Gag: Present DTR's: 1+ Right Bicep, 1+ Right Tricep, 1+ Left Brachioradialis, 1+ Right Brachioradialis Response to light touch: Abnormal Response to pain prick: Abnormal Response to temperature: Abnormal Motor Strength: 2/5: Right Arm, 3/5: Right Leg Gait: Deferred Imaging - Results Cat Scan: Image Reviewed Problem List - Problems (1) Syncope Assessment/Plan: Smells like seizure Has precursor brain for !!!! 1. Neuro checks 2 .Sz precautions 3. EEG 4. Keppra 250 mg po q12 thank you for [facility] kind referral Code(s): R55 - SYNCOPE AND COLLAPSE Qualifiers: Syncope type: unspecified Qualified Code(s): R55 - Syncope and collapse
[2018-09-30] MEDS ORDERED: levETIRAcetam 250 MG TABLET (FP) PO SCH (22:00)
[2018-09-30] MEDS: ROSUVASTATIN CA 5 MG TABLET (FP) PO SCH (22:02)
[2018-09-30] MEDS: LABETALOL HCL 200 MG TABLET (FP) PO SCH (22:03)
[2018-09-30] MEDS: levETIRAcetam 500 MG TABLET (FP) PO SCH (22:03)
[2018-09-30] MEDS: NIFEdipine E.R 60 MG TABLET (UD) PO SCH (22:04)
[2018-10-01] MEDS: LABETALOL HCL 200 MG TABLET (FP) PO SCH ×3 (06:26→21:39)
[2018-10-01 07:22] LABS: ANION GAP 9 MMOL/L (8-16); BLOOD UREA NITROGEN 23 mg/dL (7-18); CALCIUM 8.7 mg/dL (8.5-10.1); CHLORIDE 107 mmol/L (98-107); CO2 25 mmol/L (21-32); CREATININE 1.4 mg/dL (0.55-1.3); GLUCOSE,RANDOM 98 mg/dL (74-106); MAGNESIUM 1.9 mg/dL (1.8-2.4); POTASSIUM 3.9 mmol/L (3.5-5.1); SODIUM 140 mmol/L (136-145)
[2018-10-01 08:46] LABS: CHOLESTEROL 149 mg/dL (50-200); HDL CHOLESTEROL 38 mg/dL (40-60); TRIGLYCERIDES 164 mg/dL (0-150)
--- NOTE | 2018-10-01 10:29 | PN ---
Progress Note (short form) - Note Progress Note: s: no cp sob palps dizzy o: Vital Signs Period Temp Pulse Resp BP Sys/Palmer Pulse Ox Last 24 Hr 97.4 F-98.3 F 68-99 18-23 110-177/51-89 97-100 nad no jvd rrr s1s2 no r/g, +as murmur cta bl nl eff aaox3 no le e/c/c abd nt nd pos bs no jaundice diaphoresis Current Medications Generic Name Dose Route Start Last Admin Trade Name Freq PRN Reason Stop Dose Admin Aspirin 81 mg 10/01/18 10:00 Ecotrin - PO DAILY LELAND Clopidogrel Bisulfate 75 mg 10/01/18 10:00 Plavix - PO DAILY LELAND Labetalol HCl 200 mg 09/30/18 22:00 10/01/18 06:26 Normodyne - PO 200 mg TID LELAND Administration Lactulose 20 gm 09/30/18 18:19 Cephulac (Oral Use) PO DAILY PRN CONSTIPATION Levetiracetam 250 mg 09/30/18 22:00 09/30/18 22:03 Keppra - PO 250 mg BID LELAND Administration Lisinopril 5 mg 10/01/18 10:00 Prinivil PO DAILY LELAND Nifedipine 60 mg 09/30/18 22:00 09/30/18 22:04 Procardia Xl - PO 60 mg BID LELAND Administration Rosuvastatin Calcium 5 mg 09/30/18 22:00 09/30/18 22:02 Crestor - PO 5 mg HS LELAND Administration CBC, BMP 09/30/18 11:30 10/01/18 05:30 ecg: sr, nl intervals, no ischemic changes echo 07/2018: lvh, nl lvef, rv tds, small peric eff, mild as cxr: clear lungs tele: sr a/p: 78 m hx mild-moderate , non-obstx CAD, HTN, cvas, recent cea complicated by cva, who was sent from rehab with syncope. syncope: -several episodes over past year, often months apart -no cardiac etiology found at this point -doubt since his recent echos have shown only mild-mod and the presentation seems less likely related -neuro following and feels this could be seizure related, started on keppra -would recommend outpt loop recorder to try an identify a possible arrhythmic cause if seizure treatment is not successful as: -mild-mod on recent echos, outpt monitoring htn: -cont home bharathi, ccb hld: -cont statin cea, cva: -cont statin, asa, plavix
[2018-10-01] MEDS: ASPIRIN COATED 81 MG TABLET.EC PO SCH (10:32)
[2018-10-01] MEDS: LISINOPRIL 5 MG TABLET (FP) PO SCH (10:33)
[2018-10-01] MEDS: CLOPIDOGREL BISULFATE 75 MG TABLET (FP) PO SCH (10:33)
[2018-10-01] MEDS: levETIRAcetam 500 MG TABLET (FP) PO SCH ×2 (10:33→21:39)
[2018-10-01] MEDS: NIFEdipine E.R 60 MG TABLET (UD) PO SCH ×2 (10:34→21:39)
--- NOTE | 2018-10-01 17:25 | PN ---
Progress Note (short form) - Note Progress Note: %%%%%%%%%%%%%% MEDICAL %%%%%%%%%%%%%%%%%% Current Medications Aspirin (Ecotrin -) 81 mg PO DAILY [facility] Last Admin: 10/01/18 10:32 Dose: 81 mg Clopidogrel Bisulfate (Plavix -) 75 mg PO DAILY [facility] Last Admin: 10/01/18 10:33 Dose: 75 mg Labetalol HCl (Normodyne -) 200 mg PO TID [facility] Last Admin: 10/01/18 14:26 Dose: 200 mg Lactulose (Cephulac (Oral Use)) 20 gm PO DAILY PRN PRN Reason: CONSTIPATION Levetiracetam (Keppra -) 250 mg PO BID [facility] Last Admin: 10/01/18 10:33 Dose: 250 mg Lisinopril (Prinivil) 5 mg PO DAILY [facility] Last Admin: 10/01/18 10:33 Dose: 5 mg Nifedipine (Procardia Xl -) 60 mg PO BID [facility] Last Admin: 10/01/18 10:34 Dose: 60 mg Rosuvastatin Calcium (Crestor -) 5 mg PO HS [facility] Last Admin: 09/30/18 22:02 Dose: 5 mg Laboratory Results - last 24 hr 09/30/18 10/01/18 10/01/18 15:00 05:30 05:30 Sodium 140 Potassium 3.9 Chloride 107 Carbon Dioxide 25 Anion Gap 9 BUN 23 H Creatinine 1.4 H Creat Clearance w eGFR 49.14 Random Glucose 98 Hemoglobin A1c % 5.6 Calcium 8.7 Magnesium 1.9 Triglycerides 164 H Cholesterol 149 Total LDL Cholesterol 90 HDL Cholesterol 38 L TSH 3.48 D Prolactin 15.2 Vital Signs Temperature 97.4 F L 10/01/18 14:00 Pulse Rate 81 10/01/18 14:00 Respiratory Rate 19 10/01/18 14:00 Blood Pressure 135/86 10/01/18 14:00 O2 Sat by Pulse Oximetry (%) 100 10/01/18 09:00 CC: none today; slept well ````````````````````````` skin--NL color eyes--eomi lungs--grossly clear heart--RR w/ M abd--benign ext--no edema neuro--awake; coherent lucid; some Rt HP as before; speech is fluent ````````````````````````````` Summ > syncope--arrhthymia vs possible seizure (post stroke); no signif rhythm issues noted so far; had EEG today; cont on keppra; TSH & Mag Okay; as is Prolactin. Issue of the Prozac as a cause is not clear; though it might lower the threshold for seizures. Will hold it for now. > Htn--with chronic stable CRI; Bp can fluctuate at times; cont CCB; BB and bharathi- 1 > lipidemia--LDL in decent range; may up the statin to 10mg > Rt H/P--still unable to ambulate w/ stability but has good motor function on the affected side; will need more PT when ready; cont anti-Plt agents. ~~~~~~~~~~~~~~~~~~~~~ Dr Duckworth Problem List - Problems (1) Syncope Code(s): R55 - SYNCOPE AND COLLAPSE Qualifiers: Syncope type: unspecified Qualified Code(s): R55 - Syncope and collapse (2) Stroke Code(s): I63.9 - CEREBRAL INFARCTION, UNSPECIFIED Qualifiers: Laterality of affected vessel: left (3) Hypertension Code(s): I10 - ESSENTIAL (PRIMARY) HYPERTENSION (4) Aortic stenosis Code(s): I35.0 - NONRHEUMATIC AORTIC (VALVE) STENOSIS Qualifiers: Cardiac valve disease etiology: nonrheumatic Qualified Code(s): I35.0 - Nonrheumatic aortic (valve) stenosis (5) Lipid disorder Code(s): E78.9 - DISORDER OF LIPOPROTEIN METABOLISM, UNSPECIFIED (6) History of left-sided carotid endarterectomy Code(s): Z98.890 - OTHER SPECIFIED POSTPROCEDURAL STATES (7) Hx of traumatic brain injury Code(s): Z87.820 - PERSONAL HISTORY OF TRAUMATIC BRAIN INJURY (8) Depression with anxiety Code(s): F41.8 - OTHER SPECIFIED ANXIETY DISORDERS
[2018-10-01] MEDS ORDERED: PT OWN MED DRAWER 7, Y5N ONE (21:26)
[2018-10-01] MEDS: ROSUVASTATIN CA 5 MG TABLET (FP) PO SCH (21:39)
[2018-10-02] MEDS: LABETALOL HCL 200 MG TABLET (FP) PO SCH ×3 (05:30→22:43)
[2018-10-02 06:49] LABS: ANION GAP 6 MMOL/L (8-16); BLOOD UREA NITROGEN 28 mg/dL (7-18); CALCIUM 8.9 mg/dL (8.5-10.1); CHLORIDE 106 mmol/L (98-107); CO2 29 mmol/L (21-32); CREATININE 1.4 mg/dL (0.55-1.3); GLUCOSE,RANDOM 92 mg/dL (74-106); POTASSIUM 4.2 mmol/L (3.5-5.1); SODIUM 141 mmol/L (136-145)
[2018-10-02] MEDS ORDERED: PT OWN MED DRAWER 7, Y5N ONE (09:57)
[2018-10-02] MEDS: LISINOPRIL 5 MG TABLET (FP) PO SCH (09:58)
[2018-10-02] MEDS: CLOPIDOGREL BISULFATE 75 MG TABLET (FP) PO SCH (09:58)
[2018-10-02] MEDS: levETIRAcetam 500 MG TABLET (FP) PO SCH ×2 (09:58→22:42)
[2018-10-02] MEDS: ASPIRIN COATED 81 MG TABLET.EC PO SCH (09:58)
[2018-10-02] MEDS: NIFEdipine E.R 60 MG TABLET (UD) PO SCH ×2 (09:59→22:40)
--- NOTE | 2018-10-02 10:33 | PN ---
Progress Note (short form) - Note Progress Note: s: no cp sob palps dizzy o: Vital Signs Period Temp Pulse Resp BP Sys/Palmer Pulse Ox Last 24 Hr 97.4 F-97.8 F 68-81 15-21 127-140/56-86 100-100 nad no jvd rrr s1s2 no r/g, +as murmur cta bl nl eff aaox3 no le e/c/c abd nt nd pos bs no jaundice diaphoresis Current Medications Generic Name Dose Route Start Last Admin Trade Name Freq PRN Reason Stop Dose Admin Aspirin 81 mg 10/01/18 10:00 10/02/18 09:58 Ecotrin - PO 81 mg DAILY [facility] Administration Clopidogrel Bisulfate 75 mg 10/01/18 10:00 10/02/18 09:58 Plavix - PO 75 mg DAILY [facility]AND Administration Labetalol HCl 200 mg 09/30/18 22:00 10/02/18 05:30 Normodyne - PO 200 mg TID LELAND Administration Lactulose 20 gm 09/30/18 18:19 Cephulac (Oral Use) PO DAILY PRN CONSTIPATION Levetiracetam 250 mg 09/30/18 22:00 10/02/18 09:58 Keppra - PO 250 mg BID LELAND Administration Lisinopril 5 mg 10/01/18 10:00 10/02/18 09:58 Prinivil PO 5 mg DAILY [facility]ELAND Administration Nifedipine 60 mg 09/30/18 22:00 10/02/18 09:59 Procardia Xl - PO 60 mg BID LELAND Administration Rosuvastatin Calcium 5 mg 09/30/18 22:00 10/01/18 21:39 Crestor - PO 5 mg HS LELAND Administration CBC, BMP 09/30/18 11:30 10/02/18 05:30 ecg: sr, nl intervals, no ischemic changes echo 07/2018: lvh, nl lvef, rv tds, small peric eff, mild as cxr: clear lungs tele: sr a/p: 78 m hx mild-moderate , non-obstx CAD, HTN, cvas, recent cea complicated by cva, who was sent from rehab with syncope. syncope: -several episodes over past year, often months apart -no cardiac etiology found at this point -doubt since his recent echos have shown only mild-mod and the presentation seems less likely related -neuro following and feels this could be seizure related, started on keppra -would recommend outpt loop recorder to try an identify a possible arrhythmic cause if seizure treatment is not successful as: -mild-mod on recent echos, outpt monitoring htn: -cont home bharathi, ccb hld: -cont statin cea, cva: -cont statin, asa, plavix cardiac pulido stable
--- NOTE | 2018-10-02 16:41 | PN ---
Progress Note (short form) - Note Progress Note: medical Current Medications Aspirin (Ecotrin -) 81 mg PO DAILY [facility] Last Admin: 10/02/18 09:58 Dose: 81 mg Clopidogrel Bisulfate (Plavix -) 75 mg PO DAILY [facility] Last Admin: 10/02/18 09:58 Dose: 75 mg Labetalol HCl (Normodyne -) 200 mg PO TID [facility] Last Admin: 10/02/18 14:25 Dose: 200 mg Lactulose (Cephulac (Oral Use)) 20 gm PO DAILY PRN PRN Reason: CONSTIPATION Levetiracetam (Keppra -) 250 mg PO BID [facility] Last Admin: 10/02/18 09:58 Dose: 250 mg Lisinopril (Prinivil) 5 mg PO DAILY [facility] Last Admin: 10/02/18 09:58 Dose: 5 mg Nifedipine (Procardia Xl -) 60 mg PO BID [facility] Last Admin: 10/02/18 09:59 Dose: 60 mg Rosuvastatin Calcium (Crestor -) 5 mg PO [facility] Last Admin: 10/01/18 21:39 Dose: 5 mg Laboratory Results - last 24 hr 10/02/18 05:30 Sodium 141 Potassium 4.2 Chloride 106 Carbon Dioxide 29 Anion Gap 6 L BUN 28 H Creatinine 1.4 H Creat Clearance w eGFR 49.14 Random Glucose 92 Calcium 8.9 Vital Signs Temperature 97.9 F 10/02/18 14:17 Pulse Rate 76 10/02/18 14:17 Respiratory Rate 15 10/02/18 14:17 Blood Pressure 135/53 L 10/02/18 14:17 O2 Sat by Pulse Oximetry (%) 100 10/02/18 10:00 CC: none today; slept well ````````````````````````` skin--NL color eyes--eomi lungs--grossly clear heart--RR w/ M abd--benign ext--no edema neuro--awake; coherent lucid; some Rt HP as before; speech is fluent ````````````````````````````` Summ > syncope--arrhythmia vs possible seizure (post stroke); no signif rhythm issues noted to date; had EEG but no report yet; cont on keppra; TSH & Mag Okay ; as is Prolactin. Issue of the Prozac as a cause is not clear; though it might lower the threshold for seizures. Will hold it for now. > Htn--with stable CRI; Bp can fluctuate at times; cont CCB; BB and bharathi-1 > lipidemia--LDL in decent range; up the statin to 10mg > Rt H/P--still unable to ambulate w/ stability but has good motor function on the affected side; will need more PT when ready; cont anti-Plt agents. ~~~~~~~~~~~~~~~~~~~~~ Dr Duckworth Problem List - Problems (1) Syncope Code(s): R55 - SYNCOPE AND COLLAPSE Qualifiers: Syncope type: unspecified Qualified Code(s): R55 - Syncope and collapse (2) Stroke Code(s): I63.9 - CEREBRAL INFARCTION, UNSPECIFIED Qualifiers: Laterality of affected vessel: left (3) Hypertension Code(s): I10 - ESSENTIAL (PRIMARY) HYPERTENSION (4) Aortic stenosis Code(s): I35.0 - NONRHEUMATIC AORTIC (VALVE) STENOSIS Qualifiers: Cardiac valve disease etiology: nonrheumatic Qualified Code(s): I35.0 - Nonrheumatic aortic (valve) stenosis (5) Lipid disorder Code(s): E78.9 - DISORDER OF LIPOPROTEIN METABOLISM, UNSPECIFIED (6) History of left-sided carotid endarterectomy Code(s): Z98.890 - OTHER SPECIFIED POSTPROCEDURAL STATES (7) Hx of traumatic brain injury Code(s): Z87.820 - PERSONAL HISTORY OF TRAUMATIC BRAIN INJURY (8) Depression with anxiety Code(s): F41.8 - OTHER SPECIFIED ANXIETY DISORDERS
[2018-10-02] MEDS: ROSUVASTATIN CA 10 MG TABLET (FP) PO SCH (23:14)
[2018-10-03] MEDS: LABETALOL HCL 200 MG TABLET (FP) PO SCH ×3 (06:28→22:14)
[2018-10-03 06:50] LABS: ANION GAP 9 MMOL/L (8-16); BLOOD UREA NITROGEN 25 mg/dL (7-18); CALCIUM 8.4 mg/dL (8.5-10.1); CHLORIDE 107 mmol/L (98-107); CO2 26 mmol/L (21-32); CREATININE 1.5 mg/dL (0.55-1.3); GLUCOSE,RANDOM 91 mg/dL (74-106); POTASSIUM 4.5 mmol/L (3.5-5.1); SODIUM 142 mmol/L (136-145)
[2018-10-03] MEDS: ASPIRIN COATED 81 MG TABLET.EC PO SCH (09:47)
[2018-10-03] MEDS: CLOPIDOGREL BISULFATE 75 MG TABLET (FP) PO SCH (09:48)
[2018-10-03] MEDS: levETIRAcetam 500 MG TABLET (FP) PO SCH ×2 (09:48→22:15)
[2018-10-03] MEDS: LISINOPRIL 5 MG TABLET (FP) PO SCH (09:48)
[2018-10-03] MEDS: NIFEdipine E.R 60 MG TABLET (UD) PO SCH ×2 (09:49→22:17)
--- NOTE | 2018-10-03 10:12 | PN ---
Progress Note (short form) - Note Progress Note: s: no cp sob palps dizzy o: Vital Signs Period Temp Pulse Resp BP Sys/Palmer Pulse Ox Last 24 Hr 97.9 F-98.0 F 67-81 15-22 107-170/53-72 100 nad no jvd rrr s1s2 no r/g, +as murmur cta bl nl eff aaox3 no le e/c/c abd nt nd pos bs no jaundice diaphoresis Current Medications Generic Name Dose Route Start Last Admin Trade Name Freq PRN Reason Stop Dose Admin Aspirin 81 mg 10/01/18 10:00 10/03/18 09:47 Ecotrin - PO 81 mg DAILY LELAND Administration Clopidogrel Bisulfate 75 mg 10/01/18 10:00 10/03/18 09:48 Plavix - PO 75 mg DAILY LELAND Administration Labetalol HCl 200 mg 09/30/18 22:00 10/03/18 06:28 Normodyne - PO 200 mg TID LELAND Administration Lactulose 20 gm 09/30/18 18:19 Cephulac (Oral Use) PO DAILY PRN CONSTIPATION Levetiracetam 250 mg 09/30/18 22:00 10/03/18 09:48 Keppra - PO 250 mg BID LELAND Administration Lisinopril 5 mg 10/01/18 10:00 10/03/18 09:48 Prinivil PO 5 mg DAILY LELAND Administration Nifedipine 60 mg 09/30/18 22:00 10/03/18 09:49 Procardia Xl - PO 60 mg BID LELAND Administration Rosuvastatin Calcium 10 mg 10/02/18 22:00 10/02/18 23:14 Crestor - PO 10 mg HS LELAND Administration CBC, BMP 09/30/18 11:30 10/03/18 05:30 ecg: sr, nl intervals, no ischemic changes echo 07/2018: lvh, nl lvef, rv tds, small peric eff, mild as cxr: clear lungs tele: sr a/p: 78 m hx mild-moderate , non-obstx CAD, HTN, cvas, recent cea complicated by cva, who was sent from rehab with syncope. syncope: -several episodes over past year, often months apart -no cardiac etiology found at this point -doubt since his recent echos have shown only mild-mod and the presentation seems less likely related -neuro following and feels this could be seizure related, started on keppra -would recommend outpt loop recorder to try an identify a possible arrhythmic cause if seizure treatment is not successful as: -mild-mod on recent echos, outpt monitoring htn: -cont home bharathi, ccb hld: -cont statin cea, cva: -cont statin, asa, plavix cardiac pulido stable
--- NOTE | 2018-10-03 12:56 | PN ---
Progress Note, Physician History of Present Illness: events noted chart reviewed no report of any seizure-like activity patient's is at the bedside patient is tolerating the medication very well EEG was abnormal with slowing at the area of left MCA distribution with the stroke was and questionable abnormal discharge in the right frontal area patient needs to be on antiseizure medication. Patient is tolerating the medicine very well. - Current Medication List Current Medications: Active Medications Aspirin (Ecotrin -) 81 mg PO DAILY [facility] Last Admin: 10/03/18 09:47 Dose: 81 mg Clopidogrel Bisulfate (Plavix -) 75 mg PO DAILY [facility] Last Admin: 10/03/18 09:48 Dose: 75 mg Labetalol HCl (Normodyne -) 200 mg PO TID [facility] Last Admin: 10/03/18 06:28 Dose: 200 mg Lactulose (Cephulac (Oral Use)) 20 gm PO DAILY PRN PRN Reason: CONSTIPATION Levetiracetam (Keppra -) 250 mg PO BID [facility] Last Admin: 10/03/18 09:48 Dose: 250 mg Lisinopril (Prinivil) 5 mg PO DAILY [facility] Last Admin: 10/03/18 09:48 Dose: 5 mg Nifedipine (Procardia Xl -) 60 mg PO BID [facility] Last Admin: 10/03/18 09:49 Dose: 60 mg Rosuvastatin Calcium (Crestor -) 10 mg PO HS [facility] Last Admin: 10/02/18 23:14 Dose: 10 mg - Objective Vital Signs: Vital Signs Temperature 98.3 F 10/03/18 10:00 Pulse Rate 74 10/03/18 10:00 Respiratory Rate 20 10/03/18 10:00 Blood Pressure 134/61 10/03/18 10:00 O2 Sat by Pulse Oximetry (%) 100 10/03/18 09:00 Constitutional: Yes: Well Nourished Eyes: Yes: WNL Neurological: Yes: Alert, Oriented, Babinski negative ...Motor Strength: WNL Labs: CBC, BMP 09/30/18 11:30 10/03/18 05:30 INR, PTT INR 1.08 (0.83-1.09) 09/30/18 11:30 Problem List - Problems (1) Syncope Assessment/Plan: seizure disorder status post stroke 1. Continue Keppra the same. 2. Seizure precautions. 3. Neurologically patient is okay to go home 4. Arrangements for video EEG monitoring at home Code(s): R55 - SYNCOPE AND COLLAPSE Qualifiers: Syncope type: unspecified Qualified Code(s): R55 - Syncope and collapse
--- NOTE | 2018-10-03 13:38 | PN ---
Progress Note (short form) - Note Progress Note: ################## medical ################ Current Medications Aspirin (Ecotrin -) 81 mg PO DAILY [facility] Last Admin: 10/03/18 09:47 Dose: 81 mg Clopidogrel Bisulfate (Plavix -) 75 mg PO DAILY [facility] Last Admin: 10/03/18 09:48 Dose: 75 mg Labetalol HCl (Normodyne -) 200 mg PO TID [facility] Last Admin: 10/03/18 06:28 Dose: 200 mg Lactulose (Cephulac (Oral Use)) 20 gm PO DAILY PRN PRN Reason: CONSTIPATION Levetiracetam (Keppra -) 250 mg PO BID [facility] Last Admin: 10/03/18 09:48 Dose: 250 mg Lisinopril (Prinivil) 5 mg PO DAILY [facility] Last Admin: 10/03/18 09:48 Dose: 5 mg Nifedipine (Procardia Xl -) 60 mg PO BID [facility] Last Admin: 10/03/18 09:49 Dose: 60 mg Rosuvastatin Calcium (Crestor -) 10 mg PO HS [facility] Last Admin: 10/02/18 23:14 Dose: 10 mg Vital Signs Temperature 98.3 F 10/03/18 10:00 Pulse Rate 74 10/03/18 10:00 Respiratory Rate 20 10/03/18 10:00 Blood Pressure 134/61 10/03/18 10:00 O2 Sat by Pulse Oximetry (%) 100 10/03/18 09:00 Laboratory Results - last 24 hr 10/03/18 05:30 Sodium 142 Potassium 4.5 Chloride 107 Carbon Dioxide 26 Anion Gap 9 BUN 25 H Creatinine 1.5 H Creat Clearance w eGFR 45.38 Random Glucose 91 Calcium 8.4 L CC: none today ````````````````````````` skin--NL color eyes--eomi lungs--grossly clear heart--RR w/ M abd--benign ext--no edema neuro--awake; coherent lucid; able to stand; can walk to BR with assist; has some Rt HP as before; speech is fluent ````````````````````````````` Summ > syncope--EEG findings seem to point to a possible seizure (as a cause of his syncope)arrhythmia vs possible seizure (post stroke) and will remain on Keppra; no signif rhythm issues noted to date. 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 ~~~~~~~~~~~~~~~~~~~~~ Dr Duckworth Problem List - Problems (1) Syncope Code(s): R55 - SYNCOPE AND COLLAPSE Qualifiers: Syncope type: unspecified Qualified Code(s): R55 - Syncope and collapse (2) Stroke Code(s): I63.9 - CEREBRAL INFARCTION, UNSPECIFIED Qualifiers: Laterality of affected vessel: left (3) Hypertension Code(s): I10 - ESSENTIAL (PRIMARY) HYPERTENSION (4) Aortic stenosis Code(s): I35.0 - NONRHEUMATIC AORTIC (VALVE) STENOSIS Qualifiers: Cardiac valve disease etiology: nonrheumatic Qualified Code(s): I35.0 - Nonrheumatic aortic (valve) stenosis (5) Lipid disorder Code(s): E78.9 - DISORDER OF LIPOPROTEIN METABOLISM, UNSPECIFIED (6) History of left-sided carotid endarterectomy Code(s): Z98.890 - OTHER SPECIFIED POSTPROCEDURAL STATES (7) Hx of traumatic brain injury Code(s): Z87.820 - PERSONAL HISTORY OF TRAUMATIC BRAIN INJURY (8) Depression with anxiety Code(s): F41.8 - OTHER SPECIFIED ANXIETY DISORDERS
[2018-10-03] MEDS: ROSUVASTATIN CA 10 MG TABLET (FP) PO SCH (22:22)
[2018-10-04] MEDS: LABETALOL HCL 200 MG TABLET (FP) PO SCH ×3 (06:31→22:53)
[2018-10-04] MEDS: ASPIRIN COATED 81 MG TABLET.EC PO SCH (09:03)
[2018-10-04] MEDS: levETIRAcetam 500 MG TABLET (FP) PO SCH ×2 (09:03→22:53)
[2018-10-04] MEDS: CLOPIDOGREL BISULFATE 75 MG TABLET (FP) PO SCH (09:04)
[2018-10-04] MEDS: LISINOPRIL 5 MG TABLET (FP) PO SCH (09:04)
[2018-10-04] MEDS: NIFEdipine E.R 60 MG TABLET (UD) PO SCH ×2 (09:04→22:53)
--- NOTE | 2018-10-04 10:41 | PN ---
Progress Note (short form) - Note Progress Note: s: no cp sob palps dizzy o: Vital Signs Period Temp Pulse Resp BP Sys/Palmer Pulse Ox Last 24 Hr 97.8 F-98.1 F 73-82 16-24 122-178/58-80 100-100 nad no jvd rrr s1s2 no r/g, +as murmur cta bl nl eff aaox3 no le e/c/c abd nt nd pos bs no jaundice diaphoresis Current Medications Generic Name Dose Route Start Last Admin Trade Name Freq PRN Reason Stop Dose Admin Aspirin 81 mg 10/01/18 10:00 10/04/18 09:03 Ecotrin - PO 81 mg DAILY LELAND Administration Clopidogrel Bisulfate 75 mg 10/01/18 10:00 10/04/18 09:04 Plavix - PO 75 mg DAILY LELAND Administration Labetalol HCl 200 mg 09/30/18 22:00 10/04/18 06:31 Normodyne - PO 200 mg TID LELAND Administration Lactulose 20 gm 09/30/18 18:19 Cephulac (Oral Use) PO DAILY PRN CONSTIPATION Levetiracetam 250 mg 09/30/18 22:00 10/04/18 09:03 Keppra - PO 250 mg BID LELAND Administration Lisinopril 5 mg 10/01/18 10:00 10/04/18 09:04 Prinivil PO 5 mg DAILY LELAND Administration Nifedipine 60 mg 09/30/18 22:00 10/04/18 09:04 Procardia Xl - PO 60 mg BID LELAND Administration Rosuvastatin Calcium 10 mg 10/02/18 22:00 10/03/18 22:22 Crestor - PO 10 mg HS LELAND Administration 09/30/18 11:30 10/03/18 05:30 ecg: sr, nl intervals, no ischemic changes echo 07/2018: lvh, nl lvef, rv tds, small peric eff, mild as cxr: clear lungs tele: sr a/p: 78 m hx mild-moderate , non-obstx CAD, HTN, cvas, recent cea complicated by cva, who was sent from rehab with syncope. syncope: -several episodes over past year, often months apart -no cardiac etiology found at this point -doubt since his recent echos have shown only mild-mod and the presentation seems less likely related -neuro following and feels this could be seizure related, started on keppra -would recommend outpt loop recorder to try an identify a possible arrhythmic cause if seizure treatment is not successful as: -mild-mod on recent echos, outpt monitoring htn: -cont home bharathi, ccb hld: -cont statin cea, cva: -cont statin, asa, plavix cardiac pulido stable for dc
[2018-10-04] MEDS ORDERED: LACTULOSE 20 GM/30 ML UDC (FOR ORAL USE ONLY) PO PRN (16:36)
--- NOTE | 2018-10-04 18:24 | PN ---
Progress Note (short form) - Note Progress Note: Medical Current Medications Aspirin (Ecotrin -) 81 mg PO DAILY [facility]ELAND Clopidogrel Bisulfate (Plavix -) 75 mg PO DAILY [facility]ELAND Labetalol HCl (Normodyne -) 200 mg PO TID LELAND Lactulose (Cephulac (Oral Use)) 20 gm PO DAILY PRN PRN Reason: CONSTIPATION Levetiracetam (Keppra -) 250 mg PO BID [facility]ELAND Lisinopril (Prinivil) 5 mg PO DAILY [facility] Nifedipine (Procardia Xl -) 60 mg PO BID [facility]ELAND Rosuvastatin Calcium (Crestor -) 10 mg PO HS [facility] Vital Signs Temperature 97.3 F L 10/04/18 17:17 Pulse Rate 72 10/04/18 17:17 Respiratory Rate 18 10/04/18 17:17 Blood Pressure 150/72 10/04/18 17:17 O2 Sat by Pulse Oximetry (%) 100 10/04/18 09:00 CC: none today; feels okay ````````````````````````` skin--NL color eyes--eomi lungs--grossly clear heart--RR w/ M abd--benign ext--no edema neuro--awake; coherent lucid; able to stand; can walk to BR with assist; has some Rt HP as before; speech is fluent ````````````````````````````` Summ > syncope--EEG findings seem to point to a possible seizure (as a cause of his syncope)thus, will remain on Keppra; no signif rhythm issues noted while on Monitor. 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 ~~~~~~~~~~~~~~~~~~~~~ Dr Duckworth Problem List - Problems (1) Syncope Code(s): R55 - SYNCOPE AND COLLAPSE Qualifiers: Syncope type: unspecified Qualified Code(s): R55 - Syncope and collapse (2) Stroke Code(s): I63.9 - CEREBRAL INFARCTION, UNSPECIFIED Qualifiers: Laterality of affected vessel: left (3) Hypertension Code(s): I10 - ESSENTIAL (PRIMARY) HYPERTENSION (4) Aortic stenosis Code(s): I35.0 - NONRHEUMATIC AORTIC (VALVE) STENOSIS Qualifiers: Cardiac valve disease etiology: nonrheumatic Qualified Code(s): I35.0 - Nonrheumatic aortic (valve) stenosis (5) Lipid disorder Code(s): E78.9 - DISORDER OF LIPOPROTEIN METABOLISM, UNSPECIFIED (6) History of left-sided carotid endarterectomy Code(s): Z98.890 - OTHER SPECIFIED POSTPROCEDURAL STATES (7) Hx of traumatic brain injury Code(s): Z87.820 - PERSONAL HISTORY OF TRAUMATIC BRAIN INJURY (8) Depression with anxiety Code(s): F41.8 - OTHER SPECIFIED ANXIETY DISORDERS
[2018-10-04] MEDS: ROSUVASTATIN CA 10 MG TABLET (FP) PO SCH (22:53)
[2018-10-05] MEDS: LABETALOL HCL 200 MG TABLET (FP) PO SCH ×3 (05:46→22:11)
[2018-10-05 07:41] LABS: ANION GAP 8 MMOL/L (8-16); BLOOD UREA NITROGEN 21 mg/dL (7-18); CHLORIDE 108 mmol/L (98-107); CO2 25 mmol/L (21-32); CREATININE 1.4 mg/dL (0.55-1.3); GLUCOSE,RANDOM 83 mg/dL (74-106); POTASSIUM 4.3 mmol/L (3.5-5.1); SODIUM 141 mmol/L (136-145)
[2018-10-05] MEDS: levETIRAcetam 500 MG TABLET (FP) PO SCH ×2 (10:05→22:10)
[2018-10-05] MEDS: ASPIRIN COATED 81 MG TABLET.EC PO SCH (10:06)
[2018-10-05] MEDS: CLOPIDOGREL BISULFATE 75 MG TABLET (FP) PO SCH (10:07)
[2018-10-05] MEDS: LISINOPRIL 5 MG TABLET (FP) PO SCH (10:07)
[2018-10-05] MEDS: NIFEdipine E.R 60 MG TABLET (UD) PO SCH ×2 (10:10→22:12)
--- NOTE | 2018-10-05 13:49 | DS ---
Physical Examination Vital Signs: Vital Signs Temperature 97.7 F 10/05/18 09:00 Pulse Rate 72 10/05/18 09:00 Respiratory Rate 18 10/05/18 09:00 Blood Pressure 136/74 10/05/18 09:00 O2 Sat by Pulse Oximetry (%) 97 10/05/18 09:00 Constitutional: Yes: Well Nourished, No Distress, Calm Eyes: Yes: Conjunctiva Clear Neck: Yes: Supple Cardiovascular: Yes: Regular Rate and Rhythm Respiratory: Yes: Regular Gastrointestinal: Yes: Soft Musculoskeletal: Yes: Muscle Weakness (Rt UE) Extremities: Yes: WNL Edema: No Integumentary: Yes: WNL Neurological: Yes: Alert, Oriented, Pre-Existing Deficit (Rt HP) Psychiatric: Yes: WNL Labs: CBC, BMP 09/30/18 11:30 10/05/18 05:10 Discharge Summary Reason For Visit: SYNCOPE Current Active Problems Depression with anxiety (Acute) Syncope (Acute) 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 There were signs suggesting a seizure. On admission, his VS were stable and troponin was negative. he was seen by Cardiology and neurology. CT scan was unremarkable for anything acute. His HR was stable on the monitor and BP was in acceptable range. He had no further syncopal episodes. The EEG did reveal abnormal wave forms from 2 places in the bran; 1) where he had old Hx of trauma (rt frontal lobe); and 2) the other is on the Lt hemisphere where he had a recent CVA. he was placed on Keppra; and to f/u with Neurology. Cardio advised a loop recorder if he keeps having syncopal episodes. His mental status remained stable. His blood work was unremarkable. He had no specific complaints. His daughter did not wish for him to return to the SNF (where he came from) but rather is opting for him to come live with her for a period of time. She wish to undertake out patient PT via [facility] (where he was an inpatient before). Condition: Good - Instructions Diet, Activity, Other Instructions: low salt no exertion no driving outPatientt PT at [place] Disposition: HOME - Home Medications Comprehensive Discharge Medication List: Ambulatory Orders Aspirin [ASA -] 81 mg PO DAILY 1 Days #30 tab.chew 10/05/18 Clopidogrel Bisulfate [Plavix -] 75 mg PO DAILY 30 Days #30 tablet 10/05/18 Labetalol HCl [Normodyne -] 200 mg PO TID 30 Days #90 tablet 10/05/18 Lactulose 20 gm PO DAILY 30 Days #30 solution 10/05/18 Lisinopril [Prinivil] 5 mg PO DAILY 30 Days #30 tablet 10/05/18 Nifedipine ER [Procardia XL -] 120 mg PO DAILY 30 Days #60 tab.er.24 10/05/18 Rosuvastatin [Crestor -] 10 mg PO HS 30 Days #30 tablet 10/05/18 levETIRAcetam [Keppra -] 250 mg PO BID 1 Days #60 tablet 10/05/18
[2018-10-05] MEDS: ROSUVASTATIN CA 10 MG TABLET (FP) PO SCH (22:10)
[2018-10-06] MEDS: LABETALOL HCL 200 MG TABLET (FP) PO SCH ×3 (06:07→21:28)
[2018-10-06] MEDS: levETIRAcetam 500 MG TABLET (FP) PO SCH ×2 (10:21→21:28)
[2018-10-06] MEDS: CLOPIDOGREL BISULFATE 75 MG TABLET (FP) PO SCH (10:21)
[2018-10-06] MEDS: NIFEdipine E.R 60 MG TABLET (UD) PO SCH ×2 (10:21→21:28)
[2018-10-06] MEDS: LISINOPRIL 5 MG TABLET (FP) PO SCH (10:21)
[2018-10-06] MEDS: ASPIRIN COATED 81 MG TABLET.EC PO SCH (10:21)
[2018-10-06] MEDS: ROSUVASTATIN CA 10 MG TABLET (FP) PO SCH (21:28)
[2018-10-07] MEDS: LABETALOL HCL 200 MG TABLET (FP) PO SCH (05:46)
[2018-10-07] MEDS: LISINOPRIL 5 MG TABLET (FP) PO SCH (10:33)
[2018-10-07] MEDS: ASPIRIN COATED 81 MG TABLET.EC PO SCH (10:33)
[2018-10-07] MEDS: CLOPIDOGREL BISULFATE 75 MG TABLET (FP) PO SCH (10:33)
[2018-10-07] MEDS: NIFEdipine E.R 60 MG TABLET (UD) PO SCH (10:33)
[2018-10-07] MEDS: levETIRAcetam 500 MG TABLET (FP) PO SCH (10:34)
[2018-10-07 11:42] VITALS: BP 146/68; PULSE 77; TEMP 97.8
== END 2018-10-07 11:26 | disposition home or self-care (01) | DRG 101 ==
LOC: JER 10:24 → JERBED 14:02 → J2W 16:18 → J7W 10-04 16:52
PROVIDERS: ADMIT Internal Medicine; ATTEND Internal Medicine
PROC: 4A00X4Z Measurement of Central Nervous Electrical Activity, External Approach (ICD-10-PCS; principal; 2018-10-01)
DX: R56.9 Unspecified convulsions (principal); I31.3 Pericardial effusion (noninflammatory); G81.91 Hemiplegia, unspecified affecting right dominant side; I25.10 Atherosclerotic heart disease of native coronary artery without angina pectoris; I10 Essential (primary) hypertension; R55 Syncope and collapse; I35.0 Nonrheumatic aortic (valve) stenosis; E78.5 Hyperlipidemia, unspecified; F41.8 Other specified anxiety disorders; Z86.73 Personal history of transient ischemic attack (TIA), and cerebral infarction without residual deficits; Z87.820 Personal history of traumatic brain injury
CPT/HCPCS: 36415; 70450-TC; 71045-TC-FY; 80048; 80053; 80061; 82550; 83036; 83721; 83735; 84146; 84443; 84484; 85025; 85610; 93005; 93010; 95816; 97116-GP; 97162-GP; 99285-25

== ENCOUNTER 2018-10-10 01:13 | Emergency (ER) | payer OTHER ==
[2018-10-10 01:31] VITALS: TEMP 97.2
--- NOTE | 2018-10-10 01:38 | PDOC ---
History of Present Illness - General Chief Complaint: Pain, Acute Stated Complaint: ABD PAIN Time Seen by Provider: 10/10/18 01:37 - History of Present Illness Initial Comments: 10/10/18 01:[address] [facility], with a past medical history of HTN, HLD, 2 TIAs with residual RT-sided weakness, dementia, who's daughter reports that the patient has not had a BM since he was discharged 4 days ago and has been having lower abdominal discomfort . The patient's daughter as attempted to use fleet enemas without success. Allergies: NKA Surgical History: Left carotid endarterectomy 08/07/18, Left carotid angiogram 08/07. Craniotomy - 1964. Social History: None reported. PCP: Dr. Srinivas Mann 10/10/18 02:12 10/10/18 02:13 Past History - Past Medical History Allergies/Adverse Reactions: Allergies Allergy/AdvReac Type Severity Reaction Status Date / Time No Known Allergies Allergy Verified 10/10/18 01:27 Home Medications: Ambulatory Orders Aspirin [ASA -] 81 mg PO DAILY 1 Days #30 tab.chew 10/05/18 Clopidogrel Bisulfate [Plavix -] 75 mg PO DAILY 30 Days #30 tablet 10/05/18 Labetalol HCl [Normodyne -] 200 mg PO TID 30 Days #90 tablet 10/05/18 Lactulose 20 gm PO DAILY 30 Days #30 solution 10/05/18 Lisinopril [Prinivil] 5 mg PO DAILY 30 Days #30 tablet 10/05/18 Nifedipine ER [Procardia XL -] 120 mg PO DAILY 30 Days #60 tab.er.24 10/05/18 Rosuvastatin [Crestor -] 10 mg PO HS 30 Days #30 tablet 10/05/18 levETIRAcetam [Keppra -] 250 mg PO BID 1 Days #60 tablet 10/05/18 Anemia: No Asthma: No Cancer: No Cardiac Disorders: No (aortic valve hardening) CVA: Yes (multiple TIA, CVA with rt sided weakness) COPD: No CHF: No Dementia: Yes ("SLIGHT") Diabetes: No GI Disorders: No Disorders: Yes (urinary frequency) HTN: Yes Hypercholesterolemia: Yes Liver Disease: No Seizures: No Thyroid Disease: No - Surgical History Abdominal Surgery: No Appendectomy: No Cardiac Surgery: Yes (carotid endarectomy) Cholecystectomy: No Lung Surgery: No Neurologic Surgery: Yes (craineotomy 1965) Orthopedic Surgery: No - Immunization History Immunization Up to Date: Yes - Suicide/Smoking/Psychosocial Hx Smoking History: Never smoked Have you smoked in the past 12 months: No Number of Cigarettes Smoked Daily: 0 Information on smoking cessation initiated: No Hx Alcohol Use: No Drug/Substance Use Hx: No Substance Use Type: None Hx Substance Use Treatment: No *Physical Exam - Vital Signs Last Vital Signs Temp Pulse Resp BP Pulse Ox 97.2 F L 81 18 141/80 97 10/10/18 01:31 10/10/18 01:27 10/10/18 01:27 10/10/18 01:27 10/10/18 01:27 - Physical Exam Comments: 10/10/18 03:07 + distention slight tenderness to RLQ RUQ ED Treatment Course - LABORATORY CBC & Chemistry Diagram: 10/10/18 02:10 10/10/18 02:10 Medical Decision Making - Medical Decision Making 10/10/18 05:38 ED Course urainry retention vs constipation r/o sbo CT: suspected ileus and stool burden chandra with 1L after retention after 1L ns 10/10/18 06:06 patient responded to lactuloase and had large soft brown bowel movement will d/c with maralax *DC/Admit/Observation/Transfer Diagnosis at time of Disposition: Constipation - Discharge Dispostion Disposition: HOME Condition at time of disposition: Stable Decision to Admit order: No - Referrals Referrals: Srinivas Mnan MD [Primary Care Provider] - - Patient Instructions Printed Discharge Instructions: DI for Constipation Additional Instructions: You were seen in the ED for complaints of constipation. In the ED you were evaluated with labwork and imaging. Your results showed possible ileus and constipation. There does not appear to be an acute need for immediate hospitalization. You are advised to follow up with your Primary Care Physician within 1 week. You were given a referral to GI speciality and you should follow up within 1 week if symptoms persist. You were given a prescription for Miralax and should take medication as indicated. Return to the ED immediately if you experience worsening constipation, blood in the stool, worsening abdominal pain, fever, nausea or vomiting. - Post Discharge Activity
--- NOTE | 2018-10-10 01:44 | PDOC ---
Attending Attestation - Resident Resident Name: Poppy Bingham - ED Attending Attestation I have performed the following: I have examined & evaluated the patient, The case was reviewed & discussed with the resident, I agree w/resident's findings & plan - HPI HPI: 10/10/18 22:29 Pt comes wih diffuse abdominal pain, and constipation. He is afebrile. Daughter states that he has been unable to have BM for a couple days. IN the ER pt is having difficulty urinating also. - Physicial Exam PE: 10/10/18 22:30 Agree with resident exam - Medical Decision Making 10/10/18 03:47 Pt comes with lower abd pain and constipation and difficulty urinating. He has tense abdomen in the lower quadrants. Although he is warm to the touch he is not febrile. He has no flank pain. Pt had a chandra cath placed by ourselves for suspected urinary retention, but he has only 500 ml urine drainage. 10/10/18 05:20 Patient Name: FILI LOPEZ THIS IS A PRELIMINARY REPORT FROM [facility] DATE OF SERVICE: 2018-10-10 04:45:01 IMAGES: [id number] EXAM: ABDOMEN \T\ PELVIS CT W/O CONTR HISTORY: Abdominal pain COMPARISON: None. FINDINGS:Serial axial sections through the abdomen and pelvis were obtained. No intravenous contrast was given. Coronal and sagittal reconstructions were formatted. Sections through the lung bases demonstrate moderate cardiomegaly. The liver and spleen have a normal size and configuration. Scattered liver calcifications suggest old granulomatous disease. The gallbladder, biliary tree and pancreas are unremarkable. The kidneys are without stone or hydronephrosis. No solid renal mass is identified. The colon is mildly distended and filled with air and feces. The pattern is nonspecific. There is no wall thickening or surrounding fluid. Suspect an ileus. There is no abnormal bowel wall thickening or evidence of diverticulitis. The appendix is normal. The pelvic structures are unremarkable. The bladder is decompressed Via Chandra catheter. There is no pathologic adenopathy. The aorta has normal caliber. Diffuse arteriosclerotic changes are noted. Moderate degenerative changes throughout the spine are noted. There is bilateral pars defect noted at L5 with mild anterior subluxation of L5 on S1. IMPRESSION: Cardiomegaly. The colon is mildly distended and filled with air and feces. Suspect an ileus but the pattern is nonspecific. There is no obstruction. There is no ureteric stone hydronephrosis 10/10/18 05:28 Pt has suspected ileus and , however he is constipated. We will be giving him a fleets enema here; he received lactulose and he had a large BM here. 10/10/18 06:05 Home with miralax.
[2018-10-10] MEDS ORDERED: ACETAMINOPHEN 1000 MG/100 ML VIAL (NON FORMULARY) IVPB ONE (02:08)
[2018-10-10] MEDS ORDERED: SODIUM CHLORIDE 1,000 ML IV SCH (02:15)
[2018-10-10] MEDS ORDERED: ACETAMINOPHEN INJECTION 100 ML IVPB ONE (02:21)
[2018-10-10 02:25] LABS: BASO % 0.4 % (0-2.0); EOS % 0.8 % (0-4.5); HEMATOCRIT 38.9 % (35.4-49); LYMPH % 9.1 % (8-40); MCH 29.9 pg (25.7-33.7); MCHC 33.5 g/dl (32.0-35.9); MEAN CELL VOLUME 89.1 fl (80-96); MEAN PLT VOLUME 8.3 fl (7.5-11.1); MONO % 5.5 % (3.8-10.2); NEUT % 84.2 % (42.8-82.8); PLATELET COUNT 258 K/MM3 (134-434); RBC 4.37 M/mm3 (4.00-5.60); RDW 15.2 % (11.9-15.9); WHITE BLOOD COUNT 13.7 K/mm3 (4.0-10.0)
[2018-10-10] MEDS ORDERED: LACTULOSE 20 GM/30 ML UDC (FOR ORAL USE ONLY) PO ONE (02:30)
[2018-10-10] MEDS ORDERED: LACTULOSE 20 GM/30 ML UDC (FOR ORAL USE ONLY) ONE (02:32)
[2018-10-10 02:52] LABS: ALK PHOS 74 U/L (45-117); ANION GAP 11 MMOL/L (8-16); BILIRUBIN,TOTAL 0.5 mg/dL (0.2-1); BLOOD UREA NITROGEN 29 mg/dL (7-18); CALCIUM 10.2 mg/dL (8.5-10.1); CHLORIDE 105 mmol/L (98-107); CO2 21 mmol/L (21-32); CREATININE 1.7 mg/dL (0.55-1.3); GLUCOSE,RANDOM 132 mg/dL (74-106); POTASSIUM 4.6 mmol/L (3.5-5.1); SGOT/AST 23 U/L (15-37); SGPT/ALT 44 U/L (13-61); SODIUM 137 mmol/L (136-145); TOT PROT 7.3 g/dl (6.4-8.2)
[2018-10-10] MEDS ORDERED: morphine CARPU-JECT 2 MG/1 ML DISP.SYRIN IVPUSH ONE (03:46)
[2018-10-10] MEDS ORDERED: morphine SULFATE 4 MG/ML VIAL ONE (03:52)
[2018-10-10 04:22] VITALS: BP 147/88; PULSE 82
[2018-10-10] MEDS ORDERED: SODIUM PHOSPHATE/NA BIPHOS 133 ML ENEMA PR ONE (05:26)
[2018-10-10 05:50] LABS: URINE APPEARANCE CLOUDY; URINE BILIRUBIN NEGATIVE (NEGATIVE); URINE COLOR YELLOW; URINE GLUCOSE (UA) NEGATIVE (NEGATIVE); URINE KETONE TRACE (NEGATIVE); URINE LEUK ESTERASE NEGATIVE (NEGATIVE); URINE NITRITE NEGATIVE (NEGATIVE); URINE PROTEIN TRACE (NEGATIVE)
== END 2018-10-10 06:57 | disposition home or self-care (01) ==
LOC: JER 01:13
PROC: 3E033NZ Introduction of Analgesics, Hypnotics, Sedatives into Peripheral Vein, Percutaneous Approach (ICD-10-PCS; principal; 2018-10-10)
PROC: 3E033NZ Introduction of Analgesics, Hypnotics, Sedatives into Peripheral Vein, Percutaneous Approach (ICD-10-PCS; 2018-10-10)
PROC: 0T9B70Z Drainage of Bladder with Drainage Device, Via Natural or Artificial Opening (ICD-10-PCS; 2018-10-10)
DX: K59.00 Constipation, unspecified (principal); I10 Essential (primary) hypertension; E78.00 Pure hypercholesterolemia, unspecified; F03.90 Unspecified dementia, unspecified severity, without behavioral disturbance, psychotic disturbance, mood disturbance, and anxiety; I69.851 Hemiplegia and hemiparesis following other cerebrovascular disease affecting right dominant side
CPT/HCPCS: 36415; 51702; 74176-TC; 80053; 81003; 82272; 85025; 87086; 96374; 96375; 99285-25; J0131; J7030

== ENCOUNTER 2022-05-24 21:12 | Inpatient (IN) | payer OTHER ==
[2022-05-24 22:07] VITALS: BMI 26.5
[2022-05-24] MEDS ORDERED: MIDAZOLAM HCL 2 MG/2 ML SINGLE DOSE VIAL ONE (22:14)
[2022-05-24] MEDS ORDERED: CEFTRIAXONE 1 GM in DEXTROSE 5%-WATER - 100 ML IVPB ONE (22:40)
[2022-05-24] MEDS ORDERED: MIDAZOLAM HCL 2 MG/2 ML SINGLE DOSE VIAL IM ONE (22:51)
[2022-05-24] MEDS ORDERED: HALOPERIDOL LACTATE 5 MG/ML IM ONE ×3 (22:52→23:30)
[2022-05-24] MEDS ORDERED: CEFTRIAXONE 1 GM/50 ML BAG ONE (23:04)
[2022-05-24 23:35] LABS: BASO % 0.3 % (0-2.0); EOS % 1.4 % (0-4.5); HEMATOCRIT 43.6 % (35.4-49); HEMOGLOBIN 14.5 GM/dL (11.7-16.9); LYMPH % 21.4 % (8-40); MCH 28.5 pg (25.7-33.7); MCHC 33.1 g/dl (32.0-35.9); MEAN CELL VOLUME 86.1 fl (80-96); MONO % 11.8 % (3.8-10.2); NEUT % 65.1 % (42.8-82.8); PLATELET COUNT 242 10^3/uL (134-434); RBC 5.07 M/mm3 (4.00-5.60); RDW 15.4 % (11.9-15.9); WHITE BLOOD COUNT 8.7 K/mm3 (4.0-10.0)
[2022-05-24 23:43] LABS: INR 1.01 (0.83-1.09); PROTHROMBIN TIME (PATIENT) 11.6 SEC (9.7-13.0)
[2022-05-24 23:46] LABS: ACTIVATED PTT 28.9 SECONDS (25.2-36.5)
[2022-05-24 23:47] LABS: CHLORIDE 108 mmol/L (98-107); SODIUM 140 mmol/L (136-145)
[2022-05-24 23:49] LABS: ALBUMIN 3.4 g/dl (3.4-5.0); ANION GAP 9 MMOL/L (8-16); CALCIUM 8.7 mg/dL (8.5-10.1); CO2 24 mmol/L (21-32); GLUCOSE,RANDOM 102 mg/dL (74-106)
[2022-05-24 23:50] LABS: BLOOD UREA NITROGEN 25.2 mg/dL (7-18)
[2022-05-24 23:52] LABS: CREATININE 1.4 mg/dL (0.55-1.3); PHOSPHOROUS 3.5 mg/dL (2.5-4.9); SGOT/AST 33 U/L (15-37); SGPT/ALT 42 U/L (13-61)
[2022-05-24 23:54] LABS: BILIRUBIN,TOTAL 0.4 mg/dL (0.2-1); TOT PROT 6.3 g/dl (6.4-8.2)
[2022-05-24 23:55] LABS: ALK PHOS 85 U/L (45-117); N-TERMINAL BNP 2069.6 pg/ml (5-450)
[2022-05-25] MEDS ORDERED: LORazepam 2 MG/ML SDV VIAL IVPUSH ONE (00:17)
[2022-05-25 00:51] LABS: EPI CELLS 7 /uL (0-25.1); HYALINE CASTS 0 /uL (0-3.1); PH,URINE 6.5 (5.0-8.0); URINE APPEARANCE CLOUDY; URINE BACTERIA 0 /uL (0-1359); URINE BILIRUBIN NEGATIVE (NEGATIVE); URINE COLOR RED; URINE GLUCOSE (UA) NEGATIVE (NEGATIVE); URINE KETONE NEGATIVE (NEGATIVE); URINE LEUK ESTERASE 1+ (NEGATIVE); URINE NITRITE NEGATIVE (NEGATIVE); URINE PROTEIN TRACE (NEGATIVE); URINE RBC 14080 /uL (0-23.9); URINE UROBILINOGEN 0.2 mg/dL (0.2-1.0); URINE WBC 44 /uL (0-25.8)
[2022-05-25 00:55] LABS: METHADONE, UR NEGATIVE (NEGATIVE); PHENCYCLIDINE,URINE NEGATIVE (NEGATIVE)
[2022-05-25 00:56] LABS: COCAINE, UR NEGATIVE (NEGATIVE); OPIATES, URI NEGATIVE (NEGATIVE); URINE AMPHETAMINES NEGATIVE (NEGATIVE)
[2022-05-25 00:57] LABS: URINE BARBITURATES NEGATIVE (NEGATIVE); URINE BENZODIAZEPINES POSITIVE (NEGATIVE)
[2022-05-25] MEDS ORDERED: LACTULOSE 20 GM/30 ML UDC (FOR ORAL USE ONLY) PO PRN (09:07)
[2022-05-25] MEDS: CEFTRIAXONE 1 GM in DEXTROSE 5%-WATER - 50 ML IVPB SCH (10:04)
[2022-05-25] MEDS: NIFEdipine E.R 60 MG TABLET PO SCH (10:05)
[2022-05-25] MEDS: CLOPIDOGREL BISULFATE 75 MG TABLET (FP) PO SCH (10:05)
[2022-05-25] MEDS: ASPIRIN 81 MG CHEWABLE TABLETS PO SCH (10:05)
[2022-05-25] MEDS: LISINOPRIL 5 MG TABLET PO SCH (10:05)
[2022-05-25] MEDS: LORazepam 2 MG/ML SDV VIAL IVPUSH PRN ×2 (10:25→21:00)
[2022-05-25] MEDS: levETIRAcetam 250 MG TABLET PO SCH (10:25)
[2022-05-25] MEDS: LABETALOL HCL 200 MG TABLET (FP) PO SCH (16:28)
[2022-05-25] MEDS: QUEtiapine FUMARATE 25 MG TABLET PO SCH (16:28)
[2022-05-25] MEDS ORDERED: ACETAMINOPHEN 325 MG TABLET (FP) PO PRN (17:41)
[2022-05-26] MEDS: levETIRAcetam 250 MG TABLET PO SCH ×4 (04:50→22:25)
[2022-05-26] MEDS: ROSUVASTATIN CA 10 MG TABLET PO SCH ×3 (04:50→22:24)
[2022-05-26] MEDS: LABETALOL HCL 200 MG TABLET (FP) PO SCH ×5 (04:51→22:25)
[2022-05-26] MEDS: QUEtiapine FUMARATE 25 MG TABLET PO SCH ×4 (04:51→22:25)
[2022-05-26 08:54] LABS: CALCIUM 9.2 mg/dL (8.5-10.1)
[2022-05-26 08:55] LABS: BLOOD UREA NITROGEN 23.5 mg/dL (7-18)
[2022-05-26 08:58] LABS: CREATININE 1.5 mg/dL (0.55-1.3)
[2022-05-26] MEDS: CEFTRIAXONE 1 GM in DEXTROSE 5%-WATER - 50 ML IVPB SCH (11:26)
[2022-05-26] MEDS: NIFEdipine E.R 60 MG TABLET PO SCH (11:26)
[2022-05-26] MEDS: ASPIRIN 81 MG CHEWABLE TABLETS PO SCH (11:27)
[2022-05-26] MEDS: LISINOPRIL 5 MG TABLET PO SCH (11:27)
[2022-05-26] MEDS: CLOPIDOGREL BISULFATE 75 MG TABLET (FP) PO SCH (11:27)
[2022-05-26 12:18] LABS: MAGNESIUM 2.2 mg/dL (1.8-2.4)
[2022-05-26] MEDS ORDERED: HALOPERIDOL LACTATE 5 MG/ML IM PRN (14:25)
[2022-05-26] MEDS: LORazepam 2 MG/ML SDV VIAL IVPUSH PRN ×2 (14:58→23:09)
[2022-05-26] MEDS: OLANZapine 2.5 MG TABLET PO SCH ×2 (22:00→22:27)
[2022-05-27] MEDS: LABETALOL HCL 200 MG TABLET (FP) PO SCH ×3 (06:03→22:03)
[2022-05-27 07:49] LABS: BASO % 0.5 % (0-2.0); EOS % 1.6 % (0-4.5); HEMATOCRIT 45.1 % (35.4-49); HEMOGLOBIN 14.5 GM/dL (11.7-16.9); LYMPH % 16.4 % (8-40); MCH 28.1 pg (25.7-33.7); MCHC 32.3 g/dl (32.0-35.9); MEAN CELL VOLUME 87.2 fl (80-96); MEAN PLT VOLUME 9.2 fl (7.5-11.1); MONO % 10.7 % (3.8-10.2); NEUT % 70.8 % (42.8-82.8); PLATELET COUNT 287 10^3/uL (134-434); RBC 5.17 M/mm3 (4.00-5.60); RDW 15.5 % (11.9-15.9); WHITE BLOOD COUNT 10.1 K/mm3 (4.0-10.0)
[2022-05-27] MEDS: CEFTRIAXONE 1 GM in DEXTROSE 5%-WATER - 50 ML IVPB SCH (10:45)
[2022-05-27] MEDS: levETIRAcetam 250 MG TABLET PO SCH (12:37)
[2022-05-27] MEDS: QUEtiapine FUMARATE 25 MG TABLET PO SCH ×2 (12:37→22:03)
[2022-05-27] MEDS: CLOPIDOGREL BISULFATE 75 MG TABLET (FP) PO SCH (12:37)
[2022-05-27] MEDS: NIFEdipine E.R 60 MG TABLET PO SCH (12:38)
[2022-05-27] MEDS: LISINOPRIL 5 MG TABLET PO SCH (12:38)
[2022-05-27] MEDS: ASPIRIN 81 MG CHEWABLE TABLETS PO SCH (12:38)
[2022-05-27] MEDS: levETIRAcetam 500 MG/5 ML INJECTION VIAL IVPB SCH ×2 (14:14→22:29)
[2022-05-27] MEDS: HEPARIN NA (PORCINE) 5,000 UNITS/ML 1ML VIAL SQ SCH ×2 (14:17→22:30)
[2022-05-27] MEDS: D5-1/2NS+20 MEQ KCL - 20 MEQ/1,000 ML INFUS.BAG IV SCH (15:16)
[2022-05-27] MEDS: PIPERACILLIN/TAZOB 3.375 GM 3.375 GM in DEXTROSE 5%-WATER - 50 ML IVPB SCH (17:39)
[2022-05-27] MEDS: ROSUVASTATIN CA 10 MG TABLET PO SCH (22:03)
[2022-05-27] MEDS: OLANZapine 2.5 MG TABLET PO SCH (22:03)
[2022-05-28] MEDS: PIPERACILLIN/TAZOB 3.375 GM 3.375 GM in DEXTROSE 5%-WATER - 50 ML IVPB SCH ×3 (02:16→17:51)
[2022-05-28] MEDS: LABETALOL HCL 5 MG/1 ML (100MG/20 ML VIAL) IVPUSH PRN ×2 (06:49→12:35)
[2022-05-28] MEDS: LABETALOL HCL 200 MG TABLET (FP) PO SCH ×2 (06:53→14:03)
[2022-05-28] MEDS ORDERED: hydrALAZINE HCL 20 MG/ML VIAL IVPUSH PRN (09:24)
[2022-05-28] MEDS: HEPARIN NA (PORCINE) 5,000 UNITS/ML 1ML VIAL SQ SCH ×2 (10:36→21:35)
[2022-05-28] MEDS: levETIRAcetam 500 MG/5 ML INJECTION VIAL IVPB SCH (10:37)
[2022-05-28] MEDS: D5-1/2NS+20 MEQ KCL - 20 MEQ/1,000 ML INFUS.BAG IV SCH (10:38)
[2022-05-28] MEDS: QUEtiapine FUMARATE 25 MG TABLET PO SCH (11:57)
[2022-05-28] MEDS: LISINOPRIL 5 MG TABLET PO SCH (12:00)
[2022-05-28] MEDS: CLOPIDOGREL BISULFATE 75 MG TABLET (FP) PO SCH (12:05)
[2022-05-28] MEDS: ASPIRIN 81 MG CHEWABLE TABLETS PO SCH (12:05)
[2022-05-28] MEDS: NIFEdipine E.R 60 MG TABLET PO SCH (12:05)
[2022-05-28] MEDS: ASPIRIN 300 MG SUPP.RECT RC SCH (14:04)
[2022-05-28 15:44] LABS: BLOOD UREA NITROGEN 35.1 mg/dL (7-18); CALCIUM 8.6 mg/dL (8.5-10.1)
[2022-05-28 15:45] LABS: BASO % 0.5 % (0-2.0); HEMATOCRIT 42.8 % (35.4-49); HEMOGLOBIN 13.8 GM/dL (11.7-16.9); LYMPH % 14.3 % (8-40); MCH 28.6 pg (25.7-33.7); MCHC 32.3 g/dl (32.0-35.9); MEAN CELL VOLUME 88.6 fl (80-96); MEAN PLT VOLUME 8.9 fl (7.5-11.1); MONO % 12.9 % (3.8-10.2); NEUT % 70.3 % (42.8-82.8); PLATELET COUNT 235 10^3/uL (134-434); RBC 4.83 M/mm3 (4.00-5.60); RDW 15.5 % (11.9-15.9); WHITE BLOOD COUNT 8.1 K/mm3 (4.0-10.0)
[2022-05-28] MEDS ORDERED: OXYMETAZOLINE 0.05% NASAL SOLUTION 15 ML BOTTLE NS ONE (20:18)
[2022-05-28] MEDS: Lacosamide 200 MG/20 ML VIAL IVPB SCH (21:35)
[2022-05-28] MEDS: ROSUVASTATIN CA 10 MG TABLET PO SCH (21:35)
[2022-05-28] MEDS: LABETALOL HCL 200 MG TABLET (FP) NGT SCH (21:54)
[2022-05-29] MEDS: LABETALOL HCL 5 MG/1 ML (100MG/20 ML VIAL) IVPUSH PRN (01:43)
[2022-05-29] MEDS: PIPERACILLIN/TAZOB 3.375 GM 3.375 GM in DEXTROSE 5%-WATER - 50 ML IVPB SCH ×3 (04:57→17:33)
[2022-05-29] MEDS: NICARDIPINE 25 MG in DEXTROSE 5%-WATER - 240 ML IVPB SCH (06:18)
[2022-05-29] MEDS: LABETALOL HCL 200 MG TABLET (FP) NGT SCH ×3 (07:18→21:50)
[2022-05-29 08:38] LABS: BASO % 0.4 % (0-2.0); EOS % 1.8 % (0-4.5); HEMATOCRIT 44.3 % (35.4-49); HEMOGLOBIN 14.3 GM/dL (11.7-16.9); LYMPH % 14.1 % (8-40); MCH 28.2 pg (25.7-33.7); MCHC 32.3 g/dl (32.0-35.9); MEAN CELL VOLUME 87.3 fl (80-96); MEAN PLT VOLUME 9.4 fl (7.5-11.1); MONO % 11.4 % (3.8-10.2); NEUT % 72.3 % (42.8-82.8); PLATELET COUNT 251 10^3/uL (134-434); RBC 5.07 M/mm3 (4.00-5.60); RDW 15.5 % (11.9-15.9); WHITE BLOOD COUNT 9.2 K/mm3 (4.0-10.0)
[2022-05-29 08:44] LABS: CALCIUM 8.6 mg/dL (8.5-10.1)
[2022-05-29 08:45] LABS: BLOOD UREA NITROGEN 30.9 mg/dL (7-18)
[2022-05-29 08:48] LABS: CREATININE 1.7 mg/dL (0.55-1.3)
[2022-05-29] MEDS: MUPIROCIN 2% TOPICAL OINTMENT FOR DECOLONIZATION NS SCH ×2 (11:34→21:57)
[2022-05-29] MEDS: HEPARIN NA (PORCINE) 5,000 UNITS/ML 1ML VIAL SQ SCH ×2 (11:40→21:57)
[2022-05-29] MEDS: ASPIRIN 300 MG SUPP.RECT RC SCH (11:40)
[2022-05-29] MEDS: LISINOPRIL 5 MG TABLET NGT SCH (11:49)
[2022-05-29] MEDS: NIFEdipine E.R 60 MG TABLET PO SCH (11:49)
[2022-05-29] MEDS: Lacosamide 200 MG/20 ML VIAL IVPB SCH ×2 (11:49→21:56)
[2022-05-29 12:35] LABS: ARTERIAL BLD GAS O2 SATURATION 96.3 % (95-98); ARTERIAL BLOOD GAS BASE EXCESS -1.1 mmol/L (-2-2); ARTERIAL BLOOD GAS PO2 82.6 mmHg (80-100); ARTERIAL BLOOD GAS pH 7.415 (7.350-7.450)
[2022-05-29 12:38] LABS: ALLENS TEST POSITIVE
[2022-05-29] MEDS: D5-1/2NS+20 MEQ KCL - 20 MEQ/1,000 ML INFUS.BAG IV SCH (16:11)
[2022-05-29] MEDS: ROSUVASTATIN CA 10 MG TABLET PO SCH (21:57)
[2022-05-29] MEDS ORDERED: CHLORHEXIDINE GLUCONATE 4% CLEANSER FOR DECOLONIZATION TP SCH (22:00)
[2022-05-30] MEDS: PIPERACILLIN/TAZOB 3.375 GM 3.375 GM in DEXTROSE 5%-WATER - 50 ML IVPB SCH (01:42)
[2022-05-30] MEDS: NICARDIPINE 25 MG in DEXTROSE 5%-WATER - 240 ML IVPB SCH (06:16)
[2022-05-30] MEDS: LABETALOL HCL 200 MG TABLET (FP) NGT SCH ×2 (06:52→15:03)
[2022-05-30] MEDS ORDERED: LORazepam 2 MG/ML SDV VIAL IVPUSH PRN (08:25)
[2022-05-30] MEDS ORDERED: ACETAMINOPHEN 325 MG TABLET (FP) PO PRN (08:25)
[2022-05-30] MEDS ORDERED: LACTULOSE 20 GM/30 ML UDC (FOR ORAL USE ONLY) PO PRN (08:25)
[2022-05-30] MEDS ORDERED: D5-1/2NS+20 MEQ KCL - 20 MEQ/1,000 ML INFUS.BAG IV SCH (08:25)
[2022-05-30] MEDS ORDERED: LABETALOL HCL 5 MG/1 ML (100MG/20 ML VIAL) IVPUSH PRN (08:25)
[2022-05-30] MEDS: LISINOPRIL 5 MG TABLET NGT SCH (09:00)
[2022-05-30] MEDS: MUPIROCIN 2% TOPICAL OINTMENT FOR DECOLONIZATION NS SCH (09:00)
[2022-05-30] MEDS: Lacosamide 200 MG/20 ML VIAL IVPB SCH (09:01)
[2022-05-30 09:31] LABS: BASO % 0.8 % (0-2.0); EOS % 2.7 % (0-4.5); HEMATOCRIT 42.5 % (35.4-49); HEMOGLOBIN 13.9 GM/dL (11.7-16.9); LYMPH % 13.3 % (8-40); MCH 28.6 pg (25.7-33.7); MCHC 32.8 g/dl (32.0-35.9); MEAN CELL VOLUME 87.3 fl (80-96); MEAN PLT VOLUME 8.7 fl (7.5-11.1); MONO % 10.4 % (3.8-10.2); NEUT % 72.8 % (42.8-82.8); PLATELET COUNT 240 10^3/uL (134-434); RBC 4.87 M/mm3 (4.00-5.60); RDW 15.2 % (11.9-15.9); WHITE BLOOD COUNT 9.2 K/mm3 (4.0-10.0)
[2022-05-30 09:46] LABS: CHLORIDE 110 mmol/L (98-107); SODIUM 141 mmol/L (136-145)
[2022-05-30 09:48] LABS: CALCIUM 8.2 mg/dL (8.5-10.1)
[2022-05-30 09:49] LABS: ANION GAP 6 MMOL/L (8-16); BLOOD UREA NITROGEN 28.4 mg/dL (7-18); CO2 24 mmol/L (21-32); GLUCOSE,RANDOM 121 mg/dL (74-106)
[2022-05-30 09:52] LABS: CREATININE 1.7 mg/dL (0.55-1.3); SGOT/AST 28 U/L (15-37); SGPT/ALT 27 U/L (13-61)
[2022-05-30 09:53] LABS: TOT PROT 5.6 g/dl (6.4-8.2)
[2022-05-30 09:54] LABS: ALBUMIN 2.7 g/dl (3.4-5.0); ALK PHOS 88 U/L (45-117); BILIRUBIN,TOTAL 0.5 mg/dL (0.2-1)
[2022-05-30] MEDS ORDERED: HEPARIN NA (PORCINE) 5,000 UNITS/ML 1ML VIAL SQ SCH (10:00)
[2022-05-30] MEDS ORDERED: NIFEdipine E.R 60 MG TABLET PO SCH (10:00)
[2022-05-30] MEDS ORDERED: PIPERACILLIN/TAZOB 3.375 GM 3.375 GM in DEXTROSE 5%-WATER - 50 ML IVPB SCH (10:00)
[2022-05-30] MEDS ORDERED: ASPIRIN 300 MG SUPP.RECT RC SCH (10:00)
[2022-05-30] MEDS ORDERED: SCOPOLAMINE HYDROBROMIDE 1 PATCH PATCH.TD72 TD SCH (11:15)
[2022-05-30] MEDS ORDERED: DEXTROSE 5%-LACTATED RINGERS 1,000 ML IV SCH (12:00)
[2022-05-30] MEDS ORDERED: LORazepam 2 MG/ML SDV VIAL IVPUSH ONE (12:23)
[2022-05-30] MEDS ORDERED: morphine SULFATE 4 MG/ML VIAL IVPUSH ONE (12:23)
[2022-05-30] MEDS ORDERED: morphine CARPU-JECT 4 MG/1 ML DISP.SYRIN IVPUSH ONE (12:23)
[2022-05-30] MEDS ORDERED: morphine SULFATE 4 MG/ML VIAL ONE (12:24)
[2022-05-30] MEDS ORDERED: MORPHINE SULFATE/0.9% NACL/PF 100 MG/100 ML BAG IVPB SCH (12:30)
[2022-05-30] MEDS ORDERED: ROSUVASTATIN CA 10 MG TABLET PO SCH (22:00)
[2022-05-31] MEDS ORDERED: MORPHINE SULFATE/0.9% NACL/PF 100 MG/100 ML BAG IVPB SCH (07:18)
[2022-05-31] MEDS ORDERED: LORazepam 2 MG/ML SDV VIAL IVPUSH PRN (07:18)
[2022-05-31 15:35] VITALS: TEMP 97
[2022-05-31 15:36] VITALS: BP 133/61; PULSE 98; RESP 20
== END 2022-05-31 19:55 | disposition expired | DRG 64 ==
LOC: JER 21:12 → JERBED 05-25 00:23 → J4W 05-25 04:46 → JICU 05-29 09:48 → J8W 05-30 21:55
PROVIDERS: ADMIT Internal Medicine; ATTEND Internal Medicine
DX: I63.89 Other cerebral infarction (principal); G93.41 Metabolic encephalopathy; J69.0 Pneumonitis due to inhalation of food and vomit; I69.351 Hemiplegia and hemiparesis following cerebral infarction affecting right dominant side; N17.9 Acute kidney failure, unspecified; J98.11 Atelectasis; I13.0 Hypertensive heart and chronic kidney disease with heart failure and stage 1 through stage 4 chronic kidney disease, or unspecified chronic kidney disease; N18.4 Chronic kidney disease, stage 4 (severe); I63.9 Cerebral infarction, unspecified; E78.5 Hyperlipidemia, unspecified; Y92.098 Other place in other non-institutional residence as the place of occurrence of the external cause; F03.90 Unspecified dementia, unspecified severity, without behavioral disturbance, psychotic disturbance, mood disturbance, and anxiety; I16.0 Hypertensive urgency; G40.909 Epilepsy, unspecified, not intractable, without status epilepticus; I25.10 Atherosclerotic heart disease of native coronary artery without angina pectoris; R45.1 Restlessness and agitation; I35.0 Nonrheumatic aortic (valve) stenosis; G93.89 Other specified disorders of brain; W18.30XA Fall on same level, unspecified, initial encounter; I50.9 Heart failure, unspecified; I46.9 Cardiac arrest, cause unspecified
CPT/HCPCS: 0241U-QW; 36415; 36600; 70450-TC; 70496-TC; 70498-TC; 70551-TC; 71045-TC-FY; 71250-TC; 74176-TC; 76856-TC; 80048; 80053; 80307; 81003; 82550; 82553; 82803; 83605; 83735; 83880; 84100; 84439; 84443; 84484; 85025; 85610; 85730; 86850; 86900; 86901; 87040; 87086; 87899; 93005; 93010; 93306-TC; 99285-25; E0372; J1644; Q9967